=== PATIENT | female | born 1955 | race Caucasian/White ===

== ENCOUNTER 2020-04-04 13:52 | Outpatient (CLI) | payer BC, SELFPAY ==
--- NOTE | 2020-04-04 14:01 | USCV_ITS ---
Gregoria Barth Age: 64 Gender: F : 1955 Exam Date: 04/04/2020 14:23 Ordering Phys: Alfredo Dow MD Technologist: Carolina Arellano [place]am [place] [facility] [place]: murmur BP: / HR: 106 Rhythm: Sinus Technical Quality: Adequate MEASUREMENTS (Male / Female) Normal Values 2D ECHO LVOT Diameter 2.0 cm LV Ejection Fraction MOD 2C 70.6 % LV Ejection Fraction 2C AL 69.1 % LA Diameter 3.2 cm LA Width 4.2 cm LA Height 6.1 cm RA Width 2.9 cm RA Height 5.2 cm M-MODE LV Diastolic Diameter MM 5.9 cm 4.2 - 5.9 / 3.9 - 5.3 cm LV Systolic Diameter MM 4.2 cm LV Ejection Fraction MM Teich 55.4 % IVS Diastolic Thickness MM 0.9 cm 0.6 - 1.0 / 0.6 - 0.9 cm IVS Systolic Thickness MM 1.0 cm LVPW Diastolic Thickness MM 0.6 cm 0.6 - 1.0 / 0.6 - 0.9 cm LVPW Systolic Thickness MM 0.9 cm Aortic Annulus Diameter 2.9 cm LA Ao Ratio MM 1.1 MV E Point Septal Separation 0.7 cm DOPPLER AV Peak Velocity 167.0 cm/s LVOT Peak Velocity 143.0 cm/s AV Area Cont Eq vti 3.4 cm squared AV Area Cont Eq pk 2.8 cm squared MV Peak Velocity 169.0 cm/s MV Area PHT 3.2 cm squared Mitral E to A Ratio 1.0 MV E' Velocity 70.5 cm/s Mitral E to MV E' Ratio 17.4 Mitral E to LV E' Lateral Ratio 18.9 Mitral E to LV E' Septal Ratio 16.2 TR Peak Velocity 192.7 cm/s TR Peak Gradient 14.8 mmHg Right Atrial Pressure 3.0 mmHg Pulmonary Artery Systolic Pressu 17.8 mmHg PV Peak Velocity 150.3 cm/s RV Acceleration Time 0.1 s FINDINGS Left Ventricle Normal left ventricular size and systolic function, EF 65 %. No regional wall motion abnormalities. Right Ventricle The right ventricle is normal in size and function. Right Atrium The right atrium is normal in size. Left Atrium Mildly increased left atrial size. Mitral Valve Thickened mitral valve. Mild mitral annular calcification. Moderately severe eccentric mitral regurgitation. Aortic Valve Thickened aortic valve. Tricuspid Valve Trace tricuspid valve regurgitation. Pulmonic Valve Structurally normal pulmonic valve without significant stenosis. There is no pulmonic regurgitation. Pericardium Normal pericardium without effusion. Aorta Normal ascending aorta dimension. CONCLUSIONS Normal left ventricular size and systolic function, EF 65 %. No regional wall motion abnormalities. Thickened mitral valve. Mild mitral annular calcification. Moderately severe eccentric mitral regurgitation. Trace tricuspid valve regurgitation. Thickened aortic valve. There is no pericardial effusion. There are no intracardiac masses. Comparison with the previous study from 09/12/2015 is difficult because of the difference in the technical quality. Consider YOJANA, to better evaluate the mitral valve and the mitral regurgitation Dr Terra Carpio MD FAC (Electronically Signed) Final Date: 04 April 2020 19:22 S
== END 2020-04-04 13:53 | disposition home or self-care (01) ==
LOC: US 13:58
PROVIDERS: PCP Family Medicine; Visit Provider Family Medicine
DX: R01.1 Cardiac murmur, unspecified (principal); I08.0 Rheumatic disorders of both mitral and aortic valves
CPT/HCPCS: 93306

== ENCOUNTER 2020-04-06 16:33 | Inpatient (IN) | payer BC, SELFPAY ==
[2020-04-06] VITALS (8 sets, daily range): BP systolic 131–180; BP diastolic 76–116; PULSE 84–122; RESP 16–22; TEMP 36.7–37.2; O2SAT 94–100; BMI 42.3
[2020-04-06 18:37] LABS: Basophils % 0.4 %; Eosinophils # 0.2 10^3/uL (0.0-0.8); Eosinophils % 2.3 %; Hematocrit 21.7 % (37.0-47.0); Lymphocytes # 2.1 10^3/uL (0.8-4.8); Lymphocytes % 21.7 %; Mean Corpuscular HGB Conc 23.5 g/dL (30.0-36.0); Mean Corpuscular Hemoglobin 14.3 pg (28.0-34.0); Monocytes # 0.8 10^3/uL (0.2-0.9); Monocytes % 8.3 %; Neutrophils # 6.47 10^3/uL (1.8-7.7); Neutrophils % 66.9 %; Nucleated Red Blood Cells % 0.3 %; Platelet Count 489 10^3/cmm (130-400); Red Blood Count 3.56 10^6/uL (4.1-5.3); Red Cell Distribution Width 19.7 % (12.1-15.1); White Blood Count 9.7 10^3/uL (4.0-10.0)
[2020-04-06 18:41] LABS: Hemoglobin 5.1 g/dL (11.5-15.3)
--- NOTE | 2020-04-06 18:54 | ECG_ITS ---
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 Measurements Intervals [place] Rate: 109 P: 56 IN: 191 QRS: -17 QRSD: 92 T: 71 QT: 338 QTc: 457 Interpretive Statements SINUS TACHYCARDIA WITH OCCASIONAL SUPRAVENTRICULAR PREMATURE COMPLEXES VOLTAGE CRITERIA FOR LVH [MEETS CRITERIA IN ONE OF: R(aVL), S(V1), R(V5), R(V5/V6)+S(V1)] NONSPECIFIC ST & T-WAVE ABNORMALITY Compared to ECG 09/13/2015 05:32:05 Left ventricular hypertrophy now present T-wave abnormality now present Sinus rhythm no longer present First degree AV block no longer present Myocardial infarct finding no longer present Electronically Signed On 04-07-2020 18:00:58 CDT by Audrey Phillips M.D. [id number]
[2020-04-06 19:00] LABS: Alanine Aminotransferase 6 U/L (0-33); Albumin Level 4.2 g/dL (3.5-5.2); Alkaline Phosphatase 143 IU/L (35-105); Anion Gap 15.5 (5-19); Aspartate Amino Transferase 13 U/L (0-32); Blood Urea Nitrogen 11 mg/dL (8-23); Calcium 9.5 mg/dL (8.5-10.5); Carbon Dioxide 24 mmol/L (22-29); Chloride 101 mmol/L (98-107); Globulin 2.7 g/dL (1.3-4.6); Glomerular Filtration Rate 84.5 mL/min (90-130); Glucose 136 mg/dL (65-115); Osmolality Calculated 285 mOsm/kg (285-295); Potassium 3.5 mmol/L (3.5-5.1); Sodium 137 mmol/L (136-145); Total Bilirubin 0.3 mg/dL (0.15-1.2); Total Protein 6.9 g/dL (6.6-8.7)
--- NOTE | 2020-04-06 19:17 | ED_ITS ---
HPI - Recheck/Abnormal Lab/Rx General: Chief Complaint: Recheck/Abnormal Lab/Rx Stated Complaint: needs blood Time Seen by Provider: 04/06/20 19:09 Source: patient Mode of arrival: ambulatory Limitations: no limitations History of Present Illness: HPI narrative: Gregoria is a very nice 64-year-old female who comes in complaining of weakness, fatigue and generalized malaise. She states the symptoms have been going on for over a month. She went and saw her primary physician who sindy outpatient labs and revealed a hemoglobin of 5.2. Patient states she has had some small amounts of bright red blood in her stool but she thought this was from hemorrhoids. She does get lightheaded and presyncopal at times. She has rapid palpitations when she exerts herself. She denies any real chest pain. She denies any other complaints. Patient does have A. fib but denies being on anticoagulation other than aspirin. Review of Systems Const: Reports: fatigue and malaise; Denies: fever(s), chills, body aches or diaphoresis Eyes: Denies: change in vision, blurry vision, photophobia, eye discomfort, eye discharge, eye redness or yellow eyes ENMT: Denies: throat pain, odynophagia, hoarseness, swelling of lips/tongue, ear or mastoid pain, ear discharge, change in hearing or nasal discharge Card: Reports: palpitations, lightheadedness and pre-syncope; Denies: chest pain, irregular heart rhythm, edema, syncope or orthopnea Resp: Denies: productive cough, non-productive cough, wheezing, hemoptysis or chest congestion GI: Denies: abdominal pain, nausea, vomiting, hematemesis, coffee ground emesis, heartburn, diarrhea, constipation, GI cramping, hematochezia or melena : Denies: flank pain, dysuria, urinary frequency, urinary urgency or hematuria Musc: Denies: neck pain, back pain, extremity pain, extremity swelling, joint pain, joint swelling, joint redness, joint warmth or joint stiffness Skin/Breast: Denies: rash, pruritus, erythema, skin pain or skin tenderness Neuro: Denies: headache(s), numbness in extremities, weakness in extremities, sensory changes, lack of coordination, difficulty walking, dizziness, vertigo, confusion, Slurred speech present or seizure-like activity Berny/Lymph: Denies: easy bruising, easy bleeding, petechiae, purpura or enlarged lymph nodes All/Imm: Denies: urticaria, throat swelling, tongue swelling, facial swelling or acute wheezing PFSH ED PFSH: Medical History Atrial fibrillation GERD (gastroesophageal reflux disease) Heart murmur Surgical History H/O: hysterectomy History of esophagogastroduodenoscopy (EGD) Hx of colonoscopy S/P cholecystectomy Family History (Updated 04/06/20 @ 20:15 by Jamaal Wilson MD) Mother Breast cancer Father Lung cancer Social History Smoking and tobacco status: never smoked Alcohol intake: never Substance/Drug Use: never Physical Exam Const: COMMON NORMALS: no acute distress, patient oriented x3, no limitations and alert GENERAL APPEARANCE: cooperative HENMT: COMMON NORMALS: normocephalic, atraumatic, external ears normal, EAC's normal and Normal external nose present HEAD & SCALP: normal to inspection, normocephalic and atraumatic FACE & SINUS: normal facial exam and face symmetric NOSE: Normal external nose present and Normal nares present EXTERNAL EAR: Yes external ears normal EXTERNAL AUDITORY CANAL: EAC's normal MOUTH: Normal oral and palatal mucosa present, lip normal and tongue normal Eye: COMMON NORMALS: Equal, round and reactive pupils present and conjunctivae normal GENERAL EYE: appearance normal, both eyes and all related structures ALIGNMENT: Yes alignment normal PERIORBITAL: periorbital findings normal EYELID: eyelids normal CONJUNCTIVA: Yes conjunctivae normal SCLERA: sclerae normal PUPIL: Yes Equal, round and reactive pupils present Neck/C-Spine: COMMON NORMALS: full ROM, no lymphadenopathy, supple, no meningeal signs and no JVD GENERAL: Yes normal visual inspection and Yes trachea midline Chest: COMMONS NORMALS: normal inspection of the chest and normal palpation of entire chest wall Resp: COMMON NORMALS: normal respiratory effort, No retractions, No use of accessory muscles and clear to auscultation bilaterally EFFORT & INSPECTION: Yes able to speak in complete sentences and Yes symmetric chest movement AUSCULTATION: clear to auscultation bilaterally, no crackles, no rales, no rhonchi and no wheezes Cardio: COMMON NORMALS: no JVD, regular rate, regular rhythm, S1 normal heart sound present and S2 normal heart sound present RATE: regular rate RHYTHM: regular rhythm HEART SOUNDS: S1 normal heart sound present, S2 normal heart sound present, no click, no gallops, no murmurs and no rubs GI: COMMON NORMALS: Soft to palpation and No hepatosplenomegaly present PALPATION: Yes Soft to palpation, No Tenderness to palpation present (GI), No Guarding due to palpation present (GI), No Rigid due to palpation, Yes No hepatosplenomegaly present, No Hernia present, No Palpable mass present and No Pulsatile mass present RECTAL EXAM: visual inspection normal, normal sphincter tone, heme positive stool 2+ and External hemorrhoid(s) present OTHER: Light brown stool : COMMON NORMALS: Yes no CVA tenderness BLADDER/KIDNEY EXAM: Yes no CVA tenderness EXTERNAL FEMALE EXAM: No Hernia present Back/Pelvis: COMMON NORMALS: no CVA tenderness, thoracic and lumbar spine normal to inspection, no thoracic nor lumbar tenderness and thoraco-lumbar ROM normal Extremity: COMMON NORMALS: normal to inspection, full ROM, capillary refill normal, no joint enlargement, no clubbing, cyanosis or edema and no calf tenderness Neuro: COMMON NORMALS: patient oriented x3, CN's II-XII intact bilaterally, moves all extremities, no focal motor deficits and no sensory deficits noted SENSORIUM/ORIENTATION: Yes alert MENINGEAL SIGNS: Yes no meningeal signs SPEECH: speech normal Psych: COMMON NORMALS: mental status grossly normal, Normal thought process present, cooperative, normal affect, speech normal and activity/motor behavior normal SPEECH: Yes normal speech THOUGHT PROCESS: Normal thought process present Skin: COMMON NORMALS: no rashes or lesions noted, turgor normal, no jaundice, no petechiae and no mottling GENERAL SKIN EXAM: no rashes or lesions noted and turgor normal Course Vital Signs: Vital signs: Vital Signs Temperature 98.7 F 04/07/20 01:42 Pulse Rate 103 H 04/07/20 01:42 Respiratory Rate 20 H 04/07/20 01:42 Blood Pressure 148/84 04/07/20 01:42 Pulse Oximetry 98 04/07/20 00:00 MDM - Recheck/Abnormal Lab/Rx MDM Narrative: Medical decision making narrative: 1948 - Patient is Hemoccult positive light brown stool I suspect a upper GI bleed but definitive cause for anemia still to be determined. I have endorsed the case to Dr. Wilson and Dr. Engel and they agreed to admit and consult respectively. Patient is currently hemodynamically stable and has blood ready to transfuse. Lab Data: Attestation: I reviewed the patient's lab results. Labs: Lab Results 04/06/20 04/06/20 04/06/20 Range/Units 18:16 18:16 18:16 WBC 9.7 (4.0-10.0) 10^3/ uL RBC 3.56 L (4.1-5.3) 10^6/u L Hgb 5.1 L* (11.5-15.3) g/dL Hct 21.7 L (37.0-47.0) % MCV 61.0 L (81-99) fL MCH 14.3 L (28.0-34.0) pg MCHC 23.5 L (30.0-36.0) g/dL RDW 19.7 H (12.1-15.1) % Plt Count 489 H (130-400) 10^3/c mm MPV 9.0 (7.4-10.4) fL Neut % (Auto) 66.9 % Lymph % (Auto) 21.7 % [place] % (Auto) 8.3 % Eos % (Auto) 2.3 % Baso % (Auto) 0.4 % Reticulocyte % (Au to) % Neut # (Auto) 6.47 (1.8-7.7) 10^3/u L Lymph # (Auto) 2.1 (0.8-4.8) 10^3/u L [place] # (Auto) 0.8 (0.2-0.9) 10^3/u L Eos # (Auto) 0.2 (0.0-0.8) 10^3/u L Baso # (Auto) 0.0 (0.0-0.1) 10^3/u L Nucleated RBC % (a uto) 0.3 % Nucleated RBCs # 0.0 /100WBC PT 13.90 (12.1-14.9) SECO NDS INR 1.04 (0.8-1.2) APTT 30.7 (23.9-36.7) SECO NDS Sodium 137 (136-145) mmol/L Potassium 3.5 (3.5-5.1) mmol/L Chloride 101 (98-107) mmol/L Carbon Dioxide 24 (22-29) mmol/L Anion Gap 15.5 (5-19) BUN 11 (8-23) mg/dL Creatinine 0.7 (0.5-0.9) mg/dL GFR Calculation 84.5 L (90-130) mL/min Glucose 136 H (65-115) mg/dL Calculated Osmolal ity 285 (285-295) mOsm/k g Calcium 9.5 (8.5-10.5) mg/dL Iron (37-145) ug/dL TIBC mcg/dl % Saturation (20-50) % Unsat Iron Binding (112-347) ug/dL Ferritin (15-150) ng/mL Total Bilirubin 0.3 (0.15-1.2) mg/dL AST 13 (0-32) U/L ALT 6 (0-33) U/L Alkaline Phosphata se 143 H (35-105) IU/L Troponin T Baselin e (0-10) ng/L Total Protein 6.9 (6.6-8.7) g/dL Albumin 4.2 (3.5-5.2) g/dL Globulin 2.7 (1.3-4.6) g/dL Vitamin B12 (232-1245) pg/mL Folate (4.8-37.3) ng/mL TSH (0.27-4.20) uIU/ mL Blood Type Rho(D) Type Antibody Screen Crossmatch 04/06/20 04/06/20 04/06/20 Range/Units 18:16 18:16 18:16 WBC (4.0-10.0) 10^3/ uL RBC (4.1-5.3) 10^6/u L Hgb (11.5-15.3) g/dL Hct (37.0-47.0) % MCV (81-99) fL MCH (28.0-34.0) pg MCHC (30.0-36.0) g/dL RDW (12.1-15.1) % Plt Count (130-400) 10^3/c mm MPV (7.4-10.4) fL Neut % (Auto) % Lymph % (Auto) % [place] % (Auto) % Eos % (Auto) % Baso % (Auto) % Reticulocyte % (Au to) 2.0500 % Neut # (Auto) (1.8-7.7) 10^3/u L Lymph # (Auto) (0.8-4.8) 10^3/u L [place] # (Auto) (0.2-0.9) 10^3/u L Eos # (Auto) (0.0-0.8) 10^3/u L Baso # (Auto) (0.0-0.1) 10^3/u L Nucleated RBC % (a uto) % Nucleated RBCs # /100WBC PT (12.1-14.9) SECO NDS INR (0.8-1.2) APTT (23.9-36.7) SECO NDS Sodium (136-145) mmol/L Potassium (3.5-5.1) mmol/L Chloride (98-107) mmol/L Carbon Dioxide (22-29) mmol/L Anion Gap (5-19) BUN (8-23) mg/dL Creatinine (0.5-0.9) mg/dL GFR Calculation (90-130) mL/min Glucose (65-115) mg/dL Calculated Osmolal ity (285-295) mOsm/k g Calcium (8.5-10.5) mg/dL Iron (37-145) ug/dL TIBC mcg/dl % Saturation (20-50) % Unsat Iron Binding (112-347) ug/dL Ferritin (15-150) ng/mL Total Bilirubin (0.15-1.2) mg/dL AST (0-32) U/L ALT (0-33) U/L Alkaline Phosphata se (35-105) IU/L Troponin T Baselin e 11 H (0-10) ng/L Total Protein (6.6-8.7) g/dL Albumin (3.5-5.2) g/dL Globulin (1.3-4.6) g/dL Vitamin B12 (232-1245) pg/mL Folate (4.8-37.3) ng/mL TSH (0.27-4.20) uIU/ mL Blood Type O Positive Rho(D) Type Positive Antibody Screen Negative Crossmatch See Detail 04/06/20 04/06/20 Range/Units 18:16 18:16 WBC (4.0-10.0) 10^3/ uL RBC (4.1-5.3) 10^6/u L Hgb (11.5-15.3) g/dL Hct (37.0-47.0) % MCV (81-99) fL MCH (28.0-34.0) pg MCHC (30.0-36.0) g/dL RDW (12.1-15.1) % Plt Count (130-400) 10^3/c mm MPV (7.4-10.4) fL Neut % (Auto) % Lymph % (Auto) % [place] % (Auto) % Eos % (Auto) % Baso % (Auto) % Reticulocyte % (Au to) % Neut # (Auto) (1.8-7.7) 10^3/u L Lymph # (Auto) (0.8-4.8) 10^3/u L [place] # (Auto) (0.2-0.9) 10^3/u L Eos # (Auto) (0.0-0.8) 10^3/u L Baso # (Auto) (0.0-0.1) 10^3/u L Nucleated RBC % (a uto) % Nucleated RBCs # /100WBC PT (12.1-14.9) SECO NDS INR (0.8-1.2) APTT (23.9-36.7) SECO NDS Sodium (136-145) mmol/L Potassium (3.5-5.1) mmol/L Chloride (98-107) mmol/L Carbon Dioxide (22-29) mmol/L Anion Gap (5-19) BUN (8-23) mg/dL Creatinine (0.5-0.9) mg/dL GFR Calculation (90-130) mL/min Glucose (65-115) mg/dL Calculated Osmolal ity (285-295) mOsm/k g Calcium (8.5-10.5) mg/dL Iron 11 L (37-145) ug/dL TIBC 450 mcg/dl % Saturation 2.4 L (20-50) % Unsat Iron Binding 439 H (112-347) ug/dL Ferritin 5 L (15-150) ng/mL Total Bilirubin (0.15-1.2) mg/dL AST (0-32) U/L ALT (0-33) U/L Alkaline Phosphata se (35-105) IU/L Troponin T Baselin e (0-10) ng/L Total Protein (6.6-8.7) g/dL Albumin (3.5-5.2) g/dL Globulin (1.3-4.6) g/dL Vitamin B12 359 (232-1245) pg/mL Folate 15.4 (4.8-37.3) ng/mL TSH 1.42 (0.27-4.20) uIU/ mL Blood Type Rho(D) Type Antibody Screen Crossmatch EKG Data^: EKG 1: Attestation: I personally reviewed and interpreted this EKG as follows: EKG interpretation date: 04/06/20 EKG interpretation time: 19:28 Interpretation: Normal sinus rhythm at 109 beats a minute, left axis deviation, LVH, no blocks, normal intervals, nonspecific ST and T wave changes. Discharge Plan Discharge Patient Disposition: Admitted As Inpatient Admit Provider: Jamaal Wilson Clinical Impression: GI bleed Qualifiers: GI bleed type/associated pathology: unspecified gastrointestinal hemorrhage type Qualified Code(s): K92.2 - Gastrointestinal hemorrhage, unspecified Anemia Qualifiers: Anemia type: unspecified type Qualified Code(s): D64.9 - Anemia, unspecified Condition: Stable Referrals: Alfredo Dow MD [Primary Care Provider] - Discharge Date/Time: 04/06/20 20:38 Coding Level of Care Code ED Commercial Pest Control Representative for Chg Fwd Exam Comprehensive
[2020-04-06 19:24] LABS: INR 1.04 (0.8-1.2)
[2020-04-06 19:25] LABS: Partial Thromboplastin Time 30.7 SECONDS (23.9-36.7)
[2020-04-06 19:26] LABS: Troponin(5th) Baseline 11 ng/L (0-10)
--- NOTE | 2020-04-06 20:10 | PM.HP ---
Providers/Chief Complaint Primary Care Provider: Alfredo Diaz MD Chief Complaint: LOW BLOOD COUNT/SENT BY DR DIAZ History of Present Illness Gregoria Barth is a 64 year old female with a past medical history of atrial fibrillation on Cardizem and aspirin, osteoarthritis, GERD who presents to [facility] due to complaints of fatigue, malaise, shortness of breath, lightheadedness, dizziness, and a hemoglobin of 5.1 to her primary care physician's office. Patient tells me for the last month she is felt fatigue, malaise, shortness of breath with exertion, lightheadedness, dizziness. Her symptoms progressively worsened for the last month, no falls, no injuries, no chest pain, no palpitations, no fevers, no chills. She does state that she is noticed blood when wiping, blood on her stools, blood in the toilet bowl. No known history of diverticulosis. She tells me that she did have a colonoscopy 4 years ago, a precancerous polyp was removed, and she is due for colonoscopy. She did have an EGD many years ago for GERD, which found gastritis. She does use Celebrex for osteoarthritis. No other NSAID use. No personal family history of colon cancer, ulcerative colitis or Crohn's disease. No personal family history of leukemia, lymphoma. Work-up in the emergency room showed a hemoglobin of 5.1, MCV of 61, platelet count 489, INR 1.04, BUN 11, Hemoccult positive. Blood pressure 148/79, pulse 84, normal sinus rhythm, respiratory rate 18, temp 99, O2 sat 90% on room air. Review of Systems Const: Reports: fatigue and malaise; Denies: fever(s) or chills Eyes: Denies: change in vision or blurry vision ENMT: Denies: nasal congestion Resp: Reports: dyspnea; Denies: productive cough, non-productive cough or wheezing GI: Reports: hematochezia; Denies: abdominal pain, nausea, vomiting, hematemesis, diarrhea, constipation or melena : Denies: flank pain, dysuria or urinary frequency Musc: Denies: neck pain or back pain Skin/Breast: Denies: rash Neuro: Reports: dizziness; Denies: headache(s) or vertigo Psych: Denies: anxiety or depression Endo: Denies: polyuria or polydipsia Medications/Allergies Allergies Allergy/AdvReac Type Severity Reaction Status Date / Time nitrofurantoin Allergy Unconscious Verified 04/06/20 18:10 [From Macrobid] Additional Medication Information Cardizem er 180 mg daily Aspirin 81 mg daily Celebrex Pantoprazole PFSH Acute PFSH: Medical History Atrial fibrillation GERD (gastroesophageal reflux disease) Heart murmur Surgical History H/O: hysterectomy History of esophagogastroduodenoscopy (EGD) Hx of colonoscopy S/P cholecystectomy Family History (Updated 04/06/20 @ 20:15 by Jamaal Wilson MD) Mother Breast cancer Father Lung cancer Social History Smoking and tobacco status: never smoked Alcohol intake: never Substance/Drug Use: never Vitals/I&O/Wt Last Vital Signs Temp 99.0 F 04/06/20 18:04 Pulse 84 04/06/20 19:54 Resp 18 04/06/20 19:54 BP 148/79 04/06/20 19:54 Pulse Ox 98 04/06/20 19:54 Weight last 48 hrs Weight 122.47 kg Physical Exam Const: COMMON NORMALS: no acute distress and patient oriented x3 GENERAL APPEARANCE: cooperative and comfortable HENMT: COMMON NORMALS: normocephalic HEAD & SCALP: normocephalic Eye: COMMON NORMALS: Equal, round and reactive pupils present and EOMs intact bilaterally GENERAL EYE: appearance normal, both eyes and all related structures PUPIL: Yes Equal, round and reactive pupils present DIRECT OPHTHALMOSCOPY: Yes no papilledema OTHER: Conjunctival pallor Neck/C-Spine: COMMON NORMALS: full ROM, no lymphadenopathy, no JVD and Thyroid normal THYROID: Thyroid normal Lymph: LYMPHATIC: no lymphadenopathy noted Resp: COMMON NORMALS: normal respiratory effort, No retractions, No use of accessory muscles and clear to auscultation bilaterally AUSCULTATION: clear to auscultation bilaterally Cardio: COMMON NORMALS: no JVD, regular rate, regular rhythm, S1 normal heart sound present, S2 normal heart sound present, No gallops present (Cardio), No clicks present (Cardio) and No murmurs present (Cardio) RATE: regular rate RHYTHM: regular rhythm HEART SOUNDS: S1 normal heart sound present and S2 normal heart sound present GI: COMMON NORMALS: Normal to inspection, nondistended, normoactive bowel sounds present, Soft to palpation, non-tender and No hepatosplenomegaly present PALPATION: Yes Soft to palpation and Yes No hepatosplenomegaly present Extremity: COMMON NORMALS: normal to inspection, full ROM and no pedal edema Neuro: COMMON NORMALS: patient oriented x3, CN's II-XII intact bilaterally, moves all extremities and no focal motor deficits Psych: COMMON NORMALS: mental status grossly normal, Normal thought process present and cooperative THOUGHT PROCESS: Normal thought process present Data : 04/06/20 18:16 04/06/20 18:16 A&P Assessment and plan (1) GI bleed: -Hemoglobin 5.1, MCV 61 -Colonoscopy 4 years ago showed precancerous polyp, which was removed, is due for colonoscopy -EGD many years ago did show gastritis -Hemoccult positive, has complaints of bloody stools -Current hemodynamics blood pressure 148/79, pulse 84, saturation 8% on room air, temp 99, stable Plan: -Admit to general medical floors -Telemetry monitoring -We will receive 4 units of PRBC -Protonix 40 IV twice daily -We will check iron studies, transfuse iron as needed -Dr. Engel has been consulted, plans on EGD and colonoscopy possibly on Thursday -Continue clear liquid diet, monitor for bloody black stools, monitor hemodynamics Status: Acute Qualifiers: GI bleed type/associated pathology: unspecified gastrointestinal hemorrhage type Qualified Code(s): K92.2 - Gastrointestinal hemorrhage, unspecified (2) Atrial fibrillation: -On Cardizem -Is on aspirin, not sure why she is not on a blood thinner, she denies a history of bloody stools or GI bleed on a blood thinner -We will have to reassess based on work-up of GI bleeding, and on discharge Status: Acute (3) GERD (gastroesophageal reflux disease): Status: Acute Attestations Medical Necessity Statement*: Patient requires hospitalization, inpatient, greater than 2 midnights, for GI bleed Coding Level of Care Code Acute Event Planning Manager for [facility] Diagnoses GI bleed K92.2 GI bleed type/associated pathology: unspecified gastrointestinal hemorrhage type Atrial fibrillation I48.91 GERD (gastroesophageal reflux disease) K21.9
[2020-04-06] MEDS: pantoprazole 40 mg SDV 80 MG IVP (20:37)
[2020-04-06] MEDS: sodium chloride 0.9% 1,000 ML 100 ML IV ×3 (20:37→22:14)
--- NOTE | 2020-04-06 20:44 | CTR_ITS ---
PROCEDURE INFORMATION: Exam: CT Abdomen And Pelvis Without Contrast Exam date and time: 04/06/2020 8:57 PM Age: 64 years old Clinical indication: Abdominal pain; Generalized; Prior surgery; Surgery type: Cholecystectomy, hysterectomy; Additional info: Gi bleed TECHNIQUE: Imaging protocol: Computed tomography of the abdomen and pelvis without contrast. Radiation optimization: All CT scans at this facility use at least one of these dose optimization techniques: automated exposure control; mA and/or kV adjustment per patient size (includes targeted exams where dose is matched to clinical indication); or iterative reconstruction. COMPARISON: No relevant prior studies available. RADIATION DOSE METRICS: Total DLP (mGy-cm): 1798.67 FINDINGS: Liver: Normal. No mass. Gallbladder and bile ducts: Cholecystectomy. Pancreas: Normal. No ductal dilation. Spleen: Normal. No splenomegaly. Adrenals: Normal. No mass. Kidneys and ureters: Normal. No hydronephrosis. Stomach and bowel: Constipation. Appendix: No evidence of appendicitis. Intraperitoneal space: Unremarkable. No free air. No significant fluid collection. Vasculature: Unremarkable. No abdominal aortic aneurysm. Lymph nodes: Unremarkable. No enlarged lymph nodes. Urinary bladder: Unremarkable as visualized. Reproductive: Unremarkable as visualized. Bones/joints: Unremarkable. No acute fracture. Soft tissues: Unremarkable. CT/CT abdomen pelvis wo con [id number] IMPRESSION: 1. Negative for acute inflammatory process in the abdomen or pelvis 2. Cholecystectomy. 3. Constipation. Radiation Dose CTDIVOL = (mGy): DLP = 1798.67 (mGy-cm)
--- NOTE | 2020-04-06 20:54 | ECG_ITS ---
[facility] Test Date: 2020-04-06 Pat Name: Gregoria Barth Department: Room: 254 Gender: Female On Site Property Manager: : [id number] Requested By: Luz Maria Wong Order Number: [id number] Bonny MD: Audrey Phillips M.D. Measurements Intervals [place]ascade Rate: 109 P: HI: -1 QRS: -18 QRSD: 87 T: 68 QT: 334 QTc: 452 Interpretive Statements SINUA TACHYCARDIA MODERATE VOLTAGE CRITERIA FOR LVH, CONSIDER NORMAL VARIANT [MEETS CRITERIA IN ONE OF: R(aVL), S(V1), R(V5), R(V5/V6)+S(V1)] POSSIBLE ANTERIOR MYOCARDIAL INFARCTION [30 ms Q WAVE IN V3/V4, OR R < 0.2 mV IN V4], PROBABLY OLD Compared to ECG 04/06/2020 19:28:25 Myocardial infarct finding now present Sinus tachycardia no longer present T-wave abnormality no longer present Electronically Signed On 04-09-2020 20:54:55 CDT by Audrey Phillips M.D. [id number]
[2020-04-06 21:09] LABS: Troponin 5 2HR 9.56 ng/L (0-10)
[2020-04-06 21:10] LABS: Troponin 5 2HR Delta -1.44 ABS# (0-10)
[2020-04-06 21:45] LABS: Ferritin 5 ng/mL (15-150); Iron 11 ug/dL (37-145); Percent Saturation 2.4 % (20-50); Thyroid Stimulating Hormone 1.42 uIU/mL (0.27-4.20); Total Iron Binding Capacity 450 mcg/dl; Unsaturated Iron Binding 439 ug/dL (112-347); Vitamin B12 359 pg/mL (232-1245)
[2020-04-06 21:47] LABS: Folate Level 15.4 ng/mL (4.8-37.3)
[2020-04-06] MEDS: pantoprazole 40 mg SDV IVP (22:11)
[2020-04-06] MEDS: sodium chloride 0.9% (100 ml) 100 ML (22:12)
[2020-04-07] VITALS (14 sets, daily range): BP systolic 126–149; BP diastolic 69–86; PULSE 67–127; RESP 18–21; TEMP 36.9–37.2; O2SAT 94–98
[2020-04-07 01:55] LABS: Troponin 5 6HR 10.19 ng/L (0-10)
[2020-04-07 02:10] LABS: Troponin 5 6HR Delta -0.81 ng/L (0-12)
[2020-04-07] MEDS: ondansetron 4 MG Tablet PO ×2 (04:40→14:36)
[2020-04-07 06:22] LABS: Basophils # 0.1 10^3/uL (0.0-0.1); Basophils % 0.7 %; Eosinophils # 0.3 10^3/uL (0.0-0.8); Eosinophils % 3.5 %; Hematocrit 26.4 % (37.0-47.0); Hemoglobin 6.9 g/dL (11.5-15.3); Lymphocytes # 1.9 10^3/uL (0.8-4.8); Lymphocytes % 26.5 %; Mean Corpuscular HGB Conc 26.1 g/dL (30.0-36.0); Mean Corpuscular Hemoglobin 17.6 pg (28.0-34.0); Mean Corpuscular Volume 67.3 fL (81-99); Mean Platelet Volume 9.6 fL (7.4-10.4); Monocytes # 0.8 10^3/uL (0.2-0.9); Monocytes % 10.8 %; Neutrophils # 4.17 10^3/uL (1.8-7.7); Neutrophils % 58.2 %; Nucleated Red Blood Cells % 0.3 %; Platelet Count 431 10^3/cmm (130-400); Red Blood Count 3.92 10^6/uL (4.1-5.3); Red Cell Distribution Width 28.1 % (12.1-15.1); White Blood Count 7.2 10^3/uL (4.0-10.0)
[2020-04-07 06:47] LABS: INR 1.07 (0.8-1.2)
[2020-04-07 06:53] LABS: Alanine Aminotransferase 8 U/L (0-33); Albumin Level 3.8 g/dL (3.5-5.2); Alkaline Phosphatase 125 IU/L (35-105); Anion Gap 14.4 (5-19); Aspartate Amino Transferase 10 U/L (0-32); Blood Urea Nitrogen 7 mg/dL (8-23); Calcium 9.2 mg/dL (8.5-10.5); Carbon Dioxide 25 mmol/L (22-29); Chloride 105 mmol/L (98-107); Globulin 2.4 g/dL (1.3-4.6); Glucose 106 mg/dL (65-115); Magnesium 2.1 mg/dL (1.7-2.3); Osmolality Calculated 290 mOsm/kg (285-295); Phosphorus 3.6 mg/dL (2.5-4.5); Potassium 3.4 mmol/L (3.5-5.1); Sodium 141 mmol/L (136-145); Total Bilirubin 0.5 mg/dL (0.15-1.2); Total Protein 6.2 g/dL (6.6-8.7)
[2020-04-07 09:26] LABS: Hematocrit 27.9 % (37.0-47.0); Hemoglobin 7.2 g/dL (11.5-15.3)
[2020-04-07] MEDS: dilTIAZem ER (24HR) 180 mg Capsule PO (10:01)
[2020-04-07] MEDS: bisacodyl 5 mg Tablet 40 MG PO (10:01)
[2020-04-07] MEDS: iron sucrose 200 MG in sodium chloride 0.9% (100 ml) 100 ML 220 MG IV (11:32)
--- NOTE | 2020-04-07 12:16 | PM.CONSULT ---
Providers/Reason For Consult Consulting Physican/Specialty*: Dao Aleman Reason for Consult*: Anemia Attending Physician: Dao Aleman Primary Care Provider: Alfredo Dow MD History of Present Illness History of Present Illness Gregoria Barth is a 64 year old female who has been complaining of shortness of breath, lightheadedness and dizziness for the last few days and a lab draw at her PCPs office showed a hemoglobin of 5.1. Patient has noticed blood in his stools for the last couple of months which she has attributed to her hemorrhoids. The blood is usually fresh, she had a colonoscopy [address] Monsivais where a polyp was removed. She denies any abdominal pain, nausea, vomiting, no history of peptic ulcer disease in the past. No prior EGD. No family history of colon cancer. She had a CT abdomen pelvis in the ER which was negative for any acute pathology. She has received 2 units of blood and her hemoglobin is up to 6.9 this morning. Review of Systems General: Reports: 10 or more systems reviewed and unremarkable except in HPI and below Meds/Allergies Home Medications and Allergies Home Medications Medication Instructions Recorded Confirmed Last Taken Type aspirin 325 mg PO DAILY 04/06/20 04/06/20 04/06/20 07:00 History celecoxib [Celebrex] 50 mg PO DAILY 04/06/20 04/06/20 04/06/20 07:00 History diltiazem HCl [Cardizem LA] 180 mg PO BEDTIME 04/06/20 04/06/20 04/05/20 17:00 History duloxetine 30 mg PO BEDTIME 04/06/20 04/06/20 04/05/20 17:00 History montelukast 10 mg PO QPM 04/06/20 04/06/20 04/06/20 17:00 History pantoprazole [Protonix] 20 mg PO DAILY 04/06/20 04/06/20 04/06/20 07:00 History Allergies Allergy/AdvReac Type Severity Reaction Status Date / Time nitrofurantoin Allergy Unconscious Verified 04/06/20 18:10 [From Macrobid] Current Medications Current Medications Generic Name Dose Route Start Last Admin Trade Name Freq PRN Reason Stop Dose Admin Diltiazem HCl 180 mg 04/07/20 09:00 04/07/20 10:01 Cardizem Cd (24hr) PO 180 mg DAILY EMILY Administration Sodium Chloride 1,000 mls @ 100 mls/hr 04/06/20 20:44 04/07/20 05:34 Sodium Chloride 0.9% IV 100 mls/hr .Q10H EMILY Infusion Iron Sucrose 200 mg/ Sodium 110 mls @ 220 mls/hr 04/07/20 08:00 04/07/20 11:32 Chloride IV 04/11/20 08:29 220 mls/hr Q24H EMILY Administration Ondansetron HCl 4 mg 04/06/20 20:44 04/07/20 04:40 Zofran PO 4 mg Q8H PRN Administration NAUSEA AND VOMITING Pantoprazole Sodium 40 mg 04/06/20 21:30 04/06/20 22:11 Protonix IVP 40 mg Q12H EMILY Administration PFSH Acute PFSH: Medical History Atrial fibrillation GERD (gastroesophageal reflux disease) Heart murmur Surgical History H/O: hysterectomy History of esophagogastroduodenoscopy (EGD) Hx of colonoscopy S/P cholecystectomy Family History Mother Breast cancer Father Lung cancer Social History Smoking and tobacco status: never smoked Alcohol intake: never Substance/Drug Use: never Vitals/I&O/Wt Last Vital Signs Temp 99.0 F 04/07/20 11:19 Pulse 104 H 04/07/20 11:19 Resp 18 04/07/20 11:19 BP 135/73 04/07/20 11:19 Pulse Ox 98 04/07/20 11:19 04/06/20 04/07/20 04/07/20 22:59 06:59 14:59 Intake Total 646.667 / 1346.667 700 / 1346.667 240 / 240 Output Total 252 / 252 Balance 646.667 / 1094.667 448 / 1094.667 240 / 240 Weight last 48 hrs Weight 270 lb Physical Exam Narrative: EXAM NARRATIVE: HEENT: Normocephalic Eye: Sclera /conjunctiva normal Abdomen: Soft to palpation Neurological: Oriented to place person and time Skin: Intact, no lesions appreciated on gross exam A&P Assessment and plan (1) Anemia: 64-year-old female with 2-month history of fresh blood per rectum with a hemoglobin of 5 yesterday. Patient is currently hemodynamically stable with no evidence of active bleeding. Plan for EGD/colonoscopy under MAC Continue Protonix Transfuse 1 more unit of PRBC N.p.o. after midnight Bowel prep today Status: Acute Qualifiers: Anemia type: unspecified type Qualified Code(s): D64.9 - Anemia, unspecified Coding Level of Care Code Acute Seam Sewer for [facility] Fwd Diagnoses Anemia D64.9 Anemia type: unspecified type
[2020-04-07] MEDS: magnesium citrate Btl 296 mL PO ×2 (12:24→19:05)
[2020-04-07 12:42] LABS: Hematocrit 28.8 % (37.0-47.0); Hemoglobin 7.5 g/dL (11.5-15.3)
[2020-04-07] MEDS: pantoprazole 40 mg SDV IVP ×2 (13:01→20:50)
--- NOTE | 2020-04-07 13:25 | PC.CHAP ---
Pastoral Care Encounter/Spiritual Assessment Type of Contact [] Declined second hand paper machine visit [] Patient/Family/Request visit [] Outpatient visit [] Follow-up visit [] Physician referral [] Code/Alert [X] Routine visit [] Staff referral [] Actively dying [] Patient sleeping [] Family support [] [] Out of room [] Palliative care [] [] Receiving care in room [] Pre-surgical visit [] Trauma [] Long length of stay [] ICU visit [] Other: Relational/Emotional Strength [] Patient feels connected with others/family/visitors/staff [] Distress [] Loneliness/isolation [] Abandonment Spirituality of Patient [] Person of [place] [] Attends Faith of their [place] [] Believes in Prayer [] Reads Bible or Holiness materials [] There are Spiritual issues to be addressed Building Consultant Interventions [] Prayer [] Active listening [] Non-anxious presence [] Spiritual/emotional support [] Crisis/trauma care [] Spiritual counseling [] Bereavement support [] Provided bereavement packet [] Provided Bible/devotional materials [] Provided toy/stuffed animal, coloring book to patient or family member [] Provided Communion [] Anointing/[place] [] Salvation [] Completed spiritual assessment [] Other: Impact on Illness or Injury [] Angry [] Fearful [] Anxious [] Often cries [] Exhaustion [] Unable to work [] Unable to attend yarsanism [] Unable to walk/stand [] Unable to read [] Unable to drive [] Unable to eat/drink [] Unable to sleep [] Unable to be with family [] Patient intubated [] Other: Summary Time spent with patient
--- NOTE | 2020-04-07 16:36 | PC.PT ---
PT intervention at evaluation on hold awaiting hemoglobin increase, patient still to receive transfusion.
[2020-04-07 16:50] LABS: Hematocrit 27.7 % (37.0-47.0); Hemoglobin 7.3 g/dL (11.5-15.3)
[2020-04-07] MEDS: pneumococcal (23 valent) SDV 0.5 mL IM (17:39)
[2020-04-07] MEDS: sodium chloride 0.9% 1,000 ML 100 ML IV ×2 (17:41→17:47)
--- NOTE | 2020-04-07 19:40 | PM.PN ---
Subjective Subjective: Interval history: She is doing better. Denies any chest pain or pressure, shortness of breath, presyncope. Reports she has had some loose stools due to beginning prep for endoscopy, with a little bit of red blood in the stool. Has no abdominal pain. Vitals/I&O/Wt Last Vital Signs Temp 98.8 F 04/07/20 19:20 Pulse 102 H 04/07/20 19:20 Resp 19 H 04/07/20 19:20 BP 133/69 04/07/20 19: Pulse Ox 95 04/07/20 19:20 04/07/20 04/07/20 04/07/20 06:59 14:59 22:59 Intake Total 700 / 1346.667 358 / 358 1111.667 / 1469.667 Output Total 252 / 252 Balance 448 / 1094.667 358 / 358 1111.667 / 1469.667 Weight last 48 hrs Weight 122.47 kg Physical Exam Const: COMMON NORMALS: no acute distress, patient oriented x3 and alert NUTRITIONAL APPEARANCE: obese ORIENTATION/CONSCIOUSNESS: Yes awake OTHER: Pleasant, conversant. HENMT: COMMON NORMALS: oropharynx normal Neck/C-Spine: COMMON NORMALS: no JVD Resp: COMMON NORMALS: normal respiratory effort and clear to auscultation bilaterally AUSCULTATION: clear to auscultation bilaterally Cardio: COMMON NORMALS: no JVD, regular rhythm, S1 normal heart sound present, S2 normal heart sound present and No murmurs present (Cardio) RHYTHM: regular rhythm HEART SOUNDS: S1 normal heart sound present and S2 normal heart sound present GI: COMMON NORMALS: Normal to inspection, nondistended, normoactive bowel sounds present, Soft to palpation and non-tender PALPATION: Yes Soft to palpation Extremity: COMMON NORMALS: no joint enlargement and no pedal edema Neuro: COMMON NORMALS: patient oriented x3 and moves all extremities SENSORIUM/ORIENTATION: Yes alert Skin: COMMON NORMALS: no rashes or lesions noted GENERAL SKIN EXAM: no rashes or lesions noted Data : 04/07/20 16:11 04/07/20 05:43 A&P Assessment and plan (1) GI bleed: Responded well to PRBC transfusion. Initial hemoglobin 6.9 we are planning to transfuse 1 more unit, but on recheck appears to be increasing, stable on 3 tests, currently 7.3. Hold off additional transfusion for now unless again begins to decline. Discussed with surgery-plan for endoscopic evaluation tomorrow. She has begun prep. Iron deficiency anemia: IV iron was ordered, but she did not tolerated, with flushing, malaise, infusion had to be interrupted and discontinued. -Colonoscopy 4 years ago showed precancerous polyp, which was removed, is due for colonoscopy -EGD many years ago did show gastritis Aspirin on hold. Discussed with her to discontinue Celebrex on discharge. -Protonix 40 IV twice daily -We will check iron studies, transfuse iron as needed -Continue clear liquid diet, monitor for bloody black stools, monitor hemodynamics Status: Acute Qualifiers: GI bleed type/associated pathology: unspecified gastrointestinal hemorrhage type Qualified Code(s): K92.2 - Gastrointestinal hemorrhage, unspecified (2) Atrial fibrillation: Continue Cardizem. Replace hypokalemia. Discussed risks of stroke with atrial fibrillation. She has been on aspirin. She would like to discuss again with with primary care provider in office after she recovers from the acute illness with regards to stroke mitigation strategies with resumption of aspirin once safe versus anticoagulation. Status: Acute (3) GERD (gastroesophageal reflux disease): Continue PPI. Status: Acute Attestations Medical Necessity Statement*: Continue admission for assessment and management of GI bleeding, acute blood loss anemia. Coding Level of Care Code Acute Field Hand for [facility] Diagnoses GI bleed K92.2 GI bleed type/associated pathology: unspecified gastrointestinal hemorrhage type Atrial fibrillation I48.91 GERD (gastroesophageal reflux disease) K21.9
[2020-04-07 19:56] LABS: Hematocrit 28.8 % (37.0-47.0); Hemoglobin 7.5 g/dL (11.5-15.3)
[2020-04-07] MEDS: potassium chloride oral liq 20 mEq/15 mL UDC 40 MEQ PO (20:49)
[2020-04-08] VITALS (14 sets, daily range): BP systolic 121–163; BP diastolic 66–93; PULSE 88–112; RESP 14–18; TEMP 36.4–37.2; O2SAT 92–98
[2020-04-08] MEDS: sodium chloride 0.9% 1,000 ML 100 ML IV (02:11)
[2020-04-08 03:05] LABS: Hematocrit 26.5 % (37.0-47.0); Hemoglobin 6.8 g/dL (11.5-15.3)
[2020-04-08 05:16] LABS: Hematocrit 26.4 % (37.0-47.0); Hemoglobin 6.8 g/dL (11.5-15.3)
[2020-04-08 05:46] LABS: Alanine Aminotransferase 8 U/L (0-33); Albumin Level 3.6 g/dL (3.5-5.2); Alkaline Phosphatase 127 IU/L (35-105); Anion Gap 11.3 (5-19); Aspartate Amino Transferase 13 U/L (0-32); Blood Urea Nitrogen 6 mg/dL (8-23); Calcium 9.1 mg/dL (8.5-10.5); Carbon Dioxide 26 mmol/L (22-29); Chloride 105 mmol/L (98-107); Globulin 2.5 g/dL (1.3-4.6); Glucose 96 mg/dL (65-115); Magnesium 2.3 mg/dL (1.7-2.3); Osmolality Calculated 285 mOsm/kg (285-295); Phosphorus 4.1 mg/dL (2.5-4.5); Potassium 3.3 mmol/L (3.5-5.1); Sodium 139 mmol/L (136-145); Total Bilirubin 0.5 mg/dL (0.15-1.2); Total Protein 6.1 g/dL (6.6-8.7)
--- NOTE | 2020-04-08 07:48 | P.ANESASSM_ITS ---
Pre-Anesthetic Assessment Pre-Anesthetic Assessment: Height/Weight: Height 1.7 m Weight 122.47 kg Temp Pulse Resp BP Pulse Ox 98.4 F 109 H 18 136/84 94 04/08/20 07:42 04/08/20 07:42 04/08/20 07:42 04/08/20 07:42 04/08/20 07:42 Preop Diagnosis: anemia Proposed Procedure: Operation Date: 04/08/20 08:00 Proposed Procedures p EGD(Not Applicable) - Octavio Engel MD s Colonoscopy(Not Applicable) - Octavio Engel MD Familial anesthetic complications: none Was Beta Ellie taken within 24 hours: N/A Last intake: NPO > 8 hrs Social: Social History: No alcohol and No tobacco Exam: Pre-Anes Outpt Exam: alert, oriented x 3, clear to auscultation bilaterally and regular rate & rhythm Airway: Cervical ROM: WNL MP: 3 Dentition: Full Pulmonary: Pulmonary: Asthma (Remote asthma) CV/HEM: CV/HEM: Afib, Anemia and Murmur Comments: severe MR on echo GI: GI: GERD Metabolic: Metabolic: Morbid obesity Anesthetic Plan: ASA status: 3 Anesthesia: MAC Risk of > 500 ml blood loss (7ml/kg in children): No Meds/Allergies Current Medications: Current Medications Generic Name Dose Route Start Last Admin Trade Name Freq PRN Reason Stop Dose Admin Diltiazem HCl 180 mg 04/07/20 09:00 04/07/20 10:01 Cardizem Cd (24h r) PO 180 mg DAILY EMILY Administration Sodium Chloride 1,000 mls @ 100 m ls/hr 04/06/20 20:44 04/08/20 02:11 Sodium Chloride 0.9% IV 100 mls/hr .Q10H EMILY Administration Ondansetron HCl 4 mg 04/06/20 20:44 04/07/20 14:36 Zofran PO 4 mg Q8H PRN Administration NAUSEA AND VOMITI NG Pantoprazole Sodiu m 40 mg 04/06/20 21:30 04/07/20 20:50 Protonix IVP 40 mg Q12H EMILY Administration Additional Medication Information: Cardizem er 180 mg daily Aspirin 81 mg daily Celebrex Pantoprazole PFSH Anesthesia PFSH: Medical History Atrial fibrillation GERD (gastroesophageal reflux disease) Heart murmur Surgical History H/O: hysterectomy History of esophagogastroduodenoscopy (EGD) Hx of colonoscopy S/P cholecystectomy Family History Mother Breast cancer Father Lung cancer Social History Smoking and tobacco status: never smoked Alcohol intake: never Substance/Drug Use: never Data Anesthesia CBC & Chem 7: 04/08/20 04:29 04/08/20 04:29 Other Labs: Laboratory Results - last 48 hr 04/06/20 04/06/20 04/06/20 18:16 18:16 18:16 WBC 9.7 RBC 3.56 L Hgb 5.1 L* Hct 21.7 L MCV 61.0 L MCH 14.3 L MCHC 23.5 L RDW 19.7 H Plt Count 489 H MPV 9.0 Neut % (Auto) 66.9 Lymph % (Auto) 21.7 [place] % (Auto) 8.3 Eos % (Auto) 2.3 Baso % (Auto) 0.4 Reticulocyte % (Auto) Neut # (Auto) 6.47 Lymph # (Auto) 2.1 [place] # (Auto) 0.8 Eos # (Auto) 0.2 Baso # (Auto) 0.0 Nucleated RBC % (auto) 0.3 Nucleated RBCs # 0.0 PT 13.90 INR 1.04 APTT 30.7 Sodium 137 Potassium 3.5 Chloride 101 Carbon Dioxide 24 Anion Gap 15.5 BUN 11 Creatinine 0.7 GFR Calculation 84.5 L Glucose 136 H Calculated Osmolality 285 Calcium 9.5 Phosphorus Magnesium Iron TIBC % Saturation Unsat Iron Binding Ferritin Total Bilirubin 0.3 AST 13 ALT 6 Alkaline Phosphatase 143 H Troponin T Baseline Troponin T 120 Minute Delta Troponin T Troponin T Hi Sens 6Hr Troponin T Hi Sens 6Hr Delta Total Protein 6.9 Albumin 4.2 Globulin 2.7 Vitamin B12 Folate TSH Blood Type Rho(D) Type Antibody Screen Crossmatch 04/06/20 04/06/20 04/06/20 18:16 18:16 18:16 WBC RBC Hgb Hct MCV MCH MCHC RDW Plt Count MPV Neut % (Auto) Lymph % (Auto) [place] % (Auto) Eos % (Auto) Baso % (Auto) Reticulocyte % (Auto) 2.0500 Neut # (Auto) Lymph # (Auto) [place] # (Auto) Eos # (Auto) Baso # (Auto) Nucleated RBC % (auto) Nucleated RBCs # PT INR APTT Sodium Potassium Chloride Carbon Dioxide Anion Gap BUN Creatinine GFR Calculation Glucose Calculated Osmolality Calcium Phosphorus Magnesium Iron TIBC % Saturation Unsat Iron Binding Ferritin Total Bilirubin AST ALT Alkaline Phosphatase Troponin T Baseline 11 H Troponin T 120 Minute Delta Troponin T Troponin T Hi Sens 6Hr Troponin T Hi Sens 6Hr Delta Total Protein Albumin Globulin Vitamin B12 Folate TSH Blood Type O Positive Rho(D) Type Positive Antibody Screen Negative Crossmatch See Detail 04/06/20 04/06/20 04/06/20 18:16 18:16 20:36 WBC RBC Hgb Hct MCV MCH MCHC RDW Plt Count MPV Neut % (Auto) Lymph % (Auto) [place] % (Auto) Eos % (Auto) Baso % (Auto) Reticulocyte % (Auto) Neut # (Auto) Lymph # (Auto) [place] # (Auto) Eos # (Auto) Baso # (Auto) Nucleated RBC % (auto) Nucleated RBCs # PT INR APTT Sodium Potassium Chloride Carbon Dioxide Anion Gap BUN Creatinine GFR Calculation Glucose Calculated Osmolality Calcium Phosphorus Magnesium Iron 11 L TIBC 450 % Saturation 2.4 L Unsat Iron Binding 439 H Ferritin 5 L Total Bilirubin AST ALT Alkaline Phosphatase Troponin T Baseline Troponin T 120 Minute 9.56 Delta Troponin T -1.44 L Troponin T Hi Sens 6Hr Troponin T Hi Sens 6Hr Delta Total Protein Albumin Globulin Vitamin B12 359 Folate 15.4 TSH 1.42 Blood Type Rho(D) Type Antibody Screen Crossmatch 04/07/20 04/07/20 04/07/20 00:50 05:43 05:43 WBC 7.2 RBC 3.92 L Hgb 6.9 L D Hct 26.4 L MCV 67.3 L D MCH 17.6 L D MCHC 26.1 L D RDW 28.1 H Plt Count 431 H MPV 9.6 Neut % (Auto) 58.2 Lymph % (Auto) 26.5 [place] % (Auto) 10.8 Eos % (Auto) 3.5 Baso % (Auto) 0.7 Reticulocyte % (Auto) Neut # (Auto) 4.17 Lymph # (Auto) 1.9 [place] # (Auto) 0.8 Eos # (Auto) 0.3 Baso # (Auto) 0.1 Nucleated RBC % (auto) 0.3 Nucleated RBCs # 0.0 PT 14.20 INR 1.07 APTT Sodium Potassium Chloride Carbon Dioxide Anion Gap BUN Creatinine GFR Calculation Glucose Calculated Osmolality Calcium Phosphorus Magnesium Iron TIBC % Saturation Unsat Iron Binding Ferritin Total Bilirubin AST ALT Alkaline Phosphatase Troponin T Baseline Troponin T 120 Minute Delta Troponin T Troponin T Hi Sens 6Hr 10.19 H Troponin T Hi Sens 6Hr Delta -0.81 L Total Protein Albumin Globulin Vitamin B12 Folate TSH Blood Type Rho(D) Type Antibody Screen Crossmatch 04/07/20 04/07/20 04/07/20 05:43 08:38 12:13 WBC RBC Hgb 7.2 L 7.5 L Hct 27.9 L 28.8 L MCV MCH MCHC RDW Plt Count MPV Neut % (Auto) Lymph % (Auto) [place] % (Auto) Eos % (Auto) Baso % (Auto) Reticulocyte % (Auto) Neut # (Auto) Lymph # (Auto) [place] # (Auto) Eos # (Auto) Baso # (Auto) Nucleated RBC % (auto) Nucleated RBCs # PT INR APTT Sodium 141 Potassium 3.4 L Chloride 105 Carbon Dioxide 25 Anion Gap 14.4 BUN 7 L Creatinine 0.6 GFR Calculation 101.0 Glucose 106 Calculated Osmolality 290 Calcium 9.2 Phosphorus 3.6 Magnesium 2.1 Iron TIBC % Saturation Unsat Iron Binding Ferritin Total Bilirubin 0.5 AST 10 ALT 8 Alkaline Phosphatase 125 H Troponin T Baseline Troponin T 120 Minute Delta Troponin T Troponin T Hi Sens 6Hr Troponin T Hi Sens 6Hr Delta Total Protein 6.2 L Albumin 3.8 Globulin 2.4 Vitamin B12 Folate TSH Blood Type Rho(D) Type Antibody Screen Crossmatch 04/07/20 04/07/20 04/08/20 16:11 19:46 02:09 WBC RBC Hgb 7.3 L 7.5 L 6.8 L Hct 27.7 L 28.8 L 26.5 L MCV MCH MCHC RDW Plt Count MPV Neut % (Auto) Lymph % (Auto) [place] % (Auto) Eos % (Auto) Baso % (Auto) Reticulocyte % (Auto) Neut # (Auto) Lymph # (Auto) [place] # (Auto) Eos # (Auto) Baso # (Auto) Nucleated RBC % (auto) Nucleated RBCs # PT INR APTT Sodium Potassium Chloride Carbon Dioxide Anion Gap BUN Creatinine GFR Calculation Glucose Calculated Osmolality Calcium Phosphorus Magnesium Iron TIBC % Saturation Unsat Iron Binding Ferritin Total Bilirubin AST ALT Alkaline Phosphatase Troponin T Baseline Troponin T 120 Minute Delta Troponin T Troponin T Hi Sens 6Hr Troponin T Hi Sens 6Hr Delta Total Protein Albumin Globulin Vitamin B12 Folate TSH Blood Type Rho(D) Type Antibody Screen Crossmatch 04/08/20 04/08/20 04:29 04:29 WBC RBC Hgb 6.8 L Hct 26.4 L MCV MCH MCHC RDW Plt Count MPV Neut % (Auto) Lymph % (Auto) [place] % (Auto) Eos % (Auto) Baso % (Auto) Reticulocyte % (Auto) Neut # (Auto) Lymph # (Auto) [place] # (Auto) Eos # (Auto) Baso # (Auto) Nucleated RBC % (auto) Nucleated RBCs # PT INR APTT Sodium 139 Potassium 3.3 L Chloride 105 Carbon Dioxide 26 Anion Gap 11.3 BUN 6 L Creatinine 0.6 GFR Calculation 101.0 Glucose 96 Calculated Osmolality 285 Calcium 9.1 Phosphorus 4.1 Magnesium 2.3 Iron TIBC % Saturation Unsat Iron Binding Ferritin Total Bilirubin 0.5 AST 13 ALT 8 Alkaline Phosphatase 127 H Troponin T Baseline Troponin T 120 Minute Delta Troponin T Troponin T Hi Sens 6Hr Troponin T Hi Sens 6Hr Delta Total Protein 6.1 L Albumin 3.6 Globulin 2.5 Vitamin B12 Folate TSH Blood Type Rho(D) Type Antibody Screen Crossmatch Cardiac Studies: No Data to Display
--- NOTE | 2020-04-08 07:56 | PC.OT ---
OT NOTE: OT EVALUATION HELD DUE TO HGB AT 6.8 AND ENDOSCOPY SCHEDULED FOR THIS A.M.
[2020-04-08] MEDS: sodium chloride 0.9% 1,000 ML 30 ML IV (08:10)
--- NOTE | 2020-04-08 08:58 | PM.PN ---
Subjective Subjective: Interval history: No issues overnight, no significant bleeding per rectum Vitals/I&O/Wt Last Vital Signs Temp 98.4 F 04/08/20 07:50 Pulse 109 H 04/08/20 07:50 Resp 18 04/08/20 07:42 BP 136/84 04/08/20 07:50 Pulse Ox 94 04/08/20 07:50 04/07/20 04/08/20 04/08/20 22:59 06:59 14:59 Intake Total 1591.667 / 2789.667 840 / 2789.667 0 / 0 Output Total 1180 / 1580 400 / 1580 Balance 411.667 / 1209.667 440 / 1209.667 0 / 0 Weight last 48 hrs Weight 270 lb Physical Exam Narrative: EXAM NARRATIVE: Abdomen: Soft Data : 04/08/20 04:29 04/08/20 04:29 A&P Assessment and plan (1) Anemia: Plan for EGD/colonoscopy under MAC today Status: Acute Qualifiers: Anemia type: unspecified type Qualified Code(s): D64.9 - Anemia, unspecified Attestations Medical Necessity Statement*: GI bleed Coding Level of Care Code Acute Health Social Work Professor for g F[facility] Diagnoses Anemia D64.9 Anemia type: unspecified type
--- NOTE | 2020-04-08 09:25 | PM.PACU ---
PACU note Post-Anesthesia Exam: awake and vital signs stable Disposition: back to floor
[2020-04-08 10:10] LABS: Carcinoembryonic Antigen 6.1 ng/mL (0.0-4.7)
[2020-04-08 12:27] LABS: Hematocrit 30.4 % (37.0-47.0); Hemoglobin 8.1 g/dL (11.5-15.3)
--- NOTE | 2020-04-08 13:50 | PM.DCS ---
Discharge Providers Date of Admission: 04/06/20 19:46 Date of Discharge: April 08, 2020 Attending Provider at Admission: Jamaal Wilson MD Attending Provider at Discharge: Dao Aleman Primary Care Provider: Alfredo Dow MD Diagnoses at Discharge Discharge Diagnosis (1) Anemia: Status: Acute Problem details: Acute blood loss anemia. Hematochezia. Noted mass in the rectum on colonoscopy. Gastritis on EGD. Qualifiers: Anemia type: unspecified type Qualified Code(s): D64.9 - Anemia, unspecified (2) GI bleed: Status: Acute Problem details: Discontinue NSAIDs. Aspirin for atrial fibrillation on hold. Follow-up with surgery regarding rectal mass. Qualifiers: GI bleed type/associated pathology: unspecified gastrointestinal hemorrhage type Qualified Code(s): K92.2 - Gastrointestinal hemorrhage, unspecified (3) Rectal mass: Status: Acute Problem details: Follow-up with Dr. Engel in office for additional arrangements for treatment. (4) Iron adverse reaction: Status: Acute Problem details: Malaise, flushing during IV infusion of iron sucrose. Resolved with discontinuation. Reason for Visit Reason for Visit: LOW BLOOD COUNT/SENT BY DR DOW Hospital Course Discharge Summary: Very pleasant 64-year-old lady with history of atrial fibrillation, on Cardizem and aspirin, osteoarthritis, GERD was admitted and assessed due to acute anemia, with noted hematochezia, her aspirin was held, NSAID discontinued, PPI was given 40 mg twice a day. She underwent assessment by upper and lower endoscopy. Lower endoscopy revealed a mass in rectum suspicious for rectal cancer. Upper endoscopy revealed gastritis. Surgery request follow-up in office for additional assessment and plans for treatment. NSAID is discontinued. PPI continue twice a day at this time due to gastritis per discussion with surgery. Acute anemia responded to transfusion with increase in hemoglobin up to 8. Please follow-up hemoglobin level in office. With noted iron deficiency anemia. With infusion of iron sucrose had an adverse reaction with malaise, flushing which resolved with discontinuation of infusion. Changed to oral iron replacement on discharge. Please reassess when it may be safe to resume aspirin for atrial fibrillation, consideration of anticoagulation, although after bleeding is no longer an issue. Physical Exam Const: COMMON NORMALS: no acute distress, patient oriented x3 and alert NUTRITIONAL APPEARANCE: obese ORIENTATION/CONSCIOUSNESS: Yes awake OTHER: Denies any pain or discomfort. Feels strong enough to return home. HENMT: COMMON NORMALS: oropharynx normal Neck/C-Spine: COMMON NORMALS: no JVD Resp: COMMON NORMALS: normal respiratory effort and clear to auscultation bilaterally AUSCULTATION: clear to auscultation bilaterally Cardio: COMMON NORMALS: no JVD, regular rhythm, S1 normal heart sound present, S2 normal heart sound present and No murmurs present (Cardio) RHYTHM: regular rhythm HEART SOUNDS: S1 normal heart sound present and S2 normal heart sound present GI: COMMON NORMALS: Normal to inspection, nondistended, normoactive bowel sounds present, Soft to palpation and non-tender PALPATION: Yes Soft to palpation Extremity: COMMON NORMALS: no joint enlargement and no pedal edema Neuro: COMMON NORMALS: patient oriented x3 and moves all extremities SENSORIUM/ORIENTATION: Yes alert Skin: COMMON NORMALS: no rashes or lesions noted GENERAL SKIN EXAM: no rashes or lesions noted Discharge Data Data Completed and Pending: Completed Studies During Hospitalization Category Date Time Status CT abdomen pelvis wo con [id number] Urge nt Cat Scan 04/06/20 20:44 Completed Pending at discharge Category Date Time Status Comprehensive Met abolic Panel AM LA BS Lab 04/09/20 04:00 Ordered Hemoglobin and He matocrit Q4H Lab 04/08/20 16:00 Ordered Leukocyte Reduced RBC Stat Lab 04/06/20 18:16 Results Magnesium AM LABS Lab 04/09/20 04:00 Ordered Phosphorus AM LAB S Lab 04/09/20 04:00 Ordered Type and Screen S tat Lab 04/06/20 18:16 Results Pathology: Surgic al [PTH] Routine Pth 04/08/20 08:57 Ordered Labs from last 24 hours 04/08/20 04/08/20 04/08/20 12:00 04:29 04:29 Hgb 8.1 L 6.8 L Hct 30.4 L 26.4 L Sodium Potassium Chloride Carbon Dioxide Anion Gap BUN Creatinine GFR Calculation Glucose Calculated Osmolal ity Calcium Phosphorus Magnesium Total Bilirubin AST ALT Alkaline Phosphata se Total Protein Albumin Globulin Carcinoembryonic A g 6.1 H Blood Type Rho(D) Type Antibody Screen Crossmatch 04/08/20 04/08/20 04/07/20 04:29 02:09 19:46 Hgb 6.8 L 7.5 L Hct 26.5 L 28.8 L Sodium 139 Potassium 3.3 L Chloride 105 Carbon Dioxide 26 Anion Gap 11.3 BUN 6 L Creatinine 0.6 GFR Calculation 101.0 Glucose 96 Calculated Osmolal ity 285 Calcium 9.1 Phosphorus 4.1 Magnesium 2.3 Total Bilirubin 0.5 AST 13 ALT 8 Alkaline Phosphata se 127 H Total Protein 6.1 L Albumin 3.6 Globulin 2.5 Carcinoembryonic A g Blood Type Rho(D) Type Antibody Screen Crossmatch 04/07/20 04/06/20 16:11 18:16 Hgb 7.3 L Hct 27.7 L Sodium Potassium Chloride Carbon Dioxide Anion Gap BUN Creatinine GFR Calculation Glucose Calculated Osmolal ity Calcium Phosphorus Magnesium Total Bilirubin AST ALT Alkaline Phosphata se Total Protein Albumin Globulin Carcinoembryonic A g Blood Type O Positive Rho(D) Type Positive Antibody Screen Negative Crossmatch See Detail Vitals: Last Vital Signs Temp 97.9 F 04/08/20 11:31 Pulse 102 H 04/08/20 11:31 Resp 18 04/08/20 11:31 BP 149/86 04/08/20 11:31 Pulse Ox 98 04/08/20 11:31 Discharge Plan Discharge Patient Disposition: Home Condition: Stable Prescriptions: New pantoprazole 40 mg tablet,delayed release (DR/EC) 40 mg PO BID 42 Days Qty: 84 RF: 0 ferrous sulfate 325 mg (65 mg iron) tablet 325 mg PO EVERY OTHER DAY Qty: 15 RF: 0 Continued Cardizem LA 180 mg Tablet Extended Release 24 Hr 180 mg PO BEDTIME RF: 0 montelukast 10 mg Tablet 10 mg PO QPM RF: 0 duloxetine 30 mg Capsule, Delayed Rel Sprinkle 30 mg PO BEDTIME RF: 0 Held aspirin 325 mg Tablet 325 mg PO DAILY RF: 0 Hold Instructions: Resume on 04/29/20. Discontinued pantoprazole [Protonix] 20 mg Tablet,Delayed Release (Dr/Ec) 20 mg PO DAILY RF: 0 celecoxib [Celebrex] 50 mg Capsule 50 mg PO DAILY RF: 0 Discharge Orders: Discharge Order (Routine); Ordered 04/08/20 Ordered By: Dao Aleman Referrals: Octavio Engel MD [Physician] - 1 week Alfredo Dow MD [Primary Care Provider] - 4-7 days (Rectal mass) Discharge Diet: Advance as tolerated Discharge Activity: Resume usual activity Patient Instructions: Iron Supplements (By mouth), Pantoprazole (By mouth) Activity Restrictions/Additional Instructions: Please note aspirin is held during this time. Please discuss with your primary care doctor when it may be safe to resume to reduce risk of stroke due to atrial fibrillation. Once blood and medication is safe to resume, discuss also the risk versus benefit of aspirin versus a blood thinner medication. Please avoid taking any Celebrex, or other NSAIDs due to inflammation found in your stomach. Continue taking pantoprazole twice daily until changed or discontinued by surgery or your primary care doctor. Please have primary care doctor follow-up hemoglobin during next visit. Follow-up with Dr. Engel in office after 1 week for further assessment and treatment of mass found in your rectum suspected of cancer. If you develop bleeding, any severe abdominal pain, any dizziness, fainting, or any concerning abnormal symptoms, go to ER. Discharge Attestations Time Spent in Discharge Care*: greater than 30 min Quality Metrics Clinical Quality Measures During this hospital stay, did patient experience: None Coding Level of Care Code Acute Rn Ambulatory for Sarah Fwd Diagnoses Anemia D64.9 Anemia type: unspecified type GI bleed K92.2 GI bleed type/associated pathology: unspecified gastrointestinal hemorrhage type Rectal mass K62.89 Iron adverse reaction T45.4X5A
--- NOTE | 2020-04-08 15:50 | PC.NURSE ---
IV dc'd , cath intact bleeding controlled with 2x2's,DC instructions given, voiced full understanding. to main entrance via wheelchair to personal vehicle with zero difficulties
[2020-05-02 11:29] LABS: Miscellaneous Test See Scanned Lab Rpt
== END 2020-04-08 15:50 | disposition home or self-care (01) | DRG 378 ==
LOC: ER 20:17 → MEDSURG 20:19
PROVIDERS: Emergency Medicine; Family Medicine; Surgery; Admitting Provider Family Medicine; PCP Family Medicine; Visit Provider Internal Medicine
PROC: 0DJ08ZZ Inspection of Upper Intestinal Tract, Via Natural or Artificial Opening Endoscopic (ICD-10-PCS; CPT 43235; principal; 2020-04-08 08:00)
PROC: 0DJD8ZZ Inspection of Lower Intestinal Tract, Via Natural or Artificial Opening Endoscopic (ICD-10-PCS; CPT 45378; 2020-04-08 08:00)
DX: K92.2 Gastrointestinal hemorrhage, unspecified (principal); D62 Acute posthemorrhagic anemia; K62.9 Disease of anus and rectum, unspecified; I48.91 Unspecified atrial fibrillation; Z79.82 Long term (current) use of aspirin; M19.90 Unspecified osteoarthritis, unspecified site; K21.9 Gastro-esophageal reflux disease without esophagitis; K64.9 Unspecified hemorrhoids; Z86.010 Personal history of colon polyps; D50.9 Iron deficiency anemia, unspecified; K44.9 Diaphragmatic hernia without obstruction or gangrene; K29.70 Gastritis, unspecified, without bleeding
CPT/HCPCS: 12345; 36415; 36430; 43235; 45380; 74176; 80053; 82272; 82378; 82607; 82728; 82746; 83540; 83550; 83735; 84100; 84443; 84484; 85014; 85018; 85025; 85045; 85610; 85730; 86850; 86900; 86920; 88305; 88341; 88342; 90471; 90732; 93005; 96375; 99282; C9113; J1756; J2704; J7030; P9016; Q0162

== ENCOUNTER 2020-04-23 10:50 | Outpatient (CLI) | payer BC, SELFPAY ==
--- NOTE | 2020-04-23 11:08 | CT_ITS ---
WS: [id number] CT ABDOMEN PELVIS TECHNIQUE: Contrast-enhanced CT of the abdomen and pelvis with coronal and sagittal reformatted image s. CLINICAL INFORMATION: RECTAL MASS COMPARISON: CT April 06, 2020 DLP: 1163.[address] scans at [facility] use at least one of these dose optimization techniques: automat ed exposure control; mA and/or kV adjustment per patient size (includes targeted exams where dose is matched to clinical indication); or iterative reconstruction. FINDINGS:Left eccentric rectal mass measuring 2.8 x 2.3 CM. Multiple enlarged presacral and perirecta l lymph nodes the largest in the lower midline pelvis measuring 2.1 cm most consistent with metastati c disease. Enlarged left distal iliac chain and pelvic lymph nodes. Notable lymph nodes measuring 1.8 and 1.5 cm in the midline pelvis. Diffuse fatty infiltration of the liver. Cholecystectomy. Normal spleen. Normal pancreas. Adrenal gla nds are normal. No hydronephrosis in either kidney. Normal renal parenchymal enhancement. Normal ady yessy abdominal aorta. Lung bases are well aerated. Normal GE junction. No periaortic lymphadenopathy. Retroaortic left donald l vein. No inguinal lymphadenopathy. Fat-containing umbilical hernia. CT/CT abdomen pelvis w con* [id number] IMPRESSION: 1. Left eccentric rectal mass measuring 2.8 x 2.3 cm consistent with known kyaw plasm. 2. Multiple enlarged perirectal, presacral and distal left iliac chain enlarge d lymph nodes measuring up to 2.1 cm compatible with metastatic disease. 3. No periaortic lymphadenopathy. 4. Mild diffuse fatty infiltration of the liver. Cholecystectomy clips. 5. Incidental fat-containing umbilical hernia.
--- NOTE | 2020-04-23 11:08 | XR_ITS ---
WS: [id number] PROCEDURE: XR chest 2V* [id number] CLINICAL INFORMATION: RECTAL MASS COMPARISON: FINDINGS: Heart: Cardiomegaly Lungs: Lungs are clear. No consolidation or pleural fluid. Moderate chronic emphysematous changes. Bones: Normal visualized bony structures. Cholecystectomy clips. XR/XR chest 2V* [id number] IMPRESSION: No acute chest findings.
[2020-04-23] MEDS: iohexol 300 mg/mL 50 mL Btl PO (11:31)
[2020-04-23] MEDS: iohexol 300 mg/mL 100 mL Btl IV (13:11)
== END 2020-04-23 10:51 | disposition home or self-care (01) ==
LOC: RADWPI 10:53
PROVIDERS: Family Provider Family Medicine; PCP Family Medicine; Visit Provider Family Medicine
DX: K62.89 Other specified diseases of anus and rectum (principal); R59.0 Localized enlarged lymph nodes; K76.0 Fatty (change of) liver, not elsewhere classified; K42.9 Umbilical hernia without obstruction or gangrene
CPT/HCPCS: 71046; 74177; Q9967

== ENCOUNTER 2020-04-27 08:08 | Outpatient (CLI) | payer BC, SELFPAY ==
[2020-04-27 09:53] LABS: Basophils # 0.1 10^3/uL (0.0-0.1); Basophils % 0.6 %; Eosinophils # 0.5 10^3/uL (0.0-0.8); Eosinophils % 5.7 %; Hemoglobin 8.3 g/dL (11.5-15.3); Lymphocytes % 24.2 %; Mean Corpuscular HGB Conc 26.8 g/dL (30.0-36.0); Mean Corpuscular Hemoglobin 19.3 pg (28.0-34.0); Mean Corpuscular Volume 71.9 fL (81-99); Mean Platelet Volume 8.5 fL (7.4-10.4); Monocytes # 0.7 10^3/uL (0.2-0.9); Monocytes % 8.2 %; Neutrophils # 4.99 10^3/uL (1.8-7.7); Neutrophils % 60.9 %; Nucleated Red Blood Cells % 0 %; Platelet Count 831 10^3/cmm (130-400); Red Blood Count 4.31 10^6/uL (4.1-5.3); Red Cell Distribution Width 29.3 % (12.1-15.1); White Blood Count 8.2 10^3/uL (4.0-10.0)
[2020-04-27 10:09] LABS: Ferritin 5 ng/mL (15-150); Iron 27 ug/dL (37-145); Total Iron Binding Capacity 381 mcg/dl; Unsaturated Iron Binding 354 ug/dL (112-347)
--- NOTE | 2020-04-27 14:14 | ONC CON_ITS ---
Dr. Oreilly New Patient Note Patient: Gregoria Barth I Unit #: [id number]: 1955 Dicatated By: Khanh Oreilly M.D.Date of Visit: Apr 27, 2020 Onc MED New Patient/Consult Referring Physician: Dr. Alfredo Dow M.D. Chief Complaint: Rectal cancer. 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 She has been in good general health. On 04/06/2020 she was admitted to the hospital with complaints of severe weakness, shortness of breath, and lightheadedness. She was severely anemic with hemoglobin 5.2 g. She had been having some rectal bleeding since at least November. She had hypochromic/microcytic red cell indices and low transferrin saturation of 2.4%, consistent with iron deficiency. She was transfused a total of 3 units of PRBC. She also received some IV Venofer in the hospital, though she apparently had an adverse reaction to it. Her colonoscopy on 04/08/2020 showed a nonobstructing malignant appearing mass at the first rectal fold. It was palpable at 7 cm from the anal verge. Biopsy showed moderately differentiated invasive adenocarcinoma. Her initial CT abdomen/pelvis did not report any significant abnormalities. Her baseline CEA was elevated at 6.1 ng/mL. Her repeat CT abdomen/pelvis on 04/23/2020 showed a left eccentric rectal mass measuring 2.8 x 2.3 cm. There were multiple enlarged perirectal, presacral, and distal left iliac chain enlarged lymph nodes measuring up to 2.1 cm, compatible with metastatic disease. There was no periaortic lymphadenopathy. There was diffuse fatty infiltration of the liver, but there were no metastatic lesions noted. She had colorectal surgery consultation with Dr. Son Alamo on 04/24/2020. She was recommended to have neoadjuvant chemoradiation, and at that time she also was scheduled for additional staging with chest CT and MRI of the pelvis. She is seen now for further management. She has been feeling much better following the blood transfusions. She still has some fatigue, but she has normal activity. ECOG score is 0. Her appetite is good. Her weight has been stable. She has not had fever. She says she has always had hot flashes and sweating. She does not complain of shortness of breath, cough, or chest pain. She continues to have some rectal bleeding, but bowel movements are otherwise normal and she has no other GI or symptoms. She has some arthritis pain, mainly in the knees and back. She is not having headache or dizziness, and she has no focal neurologic symptoms. Past Medical History: Her medical history includes anxiety, atrial fibrillation, degenerative arthritis, depression, gastroesophageal reflux disease, mitral valve prolapse, and supraventricular tachycardia. Past Surgical History: Her surgical/procedural history consists of bladder repair, excision of skin cancer from nose, repair of left side of face, titanium plate left foot, cholecystectomy in 2003, and hysterectomy in 1995. Medications: Montelukast Sodium 1 Tablet (of 10 mg) Oral daily, Pantoprazole Sodium 1 (40 mg) Tablet, enteric coated Oral b.i.d. Allergies: Iron and Macrobid. Social History: Ms. Barth is . She is a non-smoker. She does not drink alcohol. Family History: Father of lung cancer at age 71. Mother has been treated for breast cancer and is still living at age 86. She had no siblings. Review Of Symptoms: Constitutional - She has normal activity without restrictions. Appetite is good and her weight is stable. No fevers. She has chronic hot flashes with sweating. ECOG score is 0, Eyes - No change in vision, ENMT - No hearing loss or tinnitus. She has sinus congestion/drainage. No mouth sores. No sore throat or difficulty swallowing, Hematologic/Lymphatic - She was bruising easily, but that has improved since she stopped taking aspirin and Celebrex, Respiratory - No shortness of breath. No cough. No pleuritic pain or hemoptysis, Cardiovascular - No angina pain. No palpitations, Gastrointestinal - No nausea or vomiting. Her heartburn is adequately controlled with pantoprazole. No diarrhea or constipation. She has been having rectal bleeding, Genitourinary (F) - No dysuria or hematuria. No urinary frequency. No urgency or incontinence, Musculoskeletal - She has arthritis pain in both knees, worse to her left knee and she has some back pain, Integumentary - No skin complications, Neurologic - No headache or dizziness. No numbness or tingling. No other focal neurologic symptoms, Psychiatric - No anxiety or depression. No insomnia. Vital Signs: Performed on Apr 27, 2020 09:13: 0, 41.29 (HIGH), 2.27 sq.m, 67.00 in, 98 %, 86 /min, 20 /min, 177/86 mm(hg) (HIGH), 99.0 F (HIGH), and 263.6 lbs (HIGH). Physical Examination: Constitutional - She appears to be in good general health, Eyes - Sclerae nonicteric. Conjunctivae clear, ENMT - No lesions noted in the oral cavity, Neck - No mass or thyromegaly, Hematologic/Lymphatic - No cervical, clavicular, or axillary adenopathy, Respiratory - Lungs are clear with good air movement bilaterally, Cardiovascular - Heart rhythm is regular. There is a II/ systolic murmur. There is no gallop or rub noted, Abdomen - Soft and non-tender. Liver and spleen are not enlarged. There is no abdominal mass or ascites noted and there is no inguinal adenopathy, Back/Spine - No spine or CVA tenderness noted, Extremities - Mild lower extremity edema. Dorsalis pedis pulses are palpable bilaterally, Integumentary - No rashes. No suspicious skin lesions noted, Neurologic - No focal neurologic deficits noted. Impression: 1. 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 Staging is incomplete, but there is suspected regional lymph node involvement by CT scan. 2. She has iron deficiency anemia, and she has had adverse reactions to both oral and parenteral iron. Her other medical illnesses include: 3. GERD. 4. Degenerative arthritis. 5. She has a history of atrial tacky arrhythmias, apparently in association with mitral valve prolapse. 6. Anxiety/depression. 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 She has not completed her staging, but her disease appears to be at least locally advanced, as there is CT evidence of regional lymph node involvement. She has associated iron deficiency anemia, management of which may be problematic, as she has had adverse reactions of both oral and parenteral iron products. She is advised now to proceed with neoadjuvant chemoradiation. I will plan to use capecitabine for the chemosensitization. We discussed the fact that she also will require postoperative adjuvant chemotherapy, most likely with oxaliplatin/capecitabine. I reviewed anticipated side effects with the chemoradiation which may include nausea, fatigue, mucositis, diarrhea, low blood counts, hand/foot syndrome, and local skin toxicity, among others. She will be scheduled for consultation with the radiation oncologist next week, and she has been scheduled to complete staging with chest CT and MRI of the pelvis in 1 week. I anticipate starting her treatment as soon as the radiation planning is completed. In the meantime, I will repeat her CBC and serum iron studies and I will consider further management of the iron deficiency anemia, as indicated. Signed By: Khanh Oreilly M.D. <<Signature on File>>
== END 2020-04-27 08:09 | disposition home or self-care (01) ==
LOC: ONCMED 08:13
PROVIDERS: PCP Family Medicine; Visit Provider Internal Medicine Medical Oncology
DX: C20 Malignant neoplasm of rectum (principal); R59.0 Localized enlarged lymph nodes; M19.90 Unspecified osteoarthritis, unspecified site; I49.8 Other specified cardiac arrhythmias; F41.8 Other specified anxiety disorders; D50.9 Iron deficiency anemia, unspecified; K21.9 Gastro-esophageal reflux disease without esophagitis
CPT/HCPCS: 36415; 82728; 83540; 83550; 85025; 99205

== ENCOUNTER 2020-04-30 13:59 | Outpatient (CLI) | payer BC, SELFPAY ==
--- NOTE | 2020-05-02 22:08 | N.ONRAD NP_ITS ---
Radiation Oncology New Patient Visit Patient: Gregoria Barth MR#: [id number] : 1955> Age: 64> Sex: Female> Dictated by: Dr. Logan Hogan Date of Service: 04/30/2020 Referring Physician(s) : Dr. Alfredo Dow Diagnosis: C20 - malignant neoplasm of rectum, Diagnosed 04/27/2020 (active) and D50.8 - other iron deficiency anemias, Diagnosed 04/27/2020 (active). Radiotherapy to date: Summary > No prior radiation therapy. Chief Complaint / History of Present Illness: The patient is a 64-year-old female who presented with malaise, shortness of breath, lightheadedness, and rectal bleeding noted since November 2019. On 04/06/2020 she was admitted to the hospital with iron deficiency anemia requiring transfusion of 3 units of packed red blood cells. On 04/08/2020 colonoscopy and biopsy revealed a palpable mass approximately 7 cm from the anal verge which was nonobstructing located at the first rectal fold. Pathology revealed moderately differentiated invasive adenocarcinoma in a background of acute proctitis. On 04/23/2020, a CT of the abdomen and pelvis revealed a 2.8 x 2.3 cm left eccentric rectal mass with multiple enlarged presacral, perirectal, left distal iliac, and mesorectal lymphadenopathy. There was no evidence of periaortic lymphadenopathy, or hepatic involvement. On 04/24/2020 Dr. Alamo, a colorectal surgeon, recommended neoadjuvant concurrent chemoradiation therapy followed by surgical resection. An MRI of the pelvis (rectal protocol) was ordered along with a CT of the chest. On consultation today, the patient reports occasional rectal bleeding, but no painful defecation. Digital rectal examination today by me revealed a ???nonpalpable??? rectal mass. Current Medications: Montelukast Sodium, pantoprazole Sodium. Allergies: Macrobid and Iron. Medical History: - Anxiety, - atrial fibrillation, - degenerative arthritis, - depression, - gastroesophageal reflux disease, - mitral valve prolapse, - supraventricular tachycardia. No history of collagen vascular disease. No previous radiation therapy. Surgical History: Bladder repair, cholecystectomy in 2003, colonoscopy on 04/08/2020, excision of skin cancer from nose, hysterectomy in 1995, repair of left side of face and titanium plate left foot. Family History: Father has experienced lung cancer. Mother has experienced Breast Cancer. Father of lung cancer at age 71. Mother has been treated for breast cancer and is still living at age 86. She had no siblings. Social History: Last screened on 04/27/2020 - Never smoked. Last screened on 04/27/2020 - Never drank. Current Complaints / Review of Systems: Constitutional - Complains of mild fatigue. Denies lack of appetite, fever, night sweats and change in weight. Eyes - Denies blurred vision and double vision. ENMT - Denies dysphagia, ear pain, mouth dryness, stomatitis and altered taste. Neck - Denies neck pain. Integumentary - Denies rash. Breasts - Denies pain. Cardiovascular - Complains of edema in both ankles. Complains of occasional palpatiations. Denies arrhythmias and chest pain. Respiratory - Denies cough, dyspnea and wheezing. Gastrointestinal - Complains of intermittent constipation. Complains of mild melena / GI bleeding that is characterized by bright blood. Denies abdominal pain, diarrhea, nausea, pain / cramping and vomiting. Genitourinary (F) - Complains of nocturia gets up about 1 time per night. Denies dysuria, frequency, hematuria, urgency, vaginal discharge / bleeding and vaginal spotting. Musculoskeletal - Complains of joint pain in both knees and ankles. Denies bone pain and muscle weakness. Neurologic - Denies dizziness, abnormal gait and headaches. Endocrine - Denies diabetes and thyroid disease. Hematologic/Lymphatic - Denies tender or enlarged lymph nodes.. Vital Signs: Physical Exam: GENERAL:??? The patient is alert, and in no acute distress. HEENT:??? Head is normocephalic. Face is symmetric. External ocular movements are intact. Sclera and conjunctivae are non erythematous. NECK:??? Trachea is displaced to the right. LYMPH NODES:???There is no cervical/supraclavicular/inguinal lymphadenopathy. LUNGS:??? Clear to auscultation bilaterally. Respiratory movement is unlabored. HEART:??? Regular rate and rhythm. EXTREMITIES:??? No deformities. NEUROLOGIC:??? Gait and station are normal.??? The patient is well coordinated and strength is equal bilaterally. BREAST BUFFER:??? Cranial nerves II-XII are intact and without focal deficits.??? Psych: Affect is normal. Skin: Cursory review of the skin reveals no obvious lesions concerning for malignancy. Digital rectal examination: The patient was placed in the lateral decubitus position and a digital rectal examination was performed. Anal sphincter tone was normal, and per my examination, there was no palpable rectal mass. Pathology: Primary, c20 - malignant neoplasm of rectum, Diagnosed 04/27/2020 (active) and Primary, d50.8 - other iron deficiency anemias, Diagnosed 04/27/2020 (active). Lab: Test performed on 04/27/2020 9:40 AM HGB - 8.3 g/dl (low), HCT - 31.0 % (low), MCV - 71.9 fl (low), MCH - 19.3 pg (low), MCHC - 26.8 g/dl (low), RDW - 29.3 % (high), Platelet Count - 831 10 3/cmm (high), Ferritin - 5 ng/ml (low), Iron - 27 mcg/dl (low), % Iron Saturation - 7.0 % (low) and UIBC - 354 mcg/dl (high). Imaging: See HPI Impression: The patient is a 64-year-old female who has been recently diagnosed with Tx N2b Mx adenocarcinoma of the proximal rectum. The tumor is reported to be a 2.8 cm nonobstructing, mass at the left first rectal fold with the inferior border being at least 7 cm from the anal verge. Further staging work-up inclusive of an MRI of the pelvis (rectal protocol) and CT of the chest is pending this week. We discussed treatment related logistics associated with 5-1/2 weeks of concurrent chemoradiotherapy, potential acute and late side effects in detail, and prognosis. Plan: Neoadjuvant concurrent chemoradiation therapy followed by surgical resection by Dr. Alamo. We will begin treatment planning on Thursday, and at that time, the planning CT will be fused with the MRI of the pelvis for treatment planning purposes. Signed by Logan Hogan MD: 05/02/2020 10:06:51 PM <<Signature on File>> CPT Code: CPT Code:
== END 2020-04-30 14:00 | disposition home or self-care (01) ==
LOC: ONCMED 14:03
PROVIDERS: PCP Family Medicine; Referring Provider Internal Medicine Medical Oncology; Visit Provider Radiology Radiation Oncology
DX: C20 Malignant neoplasm of rectum (principal); D50.8 Other iron deficiency anemias
CPT/HCPCS: 99205; 99215

== ENCOUNTER 2020-05-28 05:12 | Outpatient (RCR) | payer BC, SELFPAY ==
--- NOTE | 2020-05-09 | CT_ITS ---
Radiation Therapy Planning CT images; total exam DLP: 1959.10 mGy-cm MTDD
[2020-05-21 15:03] LABS: Basophils % 0.5 %; Eosinophils # 0.4 10^3/uL (0.0-0.8); Eosinophils % 4.6 %; Hematocrit 29.6 % (37.0-47.0); Lymphocytes # 1.7 10^3/uL (0.8-4.8); Lymphocytes % 20.9 %; Mean Corpuscular Hemoglobin 19.7 pg (28.0-34.0); Mean Corpuscular Volume 72.9 fL (81-99); Mean Platelet Volume 9.1 fL (7.4-10.4); Monocytes # 0.6 10^3/uL (0.2-0.9); Monocytes % 7.7 %; Neutrophils # 5.29 10^3/uL (1.8-7.7); Neutrophils % 66.1 %; Nucleated Red Blood Cells % 0 %; Platelet Count 489 10^3/cmm (130-400); Red Blood Count 4.06 10^6/uL (4.1-5.3); Red Cell Distribution Width 23.9 % (12.1-15.1)
[2020-05-21 15:30] LABS: Alanine Aminotransferase 11 U/L (0-33); Albumin Level 4.3 g/dL (3.5-5.2); Alkaline Phosphatase 124 IU/L (35-105); Anion Gap 13.2 (5-19); Aspartate Amino Transferase 12 U/L (0-32); Blood Urea Nitrogen 9 mg/dL (8-23); Calcium 9.1 mg/dL (8.5-10.5); Carbon Dioxide 29 mmol/L (22-29); Chloride 103 mmol/L (98-107); Globulin 2.6 g/dL (1.3-4.6); Glomerular Filtration Rate 100.6 mL/min (90-130); Glucose 119 mg/dL (65-115); Osmolality Calculated 294 mOsm/kg (285-295); Potassium 3.2 mmol/L (3.5-5.1); Sodium 142 mmol/L (136-145); Total Bilirubin 0.2 mg/dL (0.15-1.2); Total Protein 6.9 g/dL (6.6-8.7)
--- NOTE | 2020-05-22 12:08 | ONCRAD TMN_ITS ---
Radiation Oncology Weekly Treatment Management Patient: Tab Kinney MR#: [id number] : 1955 Attending Physician: Anders Solis M.D. Date of Service: 05/22/2020 Referring Physician: Dr. 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 The patient has received 4 Gy of a prescribed 50 Pritchett with intensity modulated radiotherapy plan utilizing a step and shoot treatment technique. She has been prescribed daily oral chemotherapy consisting of capecitabine (825 mg/m2). Upon review of systems, she denied any gastrointestinal complaints related to radiotherapy. On physical examination, the patient weighed 260 lbs. Her temperature was 98.2 ???F with a blood pressure of 125/84 mmHg. Her pulse was 67 bpm and her respiratory rate was 18. No erythema within the treatment myers. Continue pelvic radiotherapy as planned. Signed by: Dr. Anders Solis 05/22/2020 12:07:13 PM
--- NOTE | 2020-05-25 15:44 | ONC FU_ITS ---
[facility] Patient Note Patient: Gregoria Barth I Unit #: [id number]: 1955 Dictated By: Elicia HartmannDate of Visit: May 21, 2020 Onc MED Follow-Up/Prog Note Chief Complaint: Rectal cancer. History of Present Illness: Mrs. Vance is a 65-year-old woman with newly diagnosed moderately differentiated invasive adenocarcinoma of the rectum. She has been in good general health. On 04/06/2020 she was admitted to the hospital with complaints of severe weakness, shortness of breath, and lightheadedness. She was severely anemic with hemoglobin 5.2 g. She had been having some rectal bleeding since at least November. She had hypochromic/microcytic red cell indices and low transferrin saturation of 2.4%, consistent with iron deficiency. She was transfused a total of 3 units of PRBC. She also received some IV Venofer in the hospital, though she apparently had an adverse reaction to it. Her colonoscopy on 04/08/2020 showed a nonobstructing malignant appearing mass at the first rectal fold. It was palpable at 7 cm from the anal verge. Biopsy showed moderately differentiated invasive adenocarcinoma. Her initial CT abdomen/pelvis did not report any significant abnormalities. Her baseline CEA was elevated at 6.1 ng/mL. Her repeat CT abdomen/pelvis on 04/23/2020 showed a left eccentric rectal mass measuring 2.8 x 2.3 cm. There were multiple enlarged perirectal, presacral, and distal left iliac chain enlarged lymph nodes measuring up to 2.1 cm, compatible with metastatic disease. There was no periaortic lymphadenopathy. There was diffuse fatty infiltration of the liver, but there were no metastatic lesions noted. She had colorectal surgery consultation with Dr. Son Alamo on 04/24/2020. She was recommended to have neoadjuvant chemoradiation, and at that time she also was scheduled for additional staging with chest CT and MRI of the pelvis. Mrs Barth did have follow-up with Dr. Oreilly. He recommended neoadjuvant chemoradiation. She is here today begin her first cycle. She has no new concerns. She states she has been doing well. she is eating well. She has no new concerns today. Her ECOG is 1. Past Medical History: Anxiety Atrial fibrillation Degenerative arthritis Depression Gastroesophageal reflux disease Mitral valve prolapse Supraventricular tachycardia Past Surgical History: Bladder repair Excision of skin cancer from nose Repair of left side of face Titanium plate left foot Colonoscopy in 2019 Cholecystectomy in 2003 Hysterectomy in 1995 Allergies: Iron infusion and Macrobid. Medications: Cardizem LA 1 Tablet (of 180 mg) Tablet SR 24 HR Oral daily Montelukast Sodium 1 Tablet (of 10 mg) Oral daily Pantoprazole Sodium 1 (40 mg) Tablet, enteric coated Oral b.i.d. Family History: Father of lung cancer at age 71. Mother has been treated for breast cancer and is still living at age 86. She had no siblings. Social History: Ms. Barth is . Ms. Barth has never smoked. She has no history of drinking. She is a non-smoker. She does not drink alcohol. Review Of Symptoms: Constitutional Denies fevers, chills, night sweats, excessive fatigue or weight loss. Allergic/Immunologic No reactions. Eyes Denies significant visual changes. No diplopia. No amaurosis. ENMT Denies changes in hearing, sore throat, mouth sores, difficulty or changes in swallowing ability, and/or sinus drainage. Hematologic/Lymphatic Denies easy bruising or bleeding. The patient denies any tender or palpable lymph nodes. Respiratory Denies dyspnea on exertion, chest pain, cough or hemoptysis. Denies orthopnea. Cardiovascular Denies anginal chest pain, palpitations or orthopnea. Gastrointestinal Denies nausea, vomiting, diarrhea, GI bleeding, or constipation. Denies change in bowel habits and/or stool color, no heartburn or early satiety. Genitourinary (F) No hematuria, hesitancy, incontinence, vaginal bleeding, discharge or other problems with urination. Musculoskeletal Denies joint pain, swelling or redness. No decreased range of motion. Integumentary Denies chronic rashes, inflammation, ulcerations or skin changes. Neurologic Denies headache, blurred vision, and no areas of focal weakness or numbness. Normal gait. No sensory problems. Psychiatric Denies insomnia, depression, benjamin or mood swings. Vital Signs: Performed on May 21, 2020 13:41 Height - 67.00 in Weight - 259.8 lbs (LOW) BSA - 2.26 sq.m BMI - 40.69 (HIGH) Temperature - 99.4 F (HIGH) Pulse - 100 /min Respiration - 18 /min BP - 157/87 mm(hg) (HIGH) O2 Sat - 99 % Pain - 0,0 - Fully active, able to carry on all predisease activities without restrictions. (ECOG) Physical Examination: Constitutional Alert, oriented, no acute distress. Skin pink, warm and dry. Head Normocephalic; atraumatic. Eyes Conjunctivae and sclerae are clear and without icterus. Pupils are reactive and equal. Neck Supple without masses or thyromegaly. No jugular venous distension. Hematologic/Lymphatic No petechiae or purpura. No tender or palpable lymph nodes in the cervical or supraclavicular areas. Respiratory Lungs are clear to auscultation without rhonchi or wheezing. Cardiovascular Regular rate and rhythm of heart without murmurs,clicks, gallops or rubs. Chest Chest is symmetric without chest wall deformities. Breasts Abdomen Non-tender, non-distended, no masses or ascites. Good bowel sounds noted in all quads. No guarding or rebound tenderness. No pulsatile masses. Back/Spine Non-tender to palpation. Extremities No visible deformities, no cyanosis, clubbing or edema. Musculoskeletal No tenderness or swelling, normal range of motion without obvious weakness. Integumentary No rashes or lesions. Neurologic No sensory or motor deficits, normal cerebellar function, normal gait. Psychiatric Alert and oriented times three. Coherent speech. Verbalizes understanding of our discussions today. Laboratory:Test performed on May 21, 2020 16:38 ABO & Rh Type # 2 Test Not Performed NO SPECIMEN ST Test performed on May 21, 2020 14:42 Sodium 142 mmol/L Potassium 3.2 mmol/L Chloride 103 mmol/L CO2 29 mmol/L Anion Gap 13.2 BUN 9 mg/dL Creatinine 0.6 mg/dL Cr Clearance (Est) 176.2200 mL/min eGFR 100.6 mL/min Glucose 119 mg/dL Osmolality - Calculated 294 mOsm/kg Calcium 9.1 mg/dL Protein, Total 6.9 g/dL Albumin 4.3 g/dL Globulin 2.6 g/dL Bilirubin, Total 0.2 mg/dL ALT (SGPT) 11 U/L AST (SGOT) 12 U/L Alkaline Phosphatase 124 IU/L WBC 8.0 10 3/uL RBC 4.06 10 6/uL HGB 8.0 g/dL HCT 29.6 % MCV 72.9 fL MCH 19.7 pg MCHC 27.0 g/dL RDW 23.9 % Platelet Count 489 10 3/cmm MPV 9.1 fL Neutrophils 5.29 10 3/uL Lymphocytes 1.7 10 3/uL Monocytes 0.6 10 3/uL Eosinophils 0.4 10 3/uL Basophils 0.0 10 3/uL Neutrophil % 66.1 % Lymphocyte % 20.9 % Monocyte % 7.7 % Eosinophil % 4.6 % Basophils % 0.5 % NRBC % 0 % Anti-D Positive Blood Type OP Antibody Screen (Gel) NEGATIVE Test performed on Apr 27, 2020 09:40 Ferritin 5 ng/mL Iron 27 mcg/dL Iron Binding Capacity (TIBC) 381 mcg/dl % Iron Saturation 7.0 % UIBC 354 mcg/dL Impression: 1. 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 Staging is incomplete, but there is suspected regional lymph node involvement by CT scan. 2. She has iron deficiency anemia, and she has had adverse reactions to both oral and parenteral iron. Her other medical illnesses include: 3. GERD. 4. Degenerative arthritis. 5. She has a history of atrial tacky arrhythmias, apparently in association with mitral valve prolapse. 6. Anxiety/depression. 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 She has not completed her staging, but her disease appears to be at least locally advanced, as there is CT evidence of regional lymph node involvement. She has associated iron deficiency anemia, management of which may be problematic, as she has had adverse reactions of both oral and parenteral iron products. She was advised now to proceed with neoadjuvant chemoradiation. Dr Oreilly recommended to use capecitabine for the chemosensitization. We discussed the fact that she also will require postoperative adjuvant chemotherapy, most likely with oxaliplatin/capecitabine. Mrs Barth is here today to start her first cycle of Xeloda and her first radiation therapy treatment. Plan: 1. Proceed with capecitabne 1800 mg orally twice daily on the days of radiation therapy only. 2. Compazine. Zofran or lorazepam as needed for nausea. 3. She will need baseline CBC CMP today. Her last hemoglobin on April 27 was 8.3. She is asymptomatic and states she feels good. 4. We will plan to see her back weekly while she was on the Xeloda. She will also need weekly labs. We will consider having her draw weekly labs for monitoring of her blood counts. 5. Avoid grapefruit products with the Xeloda. 6. Mrs. Barth was encouraged to contact us in interim should questions or problems arise. 7. The patient and family were informed of chemotherapy plan and specific drugs were discussed. We also discussed how chemotherapy works and identified common side effects including alopecia; myelosuppression-including neutropenia, anemia, thrombocytopenia; peripheral neuropathy; fatigue; nausea; diarrhea; constipation; bleeding or bruising; skin changes-rash/dryness; mouth sores; drug hypersensitivity/allergic reactions or anaphylaxis and increased risk of blood clots. They have also been informed how to contact the clinic with side effects or symptoms, including but not limited to fever greater than 100.4???, chills, sore throat, bleeding or bruising that is not explained or mouth sores, cough, nasal discharge, diarrhea, constipation, nausea and/or vomiting not relieved with medications on hand at home, as well as any other concern or question they may have. Our hours are 8:00 a.m. to 4:30 p.m. on Thursday through and 8-12:00 on Thursday. However, someone is [employer] 24 hours per day and they have been advised to contact the [facility] at if it is after hours. We have also discussed potential long-term side effects of chemotherapy including secondary cancers, infertility, pulmonary complications, cardiac complications, and again peripheral neuropathy. We have discussed that they certainly need to let us know before taking any antioxidants or herbal or further dietary supplements, as we are unsure of how these agents react with chemotherapy and we request that they avoid these products for now. They were informed that it is okay to take multivitamins at normal doses. They verbally state that they understand to take all medications as directed by their healthcare provider unless otherwise indicated. Instructions for oral care with baking soda and salt water rinses as well as a guide for use of [id number] medication were provided with the treatment plan. They have been given a written patient treatment plan, of which a copy is in the chart, as well as specific drug information. They have no questions and verbalized understanding and are willing to proceed with chemotherapy at this time. The majority of this visit was spent in face to face communication with this patient and/or his/her family in regards to plan of care, side effect identification and management. Signed By: Elicia Hartmann MD <<Signature on File>>
[2020-05-28 12:29] LABS: Basophils % 0.9 %; Eosinophils # 0.3 10^3/uL (0.0-0.8); Eosinophils % 6.5 %; Hematocrit 28.4 % (37.0-47.0); Hemoglobin 7.7 g/dL (11.5-15.3); Lymphocytes # 1.5 10^3/uL (0.8-4.8); Lymphocytes % 32.8 %; Mean Corpuscular HGB Conc 27.1 g/dL (30.0-36.0); Mean Corpuscular Hemoglobin 20.1 pg (28.0-34.0); Mean Platelet Volume 9.3 fL (7.4-10.4); Monocytes # 0.4 10^3/uL (0.2-0.9); Monocytes % 9.2 %; Neutrophils # 2.22 10^3/uL (1.8-7.7); Neutrophils % 49.9 %; Nucleated Red Blood Cells % 0 %; Platelet Count 514 10^3/cmm (130-400); Red Blood Count 3.84 10^6/uL (4.1-5.3); Red Cell Distribution Width 23.1 % (12.1-15.1); White Blood Count 4.5 10^3/uL (4.0-10.0)
[2020-05-28 12:49] LABS: Alanine Aminotransferase 8 U/L (0-33); Alkaline Phosphatase 119 IU/L (35-105); Anion Gap 15.4 (5-19); Aspartate Amino Transferase 9 U/L (0-32); Blood Urea Nitrogen 13 mg/dL (8-23); Carbon Dioxide 26 mmol/L (22-29); Chloride 101 mmol/L (98-107); Globulin 2.5 g/dL (1.3-4.6); Glomerular Filtration Rate 124.2 mL/min (90-130); Glucose 108 mg/dL (65-115); Osmolality Calculated 289 mOsm/kg (285-295); Potassium 3.4 mmol/L (3.5-5.1); Sodium 139 mmol/L (136-145); Total Bilirubin 0.2 mg/dL (0.15-1.2); Total Protein 6.5 g/dL (6.6-8.7)
--- NOTE | 2020-05-29 13:20 | ONC FU_ITS ---
[facility] Patient Note Patient: Gregoria Barth I Unit #: [id number]: 1955 Dictated By: Elicia HartmannDate of Visit: May 28, 2020 Onc MED Follow-Up/Prog Note Chief Complaint: Rectal cancer. History of Present Illness: Mrs. 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 She has been in good general health. On 04/06/2020 she was admitted to the hospital with complaints of severe weakness, shortness of breath, and lightheadedness. She was severely anemic with hemoglobin 5.2 g. She had been having some rectal bleeding since at least November. She had hypochromic/microcytic red cell indices and low transferrin saturation of 2.4%, consistent with iron deficiency. She was transfused a total of 3 units of PRBC. She also received some IV Venofer in the hospital, though she apparently had an adverse reaction to it. Her colonoscopy on 04/08/2020 showed a nonobstructing malignant appearing mass at the first rectal fold. It was palpable at 7 cm from the anal verge. Biopsy showed moderately differentiated invasive adenocarcinoma. Her initial CT abdomen/pelvis did not report any significant abnormalities. Her baseline CEA was elevated at 6.1 ng/mL. Her repeat CT abdomen/pelvis on 04/23/2020 showed a left eccentric rectal mass measuring 2.8 x 2.3 cm. There were multiple enlarged perirectal, presacral, and distal left iliac chain enlarged lymph nodes measuring up to 2.1 cm, compatible with metastatic disease. There was no periaortic lymphadenopathy. There was diffuse fatty infiltration of the liver, but there were no metastatic lesions noted. She had colorectal surgery consultation with Dr. Son Alamo on 04/24/2020. She was recommended to have neoadjuvant chemoradiation, and at that time she also was scheduled for additional staging with chest CT and MRI of the pelvis. Mrs Barth did have follow-up with Dr. Oreilly. He recommended neoadjuvant chemoradiation. She began her first cycle/week of Xeloda on 05/21/2020. She continues to have anemia and she has been offered iron replacement with Ferahem but it is possible she could have intolerance to it as she has had reactions to Venofer in the past. She is here today for followup and review of her labs. She states she feels good overall and does not feel that she needs a transfusion at this point. She was a little tired last week but states she feels much better after having the 4 day weekend due to hol. She denies any nausea or vomiting. She has had no skin changes or mouth sores. She denies any diarrhea or constipation at this time. She states she has not had any fever or chills. She is had no Covid symptoms or known exposure. She states she feels pretty good at this point. She did take her Xeloda this morning anticipation of being treated today. Her ECOG is 0. Past Medical History: Anxiety Atrial fibrillation Degenerative arthritis Depression Gastroesophageal reflux disease Mitral valve prolapse Supraventricular tachycardia Past Surgical History: Bladder repair Excision of skin cancer from nose Repair of left side of face Titanium plate left foot Colonoscopy in 2019 Cholecystectomy in 2003 Hysterectomy in 1995 Allergies: Iron infusion and Macrobid. Medications: Cardizem LA 1 Tablet (of 180 mg) Tablet SR 24 HR Oral daily Montelukast Sodium 1 Tablet (of 10 mg) Oral daily Pantoprazole Sodium 1 (40 mg) Tablet, enteric coated Oral b.i.d. Family History: Father of lung cancer at age 71. Mother has been treated for breast cancer and is still living at age 86. She had no siblings. Social History: Ms. Barth is . Ms. Barth has never smoked. She has no history of drinking. She is a non-smoker. She does not drink alcohol. Review Of Symptoms: Constitutional Denies fevers, chills, night sweats, excessive fatigue or weight loss. [place] washed out and a little yuck last week but improved over the 4 day holiday. Allergic/Immunologic No reactions. Eyes Denies significant visual changes. No diplopia. No amaurosis. ENMT Denies changes in hearing, sore throat, mouth sores, difficulty or changes in swallowing ability, and/or sinus drainage. Hematologic/Lymphatic Denies easy bruising or bleeding. The patient denies any tender or palpable lymph nodes. Respiratory Denies dyspnea on exertion, chest pain, cough or hemoptysis. Denies orthopnea. Cardiovascular Denies anginal chest pain, palpitations or orthopnea. Gastrointestinal Denies nausea, vomiting, diarrhea, GI bleeding, or constipation. Denies change in bowel habits and/or stool color, no heartburn or early satiety. Genitourinary (F) No hematuria, hesitancy, incontinence, vaginal bleeding, discharge or other problems with urination. Musculoskeletal Denies joint pain, swelling or redness. No decreased range of motion. Integumentary Denies chronic rashes, inflammation, ulcerations or skin changes. Neurologic Denies headache, blurred vision, and no areas of focal weakness or numbness. Normal gait. No sensory problems. Psychiatric Denies insomnia, depression, benjamin or mood swings. Vital Signs: Performed on May 28, 2020 13:35 Height - 67.00 in Weight - 263.0 lbs (HIGH) BSA - 2.27 sq.m BMI - 41.19 (HIGH) Temperature - 98.6 F Pulse - 99 /min Respiration - 16 /min BP - 174/81 mm(hg) (HIGH) O2 Sat - 96 % Pain - 2,0 - Fully active, able to carry on all predisease activities without restrictions. (ECOG) Physical Examination: Constitutional Alert, oriented, no acute distress. Skin pink, warm and dry. Head Normocephalic; atraumatic. Eyes Conjunctivae and sclerae are clear and without icterus. Pupils are reactive and equal. Neck Supple without masses or thyromegaly. No jugular venous distension. Hematologic/Lymphatic No petechiae or purpura. Respiratory Lungs are clear to auscultation without rhonchi or wheezing. Cardiovascular Regular rate and rhythm of heart without murmurs,clicks, gallops or rubs. Abdomen Non-tender, non-distended, no masses or ascites. Good bowel sounds noted in all quads. No guarding or rebound tenderness. No pulsatile masses. Back/Spine Non-tender to palpation. Extremities No visible deformities, no cyanosis, clubbing or edema. Musculoskeletal No tenderness or swelling, normal range of motion without obvious weakness. Integumentary No rashes or lesions. Neurologic No sensory or motor deficits, normal cerebellar function, normal gait. Psychiatric Alert and oriented times three. Coherent speech. Verbalizes understanding of our discussions today. Laboratory:Test performed on May 28, 2020 11:30 Sodium 139 mmol/L Potassium 3.4 mmol/L Chloride 101 mmol/L CO2 26 mmol/L Anion Gap 15.4 BUN 13 mg/dL Creatinine 0.5 mg/dL Cr Clearance (Est) 214.07 mL/min eGFR 124.2 mL/min Glucose 108 mg/dL Osmolality - Calculated 289 mOsm/kg Calcium 9.0 mg/dL Protein, Total 6.5 g/dL Albumin 4.0 g/dL Globulin 2.5 g/dL Bilirubin, Total 0.2 mg/dL ALT (SGPT) 8 U/L AST (SGOT) 9 U/L Alkaline Phosphatase 119 IU/L WBC 4.5 10 3/uL RBC 3.84 10 6/uL HGB 7.7 g/dL HCT 28.4 % MCV 74.0 fL MCH 20.1 pg MCHC 27.1 g/dL RDW 23.1 % Platelet Count 514 10 3/cmm MPV 9.3 fL Neutrophils 2.22 10 3/uL Lymphocytes 1.5 10 3/uL Monocytes 0.4 10 3/uL Eosinophils 0.3 10 3/uL Basophils 0.0 10 3/uL Neutrophil % 49.9 % Lymphocyte % 32.8 % Monocyte % 9.2 % Eosinophil % 6.5 % Basophils % 0.9 % NRBC % 0 % Test performed on May 21, 2020 16:38 ABO & Rh Type # 2 Test Not Performed NO SPECIMEN ST Test performed on May 21, 2020 14:42 Anti-D Positive Blood Type OP Antibody Screen (Gel) NEGATIVE Test performed on Apr 27, 2020 09:40 Ferritin 5 ng/mL Iron 27 mcg/dL Iron Binding Capacity (TIBC) 381 mcg/dl % Iron Saturation 7.0 % UIBC 354 mcg/dL Impression: 1. 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 Staging is incomplete, but there is suspected regional lymph node involvement by CT scan. 2. She has iron deficiency anemia, and she has had adverse reactions to both oral and parenteral iron. Her other medical illnesses include: 3. GERD. 4. Degenerative arthritis. 5. She has a history of atrial tacky arrhythmias, apparently in association with mitral valve prolapse. 6. Anxiety/depression. 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 She has not completed her staging, but her disease appears to be at least locally advanced, as there is CT evidence of regional lymph node involvement. She has associated iron deficiency anemia, management of which may be problematic, as she has had adverse reactions of both oral and parenteral iron products. She was advised now to proceed with neoadjuvant chemoradiation. Dr Oreilly recommended to use capecitabine for the chemosensitization. We discussed the fact that she also will require postoperative adjuvant chemotherapy, most likely with oxaliplatin/capecitabine. Mrs Barth began her first cycle of Xeloda and her first radiation therapy treatment on 05/21/2020. She is somewhat complicated as she has iron deficiency anemia and has been extremely intolerate to oral and IV iron replacement to date. Her HGB is slowing dropping again-she is at 7.7 today but states she feels ok and did not want to pursue transufusion services. Plan: 1. Proceed with capecitabne 1800 mg orally twice daily on the days of radiation therapy only. If she does not receive radiation today, she will skip tonights dose, but she had already taken her am dose. 2. Compazine. Zofran or lorazepam as needed for nausea. 3. Today's labs reviewed in detail discussed with Cheyanne Murray and a copy was given to her. WBC 4.5, hemoglobin 7.7 (it was 8.0 last week) platelets 514,000 ANC is 2220. Potassium 3.4 creatinine 0.5 LFTs are normal. 4. We discussed at length the options of attempting iron replacement as her hemoglobin continues to drop. Thus far she is asymptomatic. However she will does need transfusion services if we are unable to find iron that she can take. She is unable to tolerate oral iron and has not been able to tolerate Injectafer. We did discuss attempting Feraheme when doing split dosing as well as heavily antiemetics prior to administration. She is agreeable to do this. We will seek prior authorization from her insurance and proceed once we have the approval. 4. We will plan to see her back weekly while she was on the Xeloda. She will also need weekly labs. We will consider having her draw weekly labs for monitoring of her blood counts. 5. Avoid grapefruit products with the Xeloda. 6. Mrs. Barth was encouraged to contact us in interim should questions or problems arise. Signed By: Elicia Hartmann-, [facility] Khanh Oreilly MD <<Signature on File>>
== END 2020-05-28 23:59 | disposition home or self-care (01) ==
LOC: ONCMED 05:12
PROVIDERS: Absent Provider Radiology Radiation Oncology; PCP Family Medicine; Visit Provider Nurse Practitioner
DX: Z51.0 Encounter for antineoplastic radiation therapy (principal); C20 Malignant neoplasm of rectum; D50.9 Iron deficiency anemia, unspecified; K21.9 Gastro-esophageal reflux disease without esophagitis; M19.90 Unspecified osteoarthritis, unspecified site; I34.1 Nonrheumatic mitral (valve) prolapse; F41.9 Anxiety disorder, unspecified; F32.9 Major depressive disorder, single episode, unspecified; Z79.899 Other long term (current) drug therapy
CPT/HCPCS: 36415; 77300; 77301; 77334; 77338; 77386; 77470; 80053; 85025; 86850; 86900; 99214; Q9967

== ENCOUNTER 2020-06-28 05:44 | Outpatient (RCR) | payer BC, SELFPAY ==
--- NOTE | 2020-05-29 12:16 | ONCRAD TMN_ITS ---
Radiation Oncology Weekly Treatment Management Patient: Gregoria Barth MR#: [id number] : 1955 Attending Physician: Anders Solis M.D. Date of Service: 05/29/2020 Referring Physician(s): Dr. 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 The patient has received 8 Gy of a prescribed 50 Pritchett with intensity modulated radiotherapy plan utilizing a step and shoot treatment technique. She has been prescribed daily oral chemotherapy consisting of capecitabine (825 mg/m2). Upon review of systems, she described nausea post-treatment. On physical examination, the patient weighed 263 lbs. Her temperature was 96.3 ???F with a blood pressure of 138/76 mmHg. Her pulse was 88 bpm and her respiratory rate was 18. No erythema within the treatment myers. Continue pelvic radiotherapy as planned. I would recommend an anti-emetic prior to treatment. Signed by: Dr. Anders Solis 05/29/2020 12:14:42 PM
--- NOTE | 2020-06-04 12:12 | ONCRAD TMN_ITS ---
Radiation Oncology Weekly Treatment Management Patient: Gregoria Barth MR#: [id number] : 1955 Attending Physician: Anders Solis M.D. Date of Service: 06/04/2020 Referring Physician(s): Dr. 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 The patient has received 16 Gy of a prescribed 50 Pritchett with intensity modulated radiotherapy plan utilizing a step and shoot treatment technique. She has been prescribed daily oral chemotherapy consisting of capecitabine (825 mg/m2). Upon review of systems, she reported increased urinary frequency with mild dysuria. She denied gastrointestinal symptoms such as diarrhea. On physical examination, the patient weighed 263 lbs. Her temperature was 96.3 ???F with a blood pressure of 138/76 mmHg. Her pulse was 88 bpm and her respiratory rate was 18. No erythema within the treatment myers. Non-inflamed external hemorrhoids were present. Continue pelvic radiotherapy as planned. I will order an urinalysis because of her lower urinary tract symptoms. urinary tract symptoms. Signed by: Dr. Anders Solis 06/04/2020 12:10:31 PM
[2020-06-04 13:20] LABS: Bilirubin Urine Neg (Negative); Blood Urine Neg (Negative); Glucose Urine UA Norm (Normal); Ketones Urine Negative (Negative); Leukocyte Esterase Urine Negative (Negative); Nitrate Urine Negative (Negative); Protein Urine Neg (Negative); Urine Appearance Clear (CLEAR); Urine Color Yellow (Yellow); Urobilinogen Urine Norm (Negative); pH Urine 7 (5-7)
[2020-06-04 13:21] LABS: Add Urine Culture? No; Bacteria Urine TRACE /hpf; Squamous Epithelial Cell Urine 0-4 /hpf (0-5); WBC Urine RARE /hpf (0-5)
[2020-06-07 09:56] LABS: Basophils % 0.7 %; Eosinophils # 0.1 10^3/uL (0.0-0.8); Eosinophils % 4.6 %; Hematocrit 28.5 % (37.0-47.0); Hemoglobin 7.9 g/dL (11.5-15.3); Lymphocytes # 0.6 10^3/uL (0.8-4.8); Lymphocytes % 18.5 %; Mean Corpuscular HGB Conc 27.7 g/dL (30.0-36.0); Mean Corpuscular Hemoglobin 20.8 pg (28.0-34.0); Mean Platelet Volume 9.6 fL (7.4-10.4); Monocytes # 0.4 10^3/uL (0.2-0.9); Monocytes % 11.6 %; Neutrophils # 1.95 10^3/uL (1.8-7.7); Neutrophils % 64.3 %; Nucleated Red Blood Cells % 0 %; Platelet Count 320 10^3/cmm (130-400); Red Cell Distribution Width 22.6 % (12.1-15.1)
[2020-06-07 10:12] LABS: Alanine Aminotransferase 8 U/L (0-33); Albumin Level 3.7 g/dL (3.5-5.2); Alkaline Phosphatase 103 IU/L (35-105); Aspartate Amino Transferase 14 U/L (0-32); Blood Urea Nitrogen 10 mg/dL (8-23); Calcium 8.5 mg/dL (8.5-10.5); Carbon Dioxide 26 mmol/L (22-29); Chloride 103 mmol/L (98-107); Globulin 2.5 g/dL (1.3-4.6); Glomerular Filtration Rate 124.2 mL/min (90-130); Glucose 89 mg/dL (65-115); Osmolality Calculated 287 mOsm/kg (285-295); Sodium 139 mmol/L (136-145); Total Bilirubin 0.3 mg/dL (0.15-1.2); Total Protein 6.2 g/dL (6.6-8.7)
[2020-06-07 10:14] LABS: Anion Gap 13.4 (5-19); Potassium 3.4 mmol/L (3.5-5.1)
[2020-06-08] MEDS: sodium chloride 0.9% 250 ML 75 ML IV (09:30)
[2020-06-08] MEDS: acetaminophen 325 mg Tablet 650 MG PO (09:30)
[2020-06-08] MEDS: ondansetron 2 mg/ML SDV 2 mL 8 MG IV (09:30)
[2020-06-08] MEDS: diphenhydrAMINE 25 mg Capsule PO (09:30)
[2020-06-08] MEDS: ferumoxytol (NON-ESRD) 510 MG in sodium chloride 0.9% (100 ml) 100 ML 351 MG IV (10:04)
--- NOTE | 2020-06-10 22:19 | ONC FU_ITS ---
[facility] Patient Note Patient: Gregoria Barth I Unit #: [id number]: 1955 Dictated By: Elicia HartmannDate of Visit: Jun 07, 2020 Onc MED Follow-Up/Prog Note Chief Complaint: Rectal cancer. Iron deficiency anemia History of Present Illness: Mrs. 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 She has been in good general health. On 04/06/2020 she was admitted to the hospital with complaints of severe weakness, shortness of breath, and lightheadedness. She was severely anemic with hemoglobin 5.2 g. She had been having some rectal bleeding since at least November. She had hypochromic/microcytic red cell indices and low transferrin saturation of 2.4%, consistent with iron deficiency. She was transfused a total of 3 units of PRBC. She also received some IV Venofer in the hospital, though she apparently had an adverse reaction to it. Her colonoscopy on 04/08/2020 showed a nonobstructing malignant appearing mass at the first rectal fold. It was palpable at 7 cm from the anal verge. Biopsy showed moderately differentiated invasive adenocarcinoma. Her initial CT abdomen/pelvis did not report any significant abnormalities. Her baseline CEA was elevated at 6.1 ng/mL. Her repeat CT abdomen/pelvis on 04/23/2020 showed a left eccentric rectal mass measuring 2.8 x 2.3 cm. There were multiple enlarged perirectal, presacral, and distal left iliac chain enlarged lymph nodes measuring up to 2.1 cm, compatible with metastatic disease. There was no periaortic lymphadenopathy. There was diffuse fatty infiltration of the liver, but there were no metastatic lesions noted. She had colorectal surgery consultation with Dr. Son Alamo on 04/24/2020. She was recommended to have neoadjuvant chemoradiation, and at that time she also was scheduled for additional staging with chest CT and MRI of the pelvis. Mrs Barth did have follow-up with Dr. Oreilly. He recommended neoadjuvant chemoradiation. She began her first cycle/week of Xeloda on 05/21/2020. She continues to have anemia and she has been offered iron replacement with Ferahem but it is possible she could have intolerance to it as she has had reactions to Venofer in the past. She is here today for followup and review of her labs. Mrs Barth is here today for followup of her Xeloda and to start her first dose of Feraheme. Mrs. Barth is tolerating the Xeloda well. She denies any mouth sores, sore throat or difficulty swallowing. She has had no fever or chills. She denies any diarrhea or constipation. She denies any nausea. She has had no skin changes. She denies any concerns today. She denies pain. She states overall she feels that she is doing well. She was informed when she arrived for radiation today that she is scheduled for the Feraheme. She will need premeds that she is reacted with severe nausea in the past. She had anticipated being called and set up the appointment so that her could come. Therefore we will delay her Feraheme till tomorrow so he can be available to drive her home. She is very sensitive to Benadryl and Benadryl is on the premed plan to avoid reaction. Her ECOG is 0. Past Medical History: Anxiety Atrial fibrillation Degenerative arthritis Depression Gastroesophageal reflux disease Mitral valve prolapse Supraventricular tachycardia Past Surgical History: Bladder repair Excision of skin cancer from nose Repair of left side of face Titanium plate left foot Colonoscopy in 2019 Cholecystectomy in 2003 Hysterectomy in 1995 Allergies: Iron infusion and Macrobid. Medications: Cardizem LA 1 Tablet (of 180 mg) Tablet SR 24 HR Oral daily Montelukast Sodium 1 Tablet (of 10 mg) Oral daily Pantoprazole Sodium 1 (40 mg) Tablet, enteric coated Oral b.i.d. Family History: Father of lung cancer at age 71. Mother has been treated for breast cancer and is still living at age 86. She had no siblings. Social History: Ms. Barth is . Ms. Barth has never smoked. She has no history of drinking. She is a non-smoker. She does not drink alcohol. Review Of Symptoms: Constitutional Denies fevers, chills, night sweats, excessive fatigue or weight loss. Feels a little tired but still doing ADLs without assistance. Allergic/Immunologic No reactions. Eyes Denies significant visual changes. No diplopia. No amaurosis. ENMT Denies changes in hearing, sore throat, mouth sores, difficulty or changes in swallowing ability, and/or sinus drainage. Hematologic/Lymphatic Denies easy bruising or bleeding. The patient denies any tender or palpable lymph nodes. Respiratory Denies dyspnea on exertion, chest pain, cough or hemoptysis. Denies orthopnea. Cardiovascular Denies anginal chest pain, palpitations or orthopnea. Gastrointestinal Denies nausea, vomiting, diarrhea, GI bleeding, or constipation. Denies change in bowel habits and/or stool color, no heartburn or early satiety. Genitourinary (F) No hematuria, hesitancy, incontinence, vaginal bleeding, discharge or other problems with urination. Musculoskeletal Denies joint pain, swelling or redness. No decreased range of motion. Integumentary Denies chronic rashes, inflammation, ulcerations or skin changes. Neurologic Denies headache, blurred vision, and no areas of focal weakness or numbness. Normal gait. No sensory problems. Psychiatric Denies insomnia, depression, benjamin or mood swings. Vital Signs: Performed on Jun 07, 2020 10:44 Height - 67.00 in Weight - 258.0 lbs (LOW) BSA - 2.25 sq.m BMI - 40.41 (HIGH) Temperature - 98.9 F (HIGH) Pulse - 101 /min (HIGH) Respiration - 24 /min BP - 136/90 mm(hg) O2 Sat - 96 % Pain - 0,0 - Fully active, able to carry on all predisease activities without restrictions. (ECOG) Physical Examination: Constitutional Alert, oriented, no acute distress. Skin pink, warm and dry. Head Normocephalic; atraumatic. Eyes Conjunctivae and sclerae are clear and without icterus. Pupils are reactive and equal. ENMT No oral exudates, ulcers, masses, thrush or mucositis. Oropharynx clear. Tongue normal. Neck Supple without masses or thyromegaly. No jugular venous distension. Hematologic/Lymphatic No petechiae or purpura. Respiratory Lungs are clear to auscultation without rhonchi or wheezing. Cardiovascular Regular rate and rhythm of heart without murmurs,clicks, gallops or rubs. Abdomen Non-tender, non-distended, no masses or ascites. Good bowel sounds noted in all quads. No guarding or rebound tenderness. No pulsatile masses. Back/Spine Non-tender to palpation. Extremities No visible deformities, no cyanosis, clubbing or edema. Musculoskeletal No tenderness or swelling, normal range of motion without obvious weakness. Integumentary No rashes or lesions. Neurologic No sensory or motor deficits, normal cerebellar function, normal gait. Psychiatric Alert and oriented times three. Coherent speech. Verbalizes understanding of our discussions today. Laboratory:Test performed on Jun 07, 2020 09:25 Sodium 139 mmol/L Potassium 3.4 mmol/L Chloride 103 mmol/L CO2 26 mmol/L Anion Gap 13.4 BUN 10 mg/dL Creatinine 0.5 mg/dL Cr Clearance (Est) 210.0000 mL/min eGFR 124.2 mL/min Glucose 89 mg/dL Osmolality - Calculated 287 mOsm/kg Calcium 8.5 mg/dL Protein, Total 6.2 g/dL Albumin 3.7 g/dL Globulin 2.5 g/dL Bilirubin, Total 0.3 mg/dL ALT (SGPT) 8 U/L AST (SGOT) 14 U/L Alkaline Phosphatase 103 IU/L WBC 3.0 10 3/uL RBC 3.80 10 6/uL HGB 7.9 g/dL HCT 28.5 % MCV 75.0 fL MCH 20.8 pg MCHC 27.7 g/dL RDW 22.6 % Platelet Count 320 10 3/cmm MPV 9.6 fL Neutrophils 1.95 10 3/uL Lymphocytes 0.6 10 3/uL Monocytes 0.4 10 3/uL Eosinophils 0.1 10 3/uL Basophils 0.0 10 3/uL Neutrophil % 64.3 % Lymphocyte % 18.5 % Monocyte % 11.6 % Eosinophil % 4.6 % Basophils % 0.7 % NRBC % 0 % Test performed on May 21, 2020 16:38 ABO & Rh Type # 2 Test Not Performed NO SPECIMEN ST Test performed on May 21, 2020 14:42 Anti-D Positive Blood Type OP Antibody Screen (Gel) NEGATIVE Test performed on Apr 27, 2020 09:40 Ferritin 5 ng/mL Iron 27 mcg/dL Iron Binding Capacity (TIBC) 381 mcg/dl % Iron Saturation 7.0 % UIBC 354 mcg/dL Impression: 1. 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 Staging is incomplete, but there is suspected regional lymph node involvement by CT scan. 2. She has iron deficiency anemia, and she has had adverse reactions to both oral and parenteral iron. Her other medical illnesses include: 3. GERD. 4. Degenerative arthritis. 5. She has a history of atrial tacky arrhythmias, apparently in association with mitral valve prolapse. 6. Anxiety/depression. 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 She has not completed her staging, but her disease appears to be at least locally advanced, as there is CT evidence of regional lymph node involvement. She has associated iron deficiency anemia, management of which may be problematic, as she has had adverse reactions of both oral and parenteral iron products. She was advised now to proceed with neoadjuvant chemoradiation. Dr Oreilly recommended to use capecitabine for the chemosensitization. We discussed the fact that she also will require postoperative adjuvant chemotherapy, most likely with oxaliplatin/capecitabine. Mrs Barth began her first cycle of Xeloda and her first radiation therapy treatment on 05/21/2020. She is somewhat complicated as she has iron deficiency anemia and has been extremely intolerate to oral and IV iron replacement to date. Her HGB is slowing dropping again-she is at 7.9 today but states she feels ok and did not want to pursue transfusion services. She has elected to attempt Feraheme. We will premedicate her with steroids, Tylenol, Benadryl and antiemetics prior to her dose. We will also do split dosing and attempt to give her 2 treatments. Plan: 1. RECTAL CANCER: A. Proceed with capecitabine 1800 mg orally twice daily on the days of radiation therapy only. B. Compazine. Zofran or lorazepam as needed for nausea. C. Today's labs reviewed in detail discussed with Mrs. Barth and a copy was given to her. WBC 3.0, hemoglobin 7.9, platelets 2 in 20,000 ANC is 1950. Potassium 3.4 creatinine 0.5 LFTs are normal. D. Avoid grapefruit products with the Xeloda. 2. IRON DEFICIENCY ANEMIA: Return in am for 1 of 2 doses of Feraheme. We plan to premedicate her with steroids, Tylenol, Benadryl and antiemetic. She will only receive 1/2 of the normal dosing and if tolerated, return within 3-8 days for her second dose. We have discussed potential side effects including anaphylaxis, rash, shortness of breath, nausea vomiting, and diarrhea, constipation amongst others. 3. Followup Plan: We will plan to see her back weekly while she was on the Xeloda. She will also need weekly labs. She will need followup for iron deficiency anemia 4 weeks's after her second dose with CBC, CMP, iron studies and typenex. 4. Mrs. Barth was encouraged to contact us in interim should questions or problems arise. Signed By: Elicia Hartmann-, AOCNP Khanh Oreilly MD <<Signature on File>>
--- NOTE | 2020-06-11 11:56 | ONCRAD TMN_ITS ---
Radiation Oncology Weekly Treatment Management Patient: Gregoria Barth MR#: [id number] : 1955 Attending Physician: Anders Solis M.D. Date of Service: 06/11/2020 Referring Physician: Dr. 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 The patient has received 26 Gy of a prescribed 50 Pritchett with intensity modulated radiotherapy plan utilizing a step and shoot treatment technique. She has been prescribed daily oral chemotherapy consisting of capecitabine (825 mg/m2). Upon review of systems, she reported increased urinary frequency with mild dysuria. She denied gastrointestinal symptoms such as diarrhea. On physical examination, the patient weighed 258 lbs. Her temperature was 98.2 ???F with a blood pressure of 126/72 mmHg. Her pulse was 78 bpm and her respiratory rate was 20. There was no erythema within the treatment myers. Continue pelvic radiotherapy as planned. Signed by: Dr. Anders Solis 06/11/2020 11:54:24 AM
[2020-06-14] MEDS: diphenhydrAMINE 25 mg Capsule PO (12:08)
[2020-06-14] MEDS: acetaminophen 325 mg Tablet 650 MG PO (12:08)
[2020-06-14] MEDS: ondansetron 2 mg/ML SDV 2 mL 8 MG IV (12:32)
[2020-06-14] MEDS: sodium chloride 0.9% 250 ML 300 ML IV (12:33)
[2020-06-14] MEDS: ferumoxytol (NON-ESRD) 510 MG in sodium chloride 0.9% (100 ml) 100 ML 351 MG IV (12:42)
--- NOTE | 2020-06-18 14:47 | ONCRAD TMN_ITS ---
Radiation Oncology Weekly Treatment Management Patient: Gregoria Barth MR#: [id number] : 1955 Attending Physician: Anders Solis M.D. Date of Service: 06/18/2020 Referring Physician: Dr. 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 The patient has received 36 Gy of a prescribed 50 Pritchett with intensity modulated radiotherapy plan utilizing a step and shoot treatment technique. She has been prescribed daily oral chemotherapy consisting of capecitabine (825 mg/m2). Upon review of systems, she described an increase in her stool caliber. She denied gastrointestinal symptoms such as diarrhea. On physical examination, the patient weighed 257 lbs. Her temperature was 99.1 ???F with a blood pressure of 112/70 mmHg. Her pulse was 92 bpm and her respiratory rate was 20. There was no erythema within the treatment myers. Continue pelvic radiotherapy as prescribed. Signed by: Dr. Anders Solis 06/18/2020 2:46:14 PM
--- NOTE | 2020-06-25 12:26 | ONCRAD TMN_ITS ---
Radiation Oncology Weekly Treatment Management Patient: Gregoria Barth MR#: [id number] : 1955 Attending Physician: Anders Solis M.D. Date of Service: 06/25/2020 Referring Physician: Dr. 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 The patient has received 42 Gy of a prescribed 50 Pritchett with intensity modulated radiotherapy plan utilizing a step and shoot treatment technique. She has been prescribed daily oral chemotherapy consisting of capecitabine (825 mg/m2). Upon review of systems. She denied gastrointestinal symptoms such as diarrhea. On physical examination, the patient weighed 256 lbs. Her temperature was 97.9 ???F with a blood pressure of 137/65 mmHg. Her pulse was 79 bpm and her respiratory rate was 16. There was no erythema within the treatment myers. Non-inflamed external hemorrhoids were present. Continue pelvic radiotherapy as planned. Signed by: Dr. Anders Solis 06/25/2020 12:25:18 PM
[2020-06-25 12:49] LABS: Basophils % 0.4 %; Eosinophils # 0.1 10^3/uL (0.0-0.8); Eosinophils % 3.4 %; Hematocrit 31.9 % (37.0-47.0); Hemoglobin 9.4 g/dL (11.5-15.3); Lymphocytes # 0.4 10^3/uL (0.8-4.8); Lymphocytes % 15.3 %; Mean Corpuscular HGB Conc 29.5 g/dL (30.0-36.0); Mean Corpuscular Hemoglobin 24.7 pg (28.0-34.0); Mean Corpuscular Volume 83.9 fL (81-99); Mean Platelet Volume 8.7 fL (7.4-10.4); Monocytes # 0.5 10^3/uL (0.2-0.9); Monocytes % 21.6 %; Neutrophils # 1.39 10^3/uL (1.8-7.7); Neutrophils % 58.9 %; Nucleated Red Blood Cells % 0 %; Platelet Count 264 10^3/cmm (130-400); White Blood Count 2.4 10^3/uL (4.0-10.0)
[2020-06-25 13:14] LABS: Alanine Aminotransferase 17 U/L (0-33); Albumin Level 4.2 g/dL (3.5-5.2); Alkaline Phosphatase 121 IU/L (35-105); Anion Gap 13.6 (5-19); Aspartate Amino Transferase 18 U/L (0-32); Blood Urea Nitrogen 10 mg/dL (8-23); Calcium 9.1 mg/dL (8.5-10.5); Carbon Dioxide 29 mmol/L (22-29); Chloride 100 mmol/L (98-107); Globulin 2.3 g/dL (1.3-4.6); Glomerular Filtration Rate 100.6 mL/min (90-130); Glucose 96 mg/dL (65-115); Osmolality Calculated 287 mOsm/kg (285-295); Potassium 3.6 mmol/L (3.5-5.1); Sodium 139 mmol/L (136-145); Total Bilirubin 0.5 mg/dL (0.15-1.2); Total Protein 6.5 g/dL (6.6-8.7)
[2020-06-25 13:23] LABS: Add RBC Morph Yes; RBC Morph Comp No; Slide Review Slide Review Perform
[2020-06-25 13:24] LABS: Dimorphic RBC 2+; Polychromasia 1+
--- NOTE | 2020-06-26 14:16 | ONC FU_ITS ---
[facility] Patient Note Patient: Gregoria Barth I Unit #: [id number]: 1955 Dictated By: Elciia HartmannDate of Visit: Jun 25, 2020 Onc MED Follow-Up/Prog Note Chief Complaint: Rectal cancer. History of Present Illness: Mrs. 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 She has been in good general health. On 04/06/2020 she was admitted to the hospital with complaints of severe weakness, shortness of breath, and lightheadedness. She was severely anemic with hemoglobin 5.2 g. She had been having some rectal bleeding since at least November. She had hypochromic/microcytic red cell indices and low transferrin saturation of 2.4%, consistent with iron deficiency. She was transfused a total of 3 units of PRBC. She also received some IV Venofer in the hospital, though she apparently had an adverse reaction to it. Her colonoscopy on 04/08/2020 showed a nonobstructing malignant appearing mass at the first rectal fold. It was palpable at 7 cm from the anal verge. Biopsy showed moderately differentiated invasive adenocarcinoma. Her initial CT abdomen/pelvis did not report any significant abnormalities. Her baseline CEA was elevated at 6.1 ng/mL. Her repeat CT abdomen/pelvis on 04/23/2020 showed a left eccentric rectal mass measuring 2.8 x 2.3 cm. There were multiple enlarged perirectal, presacral, and distal left iliac chain enlarged lymph nodes measuring up to 2.1 cm, compatible with metastatic disease. There was no periaortic lymphadenopathy. There was diffuse fatty infiltration of the liver, but there were no metastatic lesions noted. She had colorectal surgery consultation with Dr. Son Alamo on 04/24/2020. She was recommended to have neoadjuvant chemoradiation, and at that time she also was scheduled for additional staging with chest CT and MRI of the pelvis. Mrs Barth did have follow-up with Dr. Oreilly. He recommended neoadjuvant chemoradiation. She began her first cycle/week of Xeloda on 05/21/2020. She continues to have anemia and she has been offered iron replacement with Ferahem but it is possible she could have intolerance to it as she has had reactions to Venofer in the past. She is here today for followup and review of her labs. Mrs Barth is here today for followup of her Xeloda recent Ferahem administration. Her second dose was given on with premeds. She tolerated it well and her blood counts are already showing signs of improvement. She continues with daily radiation and plans to be complete on August 03, 2020. She has been taking the Xeloda on the days of treatment only. She denies any concerns. She denies any fever or chills. She is had no hand-foot changes or any mouth sores. She denies diarrhea or constipation. She states overall she feels really good. She is feeling better since the Feraheme and is noted that her hemoglobin has increased. Her ECOG is 0. Past Medical History: Anxiety Atrial fibrillation Degenerative arthritis Depression Gastroesophageal reflux disease Mitral valve prolapse Supraventricular tachycardia Past Surgical History: Bladder repair Excision of skin cancer from nose Repair of left side of face Titanium plate left foot Colonoscopy in 2019 Cholecystectomy in 2003 Hysterectomy in 1995 Allergies: Iron infusion and Macrobid. Medications: Cardizem LA 1 Tablet (of 180 mg) Tablet SR 24 HR Oral daily Montelukast Sodium 1 Tablet (of 10 mg) Oral daily Ondansetron HCl 1 Tablet (of 8 mg) Oral t.i.d. PRN Pantoprazole Sodium 1 (40 mg) Tablet, enteric coated Oral b.i.d. Family History: Father of lung cancer at age 71. Mother has been treated for breast cancer and is still living at age 86. She had no siblings. Social History: Ms. Barth is . Ms. Barth has never smoked. She has no history of drinking. She is a non-smoker. She does not drink alcohol. Review Of Symptoms: Constitutional Denies fevers, chills, night sweats, excessive fatigue or weight loss. Allergic/Immunologic No reactions. Eyes Denies significant visual changes. No diplopia. No amaurosis. ENMT Denies changes in hearing, sore throat, mouth sores, difficulty or changes in swallowing ability, and/or sinus drainage. Hematologic/Lymphatic Denies easy bruising or bleeding. The patient denies any tender or palpable lymph nodes. Respiratory Denies dyspnea on exertion, chest pain, cough or hemoptysis. Denies orthopnea. Cardiovascular Denies anginal chest pain, palpitations or orthopnea. Gastrointestinal Denies nausea, vomiting, diarrhea, GI bleeding, or constipation. Denies change in bowel habits and/or stool color, no heartburn or early satiety. Genitourinary (F) No hematuria, hesitancy, incontinence, vaginal bleeding, discharge or other problems with urination. Musculoskeletal Denies joint pain, swelling or redness. No decreased range of motion. Integumentary Denies chronic rashes, inflammation, ulcerations or skin changes. Neurologic Denies headache, blurred vision, and no areas of focal weakness or numbness. Normal gait. No sensory problems. Psychiatric Denies insomnia, depression, benjamin or mood swings. Constitutional Denies lack of appetite, fatigue, fever, lethargy, malaise, night sweats, rigors / chills and change in weight. Integumentary Denies alopecia, blistering, bruising, dry skin, facial burning, nail changes, photosensitivity, pruritus, rash and urticaria. Gastrointestinal Denies abdominal pain, change in bowel habits, constipation, diarrhea, heartburn / dyspepsia, hematemesis, hematochezia, hemorrhoids, melena / GI bleeding, nausea, pain / cramping, satiety and vomiting. Genitourinary (F) Denies dysuria, frequency, genital masses, hematuria, incontinence, nocturia, renal stone disease, problems with sexual function, urgency, urine color change, vaginal discharge / bleeding and vaginal spotting. Vital Signs: Performed on Jun 25, 2020 13:46 Height - 67.00 in Weight - 255.6 lbs (LOW) BSA - 2.24 sq.m BMI - 40.03 (HIGH) Temperature - 97.8 F (LOW) Pulse - 104 /min (HIGH) Respiration - 18 /min BP - 152/82 mm(hg) (HIGH) O2 Sat - 96 % Pain - 0 Performed on Jun 25, 2020 12:03 Weight - 256.4 lbs Temperature - 97.9 F Pulse - 79 Respiration - 16 BP - 137/65 mm(hg) O2 Sat - 97 % Pain - 0,0 - Fully active, able to carry on all predisease activities without restrictions. (ECOG) Physical Examination: Constitutional Alert, oriented, no acute distress. Skin pink, warm and dry. Head Normocephalic; atraumatic. Eyes Conjunctivae and sclerae are clear and without icterus. Pupils are reactive and equal. Neck Supple without masses or thyromegaly. No jugular venous distension. Hematologic/Lymphatic No petechiae or purpura. Respiratory Lungs are clear to auscultation without rhonchi or wheezing. Cardiovascular Regular rate and rhythm of heart without murmurs,clicks, gallops or rubs. Abdomen Non-tender, non-distended, no masses or ascites. Good bowel sounds noted in all quads. No guarding or rebound tenderness. No pulsatile masses. Back/Spine Non-tender to palpation. Extremities No visible deformities, no cyanosis, clubbing or edema. Musculoskeletal No tenderness or swelling, normal range of motion without obvious weakness. Integumentary No rashes or lesions. Neurologic No sensory or motor deficits, normal cerebellar function, normal gait. Psychiatric Alert and oriented times three. Coherent speech. Verbalizes understanding of our discussions today. Laboratory:Test performed on Jun 25, 2020 12:33 Sodium 139 mmol/L Potassium 3.6 mmol/L Chloride 100 mmol/L CO2 29 mmol/L Anion Gap 13.6 BUN 10 mg/dL Creatinine 0.6 mg/dL Cr Clearance (Est) 173.37 mL/min eGFR 100.6 mL/min Glucose 96 mg/dL Osmolality - Calculated 287 mOsm/kg Calcium 9.1 mg/dL Protein, Total 6.5 g/dL Albumin 4.2 g/dL Globulin 2.3 g/dL Bilirubin, Total 0.5 mg/dL ALT (SGPT) 17 U/L AST (SGOT) 18 U/L Alkaline Phosphatase 121 IU/L WBC 2.4 10 3/uL Polychromasia 1+ RBC 3.80 10 6/uL HGB 9.4 g/dL HCT 31.9 % MCV 83.9 fL MCH 24.7 pg MCHC 29.5 g/dL Platelet Count 264 10 3/cmm MPV 8.7 fL Neutrophils 1.39 10 3/uL Lymphocytes 0.4 10 3/uL Monocytes 0.5 10 3/uL Eosinophils 0.1 10 3/uL Basophils 0.0 10 3/uL Neutrophil % 58.9 % Lymphocyte % 15.3 % Monocyte % 21.6 % Eosinophil % 3.4 % Basophils % 0.4 % NRBC % 0 % CBC Slide Review Slide Review Perform Impression: 1. 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 Staging is incomplete, but there is suspected regional lymph node involvement by CT scan. 2. She has iron deficiency anemia, and she has had adverse reactions to both oral and parenteral iron. Her other medical illnesses include: 3. GERD. 4. Degenerative arthritis. 5. She has a history of atrial tacky arrhythmias, apparently in association with mitral valve prolapse. 6. Anxiety/depression. 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 She has not completed her staging, but her disease appears to be at least locally advanced, as there is CT evidence of regional lymph node involvement. She has associated iron deficiency anemia, management of which may be problematic, as she has had adverse reactions of both oral and parenteral iron products. She was advised now to proceed with neoadjuvant chemoradiation. Dr Oreilly recommended to use capecitabine for the chemosensitization. We discussed the fact that she also will require postoperative adjuvant chemotherapy, most likely with oxaliplatin/capecitabine. Mrs Barth began her first cycle of Xeloda and her first radiation therapy treatment on 05/21/2020. She is somewhat complicated as she has iron deficiency anemia and has been extremely intolerate to oral and IV iron replacement to date. Her HGB is slowing dropping again-she is at 7.9 today but states she feels ok and did not want to pursue transfusion services. She has elected to attempt Feraheme. She had Feraheme administered at half dosing on 06/08/2020 and again on 06/14/2020. We did premedicate her with steroids, Tylenol, Benadryl and antiemetics prior to her dose. We did do split dosing over 2 treatments and she tolerated this well. Plan: 1. RECTAL CANCER: A. Proceed with capecitabine 1800 mg orally twice daily on the days of radiation therapy only. She is completes radiation therapy next Thursday, July 03, 2020. B. Compazine. Zofran or lorazepam as needed for nausea. C. Today's labs reviewed in detail discussed with Mrs. Barth and a copy was given to her. WBC 2.4, hemoglobin 9.4, platelets 264,000 ANC is 1390. Potassium 3.6 glucose 96 creatinine 0.5 LFTs are normal alk phos is 121. D. Avoid grapefruit products with the Xeloda. 2. IRON DEFICIENCY ANEMIA: She received 2 doses of Feraheme- 1 week apart. She was premedicated with steroids, Tylenol, Benadryl and antiemetic. She tolerated it well and states she did not have any adverse reactions to her treatment. She states she is feeling better overall. Her hemoglobin on 06/07/2020 was 7.9 she received dose of Feraheme on 06/08/2020 and 06/14/2020 and her hemoglobin today is 9.4. 3. Followup Plan: We will plan to see her back as scheduled at the end of June for post iron replacement and followup post radiation. 4. Mrs. Barth was encouraged to contact us in interim should questions or problems arise. Signed By: Elicia Hartmann-, CNP Khanh Oreilly MD <<Signature on File>>
== END 2020-06-28 23:59 | disposition home or self-care (01) ==
LOC: ONCMED 05:44
PROVIDERS: Nurse Practitioner; Absent Provider Radiology Radiation Oncology; PCP Family Medicine; Visit Provider Radiology Radiation Oncology
DX: Z51.0 Encounter for antineoplastic radiation therapy (principal); C20 Malignant neoplasm of rectum; D50.8 Other iron deficiency anemias; K21.9 Gastro-esophageal reflux disease without esophagitis; Z51.81 Encounter for therapeutic drug level monitoring; Z79.899 Other long term (current) drug therapy; M19.90 Unspecified osteoarthritis, unspecified site; I49.8 Other specified cardiac arrhythmias; I34.1 Nonrheumatic mitral (valve) prolapse; F41.8 Other specified anxiety disorders
CPT/HCPCS: 36415; 77336; 77386; 80053; 81001; 85025; 96365; 96367; 96375; 99214; J1100; J2405; J7050; Q0138

== ENCOUNTER 2020-07-02 11:21 | Outpatient (RCR) | payer OTHER, SELFPAY | END 2020-07-29 23:59 | disposition home or self-care (01) | LOC: ONCMED 11:21 | PROVIDERS: Absent Provider Radiology Radiation Oncology; PCP Family Medicine; Visit Provider Radiology Radiation Oncology | DX: Z51.0 Encounter for antineoplastic radiation therapy (principal); C20 Malignant neoplasm of rectum; C77.8 Secondary and unspecified malignant neoplasm of lymph nodes of multiple regions | CPT/HCPCS: 77336; 77386 ==

== ENCOUNTER 2020-08-03 06:00 | Outpatient (RCR) | payer OTHER, SELFPAY ==
--- NOTE | 2020-08-03 10:06 | ONCRAD EPV_ITS ---
Radiation Oncology Follow-Up Note Patient Name: Gregoria Barth Date of : 1955 Date of Service: 08/03/2020 Attending Physician: Anders Solis M.D. Gregoria Barth returned to my office this morning for a routinely scheduled post radiotherapy follow-up appointment. She completed radiotherapy in June for the management of a clinical stage IIIC (T3N2b) moderately differentiated adenocarcinoma carcinoma of the rectum. Daily radiotherapy was administered between the dates of May 21, 2020 through July 02, 2020. A prescribed dose of 50 Gy was delivered in 25 fractions encompassing 43 elapsed days. On review of systems, the patient denied any gastrointestinal complaints. Her stool has a larger caliber. On physical examination, the patient weighed 260 pounds. The temperature is 98.7???F. Her blood pressure was 136/81 mmHg. The pulse was 68 bpm and her respiratory rate was 18 breaths per minute. Rectal exam was deferred. In summary, Ms. Barth returned for a routine post-radiotherapy follow-up. She has been scheduled for surgery next week. Signed by: Dr. Anders Solis 08/03/2020 10:05:41 AM
== END 2020-08-26 23:59 | disposition home or self-care (01) ==
LOC: ONCMED 06:00
PROVIDERS: Absent Provider Radiology Radiation Oncology; PCP Family Medicine; Visit Provider Radiology Radiation Oncology
DX: C20 Malignant neoplasm of rectum (principal); Z92.3 Personal history of irradiation

== ENCOUNTER 2020-09-11 15:41 | Inpatient (IN) | payer OTHER, SELFPAY ==
[2020-09-11] VITALS (9 sets, daily range): BP systolic 108–140; BP diastolic 75–106; PULSE 88–123; RESP 16–20; TEMP 36.4–36.7; O2SAT 91–99; BMI 36.0
--- NOTE | 2020-09-11 16:53 | CTR_ITS ---
PROCEDURE INFORMATION: Exam: CT Abdomen And Pelvis With Contrast Exam date and time: 09/11/2020 6:03 PM Age: 65 years old Clinical indication: Other: Loss of appetite; Prior surgery; Surgery type: Colostomy, gb, hyst; Additional info: Abd pain TECHNIQUE: Imaging protocol: Computed tomography of the abdomen and pelvis with contrast. Radiation optimization: All CT scans at this facility use at least one of these dose optimization techniques: automated exposure control; mA and/or kV adjustment per patient size (includes targeted exams where dose is matched to clinical indication); or iterative reconstruction. Contrast material: OMNI 300; Contrast volume: 95 ml; Contrast route: INTRAVENOUS (IV); COMPARISON: No relevant prior studies available. RADIATION DOSE METRICS: Total DLP (mGy-cm): 2016.78 FINDINGS: Liver: Hepatic steatosis. No liver mass. Gallbladder and bile ducts: Cholecystectomy. Nondilated biliary system. Pancreas: Normal. No ductal dilation. Spleen: Normal. No splenomegaly. Adrenal glands: Normal. No mass. Kidneys and ureters: Small mildly complex exophytic lower pole left renal lesion with small focus of calcium deposition of the posteroinferior wall, otherwise relatively simple in appearance. No hydronephrosis. No perinephric inflammation. No renal stones. Stomach and bowel: Stomach decompressed and unremarkable in appearance. There is gradual dilation of proximal through mid small bowel loops. A right lower quadrant diverting ileostomy is present. Large bowel is decompressed. There is a transition point of dilated small bowel to decompressed distal small bowel entering the right lower quadrant ostomy. No inflammatory bowel wall thickening identified. Negative for pneumatosis intestinalis. Appendix: No evidence of appendicitis. Intraperitoneal space: Negative for pneumoperitoneum. Vasculature: Mesenteric vasculature patent and unremarkable. Lymph nodes: Unremarkable. No enlarged lymph nodes. Urinary bladder: Unremarkable as visualized. Reproductive: Hysterectomy. Bones/joints: No aggressive bone lesions. Moderate diffuse spondyloarthropathy of lumbar spine. Pelvic ring intact. Hip joint alignments intact. Soft tissues: Unremarkable. Other findings: Nonspecific air and fluid collection with loculated appearance in the presacral space which spans 8.3 cm craniocaudad length by 7.6 cm transverse dimension by 2.4 cm greatest AP thickness. CT/CT abdomen pelvis w con* [id number] IMPRESSION: 1. Dilated small bowel is noted leading into the right lower quadrant ostomy with abrupt transition with decompressed distal small bowel loop within the ostomy itself. Small-bowel obstruction secondary to adhesion not excluded. No evidence of bowel perforation. 2. Nonspecific fluid and gas collection in the presacral space. Fistula to the anorectal junction region not excluded. 3. Hepatic steatosis. 4. Mildly complicated small left renal cyst. COMMENTS: Consistent with the [employer]'s Incidental Findings Committee white paper (J Am Ghulam Radiol 2018): Any incidental renal lesion less than 1 cm or classified as too small to characterize, or any incidental cystic renal lesion characterized as simple-appearing, is likely benign. No follow-up imaging is recommended for these lesions per consensus recommendations based on imaging criteria. Radiation Dose CTDIVOL = (mGy): DLP = 2016.78 (mGy-cm)
--- NOTE | 2020-09-11 17:08 | ED_ITS ---
Documented by User: Frankie Orellana DO 09/12/20 06:09 HPI - Nausea/Vomiting/Diarrhea General: Chief complaint: Nausea/Vomiting/Diarrhea Stated complaint: UNABLE TO EAT, NAUSEA-COLON SURGERY @ 5 WKS AGO Time Seen by Provider: 09/11/20 16:35 History of Present Illness: HPI Narrative: 65-year-old female presents to the emergency room with complaints of nausea decreased appetite for the last several weeks. She was diagnosed in March 2020 with a right colorectal CA. She underwent radiation and oral chemotherapy for period of time and then on 08/10/2020 approximately 3 weeks ago patient underwent patient underwent a resection with an ileostomy. Since that time she states she has been having extremely poor appetite has not been able to eat or drink well. She been very nauseated she is not been able to eat much at all other than some protein drinks. No fever. She said the ileostomy has had consistent output that has not changed. She has been somewhat bloated. She has not begun the next cycle of chemotherapy. MD elicited complaint: nausea, vomiting and diarrhea Pertinent past history: anorexia, abdominal surgery and other (DVTColorectal CA) Onset (ago): week(s) (3) Associated nausea: Yes Associated abdominal pain: Yes Location of pain: Diffuse Pain consistency: intermittent Severity: moderate Quality: cramping and aching Exacerbating factors: eating Relieving factors: other (Bowel rest) Associated symtoms: Reports bloating, fatigue, anorexia, malaise, nausea and weakness; Denies altered mental status, anxiety, change in vision, chest pain, cough, diaphoresis, decreased urine output, dizziness, dysuria, epistaxis, fecal incontinence, fevers/chills, headache(s), myalgias, numbness, palpitations, rash, short of breath, syncope, tenesmus or tinnitus Review of Systems Const: Reports: fatigue and malaise; Denies: diaphoresis Eyes: Denies: change in vision ENMT: Denies: epistaxis Card: Denies: chest pain, palpitations or syncope Resp: Denies: dyspnea, productive cough or non-productive cough GI: Reports: nausea and bloating; Denies: fecal incontinence : Denies: dysuria Skin/Breast: Denies: rash or pruritus Neuro: Denies: headache(s) or dizziness Psych: Denies: anxiety PFSH ED PFSH: Medical History (Updated 09/11/20 @ 22:55 by Bozena Castillo MD) Anemia Acute blood loss anemia at time of cancer diagnosis and iron deficiency. Arthritis Atrial fibrillation GERD (gastroesophageal reflux disease) GI bleed at time of rectal cancer diagnosis Heart murmur Iron adverse reaction Malaise, flushing during IV infusion of iron sucrose. Resolved with discontinuation. 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 Family History Mother Breast cancer Father Lung cancer Social History (Updated 09/11/20 @ 19:58 by Bozena Castillo MD) Smoking and tobacco status: never smoked Alcohol intake: never Substance/Drug Use: never Marital status: Physical Exam Const: COMMON NORMALS: no acute distress EXAM LIMITATIONS: no altered mental status GENERAL APPEARANCE: cooperative and comfortable ORIENTATION/CONSCIOUSNESS: Yes awake, Yes oriented to person, Yes oriented to place and Yes oriented to time HENMT: COMMON NORMALS: normocephalic, atraumatic and hearing grossly normal bilaterally HEAD & SCALP: normocephalic and atraumatic Neck/C-Spine: COMMON NORMALS: no JVD Resp: COMMON NORMALS: normal respiratory effort, No retractions, No use of accessory muscles and clear to auscultation bilaterally AUSCULTATION: clear to auscultation bilaterally Cardio: COMMON NORMALS: no JVD, regular rhythm and No murmurs present (Cardio) RATE: tachycardic RHYTHM: regular rhythm GI: INSPECTION: Yes incision (Healing) AUSCULTATION: Yes Hypoactive bowel sounds present OTHER: Ileostomy just to the left of the midline infraumbilical. Surrounding tissue appears normal. Abdomen bloated distended tympanic to percussion, significantly diminished bowel sounds Extremity: COMMON NORMALS: normal to inspection, capillary refill normal, no clubbing, cyanosis or edema, no calf tenderness and no pedal edema Neuro: SENSORIUM/ORIENTATION: Yes oriented to person, Yes oriented to place and Yes oriented to time Skin: COMMON NORMALS: no rashes or lesions noted GENERAL SKIN EXAM: no rashes or lesions noted Course Vital Signs: Vital signs: Vital Signs Temperature 97.7 F 09/12/20 03:59 Pulse Rate 97 09/12/20 03:59 Respiratory Rate 18 09/12/20 03:59 Blood Pressure 116/75 09/12/20 03:59 Pulse Oximetry 93 09/12/20 03:59 MDM - Nausea/Vomiting/Diarrhea MDM Narrative: Medical decision making narrative: CTs and labs are pending. Anticipate patient will likely require admission given findings on physical exam. Care turned over to Dr. Tinsley at change of shift see please see his notes for diagnosis and final disposition. Lab Data: Labs: Lab Results 09/11/20 09/11/20 09/11/20 Range/Units 17:15 17:15 17:15 WBC 14.3 H (4.0-10.0) 10^3/ uL RBC 4.33 (4.1-5.3) 10^6/u L Hgb 12.6 (11.5-15.3) g/dL Hct 39.2 (37.0-47.0) % MCV 90.5 (81-99) fL MCH 29.1 (28.0-34.0) pg MCHC 32.1 (30.0-36.0) g/dL RDW 15.8 H (12.1-15.1) % Plt Count 583 H (130-400) 10^3/c mm MPV 9.0 (7.4-10.4) fL Neut % (Auto) 91.5 % Lymph % (Auto) 3.4 % [place] % (Auto) 3.9 % Eos % (Auto) 0.0 % Baso % (Auto) 0.7 % Neut # (Auto) 13.06 H (1.8-7.7) 10^3/u L Lymph # (Auto) 0.5 L (0.8-4.8) 10^3/u L [place] # (Auto) 0.6 (0.2-0.9) 10^3/u L Eos # (Auto) 0.0 (0.0-0.8) 10^3/u L Baso # (Auto) 0.1 (0.0-0.1) 10^3/u L Nucleated RBC % (a uto) 0 % Nucleated RBCs # 0.0 /100WBC Sodium 123 L (136-145) mmol/L Potassium 5.5 H (3.5-5.1) mmol/L Chloride 85 L (98-107) mmol/L Carbon Dioxide 22 (22-29) mmol/L Anion Gap 21.5 H (5-19) BUN 36 H (8-23) mg/dL Creatinine 0.6 (0.5-0.9) mg/dL GFR Calculation 100.6 (90-130) mL/min Glucose 126 H (65-115) mg/dL Calculated Osmolal ity 266 L (285-295) mOsm/k g Lactic Acid 1.5 (0.5-2.2) mmol/L Calcium 8.5 (8.5-10.5) mg/dL Magnesium 1.9 (1.7-2.3) mg/dL Total Bilirubin 0.6 (0.15-1.2) mg/dL AST 23 (0-32) U/L ALT 26 (0-33) U/L Alkaline Phosphata se 148 H (35-105) IU/L Total Protein 6.5 L (6.6-8.7) g/dL Albumin 3.1 L (3.5-5.2) g/dL Globulin 3.4 (1.3-4.6) g/dL Lipase 10 L (13-60) U/L Urine Color (Yellow) Urine Appearance (CLEAR) Urine pH (5-7) Ur Specific Gravit y (1.005-1.030) Urine Protein (Negative) Urine Glucose (UA) (Normal) Urine Ketones (Negative) Urine Blood (Negative) Urine Nitrate (Negative) Urine Bilirubin (Negative) Urine Urobilinogen (Negative) mg/dL Ur Leukocyte Maryanne ase (Negative) Urine RBC (0-2) /hpf Urine WBC (0-5) /hpf Ur Squamous Epith Cells (0-5) /hpf Amorphous Sediment Urine Bacteria (NONE) /hpf 03/16/21 Range/Units 17:15 WBC (4.0-10.0) 10^3/ uL RBC (4.1-5.3) 10^6/u L Hgb (11.5-15.3) g/dL Hct (37.0-47.0) % MCV (81-99) fL MCH (28.0-34.0) pg MCHC (30.0-36.0) g/dL RDW (12.1-15.1) % Plt Count (130-400) 10^3/c mm MPV (7.4-10.4) fL Neut % (Auto) % Lymph % (Auto) % [place] % (Auto) % Eos % (Auto) % Baso % (Auto) % Neut # (Auto) (1.8-7.7) 10^3/u L Lymph # (Auto) (0.8-4.8) 10^3/u L [place] # (Auto) (0.2-0.9) 10^3/u L Eos # (Auto) (0.0-0.8) 10^3/u L Baso # (Auto) (0.0-0.1) 10^3/u L Nucleated RBC % (a uto) % Nucleated RBCs # /100WBC Sodium (136-145) mmol/L Potassium (3.5-5.1) mmol/L Chloride (98-107) mmol/L Carbon Dioxide (22-29) mmol/L Anion Gap (5-19) BUN (8-23) mg/dL Creatinine (0.5-0.9) mg/dL GFR Calculation (90-130) mL/min Glucose (65-115) mg/dL Calculated Osmolal ity (285-295) mOsm/k g Lactic Acid (0.5-2.2) mmol/L Calcium (8.5-10.5) mg/dL Magnesium (1.7-2.3) mg/dL Total Bilirubin (0.15-1.2) mg/dL AST (0-32) U/L ALT (0-33) U/L Alkaline Phosphata se (35-105) IU/L Total Protein (6.6-8.7) g/dL Albumin (3.5-5.2) g/dL Globulin (1.3-4.6) g/dL Lipase (13-60) U/L Urine Color Yellow (Yellow) Urine Appearance Cloudy (CLEAR) Urine pH 5 (5-7) Ur Specific Gravit y 1.015 (1.005-1.030) Urine Protein 1+ H (Negative) Urine Glucose (UA) Norm (Normal) Urine Ketones 1+ H (Negative) Urine Blood 3+ H (Negative) Urine Nitrate Negative (Negative) Urine Bilirubin 2+ H (Negative) Urine Urobilinogen 4 H (Negative) mg/dL Ur Leukocyte Maryanne ase 2+ H (Negative) Urine RBC 10-15 H (0-2) /hpf Urine WBC 25-40 H (0-5) /hpf Ur Squamous Epith Cells 0-4 H (0-5) /hpf Amorphous Sediment Not Reportable Urine Bacteria 4+ H (NONE) /hpf Discharge Plan Discharge Patient Disposition: Admitted As Inpatient Admit Provider: Bozena Castillo Clinical Impression: Acute dehydration, Acute hyponatremia, Acute hyperkalemia, Status post small bowel resection, H/O ileostomy Nausea & vomiting Qualifiers: Vomiting type: unspecified Vomiting Intractability: intractable Qualified Code(s): R11.2 - Nausea with vomiting, unspecified UTI (urinary tract infection) Qualifiers: Urinary tract infection type: acute cystitis Hematuria presence: without hematuria Qualified Code(s): N30.00 - Acute cystitis without hematuria Condition: Stable Coding Level of Care Code ED Blueprint Maker for Chg Fwd Exam Comprehensive Documented by User: Jann Tinsley MD 09/11/20 19:42 HPI - Nausea/Vomiting/Diarrhea General: Chief complaint: Nausea/Vomiting/Diarrhea Stated complaint: UNABLE TO EAT, NAUSEA-COLON SURGERY @ 5 WKS AGO Time Seen by Provider: 09/11/20 16:35 PFSH ED PFSH: Medical History (Updated 09/11/20 @ 22:55 by Bozena Castillo MD) Anemia Acute blood loss anemia at time of cancer diagnosis and iron deficiency. Arthritis Atrial fibrillation GERD (gastroesophageal reflux disease) GI bleed at time of rectal cancer diagnosis Heart murmur Iron adverse reaction Malaise, flushing during IV infusion of iron sucrose. Resolved with discontinuation. 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 Castillo. Dr. Castillo has evaluated the patient's chart and is accepted the patient for admission Time: 19:40 Vital Signs: Vital signs: Vital Signs Temperature 97.7 F 09/12/20 03:59 Pulse Rate 97 09/12/20 03:59 Respiratory Rate 18 09/12/20 03:59 Blood Pressure 116/75 09/12/20 03:59 Pulse Oximetry 93 09/12/20 03:59 MDM - Nausea/Vomiting/Diarrhea Lab Data: Attestation: I reviewed the patient's lab results. Labs: Lab Results 09/11/20 09/11/20 09/11/20 Range/Units 17:15 17:15 17:15 WBC 14.3 H (4.0-10.0) 10^3/ uL RBC 4.33 (4.1-5.3) 10^6/u L Hgb 12.6 (11.5-15.3) g/dL Hct 39.2 (37.0-47.0) % MCV 90.5 (81-99) fL MCH 29.1 (28.0-34.0) pg MCHC 32.1 (30.0-36.0) g/dL RDW 15.8 H (12.1-15.1) % Plt Count 583 H (130-400) 10^3/c mm MPV 9.0 (7.4-10.4) fL Neut % (Auto) 91.5 % Lymph % (Auto) 3.4 % [place] % (Auto) 3.9 % Eos % (Auto) 0.0 % Baso % (Auto) 0.7 % Neut # (Auto) 13.06 H (1.8-7.7) 10^3/u L Lymph # (Auto) 0.5 L (0.8-4.8) 10^3/u L [place] # (Auto) 0.6 (0.2-0.9) 10^3/u L Eos # (Auto) 0.0 (0.0-0.8) 10^3/u L Baso # (Auto) 0.1 (0.0-0.1) 10^3/u L Nucleated RBC % (a uto) 0 % Nucleated RBCs # 0.0 /100WBC Sodium 123 L (136-145) mmol/L Potassium 5.5 H (3.5-5.1) mmol/L Chloride 85 L (98-107) mmol/L Carbon Dioxide 22 (22-29) mmol/L Anion Gap 21.5 H (5-19) BUN 36 H (8-23) mg/dL Creatinine 0.6 (0.5-0.9) mg/dL GFR Calculation 100.6 (90-130) mL/min Glucose 126 H (65-115) mg/dL Calculated Osmolal ity 266 L (285-295) mOsm/k g Lactic Acid 1.5 (0.5-2.2) mmol/L Calcium 8.5 (8.5-10.5) mg/dL Magnesium 1.9 (1.7-2.3) mg/dL Total Bilirubin 0.6 (0.15-1.2) mg/dL AST 23 (0-32) U/L ALT 26 (0-33) U/L Alkaline Phosphata se 148 H (35-105) IU/L Total Protein 6.5 L (6.6-8.7) g/dL Albumin 3.1 L (3.5-5.2) g/dL Globulin 3.4 (1.3-4.6) g/dL Lipase 10 L (13-60) U/L Urine Color (Yellow) Urine Appearance (CLEAR) Urine pH (5-7) Ur Specific Gravit y (1.005-1.030) Urine Protein (Negative) Urine Glucose (UA) (Normal) Urine Ketones (Negative) Urine Blood (Negative) Urine Nitrate (Negative) Urine Bilirubin (Negative) Urine Urobilinogen (Negative) mg/dL Ur Leukocyte Maryanne ase (Negative) Urine RBC (0-2) /hpf Urine WBC (0-5) /hpf Ur Squamous Epith Cells (0-5) /hpf Amorphous Sediment Urine Bacteria (NONE) /hpf 09/11/20 Range/Units 17:15 WBC (4.0-10.0) 10^3/ uL RBC (4.1-5.3) 10^6/u L Hgb (11.5-15.3) g/dL Hct (37.0-47.0) % MCV (81-99) fL MCH (28.0-34.0) pg MCHC (30.0-36.0) g/dL RDW (12.1-15.1) % Plt Count (130-400) 10^3/c mm MPV (7.4-10.4) fL Neut % (Auto) % Lymph % (Auto) % [place] % (Auto) % Eos % (Auto) % Baso % (Auto) % Neut # (Auto) (1.8-7.7) 10^3/u L Lymph # (Auto) (0.8-4.8) 10^3/u L [place] # (Auto) (0.2-0.9) 10^3/u L Eos # (Auto) (0.0-0.8) 10^3/u L Baso # (Auto) (0.0-0.1) 10^3/u L Nucleated RBC % (a uto) % Nucleated RBCs # /100WBC Sodium (136-145) mmol/L Potassium (3.5-5.1) mmol/L Chloride (98-107) mmol/L Carbon Dioxide (22-29) mmol/L Anion Gap (5-19) BUN (8-23) mg/dL Creatinine (0.5-0.9) mg/dL GFR Calculation (90-130) mL/min Glucose (65-115) mg/dL Calculated Osmolal ity (285-295) mOsm/k g Lactic Acid (0.5-2.2) mmol/L Calcium (8.5-10.5) mg/dL Magnesium (1.7-2.3) mg/dL Total Bilirubin (0.15-1.2) mg/dL AST (0-32) U/L ALT (0-33) U/L Alkaline Phosphata se (35-105) IU/L Total Protein (6.6-8.7) g/dL Albumin (3.5-5.2) g/dL Globulin (1.3-4.6) g/dL Lipase (13-60) U/L Urine Color Yellow (Yellow) Urine Appearance Cloudy (CLEAR) Urine pH 5 (5-7) Ur Specific Gravit y 1.015 (1.005-1.030) Urine Protein 1+ H (Negative) Urine Glucose (UA) Norm (Normal) Urine Ketones 1+ H (Negative) Urine Blood 3+ H (Negative) Urine Nitrate Negative (Negative) Urine Bilirubin 2+ H (Negative) Urine Urobilinogen 4 H (Negative) mg/dL Ur Leukocyte Maryanne ase 2+ H (Negative) Urine RBC 10-15 H (0-2) /hpf Urine WBC 25-40 H (0-5) /hpf Ur Squamous Epith Cells 0-4 H (0-5) /hpf Amorphous Sediment Not Reportable Urine Bacteria 4+ H (NONE) /hpf Imaging Data^: CT Abd/Pel: Attestation: I personally reviewed and interpreted this imaging study as follows: Radiologist's impression: IMPRESSION: 1. Dilated small bowel is noted leading into the right lower quadrant ostomy with abrupt transition with decompressed distal small bowel loop within the ostomy itself. Small-bowel obstruction secondary to adhesion not excluded. No evidence of bowel perforation. 2. Nonspecific fluid and gas collection in the presacral space. Fistula to the anorectal junction region not excluded. 3. Hepatic steatosis. 4. Mildly complicated small left renal cyst. Discharge Plan Discharge Patient Disposition: Admitted As Inpatient Admit Provider: Bozena Castillo Clinical Impression: Acute dehydration, Acute hyponatremia, Acute hyperkalemia, Status post small bowel resection, H/O ileostomy Nausea & vomiting Qualifiers: Vomiting type: unspecified Vomiting Intractability: intractable Qualified Code(s): R11.2 - Nausea with vomiting, unspecified UTI (urinary tract infection) Qualifiers: Urinary tract infection type: acute cystitis Hematuria presence: without hematuria Qualified Code(s): N30.00 - Acute cystitis without hematuria Condition: Stable Coding Level of Care Code ED Blueprint Maker for Chg Fwd Exam Comprehensive
[2020-09-11] MEDS: ondansetron 2 mg/ML SDV 2 mL 4 MG IVP (17:16)
[2020-09-11] MEDS: sodium chloride 0.9% 1,000 ML 999 ML IV ×2 (17:16→18:47)
[2020-09-11 17:29] LABS: Basophils # 0.1 10^3/uL (0.0-0.1); Basophils % 0.7 %; Hematocrit 39.2 % (37.0-47.0); Hemoglobin 12.6 g/dL (11.5-15.3); Lymphocytes # 0.5 10^3/uL (0.8-4.8); Lymphocytes % 3.4 %; Mean Corpuscular HGB Conc 32.1 g/dL (30.0-36.0); Mean Corpuscular Hemoglobin 29.1 pg (28.0-34.0); Mean Corpuscular Volume 90.5 fL (81-99); Monocytes # 0.6 10^3/uL (0.2-0.9); Monocytes % 3.9 %; Neutrophils # 13.06 10^3/uL (1.8-7.7); Neutrophils % 91.5 %; Nucleated Red Blood Cells % 0 %; Platelet Count 583 10^3/cmm (130-400); Red Blood Count 4.33 10^6/uL (4.1-5.3); Red Cell Distribution Width 15.8 % (12.1-15.1); White Blood Count 14.3 10^3/uL (4.0-10.0)
[2020-09-11 17:32] LABS: Add Urine Microscopic? YES; Bilirubin Urine 2+ (Negative); Blood Urine 3+ (Negative); Glucose Urine UA Norm (Normal); Ketones Urine 1+ (Negative); Leukocyte Esterase Urine 2+ (Negative); Nitrate Urine Negative (Negative); Protein Urine 1+ (Negative); Specific Gravity, Urine 1.015 (1.005-1.030); Urine Appearance Cloudy (CLEAR); Urine Color Yellow (Yellow); Urobilinogen Urine 4 mg/dL (Negative); pH Urine 5 (5-7)
[2020-09-11 17:53] LABS: Add Urine Culture? Yes; Bacteria Urine 4+ /hpf; Squamous Epithelial Cell Urine 0-4 /hpf (0-5); WBC Urine 25-40 /hpf (0-5)
[2020-09-11 18:02] LABS: Lactic Sepsis W/Reflex 1.5 mmol/L (0.5-2.2)
[2020-09-11 18:03] LABS: Alanine Aminotransferase 26 U/L (0-33); Albumin Level 3.1 g/dL (3.5-5.2); Alkaline Phosphatase 148 IU/L (35-105); Blood Urea Nitrogen 36 mg/dL (8-23); Calcium 8.5 mg/dL (8.5-10.5); Carbon Dioxide 22 mmol/L (22-29); Chloride 85 mmol/L (98-107); Globulin 3.4 g/dL (1.3-4.6); Glomerular Filtration Rate 100.6 mL/min (90-130); Glucose 126 mg/dL (65-115); Lipase 10 U/L (13-60); Magnesium 1.9 mg/dL (1.7-2.3); Osmolality Calculated 266 mOsm/kg (285-295); Sodium 123 mmol/L (136-145); Total Bilirubin 0.6 mg/dL (0.15-1.2); Total Protein 6.5 g/dL (6.6-8.7)
[2020-09-11 18:08] LABS: Anion Gap 21.5 (5-19); Aspartate Amino Transferase 23 U/L (0-32); Potassium 5.5 mmol/L (3.5-5.1)
[2020-09-11] MEDS: iohexol 300 mg/mL 100 mL Btl IV (18:20)
[2020-09-11] MEDS: cefTRIAXone 1,000 MG in sodium chloride 0.9% (plus) 50 ML 100 MG IV (18:28)
--- NOTE | 2020-09-11 19:41 | P.HP_ITS ---
Providers/Chief Complaint Admitting Physician: Dr Castillo Primary Care Provider: Alfredo Dow MD Chief Complaint: UNABLE TO EAT, NAUSEA-COLON SURGERY @ 5 WKS AGO History of Present Illness Gregoria Barth is a 65 year old female who presented to the emergency room with chief complaint of not being able to eat anything. She has a history of moderately differentiated adenocarcinoma of the rectum. She completed presurgical radiation and chemotherapy and July and underwent resection of the rectal mass and ileostomy placement approximately 5 weeks ago. Prior to surgery her functional status was good. She was also able to eat solid foods. Since surgery she has had chronic problems with nausea. She has only been able to consume liquid and soft foods such as puddings. Anything more than that and she vomits. She chronically has a strong gag reflex. The persistent nausea has made this a bit more prominent. She has had similar output in her ileostomy of soft brownish stool since surgery with no recent change noted. No increased or decreased output. No blood noted in output. She had been vomiting with every oral intake of anything more than liquids until 2 days ago. The last 2 days she has had no vomiting but is maintained a degree of nausea. She followed up with Dr. Murphy at [facility]. He added scopolamine patch which has helped her nausea some. Prior to that she had been utilizing Zofran with limited results. No reports of any fever. She does describe incontinence of urine since she had surgery. No real dysuria. No chills. No physical difficulty swallowing beyond the occasional gag. She did not have the same degree of nausea with chemo and rad iation. She did not had any significant GI issues otherwise during that timeframe. Since diagnosis of her cancer back in March of last year she has lost at least 30 pounds. Unable to really quantify how much weight she might of lost since then. Her mouth has been extremely dry. Wounds to her stomach have been healing slowly. Work-up in the emergency room revealed an elevated white count in the ER now, evidence of dehydrati and decrease in albumin since, surgery. CT scan shows some dilated loops of small bowel with a loop in the ostomy noted. Additionally there was a small amount of air noted. I reviewed the case with on-call surgery, including description of the CT results. At this time given lack of acute abdominal pain and continued output from the ostomy they did not currently feel that patient would necessitate transfer for surgical evaluation. Review of Systems Const: Reports: change in appetite, change in weight, fatigue and malaise; Denies: fever(s) or chills Eyes: Denies: change in vision ENMT: Reports: dry mouth; Denies: throat pain, odynophagia or nasal congestion Card: Reports: edema; Denies: chest pain or palpitations Resp: Denies: dyspnea, productive cough or non-productive cough GI: Reports: abdominal pain, nausea, vomiting and other (No change in ostomy output); Denies: hematemesis, constipation, hematochezia or melena : Reports: dribbling and urinary incontinence; Denies: difficulty voiding or dysuria Musc: Reports: muscle weakness Skin/Breast: Reports: other (Surgical wounds healing but slowly); Denies: rash or pruritus Neuro: Reports: weakness in extremities; Denies: headache(s), numbness in extremities or dizziness Berny/Lymph: Denies: easy bruising or easy bleeding Medications/Allergies Home Medications Medication Instructions Recorded Confirmed Last Taken Type duloxetine 30 mg PO DAILY@04/06/20 09/11/20 09/11/20 History acetaminophen [Tylenol Extra 1,000 mg PO PRN 09/11/20 09/11/20 Unknown History Strength] diltiazem HCl 180 mg PO DAILY@09 09/11/20 09/11/20 09/11/20 History ondansetron 4 mg PO TID PRN 09/11/20 09/11/20 Unknown History pantoprazole [Protonix] 40 mg PO BID@,09/11/20 09/11/20 09/11/20 09:00 H istory scopolamine base 1 mg TRANSDERMAL Q72H 09/11/20 09/11/20 09/10/20 History Allergies Allergy/AdvReac Type Severity Reaction Status Date / Time nitrofurantoin Allergy Unconscious Verified 09/11/20 17:15 [From Macrobid] Iron sucrose AdvReac Intermediate Flushing, Uncoded 09/11/20 16:23 malaise PFSH Acute PFSH: Medical History (Updated 09/11/20 @ 22:55 by Bozena Castillo MD) Anemia Acute blood loss anemia at time of cancer diagnosis and iron deficiency. Arthritis Atrial fibrillation GERD (gastroesophageal reflux disease) GI bleed at time of rectal cancer diagnosis Heart murmur Iron adverse reaction Malaise, flushing during IV infusion of iron sucrose. Resolved with discontinuation. 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 Family History Mother Breast cancer Father Lung cancer Social History (Updated 09/11/20 @ 19:58 by Bozena Castillo MD) Smoking and tobacco status: never smoked Alcohol intake: never Substance/Drug Use: never Marital status: Vitals/I&O/Wt Last Vital Signs Temp 98.1 F 09/11/20 16:23 Pulse 97 09/11/20 19:18 Resp 16 09/11/20 19:18 BP 116/75 09/11/20 19:18 Pulse Ox 98 09/11/20 19:18 09/11/20 09/11/20 09/11/20 06:59 14:59 22:59 Intake Total 1050 / 1050 Balance 1050 / 1050 Weight last 48 hrs Weight 104.326 kg Physical Exam Const: OTHER: Alert, oriented x3, cooperative, looks like she does not feel well HENMT: OTHER: Normocephalic atraumatic, very dry mucous membranes Eye: OTHER: Pupils equally round and reactive to light Neck/C-Spine: OTHER: Supple Resp: OTHER: Clear to auscultation bilaterally, no rales, rhonchi or wheezes noted Cardio: OTHER: Regular rate and rhythm, faint murmur noted. 2+ radial pulses, 1+ dorsalis pedis pulses. GI: OTHER: Abdomen soft, nontender, rounded but not distended, positive bowel sounds. Surgical scars are generally healing. Those above the like us are scabbed over, no surrounding erythema. Lateral to the umbilicus there is approximately 1-1/2 to 2 cm diameter area with loss of top layer of skin but again no surrounding erythema extending beyond this. Covered with a dressing. Ostomy noted, stump pink, currently with drainage from ostomy bag brownish- yellow loose stool. Extremity: NARRATIVE EXTREMITY EXAM: Swollen ankles and large calves but no calf tenderness or palpable cords Neuro: OTHER: Face symmetric, speech clear, moves all extremities, though generally weak Psych: OTHER: Normal affect Skin: OTHER: Skin is quite dry throughout, abdominal findings as noted above, no other wounds noted. Data : 09/11/20 17:15 09/11/20 17:15 A&P Assessment and plan (1) UTI (urinary tract infection): Status: Acute Qualifiers: Urinary tract infection type: acute cystitis Hematuria presence: without hematuria Qualified Code(s): N30.00 - Acute cystitis without hematuria (2) Acute dehydration: Status: Acute (3) Nausea & vomiting: Status: Acute Qualifiers: Vomiting type: unspecified Vomiting Intractability: intractable Qualified Code(s): R11.2 - Nausea with vomiting, unspecified (4) Weakness: Status: Acute (5) H/O ileostomy: Status: Acute (6) Rectal adenocarcinoma: Status: Chronic (7) Atrial fibrillation: Status: Chronic Qualifiers: Atrial fibrillation type: unspecified chronic Qualified Code(s): I48.20 - Chronic atrial fibrillation, unspecified Additional A&P Information Patient admission IV fluids Continue Rocephin started in the emergency room Follow-up pending cultures Send stool studies in particular for C. difficile Monitor abdominal exam for acute changes We will request records from Dr. Murphy; consider discussion with him tomorrow We will leave current scopolamine patch on but I have not ordered continued scopolamine until we get a better idea of what is going on acutely, if symptoms worsen will remove scopolamine patch. It was placed on 09/10/20. PT evaluation Continue home diltiazem Continue home duloxetine Continue home PPI Will try DVT prophylaxis with subcu Lovenox, monitoring for any evidence of bleeding SCDs Supportive care otherwise Anticipate discharge home with close outpatient follow-up, possibly some outpatient physical therapy versus home health physical therapy Plans were discussed with patient as well as her . Both were given an o pportunity to ask questions Full code Attestations Medical Necessity Statement*: Anticipated stay greater than 2 midnights in this patient who has had progressive decline since surgery approximately 5 weeks ago. Currently looks to have urinary tract infection and is clinically significantly dehydrated. She will be receiving IV fluids, IV antibiotics, a few other studies and close follow-up of cultures along with PT evaluation. Will monitor for changes suggestive of need for surgical evaluation. Has not had improvement despite attempts at outpatient measures to manage her symptoms. Coding Level of Care Code Acute Bowling Alley Operator for g Fwd Diagnoses UTI (urinary tract infection) N30.00 Urinary tract infection type: acute cystitis Hematuria presence: without hematuria Acute dehydration E86.0 Nausea & vomiting R11.2 Vomiting type: unspecified Vomiting Intractability: intractable Weakness R53.1 H/O ileostomy Z98.890 Rectal adenocarcinoma C20 Atrial fibrillation I48.20 Atrial fibrillation type: unspecified chronic
[2020-09-11] MEDS: duloxetine 30 mg Capsule PO (23:12)
[2020-09-11] MEDS: enoxaparin 40 mg/0.4 mL Syringe SUBCUT (23:12)
[2020-09-12] MEDS: sodium chloride 0.9% 1,000 ML 125 ML IV ×3 (00:19→17:21)
--- NOTE | 2020-09-12 02:12 | PC.NURSE ---
LAB IN ROOM.
[2020-09-12 03:59] VITALS: BP 116/75; PULSE 97; RESP 18; TEMP 36.5; O2SAT 93
[2020-09-12 04:17] LABS: Blood Urea Nitrogen 30 mg/dL (8-23); Calcium 8.1 mg/dL (8.5-10.5); Carbon Dioxide 19 mmol/L (22-29); Chloride 93 mmol/L (98-107); Glomerular Filtration Rate 160.7 mL/min (90-130); Glucose 81 mg/dL (65-115); Osmolality Calculated 271 mOsm/kg (285-295); Phosphorus 3.5 mg/dL (2.5-4.5); Sodium 128 mmol/L (136-145)
[2020-09-12 04:21] LABS: Anion Gap 20.7 (5-19); Potassium 4.7 mmol/L (3.5-5.1)
--- NOTE | 2020-09-12 04:32 | PC.NURSE ---
Resident was stuck multiple times in attempt to get blood for ordered labs.
[2020-09-12 05:20] LABS: Basophils # 0.1 10^3/uL (0.0-0.1); Basophils % 0.6 %; Eosinophils % 0.2 %; Hematocrit 35.2 % (37.0-47.0); Hemoglobin 10.9 g/dL (11.5-15.3); Lymphocytes # 0.5 10^3/uL (0.8-4.8); Lymphocytes % 4.3 %; Mean Corpuscular Hemoglobin 29.3 pg (28.0-34.0); Mean Corpuscular Volume 94.6 fL (81-99); Mean Platelet Volume 8.9 fL (7.4-10.4); Monocytes # 0.5 10^3/uL (0.2-0.9); Monocytes % 4.9 %; Neutrophils # 9.48 10^3/uL (1.8-7.7); Neutrophils % 89.3 %; Nucleated Red Blood Cells % 0 %; Platelet Count 444 10^3/cmm (130-400); Red Blood Count 3.72 10^6/uL (4.1-5.3); Red Cell Distribution Width 16.1 % (12.1-15.1); White Blood Count 10.6 10^3/uL (4.0-10.0)
[2020-09-12 07:38] VITALS: BP 117/77; PULSE 94; RESP 18; TEMP 37.1; O2SAT 97
[2020-09-12] MEDS: pantoprazole DR 40 mg Tablet PO ×2 (08:51→17:20)
[2020-09-12] MEDS: dilTIAZem ER (24HR) 180 mg Capsule PO (08:51)
--- NOTE | 2020-09-12 11:34 | P.PN_ITS ---
Subjective Subjective: Interval history: Patient was seen and examined this morning she was complaining of generalized weakness. She has remained afebrile,her other vitals and labs have been reviewed. Vitals/I&O/Wt Last Vital Signs Temp 98.7 F 09/12/20 07:38 Pulse 94 09/12/20 07:38 Resp 18 09/12/20 07:38 BP 117/77 09/12/20 07:38 Pulse Ox 97 09/12/20 07:38 09/11/20 09/12/20 09/12/20 22:59 06:59 14:59 Intake Total 2049 1000 / 1000 Balance 2049 1000 / 1000 Weight last 48 hrs Weight 104.326 kg Physical Exam Const: COMMON NORMALS: patient oriented x3 HENMT: COMMON NORMALS: normocephalic, atraumatic, hearing grossly normal bilaterally and external ears normal HEAD & SCALP: normocephalic and atraumatic EXTERNAL EAR: Yes external ears normal Eye: COMMON NORMALS: no scleral icterus GENERAL EYE: appearance normal, both eyes and all related structures Chest: COMMONS NORMALS: normal inspection of the chest and normal palpation of entire chest wall CHEST: Yes Symmetrical chest wall rise Resp: COMMON NORMALS: normal respiratory effort, No retractions, No use of accessory muscles and clear to auscultation bilaterally EFFORT & INSPECTION: Yes symmetric chest movement AUSCULTATION: clear to auscultation bilaterally Cardio: COMMON NORMALS: regular rate, regular rhythm, S1 normal heart sound present, S2 normal heart sound present, No gallops present (Cardio), No murmurs present (Cardio), No rub (Cardio) and Peripheral pulses 2+ throughout RATE: regular rate RHYTHM: regular rhythm HEART SOUNDS: S1 normal heart sound present and S2 normal heart sound present PERIPHERAL PULSES: Peripheral pulses 2+ throughout GI: COMMON NORMALS: Normal to inspection, nondistended, normoactive bowel sounds present, Soft to palpation, non-tender, No hepatosplenomegaly present and no masses AUSCULTATION: Yes normoactive bowel sounds PALPATION: Yes Soft to palpation and Yes No hepatosplenomegaly present RECTAL EXAM: deferred OTHER: Surgical scars are generally healing well. Ostomy noted, stump pink, cu rrently with drainage from ostomy bag brownish-yellow loose stool. : OTHER: Purulent foul-smelling drainage, from the vaginal area, indwelling Davis no sediment, or purulent drainage in the Davis. Extremity: COMMON NORMALS: no clubbing, cyanosis or edema and no pedal edema Neuro: COMMON NORMALS: patient oriented x3 Data : 09/12/20 04:45 09/12/20 03:41 Micro: Microbiology 09/11/20 21:10 Stool Lactoferrin - Final Stool C.difficile Toxin B Gene (PCR) - Final Occult Blood (FIT) - Final 09/11/20 03:31 Blood Culture - Preliminary Blood SPECIMEN COLLECTED 09/11/20 02:47 Blood Culture - Preliminary Blood SPECIMEN COLLECTED A&P Assessment and plan (1) UTI (urinary tract infection): IV fluids Continue Rocephin started in the emergency room Follow-up pending cultures Status: Acute Qualifiers: Hematuria presence: without hematuria Urinary tract infection type: acute cystitis Qualified Code(s): N30.00 - Acute cystitis without hematuria (2) 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 We will consult surgery as well if SPORTS COORDINATOR in a.m. Status: Acute (3) Acute dehydration: Status: Acute (4) Nausea & vomiting: Status: Acute Qualifiers: Vomiting Intractability: intractable Vomiting type: unspecified Qualified Code(s): R11.2 - Nausea with vomiting, unspecified (5) Weakness: Status: Acute (6) H/O ileostomy: Status: Acute (7) Rectal adenocarcinoma: Status: Chronic (8) Atrial fibrillation: Continue home diltiazem Status: Chronic Qualifiers: Atrial fibrillation type: unspecified chronic Qualified Code(s): I48.20 - Chronic atrial fibrillation, unspecified Additional A&P Information Follow stool C. difficile We will request records from Dr. Murphy; We will leave current scopolamine patch on but I have not ordered continued scopolamine until we get a better idea of what is going on acutely, if symptoms worsen will remove scopolamine patch. It was placed on 09/10/20. PT evaluation Continue home duloxetine Continue home PPI Will try DVT prophylaxis with subcu Lovenox, monitoring for any evidence of bleeding SCDs Supportive care otherwise Anticipate discharge home with close outpatient follow-up, possibly some ou tpatient physical therapy versus home health physical therapy Plans were discussed with patient as well as her . Both were given an opportunity to ask questions Full code Attestations Medical Necessity Statement*: Patient needs to be in hospital for management of UTI, rectovaginal fistula, generalized weakness. Coding Level of Care Code Acute Manager Ambulatory for Chg Fwd Diagnoses UTI (urinary tract infection) N30.00 Hematuria presence: without hematuria Urinary tract infection type: acute cystitis Recto-vaginal fistula N82.3 Acute dehydration E86.0 Nausea & vomiting R11.2 Vomiting Intractability: intractable Vomiting type: unspecified Weakness R53.1 H/O ileostomy Z98.890 Rectal adenocarcinoma C20 Atrial fibrillation I48.20 Atrial fibrillation type: unspecified chronic
[2020-09-12 11:58] VITALS: BP 127/85; PULSE 105; RESP 18; TEMP 37; O2SAT 97
[2020-09-12 15:47] VITALS: BP 119/84; PULSE 107; RESP 18; TEMP 36.7; O2SAT 97
[2020-09-12] MEDS: cefTRIAXone 1,000 MG in sodium chloride 0.9% (plus) 50 ML 100 MG IV (17:20)
[2020-09-12] MEDS: acetaminophen 325 mg Tablet 650 MG PO (17:20)
--- NOTE | 2020-09-12 18:16 | PC.NURSE ---
notified Dr Solis of patients low urine output instructions to bladder scan reported 550 in bladder instructions to place thomson catheter after Thomson cath placement patient began having moderate amount of purulent drainage from above the Thomson catheter notified Dr Solis he will come to bedside
[2020-09-12 19:37] VITALS: BP 110/77; PULSE 102; RESP 18; TEMP 36.4; O2SAT 96
[2020-09-12] MEDS: enoxaparin 40 mg/0.4 mL Syringe SUBCUT (23:34)
[2020-09-13] VITALS (7 sets, daily range): BP systolic 104–122; BP diastolic 69–80; PULSE 90–103; RESP 12–18; TEMP 36–36.9; O2SAT 96–97
[2020-09-13] MEDS: sodium chloride 0.9% 1,000 ML 125 ML IV ×3 (02:45→21:24)
[2020-09-13] MEDS: pantoprazole DR 40 mg Tablet PO ×2 (09:10→16:46)
[2020-09-13] MEDS: dilTIAZem ER (24HR) 180 mg Capsule PO (09:10)
--- NOTE | 2020-09-13 12:08 | P.PN_ITS ---
Subjective Subjective: Interval history: Patient was seen and examined this morning, continues to complain of poor oral intake. Remained afebrile, other vitals and labs reviewed, urology and gynecology consultation Done. Medications: Reviewed: Yes Vitals/I&O/Wt Last Vital Signs Temp 96.8 F L 09/13/20 11:03 Pulse 95 09/13/20 11:03 Resp 16 09/13/20 11:03 BP 116/79 09/13/20 11:03 Pulse Ox 96 09/13/20 11:03 09/12/20 09/13/20 09/13/20 22:59 06:59 14:59 Intake Total 1066.667 / 2306.667 983.333 / 3290.000 Output Total 650 / 650 800 / 1450 Balance 416.667 / 1656.667 183.333 / 1840.000 Weight last 48 hrs Weight 104.326 kg Physical Exam Const: COMMON NORMALS: patient oriented x3 HENMT: COMMON NORMALS: normocephalic, atraumatic, hearing grossly normal bilat erally and external ears normal HEAD & SCALP: normocephalic and atraumatic EXTERNAL EAR: Yes external ears normal Eye: COMMON NORMALS: no scleral icterus GENERAL EYE: appearance normal, both eyes and all related structures Chest: COMMONS NORMALS: normal inspection of the chest and normal palpation of entire chest wall CHEST: Yes Symmetrical chest wall rise Resp: COMMON NORMALS: normal respiratory effort, No retractions, No use of accessory muscles and clear to auscultation bilaterally EFFORT & INSPECTION: Yes symmetric chest movement AUSCULTATION: clear to auscultation bilaterally Cardio: COMMON NORMALS: regular rate, regular rhythm, S1 normal heart sound present, S2 normal heart sound present, No gallops present (Cardio), No murmurs present (Cardio), No rub (Cardio) and Peripheral pulses 2+ throughout RATE: regular rate RHYTHM: regular rhythm HEART SOUNDS: S1 normal heart sound present and S2 normal heart sound present PERIPHERAL PULSES: Peripheral pulses 2+ throughout GI: COMMON NORMALS: Normal to inspection, nondistended, normoactive bowel sounds present, Soft to palpation, non-tender, No hepatosplenomegaly present and no masses AUSCULTATION: Yes normoactive bowel sounds PALPATION: Yes Soft to palpation and Yes No hepatosplenomegaly present RECTAL EXAM: deferred OTHER: Surgical scars are generally healing well. Ostomy noted, stump pink, currently with drainage from ostomy bag brownish-yellow loose stool. : OTHER: Purulent foul-smelling drainage, from the vaginal area, indwelling Davis no sediment, or purulent drainage in the Davis. Extremity: COMMON NORMALS: no clubbing, cyanosis or edema and no pedal edema Neuro: COMMON NORMALS: patient oriented x3 Urinary Catheter Management^: Davis: Cath Placed During This Visit: yes Reason for Continuing Indwelling Catheter: Acute Urinary Retention or Obstruction Urinary Catheter Date of Insertion: 09/12/20 Urinary Catheter Time of Insertion: 17:30 Data : 09/12/20 04:45 09/12/20 03:41 Micro: Microbiology 09/11/20 17:15 Urine Culture - Preliminary Urine,Clean Catch Gram Negative Rods 09/11/20 03:31 Blood Culture - Preliminary Blood NEGATIVE TO DATE 09/11/20 02:47 Blood Culture - Preliminary Blood NEGATIVE TO DATE 09/11/20 21:10 Stool Lactoferrin - Final Stool C.difficile Toxin B Gene (PCR) - Final Occult Blood (FIT) - Final A&P Assessment and plan (1) UTI (urinary tract infection): IV fluids Continue Rocephin started in the emergency room cultures: GNR Status: Acute Qualifiers: Hematuria presence: without hematuria Urinary tract infection type: acute cystitis Qualified Code(s): N30.00 - Acute cystitis without hematuria (2) 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 Appreciate INSURANCE FOLLOW UP SPECIALIST consult. Appreciate urology consult: Status: Acute (3) Acute dehydration: Status: Acute (4) Nausea & vomiting: Status: Acute Qualifiers: Vomiting Intractability: intractable Vomiting type: unspecified Qualified Code(s): R11.2 - Nausea with vomiting, unspecified (5) Weakness: Status: Acute (6) H/O ileostomy: Status: Acute (7) Rectal adenocarcinoma: Status: Chronic (8) Atrial fibrillation: Continue home diltiazem Status: Chronic Qualifiers: Atrial fibrillation type: unspecified chronic Qualified Code(s): I48.20 - Chronic atrial fibrillation, unspecified Additional A&P Information stool C. difficile: Negative, FOBT: Positive , elevated fecal lactoferrin. We will request records from Dr. Murphy; We will leave current scopolamine patch on but I have not ordered continued scopolamine until we get a better idea of what is going on acutely, if symptoms worsen will remove scopolamine patch. It was placed on 09/10/20. PT evaluation Continue home duloxetine Continue home PPI Will try DVT prophylaxis with subcu Lovenox, monitoring for any evidence of bleeding SCDs Supportive care otherwise Anticipate discharge home with close outpatient follow-up, possibly some outpatient physical therapy versus home health physical therapy Plans were discussed with patient as well as her . Both were given an opportunity to ask questions Full code Attestations Medical Necessity Statement*: She needs to be in hospital for management of poor oral intake, possible UTI, rectovaginal fistula. Coding Level of Care Code Acute Superintendent Laundry for g Fwd Diagnoses UTI (urinary tract infection) N30.00 Hematuria presence: without hematuria Urinary tract infection type: acute cystitis Recto-vaginal fistula N82.3 Acute dehydration E86.0 Nausea & vomiting R11.2 Vomiting Intractability: intractable Vomiting type: unspecified Weakness R53.1 H/O ileostomy Z98.890 Rectal adenocarcinoma C20 Atrial fibrillation I48.20 Atrial fibrillation type: unspecified chronic
[2020-09-13] MEDS: ondansetron 2 mg/ML SDV 2 mL 4 MG IVP (12:14)
--- NOTE | 2020-09-13 15:12 | PM.MISC ---
Miscellaneous Note Purpose of Documentation: Follow-up on conversation with the hospitalist. Note: Was called by Dr. Solis last night regarding Gregoria. He reviewed her prior history of ileostomy and partial colon resection. She was admitted for increasing fatigue, nausea, inability to eat. There is some concern about infection initially. CT scan showed dilated small bowel loops and air in the vaginal area that appeared to be potentially a rectovaginal fistula. The bladder was distended. No air was in the bladder. No obvious vesicoenteric fistula. Physical exam revealed a lot of purulence coming from the vagina. Report was that the urinalysis or least the gross examination of the urine that came from the catheter when it was placed was clear. She denies any pneumaturia or fecal urea. No overt symptoms of cystitis. She has had since her surgery recently increasing hesitancy, small voids, and at times feeling of incomplete emptying. Catheter placement yielded a large volume of urine consistent with what was seen on the CT scan. Has had significant relief with the catheter in place. There is a consultation request for gynecology in the orders. Based on the appearance of the CT findings being more entero-vaginal I will hold off on any further urologic work-up at this point. If there is an examination under anesthesia with gynecology I will be available for urologic inspection possible cystoscopy. I reviewed all the above with Gregoria. Encouraged her to call me if there is changes associated with urinary tract. I would leave the catheter in for now given the findings above. It is likely that she will have difficulty voiding given those findings and self clean intermittent catheterization is not a very good option at this point based on the above findings but may be a reasonable option after clarification of source of the vaginal discharge etc.
[2020-09-13] MEDS: scopolamine 1.5 Patch 1 PATCH TRANSDERMA (15:26)
[2020-09-13] MEDS: cefTRIAXone 1,000 MG in sodium chloride 0.9% (plus) 50 ML 100 MG IV (17:41)
[2020-09-13] MEDS: oxyCODONE-APAP 5-325 mg Tablet 1 TAB PO (21:24)
[2020-09-13] MEDS: enoxaparin 40 mg/0.4 mL Syringe SUBCUT (21:25)
[2020-09-13] MEDS: mirtazapine 15 mg Tablet 7.5 MG PO (21:25)
[2020-09-14] VITALS (9 sets, daily range): BP systolic 112–128; BP diastolic 76–83; PULSE 85–112; RESP 14–18; TEMP 36.2–36.9; O2SAT 95–97
--- NOTE | 2020-09-14 04:19 | P.MISC_ITS ---
Miscellaneous Note Note: Received a phone call from patient's primary care provider Dr. Dow. Family is concerned about Mrs. Jade's overall nutritional status. I had ordered a clear liquid diet at the time of admission with a nutritional supplement but it appears that the nutritional supplement has not been delive red. Spoke with nursing
--- NOTE | 2020-09-14 04:34 | PM.EVENT ---
Event Note Event Note: Received a phone call from patient's primary care provider Dr. Dow this evening. Family is concerned about Mrs. Jade's overall nutritional status which I understand. I had ordered a clear liquid diet at the time of admission with a nutritional supplement tid but it appears that the nutritional supplement has not been delivered. Spoke with nursing who has discussed with dietary. Event report will be filed. Also ordered dietary consultation. Am labs ordered to ensure adequate electrolyte replacement and hydration. Anticipate need to adjust IVFs pending results. Consideration can be given to advance of diet depending on plans from surgical standpoint. Will continue to monitor nutritional status while addressing other issues.
[2020-09-14 07:04] LABS: Basophils % 0.5 %; Eosinophils % 0.3 %; Hematocrit 36.4 % (37.0-47.0); Hemoglobin 10.7 g/dL (11.5-15.3); Lymphocytes # 0.4 10^3/uL (0.8-4.8); Lymphocytes % 6.5 %; Mean Corpuscular HGB Conc 29.4 g/dL (30.0-36.0); Mean Corpuscular Hemoglobin 29.8 pg (28.0-34.0); Mean Corpuscular Volume 101.4 fL (81-99); Mean Platelet Volume 8.7 fL (7.4-10.4); Monocytes # 0.5 10^3/uL (0.2-0.9); Monocytes % 7.4 %; Neutrophils # 5.63 10^3/uL (1.8-7.7); Neutrophils % 84.7 %; Nucleated Red Blood Cells % 0 %; Platelet Count 385 10^3/cmm (130-400); Red Blood Count 3.59 10^6/uL (4.1-5.3); Red Cell Distribution Width 15.8 % (12.1-15.1); White Blood Count 6.6 10^3/uL (4.0-10.0)
[2020-09-14 07:14] LABS: Chol HDL Ratio 6.44 mg/dL (0.0-4.40); Cholesterol 58 mg/dL (0-200); HDL Cholesterol 9 mg/dL (60-100); LDL Cholesterol Calculated 30 mg/dL (50-129); LDL HDL Ratio 3.33 RATIO (0.00-3.22); Magnesium 1.6 mg/dL (1.7-2.3); Phosphorus 2.7 mg/dL (2.5-4.5); Triglycerides 93 mg/dL (0-150)
[2020-09-14] MEDS: lactobacillus 1 Tablet 1 TAB PO ×2 (09:36→18:21)
[2020-09-14] MEDS: dilTIAZem ER (24HR) 180 mg Capsule PO (09:36)
[2020-09-14] MEDS: oxyCODONE-APAP 5-325 mg Tablet 1 TAB PO ×2 (09:36→15:41)
[2020-09-14] MEDS: pantoprazole DR 40 mg Tablet PO ×2 (09:36→18:21)
--- NOTE | 2020-09-14 11:44 | P.CONIM_ITS ---
Providers/Reason For Consult Consulting Physican/Specialty*: PAPER WOOD CUTTER Reason for Consult*: Purulent vaginal discharge Attending Physician: Ap Solis MD Primary Care Provider: Alfredo Dow MD History of Present Illness History of Present Illness Gregoria Barth is a 65 year old female admitted tthrough the ER with chief complaint of not being able to eat anything. She has a history of moderately differentiated adenocarcinoma of the rectum. She completed presurgical radiatio n and chemotherapy and July and underwent resection of the rectal mass and ileostomy placement approximately 5 weeks ago. She was noted to have the purulent vaginal discharge. Review of Systems Const: Reports: change in appetite, change in weight, fatigue and malaise; Denies: fever(s) or chills Eyes: Denies: change in vision ENMT: Reports: dry mouth; Denies: throat pain, odynophagia or nasal congestion Card: Reports: edema; Denies: chest pain or palpitations Resp: Denies: dyspnea, productive cough or non-productive cough GI: Reports: abdominal pain, nausea, vomiting and other (No change in ostomy output); Denies: hematemesis, constipation, hematochezia or melena : Reports: dribbling and urinary incontinence; Denies: difficulty voiding or dysuria Musc: Reports: muscle weakness Skin/Breast: Reports: other (Surgical wounds healing but slowly); Denies: rash or pruritus Neuro: Reports: weakness in extremities; Denies: headache(s), numbness in extremities or dizziness Berny/Lymph: Denies: easy bruising or easy bleeding Meds/Allergies Home Medications and Allergies Home Medications Medication Instructions Recorded Confirmed Last Taken Type duloxetine 30 mg PO DAILY@04/06/20 09/11/20 09/11/20 History acetaminophen [Tylenol Extra 1,000 mg PO PRN 09/11/20 09/11/20 Unknown History Strength] diltiazem HCl 180 mg PO DAILY@09/11/20 09/11/20 09/11/20 History ondansetron 4 mg PO TID PRN 09/11/20 09/11/20 Unknown History pantoprazole [Protonix] 40 mg PO BID@,09/11/20 09/11/20 09/11/20 09:00 History scopolamine base 1 mg TRANSDERMAL Q72H 09/11/20 09/11/20 09/10/20 History Allergies Allergy/AdvReac Type Severity Reaction Status Date / Time nitrofurantoin Allergy Unconscious Verified 09/11/20 17:15 [From Macrobid] Iron sucrose AdvReac Intermediate Flushing, Uncoded 09/11/20 16:23 malaise Current Medications Current Medications Generic Name Dose Route Start Last Admin Trade Name Freq PRN Reason Stop Dose Admin Acetaminophen 650 mg 09/11/20 22:15 09/12/20 17:20 Acetaminophen 325 Mg Tablet PO 650 mg Q6H PRN Administration Mild/Mod Pain Or Temp >/= 101 Diltiazem HCl 180 mg 09/12/20 09:00 09/14/20 09:36 Diltiazem Er (24hr) 180 Mg Capsule PO 180 mg DAILY EMILY Administration Enoxaparin Sodium 40 mg 09/11/20 22:15 09/13/20 21:25 Enoxaparin 40 Mg/0.4 Ml Syringe SUBCUT 40 mg Q24H EMILY Administration Sodium Chloride 1,000 mls @ 125 mls/hr 09/11/20 22:15 09/13/20 21:24 Sodium Chloride 0.9% IV 125 mls/hr .Q8H EMILY Administration Ceftriaxone Sodium 1,000 mg/ 50 mls @ 100 mls/hr 09/12/20 18:00 09/13/20 18:21 Sodium Chloride IV Infused Q24H EMILY Infusion Protocol Lactobacillus Acidophilus 1 tab 09/14/20 09:00 09/14/20 09:36 Lactobacillus 1 Tablet PO 1 tab BID EMILY Administration Mirtazapine 7.5 mg 09/13/20 21:00 09/13/20 21:25 Mirtazapine 15 Mg Tablet PO 7.5 mg BEDTIME EMILY Administration Ondansetron HCl 4 mg 09/11/20 22:15 09/13/20 12:14 Ondansetron 2 Mg/Ml Sdv 2 Ml IVP 4 mg Q6H PRN Administration vomiting, or N/V if npo Oxycodone/Acetaminophen 1 tab 09/13/20 16:43 09/14/20 09:36 Oxycodone-Apap 5-325 Mg Tablet PO 1 tab Q4H PRN Administration MODERATE PAIN Pantoprazole Sodium 40 mg 09/12/20 09:00 09/14/20 09:[address] 40 Mg Tablet PO 40 mg BID@ EMILY Administration PFSH Acute PFSH: Medical History (Updated 09/12/20 @ 21:28 by Ap Solis MD) Anemia Acute blood loss anemia at time of cancer diagnosis and iron deficiency. Arthritis Atrial fibrillation GERD (gastroesophageal reflux disease) GI bleed at time of rectal cancer diagnosis Heart murmur Iron adverse reaction Malaise, flushing during IV infusion of iron sucrose. Resolved with discontinuation. 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 Family History Mother Breast cancer Father Lung cancer Social History (Updated 09/11/20 @ 19:58 by Bozena Castillo MD) Smoking and tobacco status: never smoked Alcohol intake: never Substance/Drug Use: never Marital status: Vitals/I&O/Wt Last Vital Signs Temp 98.3 F 09/14/20 06:55 Pulse 99 09/14/20 06:55 Resp 14 09/14/20 09:36 BP 128/83 09/14/20 06:55 Pulse Ox 96 09/14/20 09:36 09/13/20 09/14/20 09/14/20 22:59 06:59 14:59 Intake Total 1050 / 2170 Output Total 400 / 400 300 / 700 Balance 650 / 1770 -300 / 1470 Physical Exam 2 Const: COMMON NORMALS: patient oriented x3 GENERAL APPEARANCE: cooperative and comfortable NUTRITIONAL APPEARANCE: obese morbidly obese : COMMON NORMALS: Yes no CVA tenderness BLADDER/KIDNEY EXAM: Yes no CVA tenderness EXTERNAL FEMALE EXAM: Yes externally tender and Yes other (indweling catheter, red urine in thomson) SPECULUM EXAM - VAGINA: Yes vagina atrophic, Yes lesion (high fistula with profuse purulent discharge), No vaginal bleeding and Yes Vaginal discharge present Vaginal discharge present: malodorous and other (purulent) SPECULUM EXAM - CERVIX: Yes Cervix absent BIMANUAL EXAM - VAGINA & UTERUS: Yes uterus absent BIMANUAL EXAM - ADNEXA, OTHER: Yes Other (dificult to assess due to body habitus) OB/EXTERNAL & SPECULUM: No vaginal bleeding Back/Pelvis: COMMON NORMALS: no CVA tenderness Neuro: COMMON NORMALS: patient oriented x3 Urinary Catheter Management^: Thomson: Cath Placed During This Visit: yes Reason for Continuing Indwelling Catheter: Acute Urinary Retention or Obstruction Urinary Catheter Date of Insertion: 09/12/20 Urinary Catheter Time of Insertion: 17:30 Data Micro: Micro: Microbiology 09/11/20 17:15 Urine Culture - Fi nal Urine,Clean Catch Escherichia col i A&P Assessment and plan (1) Recto-vaginal fistula: Follow-up on conversation with the hospitalist. Was consulted by Dr. Solis. He reviewed her prior history of ileostomy and partial colon resection. She was admitted for increasing fatigue, nausea, inability to eat. There is some concern about infection initially. Urology has been consulted. The patient was taken to the ER for evaluation since the floor do not have a room with a bed with stirrups to properly perform an exam. Catheter in place, thomson bag show red urine. After placing the patient in lithotomy position a pelvic speculum exam was performed, showing profuse purulent discharge making difficult to assess the lesion. After multiple CORPORATE REPRESENTATIVE swaps to clear the discharge a high near the vaginal cuff fistula was noted with profusing purulent discharge when pressure applied with CORPORATE REPRESENTATIVE swaps. Most like a colon abscess with fistula drainage into the vagina. Recommend she be transfer to her colon-rectal surgeon that had treated her. I reviewed all the above with Mrs Barth and the recommendation of transfer to [place] to colon-rectal surgeon to resolve the high vaginal/colon fistula. Status: Acute Coding Level of Care Code Acute Swatch Cutter for [facility] Fwd Diagnoses Recto-vaginal fistula N82.3
[2020-09-14] MEDS: sodium chloride 0.9% 1,000 ML 125 ML IV (13:05)
--- NOTE | 2020-09-14 14:45 | PM.PN ---
Subjective Subjective: Interval history: Patient was seen and examined this morning, continues to complain of poor oral intake. Remained afebrile, other vitals and labs reviewed, urology and gynecology consultation Done. Medications: Reviewed: Yes Vitals/I&O/Wt Last Vital Signs Temp 97.1 F L 09/14/20 12:00 Pulse 85 09/14/20 12:00 Resp 16 09/14/20 12:00 BP 114/78 09/14/20 12:00 Pulse Ox 97 09/14/20 12:00 09/13/20 09/14/20 09/14/20 22:59 06:59 14:59 Intake Total 1050 / 2170 1000 / 3170 480 / 480 Output Total 400 / 400 300 / 700 Balance 650 / 1770 700 / 2470 480 / 480 Physical Exam Const: COMMON NORMALS: patient oriented x3 HENMT: COMMON NORMALS: normocephalic, atraumatic, hearing grossly normal bilaterally and external ears normal HEAD & SCALP: normocephalic and atraumatic EXTERNAL EAR: Yes external ears normal Eye: COMMON NORMALS: no scleral icterus GENERAL EYE: appearance normal, both eyes and all related structures Chest: COMMONS NORMALS: normal inspection of the chest and normal palpation of entire chest wall CHEST: Yes Symmetrical chest wall rise Resp: COMMON NORMALS: normal respiratory effort, No retractions, No use of accessory muscles and clear to auscultation bilaterally EFFORT & INSPECTION: Yes symmetric chest movement AUSCULTATION: clear to auscultation bilaterally Cardio: COMMON NORMALS: regular rate, regular rhythm, S1 normal heart sound present, S2 normal heart sound present, No gallops present (Cardio), No murmurs present (Cardio), No rub (Cardio) and Peripheral pulses 2+ throughout RATE: regular rate RHYTHM: regular rhythm HEART SOUNDS: S1 normal heart sound present and S2 normal heart sound present PERIPHERAL PULSES: Peripheral pulses 2+ throughout GI: COMMON NORMALS: Normal to inspection, nondistended, normoactive bowel sounds present, Soft to palpation, non-tender, No hepatosplenomegaly present and no masses AUSCULTATION: Yes normoactive bowel sounds PALPATION: Yes Soft to palpation and Yes No hepatosplenomegaly present RECTAL EXAM: deferred OTHER: Surgical scars are generally healing well. Ostomy noted, stump pink, currently with drainage from ostomy bag brownish-yellow loose stool. : OTHER: Purulent foul-smelling drainage, from the vaginal area, indwelling Davis no sediment, or purulent drainage in the Davis. Extremity: COMMON NORMALS: no clubbing, cyanosis or edema and no pedal edema Neuro: COMMON NORMALS: patient oriented x3 Urinary Catheter Management^: Davis: Cath Placed During This Visit: yes Reason for Continuing Indwelling Catheter: Acute Urinary Retention or Obstruction Urinary Catheter Date of Insertion: 09/12/20 Urinary Catheter Time of Insertion: 17:30 Data : 09/14/20 06:34 09/12/20 03:41 Micro: Microbiology 09/11/20 17:15 Urine Culture - Final Urine,Clean Catch Escherichia coli A&P Assessment and plan (1) UTI (urinary tract infection): IV fluids Continue Rocephin started in the emergency room cultures: GNR Status: Acute Qualifiers: Hematuria presence: without hematuria Urinary tract infection type: acute cystitis Qualified Code(s): N30.00 - Acute cystitis without hematuria (2) 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 Appreciate JOINTER MACHINE OPERATOR consult. Appreciate urology consult: Patient colorectal surgeon was reached out today for possible transfer he is of the opinion that,currently there is no need for any acute intervention, she should be medically managed as she is hemodynamically stable. Continue to tailor the antibiotics.She can continue to follow with him in 1 month period,on her scheduled visit. Status: Acute (3) Acute dehydration: Status: Acute (4) Nausea & vomiting: Status: Acute Qualifiers: Vomiting Intractability: intractable Vomiting type: unspecified Qualified Code(s): R11.2 - Nausea with vomiting, unspecified (5) Weakness: Status: Acute (6) H/O ileostomy: Status: Acute (7) Rectal adenocarcinoma: Status: Chronic (8) Atrial fibrillation: Continue home diltiazem Status: Chronic Qualifiers: Atrial fibrillation type: unspecified chronic Qualified Code(s): I48.20 - Chronic atrial fibrillation, unspecified Additional A&P Information stool C. difficile: Negative, FOBT: Positive , elevated fecal lactoferrin. We will request records from Dr. Murphy; We will leave current scopolamine patch on but I have not ordered continued scopolamine until we get a better idea of what is going on acutely, if symptoms worsen will remove scopolamine patch. It was placed on 09/10/20. PT evaluation Continue home duloxetine Continue home PPI Will try DVT prophylaxis with subcu Lovenox, monitoring for any evidence of bleeding SCDs Supportive care otherwise Anticipate discharge home with close outpatient follow-up, possibly some outpatient physical therapy versus home health physical therapy Plans were discussed with patient as well as her . Both were given an opportunity to ask questions Full code Coding Level of Care Code Acute Airfield Operations Specialist for Chg Fwd Diagnoses UTI (urinary tract infection) N30.00 Hematuria presence: without hematuria Urinary tract infection type: acute cystitis Recto-vaginal fistula N82.3 Acute dehydration E86.0 Nausea & vomiting R11.2 Vomiting Intractability: intractable Vomiting type: unspecified Weakness R53.1 H/O ileostomy Z98.890 Rectal adenocarcinoma C20 Atrial fibrillation I48.20 Atrial fibrillation type: unspecified chronic
--- NOTE | 2020-09-14 16:37 | PM.TDS ---
Transfer Summary Providers Date of Admission: 09/11/20 19:49 Date of Discharge: 09/14/20 Attending Provider at Admission: Bozena Castillo MD Attending Provider at Transfer: Ap Solis MD Primary Care Provider: Alfredo Dow MD Anticipated Date of Transfer: Anticipated date of transfer: 09/14/20 Receiving Facility & Provider: Receiving Provider: [] Receiving facility: [] Diagnoses at Discharge Discharge Diagnosis (1) Recto-vaginal fistula: Status: Acute (2) UTI (urinary tract infection): Status: Acute Qualifiers: Hematuria presence: without hematuria Urinary tract infection type: acute cystitis Qualified Code(s): N30.00 - Acute cystitis without hematuria (3) Weakness: Status: Chronic (4) H/O ileostomy: Status: Acute Permanent problem details: Dr Jeffrey mccray [facility] (5) Rectal adenocarcinoma: Status: Chronic Reason for Visit Reason for Visit: UNABLE TO EAT, NAUSEA-COLON SURGERY @ 5 WKS AGO Hospital Course Hospital Course 65 year old female with pmh of moderately differentiated adenocarcinoma of the rectum s/p presurgical radiation and chemotherapy and July and underwent resection of the rectal mass and ileostomy placement approximately 5 weeks ago, Mary GUY , Presented to the emergency room with chief complaint of not being able to eat anything.Prior to surgery her functional status was good. She was also able to eat solid foods. Since surgery she has had chronic problems with nausea. She has only been able to consume liquid and soft foods such as puddings. Anything more than that and she vomits.She was initially admitted for the management Acute UTI as well as acute dehydration.During the hospital stay at the time of thomson placement , thomson was being placed as she was not having adequate urine output.it was observed that she was having profuse pus discharge from the vaginal area.Given her h/o radiation, and ileostomy, rectovaginal fistula was suspected. Gynecology evaluated the patient and she was found to be having profuse purulent discharge making difficult to assess the lesion. After multiple VICE PRESIDENT GLOBAL ADVERTISING SALES swaps to clear the discharge a high near the vaginal cuff fistula was noted with profusing purulent discharge, most like a colon abscess with fistula drainage into the vagina was suspected . VICE PRESIDENT GLOBAL ADVERTISING SALES Recommended she be transfered to her colon-rectal surgeon for the further management. Urine culture currently have grown E.Coli sensitive to ceftriaxone.During the hospital stay she has been on ceftriaxione.Patient has remained afebrile and hemodynamically stable and her oral intake is improving. CT abdomen pelvis w con done during the hospital stay:showed Dilated small bowel is noted leading into the right lower quadrant ostomy with abrupt transition with decompressed distal small bowel loop within the ostomy itself. Small-bowel obstruction secondary to adhesion not excluded. No evidence of bowel perforation. Nonspecific fluid and gas collection in the presacral space. Fistula to the anorectal junction region not excluded. Patient has been accepted by Dr. Son Murphy (Her Primary Colorectal surgeon ) at [facility] for further management. Patient is being transferred for further management.She is stable for transfer. Family has been updated. Physical Exam Const: COMMON NORMALS: patient oriented x3 HENMT: COMMON NORMALS: normocephalic, atraumatic, hearing grossly normal bilaterally and external ears normal HEAD & SCALP: normocephalic and atraumatic EXTERNAL EAR: Yes external ears normal Eye: COMMON NORMALS: no scleral icterus GENERAL EYE: appearance normal, both eyes and all related structures Chest: COMMONS NORMALS: normal inspection of the chest and normal palpation of entire chest wall CHEST: Yes Symmetrical chest wall rise Resp: COMMON NORMALS: normal respiratory effort, No retractions, No use of accessory muscles and clear to auscultation bilaterally EFFORT & INSPECTION: Yes symmetric chest movement AUSCULTATION: clear to auscultation bilaterally Cardio: COMMON NORMALS: regular rate, regular rhythm, S1 normal heart sound present, S2 normal heart sound present, No gallops present (Cardio), No murmurs present (Cardio), No rub (Cardio) and Peripheral pulses 2+ throughout RATE: regular rate RHYTHM: regular rhythm HEART SOUNDS: S1 normal heart sound present and S2 normal heart sound present PERIPHERAL PULSES: Peripheral pulses 2+ throughout GI: COMMON NORMALS: Normal to inspection, nondistended, normoactive bowel sounds present, Soft to palpation, non-tender, No hepatosplenomegaly present and no masses AUSCULTATION: Yes normoactive bowel sounds PALPATION: Yes Soft to palpation and Yes No hepatosplenomegaly present RECTAL EXAM: deferred OTHER: Surgical scars are generally healing well. Ostomy noted, stump pink, currently with drainage from ostomy bag brownish-yellow loose stool. : OTHER: Purulent foul-smelling drainage, from the vaginal area, indwelling Thomson no sediment, or purulent drainage in the Thomson. Extremity: COMMON NORMALS: no clubbing, cyanosis or edema and no pedal edema Neuro: COMMON NORMALS: patient oriented x3 Urinary Catheter Management^: Thomson: Cath Placed During This Visit: yes Reason for Continuing Indwelling Catheter: Acute Urinary Retention or Obstruction Urinary Catheter Date of Insertion: 09/12/20 Urinary Catheter Time of Insertion: 17:30 TS Data Data Completed and Pending: Completed Studies During Hospitalization Category Date Time Status CT abdomen pelvis w con* [id number] Stat Cat Scan 09/11/20 16:53 Completed Pending at discharge Category Date Time Status Abscess Culture R outine Lab 09/14/20 14:46 Uncollected Blood Culture Sta t Lab 09/11/20 03:31 Results Complete Blood Co unt w/Auto AM LABS Lab 09/15/20 04:00 Ordered Complete Blood Co unt w/Auto AM LABS Lab 09/16/20 04:00 Ordered Complete Blood Co unt w/Auto AM LABS Lab 09/17/20 04:00 Ordered Comprehensive Met abolic Panel Routi ne Lab 09/15/20 04:00 Ordered Labs from last 24 hours 09/14/20 09/14/20 06:34 06:34 WBC 6.6 RBC 3.59 L Hgb 10.7 L Hct 36.4 L MCV 101.4 H MCH 29.8 MCHC 29.4 L RDW 15.8 H Plt Count 385 MPV 8.7 Neut % (Auto) 84.7 Lymph % (Auto) 6.5 Crook % (Auto) 7.4 Eos % (Auto) 0.3 Baso % (Auto) 0.5 Neut # (Auto) 5.63 Lymph # (Auto) 0.4 L Crook # (Auto) 0.5 Eos # (Auto) 0.0 Baso # (Auto) 0.0 Nucleated RBC % (a uto) 0 Nucleated RBCs # 0.0 Phosphorus 2.7 Magnesium 1.6 L Triglycerides 93 Cholesterol 58 LDL Cholesterol, C alc 30 L HDL Cholesterol 9 L LDL/HDL Ratio 3.33 H Cholesterol/HDL Ra milan 6.44 H Vitals: Last Vital Signs Temp 97.8 F 09/14/20 15:31 Pulse 92 09/14/20 15:31 Resp 14 09/14/20 15:41 BP 121/76 09/14/20 15:31 Pulse Ox 97 09/14/20 15:41 TS Medications Medications Home Medications duloxetine 30 mg PO DAILY@04/06/20 [History Confirmed 09/11/20] acetaminophen [Tylenol Extra Strength] 1,000 mg PO PRN 09/11/20 [History Confirmed 09/11/20] diltiazem HCl 180 mg PO DAILY@09/11/20 [History Confirmed 09/11/20] ondansetron 4 mg PO TID PRN 09/11/20 [History Confirmed 09/11/20] pantoprazole [Protonix] 40 mg PO BID@,09/11/20 [History Confirmed 09/11/20] scopolamine base 1 mg TRANSDERMAL Q72H 09/11/20 [History Confirmed 09/11/20] Active Medications Acetaminophen (Acetaminophen 325 Mg Tablet) 650 mg PO Q6H PRN PRN Reason: Mild/Mod Pain Or Temp >/= 101 Last Admin: 09/12/20 17:20 Dose: 650 mg Documented by: Diltiazem HCl (Diltiazem Er (24hr) 180 Mg Capsule) 180 mg PO DAILY [facility] Last Admin: 09/14/20 09:36 Dose: 180 mg Documented by: Enoxaparin Sodium (Enoxaparin 40 Mg/0.4 Ml Syringe) 40 mg SUBCUT Q24H [facility] Last Admin: 09/13/20 21:25 Dose: 40 mg Documented by: Sodium Chloride (Sodium Chloride 0.9%) 1,000 mls @ 125 mls/hr IV .Q8H [facility] Last Admin: 09/14/20 13:05 Dose: 125 mls/hr Documented by: Ceftriaxone Sodium 1,000 mg/ (Sodium Chloride) 50 mls @ 100 mls/hr IV Q24H [facility]; Protocol Last Infusion: 09/13/20 18:21 Dose: Infused Documented by: Lactobacillus Acidophilus (Lactobacillus 1 Tablet) 1 tab PO BID [facility] Last Admin: 09/14/20 09:36 Dose: 1 tab Documented by: Mirtazapine (Mirtazapine 15 Mg Tablet) 7.5 mg PO BEDTIME [facility] Last Admin: 09/13/20 21:25 Dose: 7.5 mg Documented by: Ondansetron HCl (Ondansetron 2 Mg/Ml Sdv 2 Ml) 4 mg IVP Q6H PRN PRN Reason: vomiting, or N/V if npo Last Admin: 09/13/20 12:14 Dose: 4 mg Documented by: Oxycodone/Acetaminophen (Oxycodone-Apap 5-325 Mg Tablet) 1 tab PO Q4H PRN PRN Reason: MODERATE PAIN Last Admin: 09/14/20 15:41 Dose: 1 tab Documented by: Pantoprazole Sodium (Pantoprazole Dr 40 Mg Tablet) 40 mg PO BID@ EMILY Last Admin: 09/14/20 09:36 Dose: 40 mg Documented by: Discharge Plan Discharge Patient Disposition: Home Condition: Stable Prescriptions: Continued duloxetine 30 mg Capsule, Delayed Rel Sprinkle 30 mg PO DAILY@ RF: 0 diltiazem HCl 180 mg capsule,extended release 24hr 180 mg PO DAILY@ RF: 0 Tylenol Extra Strength 500 mg Tablet 1,000 mg PO PRN RF: 0 Protonix 40 mg Tablet,Delayed Release (Dr/Ec) 40 mg PO BID@ RF: 0 scopolamine base 1 mg over 3 days patch 3 day 1 mg transdermal Q72H RF: 0 ondansetron 4 mg tablet,disintegrating 4 mg PO TID PRN (Reason: Nausea And Vomiting) RF: 0 Discharge Orders: Discharge Order (Routine); Ordered 09/14/20 Ordered By: Ap Solis Referrals: Alfredo Dow MD [Primary Care Provider] - Discharge Diet: Soft Mechanical Discharge Activity: Increase activity as tolerated Transfer Attestations Time Spent in Transfer Care*: greater than 30 min Specific Discharge Activities: Specific discharge activities: educating patient, educating and/or supporting family/caregiver, discussing with pcp/other providers, discussing with case advocate/social workers/dc planners, documenting/other paperwork and evaluating patient/reviewing data Status at Transfer: Cognitive status at transfer: cognitively intact, Behavioral status at transfer: cooperative, Functional status at transfer: independent ambulation Overall status at transfer: patient is back to baseline Quality Metrics Clinical Quality Measures: During this hospital stay, did patient experience: None Coding Level of Care Code Acute Boilermaking Supervisor for Chg Fwd Diagnoses Recto-vaginal fistula N82.3 UTI (urinary tract infection) N30.00 Hematuria presence: without hematuria Urinary tract infection type: acute cystitis Weakness R53.1 H/O ileostomy Z98.890 Rectal adenocarcinoma C20
[2020-09-14] MEDS: cefTRIAXone 1,000 MG in sodium chloride 0.9% (plus) 50 ML 100 MG IV (19:35)
[2020-09-14] MEDS: enoxaparin 40 mg/0.4 mL Syringe SUBCUT (21:30)
[2020-09-14] MEDS: mirtazapine 15 mg Tablet 7.5 MG PO (21:30)
--- NOTE | 2020-09-14 23:08 | PC.NURSE ---
Patient left facility with [facility]. All patients belonging were transported with her. Patient left floor at 2305.
== END 2020-09-14 23:05 | disposition home or self-care (01) | DRG 394 ==
LOC: ER 19:41 → MEDSURG 20:31
PROVIDERS: Family Medicine; Admitting Provider Hospitalist; Emergency Provider Emergency Medicine; PCP Family Medicine; Visit Provider Internal Medicine
DX: N82.3 Fistula of vagina to large intestine (principal); C20 Malignant neoplasm of rectum; N30.00 Acute cystitis without hematuria; Z92.3 Personal history of irradiation; Z92.21 Personal history of antineoplastic chemotherapy; Z90.49 Acquired absence of other specified parts of digestive tract; Z93.2 Ileostomy status; E86.0 Dehydration; D50.9 Iron deficiency anemia, unspecified; M19.90 Unspecified osteoarthritis, unspecified site; I48.91 Unspecified atrial fibrillation; K21.9 Gastro-esophageal reflux disease without esophagitis; I34.1 Nonrheumatic mitral (valve) prolapse; Z85.828 Personal history of other malignant neoplasm of skin
CPT/HCPCS: 36415; 51702; 74177; 80048; 80053; 80061; 81001; 82274; 83605; 83630; 83690; 83735; 84100; 85025; 87040; 87077; 87086; 87186; 87205; 87493; 96361; 96365; 96372; 96376; 97116; 97161; 99285; J0696; J1650; J2405; J7030; Q9967

== ENCOUNTER 2020-09-28 10:35 | Outpatient (CLI) | payer OTHER, SELFPAY ==
[2020-09-28 11:36] LABS: Basophils % 0.5 %; Eosinophils # 0.1 10^3/uL (0.0-0.8); Eosinophils % 1.6 %; Hematocrit 33.6 % (37.0-47.0); Hemoglobin 10.2 g/dL (11.5-15.3); Lymphocytes # 0.6 10^3/uL (0.8-4.8); Mean Corpuscular HGB Conc 30.4 g/dL (30.0-36.0); Mean Corpuscular Hemoglobin 29.4 pg (28.0-34.0); Mean Corpuscular Volume 96.8 fL (81-99); Mean Platelet Volume 9.7 fL (7.4-10.4); Monocytes # 0.3 10^3/uL (0.2-0.9); Monocytes % 6.8 %; Neutrophils # 3.23 10^3/uL (1.8-7.7); Neutrophils % 75.6 %; Nucleated Red Blood Cells % 0 %; Platelet Count 517 10^3/cmm (130-400); Red Blood Count 3.47 10^6/uL (4.1-5.3); Red Cell Distribution Width 15.9 % (12.1-15.1); White Blood Count 4.3 10^3/uL (4.0-10.0)
[2020-09-28 12:02] LABS: Alanine Aminotransferase 27 U/L (0-33); Albumin Level 2.6 g/dL (3.5-5.2); Alkaline Phosphatase 200 IU/L (35-105); Anion Gap 15.5 (5-19); Aspartate Amino Transferase 33 U/L (0-32); Blood Urea Nitrogen 7 mg/dL (8-23); Calcium 8.1 mg/dL (8.5-10.5); Carbon Dioxide 27 mmol/L (22-29); Chloride 97 mmol/L (98-107); Globulin 3.3 g/dL (1.3-4.6); Glucose 115 mg/dL (65-115); Osmolality Calculated 281 mOsm/kg (285-295); Potassium 3.5 mmol/L (3.5-5.1); Sodium 136 mmol/L (136-145); Total Bilirubin 0.2 mg/dL (0.15-1.2); Total Protein 5.9 g/dL (6.6-8.7)
[2020-09-28 12:44] LABS: Ferritin 379 ng/mL (15-150); Iron 33 ug/dL (37-145); Percent Saturation 20.4 % (20-50); Total Iron Binding Capacity 161 mcg/dl; Unsaturated Iron Binding 128 ug/dL (112-347)
== END 2020-09-28 10:36 | disposition home or self-care (01) ==
PROVIDERS: PCP Family Medicine; Visit Provider Internal Medicine Medical Oncology
DX: C20 Malignant neoplasm of rectum (principal); D50.9 Iron deficiency anemia, unspecified
CPT/HCPCS: 36415; 80053; 82728; 83540; 83550; 85025

== ENCOUNTER 2020-10-01 05:58 | Outpatient (CLI) | payer OTHER, SELFPAY ==
--- NOTE | 2020-10-05 14:19 | ONC FU_ITS ---
Dr. Oreilly Patient Follow-Up Note Patient: Gregoria Barth I Unit #: [id number]: 1955 Dicatated By: Khanh rOeilly M.D.Date of Visit:Oct 01, 2020 Onc Med Follow-up/Prog Note Chief Complaint: Rectal cancer. 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 On 04/06/2020 she was admitted to the hospital with complaints of severe weakness, shortness of breath, and lightheadedness. She was severely anemic with hemoglobin 5.2 g. She had been having some rectal bleeding since at least November. She had hypochromic/microcytic red cell indices and low transferrin saturation of 2.4%, consistent with iron deficiency. She was transfused a total of 3 units of PRBC. She also received some IV Venofer in the hospital, though she apparently had an adverse reaction to it. Her colonoscopy on 04/08/2020 showed a nonobstructing malignant appearing mass at the first rectal fold. It was palpable at 7 cm from the anal verge. Biopsy showed moderately differentiated invasive adenocarcinoma. Her initial CT abdomen/pelvis did not report any significant abnormalities. Her baseline CEA was elevated at 6.1 ng/mL. Her repeat CT abdomen/pelvis on 04/23/2020 showed a left eccentric rectal mass measuring 2.8 x 2.3 cm. There were multiple enlarged perirectal, presacral, and distal left iliac chain enlarged lymph nodes measuring up to 2.1 cm, compatible with metastatic disease. There was no periaortic lymphadenopathy. There was diffuse fatty infiltration of the liver, but there were no metastatic lesions noted. She had colorectal surgery consultation with Dr. Son Alamo on 04/24/2020. She was recommended to have neoadjuvant chemoradiation. I had seen her initially on 04/27/2020 and at that time she also had radiation oncology consultation with Dr. Logan Hogan. By clinical evaluation, her disease was stage at least IIIB but more likely IIIC (Tx, N2b). Her medical history is otherwise significant for history of cardiac arrhythmias, including supraventricular tachycardia and atrial fibrillation. She has mitral valve prolapse. Her other medical illnesses have been limited to GERD, degenerative arthritis, and depression. She is a non-smoker. INTERIM HISTORY: On 05/21/2020 she began radiation concurrently with Xeloda for chemosensitization. She completed radiation on 07/02/2020 to a total dose of 5000 cGy administered in 25 fractions. On 08/10/2020 she underwent surgical resection with ileostomy. I assume this was an AP resection, though I have not yet received the op note or path report. She has had a very difficult postoperative course. She complains of having constant nausea, to the point that she could not eat. On 09/11/2020 she was admitted to the hospital with nausea/vomiting and acute dehydration in association with suspected urinary tract infection. Her CT abdomen/pelvis showed dilated small bowel leading into the right lower quadrant ostomy with abrupt transition and with decompressed distal small bowel loop within the ostomy itself. There is nonspecific fluid and gas collection in the presacral space with fistula to the anorectal junction not excluded. On 09/14/2020 she was transferred to [facility] for further management due to the suspected fistula. Those records are again not available, but she was found to have abscess in the pelvis, though apparently not any definite evidence of fistula. She underwent placement of a percutaneous drainage catheter,. She was discharged home on antibiotic coverage with ciprofloxacin and with the drainage catheter in place. She also indicates that during the hospitalization she was tested and found to be positive for COVID-19 virus infection. Since she has been home from the hospital she has still been very weak generally, the point that she is unable to ambulate. At this point she can stand up for short periods. Her ECOG score is 3. Her appetite is getting better, though she still has early satiety. She does not have fever or night sweats. She has not had sore mouth or throat. She does not complain of shortness of breath, cough, or chest pain. She does complain that her ankles are swollen. Her nausea is being managed with scopolamine. Bowel function is adequate through the ostomy. She has indwelling Davis catheter. She is having significant discomfort from the drainage catheter, which exits through her buttock area. She does not complain of headache or dizziness, and she has no focal neurologic symptoms. She does complain, though, that her skin is generally sensitive. Medications: Cardizem LA 1 Tablet (of 180 mg) Tablet SR 24 HR Oral daily, Cipro Tablet Oral, DULoxetine HCl Capsule Delayed Release Particles Oral, Montelukast Sodium 1 Tablet (of 10 mg) Oral daily, Pantoprazole Sodium 1 (40 mg) Tablet, enteric coated Oral b.i.d., Tamsulosin HCl 1 (0.4 mg) Capsule Oral daily Allergies: Iron infusion and Macrobid. Vital Signs: Performed on Oct 01, 2020 14:57 Height - 67.00 in Temperature - 98.1 F (LOW) Pulse - 129 /min (HIGH) Respiration - 18 /min BP - 108/75 mm(hg) O2 Sat - 98 % Pain - 3 Fatigue - 3 Physical Examination: Constitutional - She appears generally weak, Eyes - Sclerae nonicteric. Conjunctivae clear, ENMT - No lesions noted in the oral cavity, Hematologic/Lymphatic - No cervical, clavicular, or axillary adenopathy, Respiratory - Lungs are clear with good air movement bilaterally, Cardiovascular - Heart rhythm is irregular with a tachydardia. There is a II/ systolic murmur. There is no gallop or rub noted, Abdomen - Soft. Liver and spleen are not enlarged. There is no abdominal mass or ascites noted and there is no inguinal adenopathy, Extremities - There is 2 to 3+ lower extremity edema, Neurologic - She is very weak, particularly in the lower extremities. She does not appear to have a focal neurologic deficit. Lab/Imaging: Test performed on Sep 28, 2020 10:55 Ferritin 379 ng/mL Iron 33 mcg/dL Sodium 136 mmol/L Iron Binding Capacity (TIBC) 161 mcg/dl Potassium 3.5 mmol/L % Iron Saturation 20.4 % Chloride 97 mmol/L CO2 27 mmol/L UIBC 128 mcg/dL Anion Gap 15.5 BUN 7 mg/dL Creatinine 0.3 mg/dL Cr Clearance (Est) 346.7500 mL/min eGFR 224.0 mL/min Glucose 115 mg/dL Osmolality - Calculated 281 mOsm/kg Calcium 8.1 mg/dL Protein, Total 5.9 g/dL Albumin 2.6 g/dL Globulin 3.3 g/dL Bilirubin, Total 0.2 mg/dL ALT (SGPT) 27 U/L AST (SGOT) 33 U/L Alkaline Phosphatase 200 IU/L WBC 4.3 10 3/uL RBC 3.47 10 6/uL HGB 10.2 g/dL HCT 33.6 % MCV 96.8 fL MCH 29.4 pg MCHC 30.4 g/dL RDW 15.9 % Platelet Count 517 10 3/cmm MPV 9.7 fL Neutrophils 3.23 10 3/uL Lymphocytes 0.6 10 3/uL Monocytes 0.3 10 3/uL Eosinophils 0.1 10 3/uL Basophils 0.0 10 3/uL Neutrophil % 75.6 % Lymphocyte % 15.0 % Monocyte % 6.8 % Eosinophil % 1.6 % Basophils % 0.5 % NRBC % 0 % Problem List: 1. Moderately differentiated invasive adenocarcinoma of the rectum. 2. She had associated iron deficiency anemia. She reported having had adverse reactions to both oral and parenteral iron. 3. GERD. 4. Degenerative arthritis. 5. History of atrial tachy-arrhythmias, apparently in association with mitral valve prolapse. 6. Anxiety/depression. 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 By clinical evaluation her disease was stage at least IIIB and more likely IIIC (Tx, N2b, M0). On 05/21/2020 she began radiation concurrently with Xeloda for chemosensitization. She completed radiation on 07/02/2020 to a total dose of 5000 cGy administered in 25 fractions. On 08/10/2020 she underwent surgical resection with ileostomy. Her postoperative course was complicated by development of pelvic abscess, requiring placement of percutaneous drainage catheter. She has had very significant decline in performance status. At this point she is beginning to show some recovery, though she continues to have extremely limited activity. She also reports poor appetite and early satiety. At least for now she will be continuing observation/symptomatic management. I will have her start Marinol 5 mg twice daily for appetite stimulation. I will see her again in 2 weeks. In the meantime, as she is having very significant discomfort with her pelvic drainage catheter, I will arranged for her to be seen by Dr. Engel at wound care. Signed By: Khanh Oreilly M.D. <<Signature on File>>
== END 2020-10-01 05:59 | disposition home or self-care (01) ==
LOC: ONCMED 06:00
PROVIDERS: PCP Family Medicine; Visit Provider Internal Medicine Medical Oncology
DX: C20 Malignant neoplasm of rectum (principal); D50.9 Iron deficiency anemia, unspecified; K21.9 Gastro-esophageal reflux disease without esophagitis; T85.848A Pain due to other internal prosthetic devices, implants and grafts, initial encounter; Z92.3 Personal history of irradiation
CPT/HCPCS: 99214

== ENCOUNTER 2020-10-15 06:14 | Outpatient (CLI) | payer OTHER, SELFPAY ==
[2020-10-15 12:35] LABS: Basophils % 0.6 %; Eosinophils # 0.1 10^3/uL (0.0-0.8); Eosinophils % 2.2 %; Hemoglobin 10.1 g/dL (11.5-15.3); Lymphocytes # 0.9 10^3/uL (0.8-4.8); Lymphocytes % 18.8 %; Mean Corpuscular HGB Conc 30.6 g/dL (30.0-36.0); Mean Corpuscular Hemoglobin 29.4 pg (28.0-34.0); Mean Corpuscular Volume 95.9 fL (81-99); Mean Platelet Volume 8.7 fL (7.4-10.4); Monocytes # 0.5 10^3/uL (0.2-0.9); Monocytes % 10.2 %; Neutrophils # 3.15 10^3/uL (1.8-7.7); Nucleated Red Blood Cells % 0 %; Platelet Count 439 10^3/cmm (130-400); Red Blood Count 3.44 10^6/uL (4.1-5.3); White Blood Count 4.6 10^3/uL (4.0-10.0)
[2020-10-15 13:02] LABS: Alanine Aminotransferase 25 U/L (0-33); Albumin Level 2.8 g/dL (3.5-5.2); Alkaline Phosphatase 167 IU/L (35-105); Aspartate Amino Transferase 38 U/L (0-32); Blood Urea Nitrogen 7 mg/dL (8-23); Calcium 8.1 mg/dL (8.5-10.5); Carbon Dioxide 27 mmol/L (22-29); Chloride 101 mmol/L (98-107); Glomerular Filtration Rate 160.7 mL/min (90-130); Glucose 132 mg/dL (65-115); Iron 34 ug/dL (37-145); Magnesium 1.1 mg/dL (1.7-2.3); Osmolality Calculated 286 mOsm/kg (285-295); Percent Saturation 18.8 % (20-50); Sodium 138 mmol/L (136-145); Total Bilirubin 0.3 mg/dL (0.15-1.2); Total Iron Binding Capacity 180 mcg/dl; Total Protein 5.8 g/dL (6.6-8.7); Unsaturated Iron Binding 146 ug/dL (112-347)
[2020-10-15 13:18] LABS: Vitamin B12 435 pg/mL (232-1245)
--- NOTE | 2020-10-28 16:07 | ONC FU_ITS ---
[facility] Patient Note Patient: Gregoria Barth I Unit #: [id number]: 1955 Dictated By: Elicia HartmannDate of Visit: Oct 15, 2020 Onc MED Follow-Up/Prog Note Chief Complaint: Rectal cancer. 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 On 04/06/2020 she was admitted to the hospital with complaints of severe weakness, shortness of breath, and lightheadedness. She was severely anemic with hemoglobin 5.2 g. She had been having some rectal bleeding since at least November. She had hypochromic/microcytic red cell indices and low transferrin saturation of 2.4%, consistent with iron deficiency. She was transfused a total of 3 units of PRBC. She also received some IV Venofer in the hospital, though she apparently had an adverse reaction to it. Her colonoscopy on 04/08/2020 showed a nonobstructing malignant appearing mass at the first rectal fold. It was palpable at 7 cm from the anal verge. Biopsy showed moderately differentiated invasive adenocarcinoma. Her initial CT abdomen/pelvis did not report any significant abnormalities. Her baseline CEA was elevated at 6.1 ng/mL. Her repeat CT abdomen/pelvis on 04/23/2020 showed a left eccentric rectal mass measuring 2.8 x 2.3 cm. There were multiple enlarged perirectal, presacral, and distal left iliac chain enlarged lymph nodes measuring up to 2.1 cm, compatible with metastatic disease. There was no periaortic lymphadenopathy. There was diffuse fatty infiltration of the liver, but there were no metastatic lesions noted. She had colorectal surgery consultation with Dr. Son Alamo on 04/24/2020. She was recommended to have neoadjuvant chemoradiation. Dr Oreilly had seen her initially on 04/27/2020 and at that time she also had radiation oncology consultation with Dr. Logan Hogan. By clinical evaluation, her disease was stage at least IIIB but more likely IIIC (Tx, N2b). Her medical history is otherwise significant for history of cardiac arrhythmias, including supraventricular tachycardia and atrial fibrillation. She has mitral valve prolapse. Her other medical illnesses have been limited to GERD, degenerative arthritis, and depression. She is a non-smoker. INTERIM HISTORY: On 05/21/2020 she began radiation concurrently with Xeloda for chemosensitization. She completed radiation on 07/02/2020 to a total dose of 5000 cGy administered in 25 fractions. On 08/10/2020 she underwent robotic assisted low anterior resection with diverting loop ileostomy per Dr. Alamo. She has had a very difficult postoperative course. She complained of having constant nausea, to the point that she could not eat. On 09/11/2020 she was admitted to the hospital with nausea/vomiting and acute dehydration in association with suspected urinary tract infection. Her [facility] records indicate that she was also having vaginal drainage. Her CT abdomen/pelvis showed dilated small bowel leading into the right lower quadrant ostomy with abrupt transition and with decompressed distal small bowel loop within the ostomy itself. There was nonspecific fluid and gas collection in the presacral space with fistula to the anorectal junction not excluded. On 09/14/2020 she was transferred to [facility] for further management due to the suspected fistula. Those records are again not available, but she was found to have abscess in the pelvis, though apparently not any definite evidence of fistula. She underwent placement of a percutaneous drainage catheter,. She was discharged home on antibiotic coverage with ciprofloxacin and with the drainage catheter in place. She also indicates that during the hospitalization she was tested and found to be positive for COVID-19 virus infection. Since she has been home from the hospital she has had generalized weakness but is slowly recovering. Mrs. Barth is here today for follow-up. She states she is gradually getting stronger. She states she is having physical therapy every other day and this is helping her recovery time. She is walking some with a walker but still utilizes a wheelchair for distances. She denies any pain. She denies any fever or chills. She states she did get her drain out last at [facility] walk-in. She states that has relatively been uneventful. She did have slight drainage after its removal but that has resolved. She states she has noted some great vaginal discharge that was like what was in the drain tube but that has been minimal. She states there has been no odor or itching. She denies any other concerns. She said no diarrhea or constipation. She denies nausea or vomiting. 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 Her ECOG is 3. Past Medical History: Anxiety Atrial fibrillation Degenerative arthritis Depression Gastroesophageal reflux disease Mitral valve prolapse Supraventricular tachycardia Past Surgical History: Bladder repair Excision of skin cancer from nose Repair of left side of face Titanium plate left foot Colonoscopy in 2019 Cholecystectomy in 2003 Hysterectomy in 1995 Allergies: Iron infusion and Macrobid. Medications: Cardizem LA 1 Tablet (of 180 mg) Tablet SR 24 HR Oral daily DULoxetine HCl Capsule Delayed Release Particles Oral Montelukast Sodium 1 Tablet (of 10 mg) Oral daily Pantoprazole Sodium 1 (40 mg) Tablet, enteric coated Oral b.i.d. Tamsulosin HCl 1 (0.4 mg) Capsule Oral daily Family History: Father of lung cancer at age 71. Mother has been treated for breast cancer and is still living at age 86. She had no siblings. Social History: Ms. Barth is . Ms. Barth has never smoked. She has no history of drinking. She is a non-smoker. She does not drink alcohol. Review Of Symptoms: Vital Signs: Performed on Oct 15, 2020 13:52 Height - 67.00 in Weight - 221 lbs (LOW) BSA - 2.11 sq.m BMI - 34.61 (HIGH) Temperature - 99.0 F (HIGH) Pulse - 123 /min (HIGH) Respiration - 18 /min BP - 114/82 mm(hg) O2 Sat - 96 % Pain - 0,2 - Ambulatory/capable of all self-care, unable to perform any work activities. Up and about more than 50% of waking hours. (ECOG) Physical Examination: Constitutional Alert, oriented, no acute distress. Skin pink, warm and dry. Head Normocephalic; atraumatic. Eyes Conjunctivae and sclerae are clear and without icterus. Pupils are reactive and equal. Neck Supple without masses or thyromegaly. No jugular venous distension. Hematologic/Lymphatic No petechiae or purpura. Respiratory Lungs are clear to auscultation without rhonchi or wheezing. Cardiovascular Regular rate and rhythm of heart without murmurs,clicks, gallops or rubs. Abdomen Non-tender, non-distended, no masses or ascites. Good bowel sounds noted in all quads. No guarding or rebound tenderness. No pulsatile masses. Back/Spine Non-tender to palpation. Extremities No visible deformities, no cyanosis, clubbing or edema. Musculoskeletal No tenderness or swelling, normal range of motion without obvious weakness. Integumentary No rashes or lesions. Psychiatric Alert and oriented times three. Coherent speech. Verbalizes understanding of our discussions today. Laboratory:Test performed on Oct 15, 2020 12:16 Iron 34 mcg/dL Magnesium 1.1 mg/dL Sodium 138 mmol/L Vitamin B12 435 pg/mL Iron Binding Capacity (TIBC) 180 mcg/dl Potassium 4.0 mmol/L % Iron Saturation 18.8 % Chloride 101 mmol/L CO2 27 mmol/L UIBC 146 mcg/dL Anion Gap 14.0 BUN 7 mg/dL Creatinine 0.4 mg/dL Cr Clearance (Est) 224.8600 mL/min eGFR 160.7 mL/min Glucose 132 mg/dL Osmolality - Calculated 286 mOsm/kg Calcium 8.1 mg/dL Protein, Total 5.8 g/dL Albumin 2.8 g/dL Globulin 3.0 g/dL Bilirubin, Total 0.3 mg/dL ALT (SGPT) 25 U/L AST (SGOT) 38 U/L Alkaline Phosphatase 167 IU/L WBC 4.6 10 3/uL RBC 3.44 10 6/uL HGB 10.1 g/dL HCT 33.0 % MCV 95.9 fL MCH 29.4 pg MCHC 30.6 g/dL RDW 16.0 % Platelet Count 439 10 3/cmm MPV 8.7 fL Neutrophils 3.15 10 3/uL Lymphocytes 0.9 10 3/uL Monocytes 0.5 10 3/uL Eosinophils 0.1 10 3/uL Basophils 0.0 10 3/uL Neutrophil % 68.0 % Lymphocyte % 18.8 % Monocyte % 10.2 % Eosinophil % 2.2 % Basophils % 0.6 % NRBC % 0 % Test performed on Sep 28, 2020 10:55 Ferritin 379 ng/mL Test performed on Sep 28, 2020 00:00 Anti-D Test Not Performed NO SPECIMEN REC'D BY LAB/[facility] Blood Type Test Not Performed NO SPECIMEN REC'D BY LAB/[facility] Antibody Screen (Gel) Test Not Performed NO SPECIMEN REC'D BY LAB/[facility] Test performed on Jun 25, 2020 12:33 Polychromasia 1+ CBC Slide Review Slide Review Perform Test performed on May 21, 2020 16:38 ABO & Rh Type # 2 Test Not Performed NO SPECIMEN ST Impression: 1. Moderately differentiated invasive adenocarcinoma of the rectum. 2. She had associated iron deficiency anemia. She reported having had adverse reactions to both oral and parenteral iron. 3. GERD. 4. Degenerative arthritis. 5. History of atrial tachy-arrhythmias, apparently in association with mitral valve prolapse. 6. Anxiety/depression. Plan: PROBLEMS ADDRESSED TODAY 1. Moderately differentiated invasive adenocarcinoma of the rectum. By clinical evaluation her disease was stage at least IIIB and more likely IIIC (Tx, N2b, M0). On 05/21/2020 she began radiation concurrently with Xeloda for chemosensitization. She completed radiation on 07/02/2020 to a total dose of 5000 cGy administered in 25 fractions. On 08/10/2020 she underwent surgical resection with ileostomy. Her postoperative course was complicated by development of pelvic abscess, requiring placement of percutaneous drainage catheter. She has had very significant decline in performance status. At this point she is beginning to show some recovery, though she continues to have extremely limited activity. She also reports poor appetite and early satiety. At least for now she will be continuing observation/symptomatic management. A. Today's labs reviewed in detail discussed with Mrs. Murray and a copy was given to her. WBC 4.6, hemoglobin 10.1, platelets 4 and 39,000 ANC is 3150. Potassium 4.0. Random glucose 132, creatinine 0.4 calcium 8.1 LFTs are normal. Iron is 34 magnesium is 1.1 her iron saturation is 18.8%. B. Continue Marinol as needed for appetite stimulation. Her appetite is improving. C. Refill Cipro 500 mg twice daily to [facility] for persistent abnormal vaginal discharge. D. Fluconazole 100 mg daily for 7 days for abnormal vaginal discharge also sent to [facility]. E. Magnesium twice daily for hypomagnesemia with a magnesium level today 1.1. F. She may also has scopolamine patch as needed every 72 hours for persistent and intermittent nausea. Her nausea is better now but it tends to come and go. G. We will plan to see her back in the next 2 to 3 weeks with CBC CMP iron studies and repeat magnesium. H. Mrs. Murray was encouraged to let us know in the interim should questions or problems arise. Total time spent in this patient's care today including review of records prior to her visit, [id number] encounter during the visit as well as discussion of the plan of care and potential medication side effects identification and management as well as post visit documentation was 50 minutes. Signed By: Elicia Hartmann-, AOCNP Khanh Oreilly MD <<Signature on File>>
== END 2020-10-15 06:15 | disposition home or self-care (01) ==
PROVIDERS: PCP Family Medicine; Visit Provider Nurse Practitioner
DX: Z08 Encounter for follow-up examination after completed treatment for malignant neoplasm (principal); Z85.048 Personal history of other malignant neoplasm of rectum, rectosigmoid junction, and anus; D50.9 Iron deficiency anemia, unspecified; K21.9 Gastro-esophageal reflux disease without esophagitis; M19.90 Unspecified osteoarthritis, unspecified site; R00.0 Tachycardia, unspecified; I34.1 Nonrheumatic mitral (valve) prolapse; F41.9 Anxiety disorder, unspecified; F32.9 Major depressive disorder, single episode, unspecified; Z79.899 Other long term (current) drug therapy
CPT/HCPCS: 36415; 80053; 82607; 83540; 83550; 83735; 85025; 99215

== ENCOUNTER 2020-11-06 08:01 | Outpatient (CLI) | payer OTHER, SELFPAY ==
[2020-11-06 09:07] LABS: Basophils % 0.9 %; Eosinophils # 0.2 10^3/uL (0.0-0.8); Eosinophils % 4.3 %; Hematocrit 33.7 % (37.0-47.0); Hemoglobin 10.4 g/dL (11.5-15.3); Lymphocytes # 1.3 10^3/uL (0.8-4.8); Mean Corpuscular HGB Conc 30.9 g/dL (30.0-36.0); Mean Corpuscular Hemoglobin 29.5 pg (28.0-34.0); Mean Corpuscular Volume 95.5 fL (81-99); Mean Platelet Volume 9.1 fL (7.4-10.4); Monocytes # 0.5 10^3/uL (0.2-0.9); Monocytes % 10.7 %; Neutrophils # 2.57 10^3/uL (1.8-7.7); Neutrophils % 55.9 %; Nucleated Red Blood Cells % 0 %; Platelet Count 401 10^3/cmm (130-400); Red Blood Count 3.53 10^6/uL (4.1-5.3); Red Cell Distribution Width 16.3 % (12.1-15.1); White Blood Count 4.6 10^3/uL (4.0-10.0)
[2020-11-06 09:26] LABS: Add Urine Culture? Yes; Add Urine Microscopic? YES; Bacteria Urine TRACE /hpf; Bilirubin Urine Neg (Negative); Blood Urine 2+ (Negative); Glucose Urine UA Norm (Normal); Ketones Urine Negative (Negative); Leukocyte Esterase Urine 2+ (Negative); Nitrate Urine Negative (Negative); Protein Urine Trace (Negative); Urine Appearance SL Hazy (CLEAR); Urine Color Yellow (Yellow); Urobilinogen Urine Norm (Negative); WBC Urine >100 /hpf (0-5); pH Urine 5 (5-7)
[2020-11-06 09:28] LABS: Alanine Aminotransferase 30 U/L (0-33); Albumin Level 3.4 g/dL (3.5-5.2); Alkaline Phosphatase 121 IU/L (35-105); Anion Gap 13.7 (5-19); Aspartate Amino Transferase 42 U/L (0-32); Blood Urea Nitrogen 8 mg/dL (8-23); Calcium 8.7 mg/dL (8.5-10.5); Carbon Dioxide 24 mmol/L (22-29); Chloride 103 mmol/L (98-107); Ferritin 124 ng/mL (15-150); Globulin 2.7 g/dL (1.3-4.6); Glomerular Filtration Rate 124.2 mL/min (90-130); Glucose 101 mg/dL (65-115); Iron 63 ug/dL (37-145); Magnesium 1.3 mg/dL (1.7-2.3); Osmolality Calculated 282 mOsm/kg (285-295); Potassium 3.7 mmol/L (3.5-5.1); Sodium 137 mmol/L (136-145); Total Bilirubin 0.4 mg/dL (0.15-1.2); Total Iron Binding Capacity 210 mcg/dl; Total Protein 6.1 g/dL (6.6-8.7); Unsaturated Iron Binding 147 ug/dL (112-347)
[2020-11-06 10:24] LABS: Carcinoembryonic Antigen 2.6 ng/mL (0.0-4.7)
--- NOTE | 2020-11-06 18:10 | ONC FU_ITS ---
Dr. Oreilly Patient Follow-Up Note Patient: Gregoria Barth I Unit #: [id number]: 1955 Dicatated By: Khanh Oreilly M.D.Date of Visit:November 06, 2020 Onc Med Follow-up/Prog Note Chief Complaint: Rectal cancer. 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 On 04/06/2020 she was admitted to the hospital with complaints of severe weakness, shortness of breath, and lightheadedness. She was severely anemic with hemoglobin 5.2 g. She had been having some rectal bleeding since at least November. She had hypochromic/microcytic red cell indices and low transferrin saturation of 2.4%, consistent with iron deficiency. She was transfused a total of 3 units of PRBC. She also received some IV Venofer in the hospital, though she apparently had an adverse reaction to it. Her colonoscopy on 04/08/2020 showed a nonobstructing malignant appearing mass at the first rectal fold. It was palpable at 7 cm from the anal verge. Biopsy showed moderately differentiated invasive adenocarcinoma. Her initial CT abdomen/pelvis did not report any significant abnormalities. Her baseline CEA was elevated at 6.1 ng/mL. Her repeat CT abdomen/pelvis on 04/23/2020 showed a left eccentric rectal mass measuring 2.8 x 2.3 cm. There were multiple enlarged perirectal, presacral, and distal left iliac chain enlarged lymph nodes measuring up to 2.1 cm, compatible with metastatic disease. There was no periaortic lymphadenopathy. There was diffuse fatty infiltration of the liver, but there were no metastatic lesions noted. She had colorectal surgery consultation with Dr. Son Alamo on 04/24/2020. She was recommended to have neoadjuvant chemoradiation. I had seen her initially on 04/27/2020 and at that time she also had radiation oncology consultation with Dr. Logan Hogan. By clinical evaluation, her disease was stage at least IIIB (Tx, N2a). On 05/21/2020 she began radiation concurrently with Xeloda for chemosensitization. She completed radiation on 07/02/2020 to a total dose of 5000 cGy administered in 25 fractions. On 08/10/2020 she underwent robotic assisted low anterior resection with total mesorectal excision and placement of diverting loop ileostomy. Pathology showed residual invasive moderately differentiated adenocarcinoma involving the rectum. The tumor measured 4 x 1.2 x 0.7 cm. Tumor was noted to invade the muscularis propria. The margins were uninvolved. The treatment effect was partial response, score 2. There was involvement in 6 of 25 lymph nodes. Pathologic staging was ypT2, pyN2a. The tumor showed intact expression of mismatch repair proteins. She unfortunately had a very difficult postoperative course. On 09/11/2020 she was admitted to the hospital with nausea/vomiting and acute dehydration in association with suspected urinary tract infection. Her CT abdomen/pelvis showed dilated small bowel leading into the right lower quadrant ostomy with abrupt transition and with decompressed distal small bowel loop within the ostomy itself. There was nonspecific fluid and gas collection in the presacral space with fistula to the anorectal junction not excluded. On 09/14/2020 she was transferred to [facility] management due to the suspected fistula. She was found to have abscess in the pelvis, though apparently not any definite evidence of fistula. She underwent placement of a percutaneous drainage catheter,. She was discharged home on antibiotic coverage with ciprofloxacin and with the drainage catheter in place. During the hospitalization she was found to be positive for COVID-19 virus infection. Her medical history is otherwise significant for history of cardiac arrhythmias, including supraventricular tachycardia and atrial fibrillation. She has mitral valve prolapse. Her other medical illnesses have been limited to GERD, degenerative arthritis, and depression. She is a non-smoker. INTERIM HISTORY: I had seen her for a follow-up visit on 10/01/2020. At that point she still had very poor performance status and she had not recovered sufficiently to consider postoperative adjuvant chemotherapy. She continued on symptomatic/supportive treatment measures. She is seen now for a follow-up visit. She is feeling much better generally. She still has limited activity, but she is ambulatory and she has started doing some light work. ECOG score is 2. She has good appetite and she has gained weight. She does not have fever or night sweats. She has no shortness of breath, cough, or chest pain. She now has just very occasional nausea. Her acid reflux is adequately managed with medication. Her ostomy is functioning adequately. She does complain of urinary frequency and some slight dysuria. She also has been having some low back pain. She has no other joint or bone pain. She does not complain of headache or dizziness and she has no focal neurologic symptoms. Medications: Cardizem LA 1 Tablet (of 180 mg) Tablet SR 24 HR Oral daily, DULoxetine HCl Capsule Delayed Release Particles Oral, Montelukast Sodium 1 Tablet (of 10 mg) Oral daily, Pantoprazole Sodium 1 (40 mg) Tablet, enteric coated Oral b.i.d., Tamsulosin HCl 1 (0.4 mg) Capsule Oral daily Allergies: Iron infusion and Macrobid. Vital Signs: Performed on November 06, 2020 10:46 Height - 67.00 in Weight - 229.2 lbs (HIGH) BSA - 2.14 sq.m BMI - 35.90 (HIGH) Temperature - 98.5 F Pulse - 102 /min (HIGH) Respiration - 18 /min BP - 141/91 mm(hg) (HIGH) O2 Sat - 98 % Pain - 0 Fatigue - 2 Physical Examination: Constitutional - She looks much better generally, Eyes - Sclerae nonicteric. Conjunctivae clear, ENMT - No lesions noted in the oral cavity, Hematologic/Lymphatic - No cervical, clavicular, or axillary adenopathy, Respiratory - Lungs are clear with good air movement bilaterally, Cardiovascular - Heart rhythm appears regular. There is a II/ systolic murmur. There is no gallop or rub noted, Abdomen - Soft. The ostomy site appears unremarkable. Liver and spleen are not enlarged. There is no abdominal mass or ascites noted and there is no inguinal adenopathy, Extremities - There is mild lower extremity edema, Neurologic - No focal neurologic deficits noted. Lab/Imaging: CBC shows hemoglobin 10.4 g, white blood cell count 4600, and platelet count 401,000. Comprehensive metabolic profile shows normal renal function with BUN 8 and creatinine 0.5 mg/dL. Bilirubin is normal. Liver enzymes are slightly elevated with SGOT 42/32 U/L and alkaline phosphatase 121/105 IU/L. Albumin is just slightly low at 3.4 g/dL. Magnesium is slightly low at 1.3 mg/dL. CEA is normal at 2.6 ng/mL. Problem List: 1. Moderately differentiated invasive adenocarcinoma of the rectum. By clinical evaluation her disease was stage at least IIIB (Tx, N2a, M0) at initial diagnosis in March 2020. 2. She had associated iron deficiency anemia. She reported having had adverse reactions to both oral and parenteral iron. 3. GERD. 4. Degenerative arthritis. 5. History of atrial tachy-arrhythmias, apparently in association with mitral valve prolapse. 6. Anxiety/depression. 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 By clinical evaluation her disease was stage at least IIIB (Tx, N2a, M0) at initial diagnosis in March 2020. On 05/21/2020 she began radiation concurrently with Xeloda for chemosensitization. She completed radiation on 07/02/2020 to a total dose of 5000 cGy administered in 25 fractions. On 08/10/2020 she underwent robotic assisted low anterior resection with placement of diverting loop ileostomy. Her post treatment staging was IIIB (ypT2, ypN2a, M0). Her postoperative course was complicated by development of pelvic abscess, requiring placement of percutaneous drainage catheter. She had very significant decline in performance status necessitating a delay in her postoperative adjuvant chemotherapy. She has now shown significant recovery following treatment for the pelvic abscess. Due to the extent of lymph node involvement, she is at increased risk for recurrence of the rectal cancer, and she is recommended to undergo postoperative adjuvant chemotherapy with 8 cycles of modified FOLFOX. I reviewed anticipated side effects with the chemotherapy which may include nausea/vomiting, alopecia, fatigue, mucositis, diarrhea, low blood counts, and neuropathy, among others. She is agreeable to proceeding with treatment as recommended. She will need to undergo placement of Port-A-Cath venous access device for the chemotherapy, and this is being arranged with Dr. Engel. I anticipate starting her first cycle of chemotherapy next week. In the meantime, she will be given empiric antibiotic therapy with Bactrim pending outcome of urine culture. Signed By: Khanh Oreilly M.D. <<Signature on File>>
== END 2020-11-06 08:02 | disposition home or self-care (01) ==
LOC: ONCMED 08:04
PROVIDERS: PCP Family Medicine; Visit Provider Internal Medicine Medical Oncology
DX: C20 Malignant neoplasm of rectum (principal); D50.9 Iron deficiency anemia, unspecified; K21.9 Gastro-esophageal reflux disease without esophagitis; M19.90 Unspecified osteoarthritis, unspecified site; I49.9 Cardiac arrhythmia, unspecified; I34.1 Nonrheumatic mitral (valve) prolapse; F41.9 Anxiety disorder, unspecified; F32.9 Major depressive disorder, single episode, unspecified; Z79.899 Other long term (current) drug therapy; Z92.3 Personal history of irradiation; Z92.21 Personal history of antineoplastic chemotherapy
CPT/HCPCS: 36415; 80053; 81001; 82378; 82728; 83540; 83550; 83735; 85025; 87086; 87635; 99215

== ENCOUNTER 2020-11-08 10:15 | Day surgery (SDC) | payer OTHER, SELFPAY ==
[2020-11-07 15:33] VITALS: BMI 35.9
[2020-11-08] VITALS (9 sets, daily range): BP systolic 126–151; BP diastolic 76–96; PULSE 95–106; RESP 16–18; TEMP 36.4–37.1; O2SAT 96–99
--- NOTE | 2020-11-08 | SCC_ITS ---
Procedure Done: Placement of PowerPort in the left subclavian vein Fluoroscopic guidance and interpretation for placement of catheter 26.4 seconds of fluoroscopic guidance, for a cumulative dose of .85 mGy, was provided to Dr. Engel by the radiology department. C-arm images of the chest were saved for the patient's permanent record. [facility], [place]
--- NOTE | 2020-11-08 11:05 | ANES.PREANE2 ---
Pre-Anesthetic Assessment Pre-Anesthetic Assessment: Height/Weight: Height 1.7 m Weight 103.873 kg Temp Pulse Resp BP Pulse Ox 98.7 F 106 H 18 148/96 98 11/08/20 10:34 11/08/20 10:34 11/08/20 10:34 11/08/20 10:34 11/08/20 10:34 Preop Diagnosis: Rectal cancer Proposed Procedure: Operation Date: 11/08/20 12:00 Proposed Procedures p Portacath Placement 21124 C20(Not Applicable) - Octavio Engel MD Familial anesthetic complications: none Was Beta Ellie taken within 24 hours: N/A Was Clonidine taken within 24 hours: N/A Last intake: Intake Last Liquid Date 11/07/20 Last Liquid Time 21:30 Last Solid Date 11/07/20 Last Solid Time 18:30 Social: Social History: No alcohol and No tobacco Exam: Pre-Anes Outpt Exam: alert, oriented x 3, clear to auscultation bilaterally and regular rate & rhythm Airway: Cervical ROM: WNL MP: 3 Dentition: Full CV/HEM: CV/HEM: Afib and Anemia Comments: mitral valve prolapse Was able to walk a couple flights of stairs (> 4 mets), before her hopsitalization. Now deconditioned, but worknig with physical therapy No syncopal episodes GI: GI: GERD Anesthetic Plan: ASA status: 3 Anesthesia: MAC Risk of > 500 ml blood loss (7ml/kg in children): No PFSH Anesthesia PFSH: Medical History Acute dehydration Anemia Acute blood loss anemia at time of cancer diagnosis and iron deficiency. Arthritis Atrial fibrillation GERD (gastroesophageal reflux disease) Heart murmur Iron adverse reaction Malaise, flushing during IV infusion of iron sucrose. Resolved with discontinuation. 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
[2020-11-08] MEDS: sodium chloride 0.9% 1,000 ML 30 ML IV (11:15)
--- NOTE | 2020-11-08 11:28 | W.PM.OPSUD ---
Surgery/Procedure H&P Update DATE OF PROCEDURE: November 08, 2020 DATE H&P PERFORMED: 11/06/20 H&P UPDATE INFORMATION: I have reviewed H&P completed within last 30 days, I have examined patient prior to procedure and No changes to prior documentation PREOP DIAGNOSIS: Rectal cancer PLANNED PROCEDURE: Operation Date: 11/08/20 12:00 Proposed Procedures p Portacath Placement 49458 C20(Not Applicable) - Octavio Engel MD
--- NOTE | 2020-11-08 11:46 | SC_ITS ---
WS: [id number] C-arm fluoroscopy for port placement, 11/08/2020 Clinical Data: surgery Comparison: PA and lateral chest, 04/23/2020. Findings: The left port has been inserted into the left subclavian vein and ends in the superior vena cava. SC/C-arm FL for CVA [id number] Impression: Satisfactory insertion of left Port-A-Cath.
--- NOTE | 2020-11-08 13:25 | PM.OP ---
Operative Report Date of procedure: November 08, 2020 Pre-op Diagnosis: Rectal cancer Post-op diagnosis: same Procedure Done: Placement of PowerPort in the left subclavian vein Fluoroscopic guidance and interpretation for placement of catheter Surgeon: Octavio Engel Anesthesia: MAC Condition: stable Disposition: PACU Procedure: The patient was taken to the Operating Room and the chest and neck bilaterally were prepped and draped in a sterile manner after the antibiotic had been administered and shoulder rolls had been placed. A total of 10 mL of 1% lidocaine with 0.5% Marcaine was infiltrated under the clavicle on the left side at the site of the planned entry into the subclavian vein. An introducer needle was then used to access the subclavian vein under the clavicle and after withdrawing blood syringe was removed and a guidewire passed under fluoroscopy into the superior vena cava. The site of the planned port was then marked on the chest and a 15 blade was used to make a 3 cm skin incision this was extended into the subcutaneous tissue using electrocautery and a subcutaneous pocket over the pectoralis fascia was created 2-0 Vicryl suture was used to suture the port to the pectoral fascia in the pocket on 3 sides. The catheter, after having been flushed with hep saline, was attached to the tunneler and a tunnel created between the port site and the subclavian vein entry site. Under fluoroscopy the dilator sheath was passed over the guidewire into the proximal superior vena cava. The inner dilator was removed and the sheath left behind and~ the catheter was introduced through the peel-away sheath with the tip in the superior vena cava. The peel-away sheath was removed. The proximal end of the catheter was cut to the right size and was attached to the port. Using a Dickerson needle the port was accessed, it withdrew blood easily and flushed easily. A final 5cc of heparin was used to flush the PowerPort. The subcutaneous tissue was approximated using interrupted 3-0 Vicryl sutures and the skin at the introducer site and the port site was closed using subcuticular running 4-0 Monocryl sutures. Surgical glue was applied and the patient was stable throughout the procedure. Fluoroscopic guidance and interpretation was performed for introduction of the guidewire in the left subclavian vein, passage of dilator and placement of catheter tip in the distal superior vena cava.
[2020-11-08] MEDS: heparin, porcine 1,000 unit/mL INJ 10 mL 10000 UNIT IRRIGATION (13:34)
[2020-11-08] MEDS: lidocaine 1% INJ 20 mL INJECTION (13:35)
[2020-11-08] MEDS: fentaNYL 50 mcg/mL INJ 2mL IVP ×2 (13:36→13:48)
--- NOTE | 2020-11-08 14:33 | SUR.PHASEI ---
[id number] PT AWAKE ALERT TALKATIVE, PT STATES HER LT SHOULDER PAIN IS BETTER, PT REQUESTS SOMETHING TO DRINK, VSS SEE EARLIER MEDS GIVEN LT CHEST PORT SITE D/I
[2020-11-08] MEDS: HYDROcodone-acetaminophen 5-325 mg Tablet 1 TAB PO (14:52)
--- NOTE | 2020-11-08 18:03 | ANE.PACU2 ---
Inpatient post-anesthesia follow up: Airway intact: Yes Vital signs: Temperature 97.6 F Pulse Rate 97 Respiratory Rate 17 Blood Pressure 126/88 Pulse Oximetry 97 Oxygen Delivery Me thod Room Air Oxygen Flow Rate Fraction of Inspir ed Oxygen Hydration adequate: Yes Nausea and vomiting: No Pain level: 3 Mental status: Baseline
== END 2020-11-08 15:00 | disposition home or self-care (01) ==
PROVIDERS: PCP Family Medicine; Visit Provider Surgery
PROC: (CPT 36561; principal; 2020-11-08 12:00)
DX: C20 Malignant neoplasm of rectum (principal); I48.91 Unspecified atrial fibrillation; K21.9 Gastro-esophageal reflux disease without esophagitis; M19.90 Unspecified osteoarthritis, unspecified site
CPT/HCPCS: 36561; 76000; 77001; C1788; J0690; J1644; J2250; J2405; J2704; J3010; J3490; J7030

== ENCOUNTER 2020-11-21 05:41 | Outpatient (RCR) | payer OTHER, SELFPAY ==
[2020-11-14] MEDS: palonosetron 0.25 mg/5 mL SDV IVP (08:45)
[2020-11-14] MEDS: dextrose 5% 250 ML 75 ML IV (08:45)
[2020-11-14] MEDS: fosaprepitant 150 MG in sodium chloride 0.9% 150 ML 300 MG IV (09:20)
[2020-11-21 08:46] LABS: Basophils % 0.5 %; Eosinophils # 0.3 10^3/uL (0.0-0.8); Hemoglobin 10.4 g/dL (11.5-15.3); Lymphocytes # 1.2 10^3/uL (0.8-4.8); Mean Corpuscular HGB Conc 30.6 g/dL (30.0-36.0); Mean Corpuscular Hemoglobin 29.3 pg (28.0-34.0); Mean Corpuscular Volume 95.8 fL (81-99); Mean Platelet Volume 9.1 fL (7.4-10.4); Monocytes # 0.3 10^3/uL (0.2-0.9); Monocytes % 7.6 %; Neutrophils # 1.82 10^3/uL (1.8-7.7); Neutrophils % 49.6 %; Nucleated Red Blood Cells % 0 %; Platelet Count 329 10^3/cmm (130-400); Red Blood Count 3.55 10^6/uL (4.1-5.3); Red Cell Distribution Width 14.4 % (12.1-15.1); White Blood Count 3.7 10^3/uL (4.0-10.0)
[2020-11-21 08:59] LABS: Alanine Aminotransferase 56 U/L (0-33); Albumin Level 3.8 g/dL (3.5-5.2); Alkaline Phosphatase 109 IU/L (35-105); Anion Gap 12.6 (5-19); Aspartate Amino Transferase 64 U/L (0-32); Blood Urea Nitrogen 9 mg/dL (8-23); Calcium 8.5 mg/dL (8.5-10.5); Carbon Dioxide 25 mmol/L (22-29); Chloride 104 mmol/L (98-107); Globulin 2.9 g/dL (1.3-4.6); Glomerular Filtration Rate 160.7 mL/min (90-130); Glucose 156 mg/dL (65-115); Osmolality Calculated 288 mOsm/kg (285-295); Potassium 3.6 mmol/L (3.5-5.1); Sodium 138 mmol/L (136-145); Total Bilirubin 0.3 mg/dL (0.15-1.2); Total Protein 6.7 g/dL (6.6-8.7)
== END 2020-11-26 23:59 | disposition home or self-care (01) ==
LOC: ONCMED 05:41
PROVIDERS: PCP Family Medicine; Visit Provider Internal Medicine Hematology & Oncology
DX: Z51.11 Encounter for antineoplastic chemotherapy (principal); C20 Malignant neoplasm of rectum; D50.9 Iron deficiency anemia, unspecified; Z79.899 Other long term (current) drug therapy
CPT/HCPCS: 36591; 80053; 85025; 96367; 96368; 96375; 96411; 96413; 96415; 96416; 96523; J0640; J1100; J1453; J2469; J9190; J9263

== ENCOUNTER 2020-12-21 05:48 | Outpatient (RCR) | payer OTHER, SELFPAY ==
[2020-11-28 11:32] LABS: Basophils % 0.6 %; Eosinophils # 0.1 10^3/uL (0.0-0.8); Eosinophils % 3.5 %; Hematocrit 34.9 % (37.0-47.0); Hemoglobin 10.8 g/dL (11.5-15.3); Lymphocytes % 31.1 %; Mean Corpuscular HGB Conc 30.9 g/dL (30.0-36.0); Mean Corpuscular Hemoglobin 29.9 pg (28.0-34.0); Mean Corpuscular Volume 96.7 fL (81-99); Mean Platelet Volume 9.3 fL (7.4-10.4); Monocytes # 0.4 10^3/uL (0.2-0.9); Monocytes % 13.5 %; Neutrophils # 1.63 10^3/uL (1.8-7.7); Neutrophils % 51.3 %; Nucleated Red Blood Cells % 0 %; Platelet Count 288 10^3/cmm (130-400); Red Blood Count 3.61 10^6/uL (4.1-5.3); White Blood Count 3.2 10^3/uL (4.0-10.0)
[2020-11-28 11:59] LABS: Alanine Aminotransferase 26 U/L (0-33); Albumin Level 3.7 g/dL (3.5-5.2); Alkaline Phosphatase 123 IU/L (35-105); Anion Gap 13.3 (5-19); Aspartate Amino Transferase 31 U/L (0-32); Blood Urea Nitrogen 7 mg/dL (8-23); Calcium 8.8 mg/dL (8.5-10.5); Carbon Dioxide 26 mmol/L (22-29); Chloride 103 mmol/L (98-107); Globulin 2.6 g/dL (1.3-4.6); Glomerular Filtration Rate 160.7 mL/min (90-130); Glucose 99 mg/dL (65-115); Osmolality Calculated 286 mOsm/kg (285-295); Potassium 3.3 mmol/L (3.5-5.1); Sodium 139 mmol/L (136-145); Total Bilirubin 0.4 mg/dL (0.15-1.2); Total Protein 6.3 g/dL (6.6-8.7)
[2020-11-28] MEDS: palonosetron 0.25 mg/5 mL SDV IV (12:40)
[2020-11-28] MEDS: dextrose 5% 250 ML 75 ML IV (12:40)
[2020-11-28] MEDS: fosaprepitant 150 MG in sodium chloride 0.9% 150 ML 300 MG IV (13:05)
--- NOTE | 2020-11-30 08:04 | ONC FU_ITS ---
Dr. Oreilly Patient Follow-Up Note Patient: Gregoria Barth I Unit #: [id number]: 1955 Dicatated By: Khanh Oreilly M.D.Date of Visit:Nov 28, 2020 Onc Med Follow-up/Prog Note Chief Complaint: Rectal cancer. 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 On 04/06/2020 she was admitted to the hospital with complaints of severe weakness, shortness of breath, and lightheadedness. She was severely anemic with hemoglobin 5.2 g. She had been having some rectal bleeding since at least November. She had hypochromic/microcytic red cell indices and low transferrin saturation of 2.4%, consistent with iron deficiency. She was transfused a total of 3 units of PRBC. She also received some IV Venofer in the hospital, though she apparently had an adverse reaction to it. Her colonoscopy on 04/08/2020 showed a nonobstructing malignant appearing mass at the first rectal fold. It was palpable at 7 cm from the anal verge. Biopsy showed moderately differentiated invasive adenocarcinoma. Her initial CT abdomen/pelvis did not report any significant abnormalities. Her baseline CEA was elevated at 6.1 ng/mL. Her repeat CT abdomen/pelvis on 04/23/2020 showed a left eccentric rectal mass measuring 2.8 x 2.3 cm. There were multiple enlarged perirectal, presacral, and distal left iliac chain enlarged lymph nodes measuring up to 2.1 cm, compatible with metastatic disease. There was no periaortic lymphadenopathy. There was diffuse fatty infiltration of the liver, but there were no metastatic lesions noted. She had colorectal surgery consultation with Dr. Son Alamo on 04/24/2020. She was recommended to have neoadjuvant chemoradiation. I had seen her initially on 04/27/2020 and at that time she also had radiation oncology consultation with Dr. Logan Hogan. By clinical evaluation, her disease was stage at least IIIB (Tx, N2a). On 05/21/2020 she began radiation concurrently with Xeloda for chemosensitization. She completed radiation on 07/02/2020 to a total dose of 5000 cGy administered in 25 fractions. On 08/10/2020 she underwent robotic assisted low anterior resection with total mesorectal excision and placement of diverting loop ileostomy. Pathology showed residual invasive moderately differentiated adenocarcinoma involving the rectum. The tumor measured 4 x 1.2 x 0.7 cm. Tumor was noted to invade the muscularis propria. The margins were uninvolved. The treatment effect was partial response, score 2. There was involvement in 6 of 25 lymph nodes. Pathologic staging was ypT2, pyN2a. The tumor showed intact expression of mismatch repair proteins. She unfortunately had a very difficult postoperative course. On 09/11/2020 she was admitted to the hospital with nausea/vomiting and acute dehydration in association with suspected urinary tract infection. Her CT abdomen/pelvis showed dilated small bowel leading into the right lower quadrant ostomy with abrupt transition and with decompressed distal small bowel loop within the ostomy itself. There was nonspecific fluid and gas collection in the presacral space with fistula to the anorectal junction not excluded. On 09/14/2020 she was transferred to [facility] for further management due to the suspected fistula. She was found to have abscess in the pelvis, though apparently not any definite evidence of fistula. She underwent placement of a percutaneous drainage catheter,. She was discharged home on antibiotic coverage with ciprofloxacin and with the drainage catheter in place. During the hospitalization she was found to be positive for COVID-19 virus infection. Her medical history is otherwise significant for history of cardiac arrhythmias, including supraventricular tachycardia and atrial fibrillation. She has mitral valve prolapse. Her other medical illnesses have been limited to GERD, degenerative arthritis, and depression. She is a non-smoker. INTERIM HISTORY: I had seen her for a follow-up visit on 10/01/2020. At that point she still had very poor performance status and she had not recovered sufficiently to consider postoperative adjuvant chemotherapy. She continued on symptomatic/supportive treatment measures. As of her follow-up visit on 11/06/2020 she appeared to have recovered sufficiently to tolerate adjuvant chemotherapy. She then began cycle 1 of modified FOLFOX on 11/14/2020. She is seen for a follow-up visit. She is still feeling good generally. She was a little tired for a few days after her treatment. Her energy is otherwise been okay. She is doing light housework. ECOG score is 1. She has good appetite. She has no fever or night sweats. She has had no mouth sores. She has no shortness of breath, cough, or chest pain. She has no GI complaints other than occasional pain in the lower abdominal area. She has had no nausea and she has had no diarrhea. Bladder function has been okay. She still has a little bit of vaginal drainage. She has some joint pain, mainly in her knees. She does not complain of headache or dizziness. She has had no numbness/paresthesia or other neuropathy symptoms. Medications: Cardizem LA 1 Tablet (of 180 mg) Tablet SR 24 HR Oral daily, DULoxetine HCl Capsule Delayed Release Particles Oral, Montelukast Sodium 1 Tablet (of 10 mg) Oral daily, Pantoprazole Sodium 1 (40 mg) Tablet, enteric coated Oral b.i.d., Tamsulosin HCl 1 (0.4 mg) Capsule Oral daily Allergies: Iron infusion and Macrobid. Vital Signs: Performed on Nov 28, 2020 11:44 Height - 67.00 in Weight - 229.6 lbs (LOW) BSA - 2.14 sq.m BMI - 35.96 (HIGH) Temperature - 98.6 F Pulse - 114 /min (HIGH) Respiration - 18 /min BP - 151/95 mm(hg) (HIGH) O2 Sat - 97 % Pain - 3 Fatigue - 0 Physical Examination: Constitutional - She looks pretty good generally, Eyes - Sclerae nonicteric. Conjunctivae clear, ENMT - No lesions noted in the oral cavity, Hematologic/Lymphatic - No cervical, clavicular, or axillary adenopathy, Respiratory - Lungs are clear with good air movement bilaterally, Cardiovascular - Heart rhythm is irregular. There is a II/ systolic murmur. There is no gallop or rub noted, Abdomen - Soft. The ostomy site appears unremarkable. Liver and spleen are not enlarged. There is no abdominal mass or ascites noted and there is no inguinal adenopathy, Extremities - There is currently no edema, Neurologic - No focal neurologic deficits noted. Lab/Imaging: Test performed on Nov 28, 2020 11:09 Sodium 139 mmol/L Potassium 3.3 mmol/L Chloride 103 mmol/L CO2 26 mmol/L Anion Gap 13.3 BUN 7 mg/dL Creatinine 0.4 mg/dL Cr Clearance (Est) 233.2000 mL/min eGFR 160.7 mL/min Glucose 99 mg/dL Osmolality - Calculated 286 mOsm/kg Calcium 8.8 mg/dL Protein, Total 6.3 g/dL Albumin 3.7 g/dL Globulin 2.6 g/dL Bilirubin, Total 0.4 mg/dL ALT (SGPT) 26 U/L AST (SGOT) 31 U/L Alkaline Phosphatase 123 IU/L WBC 3.2 10 3/uL RBC 3.61 10 6/uL HGB 10.8 g/dL HCT 34.9 % MCV 96.7 fL MCH 29.9 pg MCHC 30.9 g/dL RDW 14.0 % Platelet Count 288 10 3/cmm MPV 9.3 fL Neutrophils 1.63 10 3/uL Lymphocytes 1.0 10 3/uL Monocytes 0.4 10 3/uL Eosinophils 0.1 10 3/uL Basophils 0.0 10 3/uL Neutrophil % 51.3 % Lymphocyte % 31.1 % Monocyte % 13.5 % Eosinophil % 3.5 % Basophils % 0.6 % NRBC % 0 % EKG shows sinus tachycardia with frequent supraventricular premature complexes. There is possible old septal myocardial infarction. Problem List: 1. Moderately differentiated invasive adenocarcinoma of the rectum. By clinical evaluation her disease was stage at least IIIB (Tx, N2a, M0) at initial diagnosis in March 2020. 2. She had associated iron deficiency anemia. She reported having had adverse reactions to both oral and parenteral iron. 3. GERD. 4. Degenerative arthritis. 5. History of atrial tachy-arrhythmias, apparently in association with mitral valve prolapse. 6. Anxiety/depression. Problems Addressed with this Encounter and Plan: 1. 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 By clinical evaluation her disease was stage at least IIIB (Tx, N2a, M0) at initial diagnosis in March 2020. On 05/21/2020 she began radiation concurrently with Xeloda for chemosensitization. She completed radiation on 07/02/2020 to a total dose of 5000 cGy administered in 25 fractions. On 08/10/2020 she underwent robotic assisted low anterior resection with placement of diverting loop ileostomy. Her post treatment staging was IIIB (ypT2, ypN2a, M0). Her postoperative course was complicated by development of pelvic abscess, requiring placement of percutaneous drainage catheter. She had very significant decline in performance status necessitating a delay in her postoperative adjuvant chemotherapy. As of her follow-up visit on 11/06/2020 her overall condition had improved significantly, and she was then able to proceed with her postoperative adjuvant chemotherapy. She began cycle 1 of modified FOLFOX on 11/14/2020. She had some mild fatigue for a few days following that treatment, but she really has had no other significant side effects. Her heart rhythm is irregular, but EKG confirms that she has sinus rhythm with frequent PVCs. She was mildly neutropenic, but overall she appears to be tolerating treatment well and she will continue now with cycle 2 of modified FOLFOX. The dosages remain the same. She returns in 2 weeks. 2. She has iron deficiency anemia. She has had poor tolerance for both oral and parenteral iron replacement. At this point it does appear to be showing gradual improvement without specific treatment. Signed By: Khanh Oreilly M.D. <<Signature on File>>
[2020-12-05 13:43] LABS: Basophils % 0.6 %; Eosinophils # 0.2 10^3/uL (0.0-0.8); Eosinophils % 4.5 %; Hematocrit 34.5 % (37.0-47.0); Hemoglobin 11.1 g/dL (11.5-15.3); Lymphocytes # 1.2 10^3/uL (0.8-4.8); Lymphocytes % 36.6 %; Mean Corpuscular HGB Conc 32.2 g/dL (30.0-36.0); Mean Corpuscular Hemoglobin 30.7 pg (28.0-34.0); Mean Corpuscular Volume 95.3 fL (81-99); Mean Platelet Volume 9.4 fL (7.4-10.4); Monocytes # 0.4 10^3/uL (0.2-0.9); Monocytes % 11.4 %; Neutrophils # 1.55 10^3/uL (1.8-7.7); Neutrophils % 46.6 %; Nucleated Red Blood Cells % 0 %; Platelet Count 248 10^3/cmm (130-400); Red Blood Count 3.62 10^6/uL (4.1-5.3); Red Cell Distribution Width 13.2 % (12.1-15.1); White Blood Count 3.3 10^3/uL (4.0-10.0)
[2020-12-05 13:54] LABS: Bilirubin Urine Neg (Negative); Blood Urine 2+ (Negative); Glucose Urine UA Norm (Normal); Ketones Urine Negative (Negative); Nitrate Urine Negative (Negative); Protein Urine Neg (Negative); Urine Appearance Hazy (CLEAR); Urine Color Yellow (Yellow); Urobilinogen Urine Norm (Negative); pH Urine 6 (5-7)
[2020-12-05 13:55] LABS: Add Urine Culture? Yes; Add Urine Microscopic? YES; Bacteria Urine TRACE /hpf; Leukocyte Esterase Urine 2+ (Negative); Squamous Epithelial Cell Urine 0-4 /hpf (0-5); WBC Urine 0-4 /hpf (0-5)
[2020-12-11 15:23] LABS: Basophils % 0.9 %; Eosinophils # 0.1 10^3/uL (0.0-0.8); Eosinophils % 5.2 %; Hematocrit 35.1 % (37.0-47.0); Lymphocytes % 42.9 %; Mean Corpuscular HGB Conc 31.3 g/dL (30.0-36.0); Mean Corpuscular Hemoglobin 29.8 pg (28.0-34.0); Mean Corpuscular Volume 95.1 fL (81-99); Mean Platelet Volume 10.2 fL (7.4-10.4); Monocytes # 0.6 10^3/uL (0.2-0.9); Monocytes % 24.7 %; Neutrophils % 23.7 %; Nucleated Red Blood Cells % 0 %; Platelet Count 182 10^3/cmm (130-400); Red Blood Count 3.69 10^6/uL (4.1-5.3); Red Cell Distribution Width 13.5 % (12.1-15.1); White Blood Count 2.3 10^3/uL (4.0-10.0)
[2020-12-11 16:10] LABS: Neutrophils # 0.55 10^3/uL (1.8-7.7)
[2020-12-11 16:51] LABS: Alanine Aminotransferase 29 U/L (0-33); Albumin Level 3.7 g/dL (3.5-5.2); Alkaline Phosphatase 163 IU/L (35-105); Anion Gap 18.7 (5-19); Aspartate Amino Transferase 38 U/L (0-32); Blood Urea Nitrogen 8 mg/dL (8-23); Calcium 8.6 mg/dL (8.5-10.5); Carbon Dioxide 24 mmol/L (22-29); Chloride 105 mmol/L (98-107); Globulin 2.6 g/dL (1.3-4.6); Glomerular Filtration Rate 160.7 mL/min (90-130); Glucose 109 mg/dL (65-115); Osmolality Calculated 297 mOsm/kg (285-295); Potassium 3.7 mmol/L (3.5-5.1); Sodium 144 mmol/L (136-145); Total Bilirubin 0.2 mg/dL (0.15-1.2); Total Protein 6.3 g/dL (6.6-8.7)
[2020-12-19 09:02] LABS: Basophils # 0.1 10^3/uL (0.0-0.1); Basophils % 1.7 %; Eosinophils # 0.2 10^3/uL (0.0-0.8); Eosinophils % 3.1 %; Hematocrit 36.7 % (37.0-47.0); Hemoglobin 11.4 g/dL (11.5-15.3); Lymphocytes # 1.4 10^3/uL (0.8-4.8); Lymphocytes % 28.9 %; Mean Corpuscular HGB Conc 31.1 g/dL (30.0-36.0); Mean Corpuscular Hemoglobin 29.7 pg (28.0-34.0); Mean Corpuscular Volume 95.6 fL (81-99); Monocytes # 0.7 10^3/uL (0.2-0.9); Monocytes % 15.1 %; Neutrophils # 2.13 10^3/uL (1.8-7.7); Neutrophils % 44.7 %; Nucleated Red Blood Cells % 0 %; Platelet Count 238 10^3/cmm (130-400); Red Blood Count 3.84 10^6/uL (4.1-5.3); Red Cell Distribution Width 13.9 % (12.1-15.1); White Blood Count 4.8 10^3/uL (4.0-10.0)
[2020-12-19 09:27] LABS: Slide Review Slide Review Perform
[2020-12-19 09:30] LABS: Alanine Aminotransferase 14 U/L (0-33); Albumin Level 3.7 g/dL (3.5-5.2); Alkaline Phosphatase 181 IU/L (35-105); Aspartate Amino Transferase 27 U/L (0-32); Blood Urea Nitrogen 7 mg/dL (8-23); Calcium 9.2 mg/dL (8.5-10.5); Carbon Dioxide 28 mmol/L (22-29); Chloride 101 mmol/L (98-107); Glomerular Filtration Rate 124.2 mL/min (90-130); Glucose 111 mg/dL (65-115); Osmolality Calculated 285 mOsm/kg (285-295); Sodium 138 mmol/L (136-145); Total Bilirubin 0.2 mg/dL (0.15-1.2); Total Protein 6.7 g/dL (6.6-8.7)
[2020-12-19] MEDS: dextrose 5% 250 ML 75 ML IV (10:28)
[2020-12-19] MEDS: palonosetron 0.25 mg/5 mL SDV IV (10:28)
--- NOTE | 2020-12-31 00:15 | ONC FU_ITS ---
[facility] Patient Note Patient: Gregoria Barth I Unit #: [id number]: 1955 Dictated By: Elicia HartmannDate of Visit: Dec 12, 2020 Onc MED Follow-Up/Prog Note Mrs. Barth did not have office visit today due to her neutropenia and she was rescheduled for 1 week. Her ANC on 12/11/2020 was 550. She will start Zarxio 480 mcg subcutaneous daily for 3 days. She was also started on Levaquin 500 mg daily prophylactically. She was given refill on her hydrocodone today as well. She may have bone pain with Zarxio. She has been informed of the Claritin regimen as well. She has been informed of neutropenic precautions instructed on when to call for further concerns. Mrs. Barth was encouraged to call us in interim should questions or problems arise. Signed By: Elicia Hartmann-BANDAR AOCNP <<Signature on File>>
== END 2020-12-26 23:59 | disposition home or self-care (01) ==
LOC: ONCMED 05:48
PROVIDERS: Internal Medicine Hematology & Oncology; PCP Family Medicine; Visit Provider Internal Medicine Medical Oncology
DX: Z51.11 Encounter for antineoplastic chemotherapy (principal); C20 Malignant neoplasm of rectum; C77.5 Secondary and unspecified malignant neoplasm of intrapelvic lymph nodes; Z45.2 Encounter for adjustment and management of vascular access device; D70.1 Agranulocytosis secondary to cancer chemotherapy; T45.1X5A Adverse effect of antineoplastic and immunosuppressive drugs, initial encounter; D50.9 Iron deficiency anemia, unspecified; R30.0 Dysuria; K76.0 Fatty (change of) liver, not elsewhere classified; Z92.3 Personal history of irradiation; Z90.49 Acquired absence of other specified parts of digestive tract; Z93.2 Ileostomy status; Z87.440 Personal history of urinary (tract) infections; Z86.16 Personal history of COVID-19; I47.1 Supraventricular tachycardia; I48.91 Unspecified atrial fibrillation; I34.1 Nonrheumatic mitral (valve) prolapse; K21.9 Gastro-esophageal reflux disease without esophagitis; M19.90 Unspecified osteoarthritis, unspecified site; F41.8 Other specified anxiety disorders
CPT/HCPCS: 36415; 36591; 80053; 81001; 85025; 87077; 87086; 87186; 96367; 96368; 96372; 96375; 96411; 96413; 96415; 96416; 96523; 99214; J0640; J1100; J1453; J2469; J2505; J9190; J9263; Q5101

== ENCOUNTER 2021-01-18 05:47 | Outpatient (RCR) | payer OTHER, SELFPAY ==
[2021-01-02 10:28] LABS: Basophils % 0.7 %; Eosinophils # 0.2 10^3/uL (0.0-0.8); Eosinophils % 2.7 %; Hematocrit 37.7 % (37.0-47.0); Hemoglobin 11.6 g/dL (11.5-15.3); Lymphocytes # 1.2 10^3/uL (0.8-4.8); Lymphocytes % 21.4 %; Mean Corpuscular HGB Conc 30.8 g/dL (30.0-36.0); Mean Corpuscular Hemoglobin 29.5 pg (28.0-34.0); Mean Corpuscular Volume 95.9 fL (81-99); Mean Platelet Volume 9.7 fL (7.4-10.4); Monocytes # 0.6 10^3/uL (0.2-0.9); Monocytes % 10.7 %; Neutrophils % 63.6 %; Nucleated Red Blood Cells % 0 %; Platelet Count 200 10^3/cmm (130-400); Red Blood Count 3.93 10^6/uL (4.1-5.3); Red Cell Distribution Width 14.2 % (12.1-15.1); White Blood Count 5.5 10^3/uL (4.0-10.0)
[2021-01-02 10:47] LABS: Alanine Aminotransferase 20 U/L (0-33); Albumin Level 3.7 g/dL (3.5-5.2); Alkaline Phosphatase 203 IU/L (35-105); Aspartate Amino Transferase 29 U/L (0-32); Blood Urea Nitrogen 10 mg/dL (8-23); Calcium 9.6 mg/dL (8.5-10.5); Carbon Dioxide 26 mmol/L (22-29); Chloride 103 mmol/L (98-107); Glomerular Filtration Rate 124.2 mL/min (90-130); Glucose 113 mg/dL (65-115); Osmolality Calculated 286 mOsm/kg (285-295); Sodium 138 mmol/L (136-145); Total Bilirubin 0.3 mg/dL (0.15-1.2); Total Protein 6.7 g/dL (6.6-8.7)
[2021-01-02] MEDS: palonosetron 0.25 mg/5 mL SDV IVP (12:15)
[2021-01-02] MEDS: dextrose 5% 250 ML 75 ML IV (12:15)
--- NOTE | 2021-01-02 20:09 | ONC FU_ITS ---
Dr. Oreilly Patient Follow-Up Note Patient: Gregoria Barth I Unit #: [id number]: 1955 Dicatated By: Khanh Oreilly M.D.Date of Visit:Jan 02, 2021 Onc Med Follow-up/Prog Note Chief Complaint: Rectal cancer. 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 On 04/06/2020 she was admitted to the hospital with complaints of severe weakness, shortness of breath, and lightheadedness. She was severely anemic with hemoglobin 5.2 g. She had been having some rectal bleeding since at least November. She had hypochromic/microcytic red cell indices and low transferrin saturation of 2.4%, consistent with iron deficiency. She was transfused a total of 3 units of PRBC. She also received some IV Venofer in the hospital, though she apparently had an adverse reaction to it. Her colonoscopy on 04/08/2020 showed a nonobstructing malignant appearing mass at the first rectal fold. It was palpable at 7 cm from the anal verge. Biopsy showed moderately differentiated invasive adenocarcinoma. Her initial CT abdomen/pelvis did not report any significant abnormalities. Her baseline CEA was elevated at 6.1 ng/mL. Her repeat CT abdomen/pelvis on 04/23/2020 showed a left eccentric rectal mass measuring 2.8 x 2.3 cm. There were multiple enlarged perirectal, presacral, and distal left iliac chain enlarged lymph nodes measuring up to 2.1 cm, compatible with metastatic disease. There was no periaortic lymphadenopathy. There was diffuse fatty infiltration of the liver, but there were no metastatic lesions noted. She had colorectal surgery consultation with Dr. Son Alamo on 04/24/2020. She was recommended to have neoadjuvant chemoradiation. I had seen her initially on 04/27/2020 and at that time she also had radiation oncology consultation with Dr. Logan Hogan. By clinical evaluation, her disease was stage at least IIIB (Tx, N2a). On 05/21/2020 she began radiation concurrently with Xeloda for chemosensitization. She completed radiation on 07/02/2020 to a total dose of 5000 cGy administered in 25 fractions. On 08/10/2020 she underwent robotic assisted low anterior resection with total mesorectal excision and placement of diverting loop ileostomy. Pathology showed residual invasive moderately differentiated adenocarcinoma involving the rectum. The tumor measured 4 x 1.2 x 0.7 cm. Tumor was noted to invade the muscularis propria. The margins were uninvolved. The treatment effect was partial response, score 2. There was involvement in 6 of 25 lymph nodes. Pathologic staging was ypT2, pyN2a. The tumor showed intact expression of mismatch repair proteins. She unfortunately had a very difficult postoperative course. On 09/11/2020 she was admitted to the hospital with nausea/vomiting and acute dehydration in association with suspected urinary tract infection. Her CT abdomen/pelvis showed dilated small bowel leading into the right lower quadrant ostomy with abrupt transition and with decompressed distal small bowel loop within the ostomy itself. There was nonspecific fluid and gas collection in the presacral space with fistula to the anorectal junction not excluded. On 09/14/2020 she was transferred to [facility] for further management due to the suspected fistula. She was found to have abscess in the pelvis, though apparently not any definite evidence of fistula. She underwent placement of a percutaneous drainage catheter,. She was discharged home on antibiotic coverage with ciprofloxacin and with the drainage catheter in place. During the hospitalization she was found to be positive for COVID-19 virus infection. Her medical history is otherwise significant for history of cardiac arrhythmias, including supraventricular tachycardia and atrial fibrillation. She has mitral valve prolapse. Her other medical illnesses have been limited to GERD, degenerative arthritis, and depression. She is a non-smoker. INTERIM HISTORY: I had seen her for a follow-up visit on 10/01/2020. At that point she still had very poor performance status and she had not recovered sufficiently to consider postoperative adjuvant chemotherapy. She continued on symptomatic/supportive treatment measures. As of her follow-up visit on 11/06/2020 she appeared to have recovered sufficiently to tolerate adjuvant chemotherapy. She then began cycle 1 of modified FOLFOX on 11/14/2020. At her follow-up visit on 11/28/2020 she had moderately severe neutropenia, ANC 1600. She otherwise tolerated the treatment well. She continued with her second cycle with addition of Neupogen prophylactically for 2 days. Her further treatment was delayed due to persistent neutropenia, requiring additional Neupogen. She was able to continue with cycle 3 on 12/19/2020. The dosages remain the same, but it was administered with Neulasta prophylactically. She is seen for a follow-up visit. She has been feeling pretty good generally. She did experience some nausea for a day or 2 after the Neulasta injection. She did not have any other significant side effects with it, though. Her energy has been pretty good. She is doing light housework. ECOG score is 1. She has good appetite. She has no fever or night sweats. She has had a little bit of sore throat, but no mouth sores. She has no shortness of breath, cough, or chest pain. She has no other GI or complaints. She has some back pain, which is chronic. She does not complain of headache or dizziness. She is having some neuropathy, but not too bad. Medications: Cardizem LA 1 Tablet (of 180 mg) Tablet SR 24 HR Oral daily, DULoxetine HCl Capsule Delayed Release Particles Oral, Montelukast Sodium 1 Tablet (of 10 mg) Oral daily, Pantoprazole Sodium 1 (40 mg) Tablet, enteric coated Oral b.i.d., Tamsulosin HCl 1 (0.4 mg) Capsule Oral daily Allergies: Iron infusion and Macrobid. Vital Signs: Performed on Jan 02, 2021 11:31 Height - 67.00 in Weight - 231.2 lbs (HIGH) BSA - 2.15 sq.m BMI - 36.21 (HIGH) Temperature - 98.4 F Pulse - 92 /min Respiration - 18 /min BP - 152/83 mm(hg) (HIGH) O2 Sat - 97 % Pain - 6 Fatigue - 3 Physical Examination: Constitutional - She looks pretty good generally, Eyes - Sclerae nonicteric. Conjunctivae clear, ENMT - No lesions noted in the oral cavity, Hematologic/Lymphatic - No cervical, clavicular, or axillary adenopathy, Respiratory - Lungs are clear with good air movement bilaterally, Cardiovascular - Heart rhythm is irregular. There is a II/ systolic murmur. There is no gallop or rub noted, Abdomen - Soft. The ostomy site appears unremarkable. Liver and spleen are not enlarged. There is no abdominal mass or ascites noted and there is no inguinal adenopathy, Extremities - No edema, Neurologic - No focal neurologic deficits noted. Lab/Imaging: Test performed on Jan 02, 2021 10:10 Sodium 138 mmol/L Potassium 4.0 mmol/L Chloride 103 mmol/L CO2 26 mmol/L Anion Gap 13.0 BUN 10 mg/dL Creatinine 0.5 mg/dL Cr Clearance (Est) 186.5600 mL/min eGFR 124.2 mL/min Glucose 113 mg/dL Osmolality - Calculated 286 mOsm/kg Calcium 9.6 mg/dL Protein, Total 6.7 g/dL Albumin 3.7 g/dL Globulin 3.0 g/dL Bilirubin, Total 0.3 mg/dL ALT (SGPT) 20 U/L AST (SGOT) 29 U/L Alkaline Phosphatase 203 IU/L WBC 5.5 10 3/uL RBC 3.93 10 6/uL HGB 11.6 g/dL HCT 37.7 % MCV 95.9 fL MCH 29.5 pg MCHC 30.8 g/dL RDW 14.2 % Platelet Count 200 10 3/cmm MPV 9.7 fL Neutrophils 3.50 10 3/uL Lymphocytes 1.2 10 3/uL Monocytes 0.6 10 3/uL Eosinophils 0.2 10 3/uL Basophils 0.0 10 3/uL Neutrophil % 63.6 % Lymphocyte % 21.4 % Monocyte % 10.7 % Eosinophil % 2.7 % Basophils % 0.7 % NRBC % 0 % Problem List: 1. Moderately differentiated invasive adenocarcinoma of the rectum. By clinical evaluation her disease was stage at least IIIB (Tx, N2a, M0) at initial diagnosis in March 2020. 2. She had associated iron deficiency anemia. She reported having had adverse reactions to both oral and parenteral iron. 3. GERD. 4. Degenerative arthritis. 5. History of atrial tachy-arrhythmias, apparently in association with mitral valve prolapse. 6. Anxiety/depression. Problems Addressed with this Encounter and Plan: 1. 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 By clinical evaluation her disease was stage at least IIIB (Tx, N2a, M0) at initial diagnosis in March 2020. On 05/21/2020 she began radiation concurrently with Xeloda for chemosensitization. She completed radiation on 07/02/2020 to a total dose of 5000 cGy administered in 25 fractions. On 08/10/2020 she underwent robotic assisted low anterior resection with placement of diverting loop ileostomy. Her post treatment staging was IIIB (ypT2, ypN2a, M0). Her postoperative course was complicated by development of pelvic abscess, requiring placement of percutaneous drainage catheter. She had very significant decline in performance status necessitating a delay in her postoperative adjuvant chemotherapy. As of her follow-up visit on 11/06/2020 her overall condition had improved significantly, and she was then able to proceed with her postoperative adjuvant chemotherapy. She began cycle 1 of modified FOLFOX on 11/14/2020. She had some mild fatigue for a few days following that treatment and she also had moderately severe neutropenia. She was given Neupogen prophylactically with cycle 2. Her cycle 3 had to be delayed, and was administered with Neulasta prophylactically. Her blood counts now are adequate, and she is otherwise tolerating the treatment with acceptable toxicity. She will continue now with cycle 4 of modified FOLFOX. The dosages remain the same, but she will continue Neulasta prophylactically for the neutropenia. She returns in 2 weeks. 2. She has iron deficiency anemia. She has had poor tolerance for both oral and parenteral iron replacement. Her hemoglobin/hematocrit levels are now adequate and stable without specific treatment. Signed By: Khanh Oreilly M.D. <<Signature on File>>
[2021-01-16 10:56] LABS: Basophils % 0.8 %; Eosinophils # 0.1 10^3/uL (0.0-0.8); Eosinophils % 1.7 %; Hemoglobin 11.4 g/dL (11.5-15.3); Lymphocytes # 1.1 10^3/uL (0.8-4.8); Lymphocytes % 20.7 %; Mean Corpuscular HGB Conc 30.8 g/dL (30.0-36.0); Mean Corpuscular Hemoglobin 29.2 pg (28.0-34.0); Mean Corpuscular Volume 94.9 fL (81-99); Mean Platelet Volume 10.4 fL (7.4-10.4); Monocytes # 0.6 10^3/uL (0.2-0.9); Neutrophils # 3.32 10^3/uL (1.8-7.7); Neutrophils % 63.1 %; Nucleated Red Blood Cells % 0 %; Platelet Count 147 10^3/cmm (130-400); Red Cell Distribution Width 14.7 % (12.1-15.1); White Blood Count 5.3 10^3/uL (4.0-10.0)
[2021-01-16 11:28] LABS: Alanine Aminotransferase 24 U/L (0-33); Albumin Level 3.7 g/dL (3.5-5.2); Alkaline Phosphatase 206 IU/L (35-105); Anion Gap 15.6 (5-19); Aspartate Amino Transferase 37 U/L (0-32); Blood Urea Nitrogen 8 mg/dL (8-23); Calcium 8.9 mg/dL (8.5-10.5); Carbon Dioxide 25 mmol/L (22-29); Chloride 103 mmol/L (98-107); Globulin 2.9 g/dL (1.3-4.6); Glomerular Filtration Rate 124.2 mL/min (90-130); Glucose 109 mg/dL (65-115); Osmolality Calculated 289 mOsm/kg (285-295); Potassium 3.6 mmol/L (3.5-5.1); Sodium 140 mmol/L (136-145); Total Bilirubin 0.3 mg/dL (0.15-1.2); Total Protein 6.6 g/dL (6.6-8.7)
[2021-01-16] MEDS: palonosetron 0.25 mg/5 mL SDV IVP (13:00)
[2021-01-16] MEDS: dextrose 5% 250 ML 75 ML IV (13:51)
--- NOTE | 2021-01-20 14:46 | ONC FU_ITS ---
Dr. Oreilly Patient Follow-Up Note Patient: Gregoria Barth I Unit #: [id number]: 1955 Dicatated By: Khanh rOeilly M.D.Date of Visit:Jan 16, 2021 Onc Med Follow-up/Prog Note Chief Complaint: Rectal cancer. 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 On 04/06/2020 she was admitted to the hospital with complaints of severe weakness, shortness of breath, and lightheadedness. She was severely anemic with hemoglobin 5.2 g. She had been having some rectal bleeding since at least November. She had hypochromic/microcytic red cell indices and low transferrin saturation of 2.4%, consistent with iron deficiency. She was transfused a total of 3 units of PRBC. She also received some IV Venofer in the hospital, though she apparently had an adverse reaction to it. Her colonoscopy on 04/08/2020 showed a nonobstructing malignant appearing mass at the first rectal fold. It was palpable at 7 cm from the anal verge. Biopsy showed moderately differentiated invasive adenocarcinoma. Her initial CT abdomen/pelvis did not report any significant abnormalities. Her baseline CEA was elevated at 6.1 ng/mL. Her repeat CT abdomen/pelvis on 04/23/2020 showed a left eccentric rectal mass measuring 2.8 x 2.3 cm. There were multiple enlarged perirectal, presacral, and distal left iliac chain enlarged lymph nodes measuring up to 2.1 cm, compatible with metastatic disease. There was no periaortic lymphadenopathy. There was diffuse fatty infiltration of the liver, but there were no metastatic lesions noted. She had colorectal surgery consultation with Dr. Son Alamo on 04/24/2020. She was recommended to have neoadjuvant chemoradiation. I had seen her initially on 04/27/2020 and at that time she also had radiation oncology consultation with Dr. Logan Hogan. By clinical evaluation, her disease was stage at least IIIB (Tx, N2a). On 05/21/2020 she began radiation concurrently with Xeloda for chemosensitization. She completed radiation on 07/02/2020 to a total dose of 5000 cGy administered in 25 fractions. On 08/10/2020 she underwent robotic assisted low anterior resection with total mesorectal excision and placement of diverting loop ileostomy. Pathology showed residual invasive moderately differentiated adenocarcinoma involving the rectum. The tumor measured 4 x 1.2 x 0.7 cm. Tumor was noted to invade the muscularis propria. The margins were uninvolved. The treatment effect was partial response, score 2. There was involvement in 6 of 25 lymph nodes. Pathologic staging was ypT2, pyN2a. The tumor showed intact expression of mismatch repair proteins. She unfortunately had a very difficult postoperative course. On 09/11/2020 she was admitted to the hospital with nausea/vomiting and acute dehydration in association with suspected urinary tract infection. Her CT abdomen/pelvis showed dilated small bowel leading into the right lower quadrant ostomy with abrupt transition and with decompressed distal small bowel loop within the ostomy itself. There was nonspecific fluid and gas collection in the presacral space with fistula to the anorectal junction not excluded. On 09/14/2020 she was transferred to [facility] for further management due to the suspected fistula. She was found to have abscess in the pelvis, though apparently not any definite evidence of fistula. She underwent placement of a percutaneous drainage catheter,. She was discharged home on antibiotic coverage with ciprofloxacin and with the drainage catheter in place. During the hospitalization she was found to be positive for COVID-19 virus infection. Her medical history is otherwise significant for history of cardiac arrhythmias, including supraventricular tachycardia and atrial fibrillation. She has mitral valve prolapse. Her other medical illnesses have been limited to GERD, degenerative arthritis, and depression. She is a non-smoker. INTERIM HISTORY: I had seen her for a follow-up visit on 10/01/2020. At that point she still had very poor performance status and she had not recovered sufficiently to consider postoperative adjuvant chemotherapy. She continued on symptomatic/supportive treatment measures. As of her follow-up visit on 11/06/2020 she appeared to have recovered sufficiently to tolerate adjuvant chemotherapy. She then began cycle 1 of modified FOLFOX on 11/14/2020. At her follow-up visit on 11/28/2020 she had moderately severe neutropenia, ANC 1600. She otherwise tolerated the treatment well. She continued with her second cycle with addition of Neupogen prophylactically for 2 days. Her further treatment was delayed due to persistent neutropenia, requiring additional Neupogen. She was able to continue with cycle 3 on 12/19/2020 and with cycle 4 on 01/02/2021, both with Neulasta prophylactically. She is seen for a follow-up visit. She indicates that she felt pretty yucky for almost a week after her last treatment. She has been okay since then. Her energy is pretty good now. She is able to do light work. ECOG score is 1. She has good appetite. She has no fever or night sweats. She has had no mouth sores. She has had some slight swelling in her throat, but she says it goes away. She has no shortness of breath, cough, or chest pain. She has no GI or complaints. She has pain in her lower back rating down to her left knee. She does not complain of headache or dizziness. She has a little bit of numbness/tingling for a few days after treatment. She has since then had just mild cold sensitivity. Medications: Cardizem LA 1 Tablet (of 180 mg) Tablet SR 24 HR Oral daily, DULoxetine HCl Capsule Delayed Release Particles Oral, HYDROcodone-Acetaminophen (10-325 mg) Tablet Oral four times a day PRN, Montelukast Sodium 1 Tablet (of 10 mg) Oral daily, Pantoprazole Sodium 1 (40 mg) Tablet, enteric coated Oral b.i.d., Tamsulosin HCl 1 (0.4 mg) Capsule Oral daily Allergies: Iron infusion and Macrobid. Vital Signs: Performed on Jan 16, 2021 12:24 Height - 67.00 in Weight - 232.4 lbs (HIGH) BSA - 2.16 sq.m BMI - 36.40 (HIGH) Temperature - 97.3 F (LOW) Pulse - 94 /min Respiration - 18 /min BP - 159/86 mm(hg) (HIGH) O2 Sat - 98 % Pain - 4 Fatigue - 0 Physical Examination: Constitutional - She looks pretty good generally, Eyes - Sclerae nonicteric. Conjunctivae clear, ENMT - No lesions noted in the oral cavity, Hematologic/Lymphatic - No cervical, clavicular, or axillary adenopathy, Respiratory - Lungs are clear with good air movement bilaterally, Cardiovascular - Heart rhythm is irregular. There is a II/ systolic murmur. There is no gallop or rub noted, Abdomen - Soft. Liver and spleen are not enlarged. There is no abdominal mass or ascites noted and there is no inguinal adenopathy, Extremities - No edema, Neurologic - No focal neurologic deficits noted. Lab/Imaging: Test performed on Jan 16, 2021 10:30 Sodium 140 mmol/L Potassium 3.6 mmol/L Chloride 103 mmol/L CO2 25 mmol/L Anion Gap 15.6 BUN 8 mg/dL Creatinine 0.5 mg/dL Cr Clearance (Est) 186.5600 mL/min eGFR 124.2 mL/min Glucose 109 mg/dL Osmolality - Calculated 289 mOsm/kg Calcium 8.9 mg/dL Protein, Total 6.6 g/dL Albumin 3.7 g/dL Globulin 2.9 g/dL Bilirubin, Total 0.3 mg/dL ALT (SGPT) 24 U/L AST (SGOT) 37 U/L Alkaline Phosphatase 206 IU/L WBC 5.3 10 3/uL RBC 3.90 10 6/uL HGB 11.4 g/dL HCT 37.0 % MCV 94.9 fL MCH 29.2 pg MCHC 30.8 g/dL RDW 14.7 % Platelet Count 147 10 3/cmm MPV 10.4 fL Neutrophils 3.32 10 3/uL Lymphocytes 1.1 10 3/uL Monocytes 0.6 10 3/uL Eosinophils 0.1 10 3/uL Basophils 0.0 10 3/uL Neutrophil % 63.1 % Lymphocyte % 20.7 % Monocyte % 12.0 % Eosinophil % 1.7 % Basophils % 0.8 % NRBC % 0 % CEA 4.0 ng/mL Problem List: 1. Moderately differentiated invasive adenocarcinoma of the rectum. By clinical evaluation her disease was stage at least IIIB (Tx, N2a, M0) at initial diagnosis in March 2020. 2. She had associated iron deficiency anemia. She reported having had adverse reactions to both oral and parenteral iron. 3. GERD. 4. Degenerative arthritis. 5. History of atrial tachy-arrhythmias, apparently in association with mitral valve prolapse. 6. Anxiety/depression. Problems Addressed with this Encounter and Plan: 1. 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 By clinical evaluation her disease was stage at least IIIB (Tx, N2a, M0) at initial diagnosis in March 2020. On 05/21/2020 she began radiation concurrently with Xeloda for chemosensitization. She completed radiation on 07/02/2020 to a total dose of 5000 cGy administered in 25 fractions. On 08/10/2020 she underwent robotic assisted low anterior resection with placement of diverting loop ileostomy. Her post treatment staging was IIIB (ypT2, ypN2a, M0). Her postoperative course was complicated by development of pelvic abscess, requiring placement of percutaneous drainage catheter. She had very significant decline in performance status necessitating a delay in her postoperative adjuvant chemotherapy. As of her follow-up visit on 11/06/2020 her overall condition had improved significantly, and she was then able to proceed with her postoperative adjuvant chemotherapy. She began cycle 1 of modified FOLFOX on 11/14/2020. She had some mild fatigue for a few days following that treatment and she also had moderately severe neutropenia. She was given Neupogen prophylactically with cycle 2. Her cycles 3 and 4 were administered with Neulasta prophylactically. She continues to have some chemotherapy related fatigue. She has only mild neuropathy. Her blood counts have remained adequate with growth factor support. She will proceed now with cycle 5. However, due to the increase in her alkaline phosphatase, she will be scheduled now for CT abdomen/pelvis. She will have further evaluation as indicated. I will tentatively plan a follow-up visit in 2 weeks. 2. She has iron deficiency anemia. She has had poor tolerance for both oral and parenteral iron replacement. Her hemoglobin/hematocrit levels have been adequate and stable without specific treatment. Signed By: Khanh Oreilly M.D. <<Signature on File>>
== END 2021-01-26 23:59 | disposition home or self-care (01) ==
LOC: ONCMED 05:47
PROVIDERS: PCP Family Medicine; Visit Provider Internal Medicine Medical Oncology
DX: Z51.11 Encounter for antineoplastic chemotherapy (principal); C20 Malignant neoplasm of rectum; D50.9 Iron deficiency anemia, unspecified; K21.9 Gastro-esophageal reflux disease without esophagitis; M19.90 Unspecified osteoarthritis, unspecified site; I34.1 Nonrheumatic mitral (valve) prolapse; F41.9 Anxiety disorder, unspecified; F32.9 Major depressive disorder, single episode, unspecified; Z79.899 Other long term (current) drug therapy
CPT/HCPCS: 36415; 80053; 82378; 85025; 96367; 96368; 96372; 96375; 96411; 96413; 96415; 96416; 96523; 99214; J0640; J1100; J2469; J2505; J9190; J9263

== ENCOUNTER 2021-01-29 08:20 | Outpatient (CLI) | payer OTHER, SELFPAY ==
--- NOTE | 2021-01-29 08:33 | CT_ITS ---
WS: [id number] CT scan of the abdomen and pelvis with Oral and IV contrast. Additional two-dimensional coronal and s agittal reconstruction was performed. 01/29/2021 Clinical Data: RECTAL CANCER, ELEVATED LIVER ENZYMES Comparison: CT abdomen and pelvis, 09/11/2020. DLP: 849.[address] scans at [facility] use at least one of these dose optimization techniques: automat ed exposure control; mA and/or kV adjustment per patient size (includes targeted exams where dose is matched to clinical indication); or iterative reconstruction. Findings: The lower lungs show no nodules, masses or effusions. The liver, spleen, adrenal glands and pancreas are normal. No metastatic lesions are seen in the live r. There are clips in the gallbladder fossa from a cholecystectomy. The kidneys show equal bilateral contrast excretion with no masses, hydronephrosis or renal calculi. There is a 2 cm left renal cortical cyst unchanged. The abdominal aorta is normal in size with minimal calcification in the wall.. No appendicitis or diverticulitis is seen. Oral contrast is in the stomach and small bowel and there is no bowel dilatation. There is a right lower quadrant ileostomy unchanged. The colon remains in pos ition but is not dilated. No abscess, adenopathy, ascites, mass, obstruction or free air is seen. The previously noted fluid and gas collection in the presacral space is almost totally resolved. The res idual air may be in the colon. The bladder is unremarkable. No inguinal hernia is seen. The bones of the lower thorax, lumbar spine, pelvis, and hips show degenerative disc disease but no m etastatic lesions.. CT/CT abdomen pelvis w con* [id number] Impression: 1. Right lower quadrant ileostomy unchanged. 2. No evidence of any small bowel obstruction. 3. Fluid and gas collection in the presacral space has resolved.
[2021-01-29] MEDS: iohexol 300 mg/mL 50 mL Btl PO (09:39)
[2021-01-29] MEDS: iohexol 300 mg/mL 100 mL Btl IV (10:13)
== END 2021-01-29 08:21 | disposition home or self-care (01) ==
LOC: RADWPI 08:24
PROVIDERS: PCP Family Medicine; Visit Provider Internal Medicine Medical Oncology
DX: C20 Malignant neoplasm of rectum (principal); R94.5 Abnormal results of liver function studies
CPT/HCPCS: 74177; Q9967

== ENCOUNTER 2021-02-15 10:41 | Outpatient (RCR) | payer OTHER, SELFPAY ==
[2021-01-30 08:27] LABS: Basophils # 0.1 10^3/uL (0.0-0.1); Basophils % 1.4 %; Eosinophils # 0.1 10^3/uL (0.0-0.8); Hematocrit 36.8 % (37.0-47.0); Hemoglobin 11.4 g/dL (11.5-15.3); Lymphocytes % 22.9 %; Mean Corpuscular Volume 93.6 fL (81-99); Mean Platelet Volume 10.9 fL (7.4-10.4); Monocytes # 0.6 10^3/uL (0.2-0.9); Monocytes % 13.8 %; Neutrophils # 2.51 10^3/uL (1.8-7.7); Neutrophils % 57.5 %; Nucleated Red Blood Cells % 0 %; Platelet Count 122 10^3/cmm (130-400); Red Blood Count 3.93 10^6/uL (4.1-5.3); Red Cell Distribution Width 15.4 % (12.1-15.1); White Blood Count 4.4 10^3/uL (4.0-10.0)
[2021-01-30 08:55] LABS: Slide Review Slide Review Perform
[2021-01-30 09:04] LABS: Alanine Aminotransferase 17 U/L (0-33); Albumin Level 3.8 g/dL (3.5-5.2); Alkaline Phosphatase 202 IU/L (35-105); Anion Gap 14.9 (5-19); Aspartate Amino Transferase 35 U/L (0-32); Blood Urea Nitrogen 7 mg/dL (8-23); Calcium 9.2 mg/dL (8.5-10.5); Carbon Dioxide 26 mmol/L (22-29); Chloride 103 mmol/L (98-107); Globulin 2.8 g/dL (1.3-4.6); Glomerular Filtration Rate 160.7 mL/min (90-130); Glucose 102 mg/dL (65-115); Osmolality Calculated 288 mOsm/kg (285-295); Potassium 3.9 mmol/L (3.5-5.1); Sodium 140 mmol/L (136-145); Total Bilirubin 0.5 mg/dL (0.15-1.2); Total Protein 6.6 g/dL (6.6-8.7)
[2021-01-30] MEDS: palonosetron 0.25 mg/5 mL SDV IVP (09:48)
[2021-01-30] MEDS: dextrose 5% 250 ML 75 ML IV (09:48)
--- NOTE | 2021-01-30 17:36 | ONC FU_ITS ---
Dr. Oreilly Patient Follow-Up Note Patient: Gregoria Barth I Unit #: [id number]: 1955 Dicatated By: Khanh Oreilly M.D.Date of Visit:Jan 30, 2021 Onc Med Follow-up/Prog Note Chief Complaint: Rectal cancer. 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 On 04/06/2020 she was admitted to the hospital with complaints of severe weakness, shortness of breath, and lightheadedness. She was severely anemic with hemoglobin 5.2 g. She had been having some rectal bleeding since at least November. She had hypochromic/microcytic red cell indices and low transferrin saturation of 2.4%, consistent with iron deficiency. She was transfused a total of 3 units of PRBC. She also received some IV Venofer in the hospital, though she apparently had an adverse reaction to it. Her colonoscopy on 04/08/2020 showed a nonobstructing malignant appearing mass at the first rectal fold. It was palpable at 7 cm from the anal verge. Biopsy showed moderately differentiated invasive adenocarcinoma. Her initial CT abdomen/pelvis did not report any significant abnormalities. Her baseline CEA was elevated at 6.1 ng/mL. Her repeat CT abdomen/pelvis on 04/23/2020 showed a left eccentric rectal mass measuring 2.8 x 2.3 cm. There were multiple enlarged perirectal, presacral, and distal left iliac chain enlarged lymph nodes measuring up to 2.1 cm, compatible with metastatic disease. There was no periaortic lymphadenopathy. There was diffuse fatty infiltration of the liver, but there were no metastatic lesions noted. She had colorectal surgery consultation with Dr. Son Alamo on 04/24/2020. She was recommended to have neoadjuvant chemoradiation. I had seen her initially on 04/27/2020 and at that time she also had radiation oncology consultation with Dr. Logan Hogan. By clinical evaluation, her disease was stage at least IIIB (Tx, N2a). On 05/21/2020 she began radiation concurrently with Xeloda for chemosensitization. She completed radiation on 07/02/2020 to a total dose of 5000 cGy administered in 25 fractions. On 08/10/2020 she underwent robotic assisted low anterior resection with total mesorectal excision and placement of diverting loop ileostomy. Pathology showed residual invasive moderately differentiated adenocarcinoma involving the rectum. The tumor measured 4 x 1.2 x 0.7 cm. Tumor was noted to invade the muscularis propria. The margins were uninvolved. The treatment effect was partial response, score 2. There was involvement in 6 of 25 lymph nodes. Pathologic staging was ypT2, pyN2a. The tumor showed intact expression of mismatch repair proteins. She unfortunately had a very difficult postoperative course. On 09/11/2020 she was admitted to the hospital with nausea/vomiting and acute dehydration in association with suspected urinary tract infection. Her CT abdomen/pelvis showed dilated small bowel leading into the right lower quadrant ostomy with abrupt transition and with decompressed distal small bowel loop within the ostomy itself. There was nonspecific fluid and gas collection in the presacral space with fistula to the anorectal junction not excluded. On 09/14/2020 she was transferred to [facility] for further management due to the suspected fistula. She was found to have abscess in the pelvis, though apparently not any definite evidence of fistula. She underwent placement of a percutaneous drainage catheter,. She was discharged home on antibiotic coverage with ciprofloxacin and with the drainage catheter in place. During the hospitalization she was found to be positive for COVID-19 virus infection. Her medical history is otherwise significant for history of cardiac arrhythmias, including supraventricular tachycardia and atrial fibrillation. She has mitral valve prolapse. Her other medical illnesses have been limited to GERD, degenerative arthritis, and depression. She is a non-smoker. INTERIM HISTORY: I had seen her for a follow-up visit on 10/01/2020. At that point she still had very poor performance status and she had not recovered sufficiently to consider postoperative adjuvant chemotherapy. She continued on symptomatic/supportive treatment measures. As of her follow-up visit on 11/06/2020 she appeared to have recovered sufficiently to tolerate adjuvant chemotherapy. She then began cycle 1 of modified FOLFOX on 11/14/2020. At her follow-up visit on 11/28/2020 she had moderately severe neutropenia, ANC 1600. She otherwise tolerated the treatment well. She continued with her 2nd cycle with addition of Neupogen prophylactically for 2 days. Her further treatment was delayed due to persistent neutropenia, requiring additional Neupogen. She proceeded with cycle 3 on 12/19/2020 with addition of Neulasta prophylactically. She tolerated it well, and then she continued with cycle 4 on 01/02/2021 and with cycle 5 on 01/16/2021. With her cycle 5 treatment, her alkaline phosphatase was noted to be mildly elevated and her CEA level was borderline high. Restaging CT of the abdomen/pelvis, though, showed no evidence of recurrent or metastatic disease. There was interval resolution of the fluid and gas collection in the presacral space. She is seen for a follow-up visit. She has been feeling pretty good generally. She feels sick for a day or so beginning at about day 3 or 4 of her cycle. She attributes this to the Neulasta injection. She otherwise seems to be tolerating her treatment well. Her energy is pretty good. She is doing light work. ECOG score is 1. She has good appetite. She has no fever or night sweats. Her mouth has been a little tender, but she has not had mouth sores. She has no shortness of breath, cough, or chest pain. She otherwise is not having nausea. Bowel function remains adequate. She has just mild abdominal discomfort, adequately managed with her medication. She has no complaints. She has pain in her left knee, but no other joint or bone pain. She does not complain of headache or dizziness. She again had some cold sensitivity following the chemotherapy, but it has completely resolved. Medications: Cardizem LA 1 Tablet (of 180 mg) Tablet SR 24 HR Oral daily, DULoxetine HCl Capsule Delayed Release Particles Oral, HYDROcodone-Acetaminophen (10-325 mg) Tablet Oral four times a day PRN, Montelukast Sodium 1 Tablet (of 10 mg) Oral daily, Pantoprazole Sodium 1 (40 mg) Tablet, enteric coated Oral b.i.d., Tamsulosin HCl 1 (0.4 mg) Capsule Oral daily Allergies: Iron infusion and Macrobid. Vital Signs: Performed on Jan 30, 2021 09:42 Height - 67.00 in Weight - 233.4 lbs (HIGH) BSA - 2.16 sq.m BMI - 36.56 (HIGH) Temperature - 97.7 F (LOW) Pulse - 95 /min Respiration - 18 /min BP - 151/84 mm(hg) (HIGH) O2 Sat - 97 % Pain - 5 Fatigue - 0 Physical Examination: Constitutional - She looks pretty good generally, Eyes - Sclerae nonicteric. Conjunctivae clear, ENMT - No lesions noted in the oral cavity, Hematologic/Lymphatic - No cervical, clavicular, or axillary adenopathy, Respiratory - Lungs are clear with good air movement bilaterally, Cardiovascular - Heart rhythm is irregular. There is a II/ systolic murmur. There is no gallop or rub noted, Abdomen - Soft. Liver and spleen are not enlarged. There is no abdominal mass or ascites noted and there is no inguinal adenopathy, Extremities - No edema, Neurologic - No focal neurologic deficits noted. Lab/Imaging: Test performed on Jan 30, 2021 08:03 Sodium 140 mmol/L Potassium 3.9 mmol/L Chloride 103 mmol/L CO2 26 mmol/L Anion Gap 14.9 BUN 7 mg/dL Creatinine 0.4 mg/dL Cr Clearance (Est) 233.2000 mL/min eGFR 160.7 mL/min Glucose 102 mg/dL Osmolality - Calculated 288 mOsm/kg Calcium 9.2 mg/dL Protein, Total 6.6 g/dL Albumin 3.8 g/dL Globulin 2.8 g/dL Bilirubin, Total 0.5 mg/dL ALT (SGPT) 17 U/L AST (SGOT) 35 U/L Alkaline Phosphatase 202 IU/L WBC 4.4 10 3/uL RBC 3.93 10 6/uL HGB 11.4 g/dL HCT 36.8 % MCV 93.6 fL MCH 29.0 pg MCHC 31.0 g/dL RDW 15.4 % Platelet Count 122 10 3/cmm MPV 10.9 fL Neutrophils 2.51 10 3/uL Lymphocytes 1.0 10 3/uL Monocytes 0.6 10 3/uL Eosinophils 0.1 10 3/uL Basophils 0.1 10 3/uL Neutrophil % 57.5 % Lymphocyte % 22.9 % Monocyte % 13.8 % Eosinophil % 3.0 % Basophils % 1.4 % NRBC % 0 % CBC Slide Review Slide Review Perform SLIDE REVIEW AGREES WITH AUTOMATED RESULTS Problem List: 1. Moderately differentiated invasive adenocarcinoma of the rectum. By clinical evaluation her disease was stage at least IIIB (Tx, N2a, M0) at initial diagnosis in March 2020. 2. She had associated iron deficiency anemia. She reported having had adverse reactions to both oral and parenteral iron. 3. GERD. 4. Degenerative arthritis. 5. History of atrial tachy-arrhythmias, apparently in association with mitral valve prolapse. 6. Anxiety/depression. Problems Addressed with this Encounter and Plan: 1. 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 By clinical evaluation her disease was stage at least IIIB (Tx, N2a, M0) at initial diagnosis in March 2020. On 05/21/2020 she began radiation concurrently with Xeloda for chemosensitization. She completed radiation on 07/02/2020 to a total dose of 5000 cGy administered in 25 fractions. On 08/10/2020 she underwent robotic assisted low anterior resection with placement of diverting loop ileostomy. Her post treatment staging was IIIB (ypT2, ypN2a, M0). Her postoperative course was complicated by development of pelvic abscess, requiring placement of percutaneous drainage catheter. She had very significant decline in performance status necessitating a delay in her postoperative adjuvant chemotherapy. As of her follow-up visit on 11/06/2020 her overall condition had improved significantly, and she was then able to proceed with her postoperative adjuvant chemotherapy. She began cycle 1 of modified FOLFOX on 11/14/2020. She had some mild fatigue for a few days following that treatment and she also had moderately severe neutropenia. She was given Neupogen prophylactically with cycle 2. Her cycles 3, 4, and 5 were administered with Neulasta prophylactically. Overall, she has been tolerating her chemotherapy pretty well. She has nausea and fatigue for a day or 2, attributable mainly to the Neulasta injection. She has only mild neuropathy. Her neutrophil count remains adequate with the growth factor support. She has now become mildly thrombocytopenic. Her alkaline phosphatase has been mildly elevated, and that also appears to be treatment related. She will proceed now with cycle 6 of modified FOLFOX. The dosages will remain the same. As before, it will be administered with Neulasta prophylactically. She returns in 2 weeks. If there is further decline in her platelet count, she will be given a dose reduction with the last 2 cycles. 2. She has iron deficiency anemia. She has had poor tolerance for both oral and parenteral iron replacement. Her hemoglobin/hematocrit levels have been adequate and stable without specific treatment. Signed By: Khanh Oreilly M.D. <<Signature on File>>
[2021-02-12 15:02] LABS: Alanine Aminotransferase 15 U/L (0-33); Albumin Level 3.7 g/dL (3.5-5.2); Alkaline Phosphatase 207 IU/L (35-105); Anion Gap 13.9 (5-19); Aspartate Amino Transferase 29 U/L (0-32); Blood Urea Nitrogen 9 mg/dL (8-23); Carbon Dioxide 25 mmol/L (22-29); Chloride 103 mmol/L (98-107); Glomerular Filtration Rate 160.7 mL/min (90-130); Glucose 106 mg/dL (65-115); Osmolality Calculated 285 mOsm/kg (285-295); Potassium 3.9 mmol/L (3.5-5.1); Sodium 138 mmol/L (136-145); Total Bilirubin 0.5 mg/dL (0.15-1.2); Total Protein 6.7 g/dL (6.6-8.7)
[2021-02-12 16:27] LABS: Eosinophils # 0.1 10^3/uL (0.0-0.8); Eosinophils % 2.2 %; Hematocrit 34.9 % (37.0-47.0); Hemoglobin 10.5 g/dL (11.5-15.3); Lymphocytes # 0.8 10^3/uL (0.8-4.8); Lymphocytes % 20.7 %; Mean Corpuscular HGB Conc 30.1 g/dL (30.0-36.0); Mean Corpuscular Volume 96.4 fl (81-99); Mean Platelet Volume 11.2 fL (7.4-10.4); Monocytes # 0.7 10^3/uL (0.2-0.9); Monocytes % 16.2 %; Neutrophils # 2.35 10^3/uL (1.8-7.7); Neutrophils % 58.7 %; Nucleated Red Blood Cells % 0 %; Platelet Count 89 10^3/cmm (130-400); Red Blood Count 3.62 10^6/uL (4.1-5.3); Red Cell Distribution Width 16.7 % (12.1-15.1)
--- NOTE | 2021-02-13 09:26 | ONC FU_ITS ---
Dr. Oreilly Patient Follow-Up Note Patient: Gregoria Barth I Unit #: [id number]: 1955 Dicatated By: Khanh Oreilly M.D.Date of Visit:Feb 13, 2021 Onc Med Follow-up/Prog Note Chief Complaint: Rectal cancer. 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 On 04/06/2020 she was admitted to the hospital with complaints of severe weakness, shortness of breath, and lightheadedness. She was severely anemic with hemoglobin 5.2 g. She had been having some rectal bleeding since at least November. She had hypochromic/microcytic red cell indices and low transferrin saturation of 2.4%, consistent with iron deficiency. She was transfused a total of 3 units of PRBC. She also received some IV Venofer in the hospital, though she apparently had an adverse reaction to it. Her colonoscopy on 04/08/2020 showed a nonobstructing malignant appearing mass at the first rectal fold. It was palpable at 7 cm from the anal verge. Biopsy showed moderately differentiated invasive adenocarcinoma. Her initial CT abdomen/pelvis did not report any significant abnormalities. Her baseline CEA was elevated at 6.1 ng/mL. Her repeat CT abdomen/pelvis on 04/23/2020 showed a left eccentric rectal mass measuring 2.8 x 2.3 cm. There were multiple enlarged perirectal, presacral, and distal left iliac chain enlarged lymph nodes measuring up to 2.1 cm, compatible with metastatic disease. There was no periaortic lymphadenopathy. There was diffuse fatty infiltration of the liver, but there were no metastatic lesions noted. She had colorectal surgery consultation with Dr. Son Alamo on 04/24/2020. She was recommended to have neoadjuvant chemoradiation. I had seen her initially on 04/27/2020 and at that time she also had radiation oncology consultation with Dr. Logan Hogan. By clinical evaluation, her disease was stage at least IIIB (Tx, N2a). On 05/21/2020 she began radiation concurrently with Xeloda for chemosensitization. She completed radiation on 07/02/2020 to a total dose of 5000 cGy administered in 25 fractions. On 08/10/2020 she underwent robotic assisted low anterior resection with total mesorectal excision and placement of diverting loop ileostomy. Pathology showed residual invasive moderately differentiated adenocarcinoma involving the rectum. The tumor measured 4 x 1.2 x 0.7 cm. Tumor was noted to invade the muscularis propria. The margins were uninvolved. The treatment effect was partial response, score 2. There was involvement in 6 of 25 lymph nodes. Pathologic staging was ypT2, pyN2a. The tumor showed intact expression of mismatch repair proteins. She unfortunately had a very difficult postoperative course. On 09/11/2020 she was admitted to the hospital with nausea/vomiting and acute dehydration in association with suspected urinary tract infection. Her CT abdomen/pelvis showed dilated small bowel leading into the right lower quadrant ostomy with abrupt transition and with decompressed distal small bowel loop within the ostomy itself. There was nonspecific fluid and gas collection in the presacral space with fistula to the anorectal junction not excluded. On 09/14/2020 she was transferred to [facility] for further management due to the suspected fistula. She was found to have abscess in the pelvis, though apparently not any definite evidence of fistula. She underwent placement of a percutaneous drainage catheter,. She was discharged home on antibiotic coverage with ciprofloxacin and with the drainage catheter in place. During the hospitalization she was found to be positive for COVID-19 virus infection. Her medical history is otherwise significant for history of cardiac arrhythmias, including supraventricular tachycardia and atrial fibrillation. She has mitral valve prolapse. Her other medical illnesses have been limited to GERD, degenerative arthritis, and depression. She is a non-smoker. INTERIM HISTORY: I had seen her for a follow-up visit on 10/01/2020. At that point she still had very poor performance status and she had not recovered sufficiently to consider postoperative adjuvant chemotherapy. She continued on symptomatic/supportive treatment measures. As of her follow-up visit on 11/06/2020 she appeared to have recovered sufficiently to tolerate adjuvant chemotherapy. She then began cycle 1 of modified FOLFOX on 11/14/2020. At her follow-up visit on 11/28/2020 she had moderately severe neutropenia, ANC 1600. She otherwise tolerated the treatment well. She continued with her 2nd cycle with addition of Neupogen prophylactically for 2 days. Her further treatment was delayed due to persistent neutropenia, requiring additional Neupogen. She proceeded with cycle 3 on 12/19/2020 with addition of Neulasta prophylactically. She tolerated it well, and then she continued with cycle 4 on 01/02/2021 and with cycle 5 on 01/16/2021. With her cycle 5 treatment, her alkaline phosphatase was noted to be mildly elevated and her CEA level was borderline high. Restaging CT of the abdomen/pelvis, though, showed no evidence of recurrent or metastatic disease. There was interval resolution of the fluid and gas collection in the presacral space. With those findings, she continued with cycle 6 of modified FOLFOX on 01/30/2021. She is seen for a follow-up visit. She has been feeling good generally. Her energy is about the same. ECOG score is 1. She has good appetite. She has no fever or night sweats. Her mouth gets a little sore after her treatment. She has not had sore throat or cough. She does not complain of shortness of breath or chest pain. She has not been having any nausea. Bowel and bladder function have been okay. She has pain in her back and knees, which also has unchanged. She does not complain of headache or dizziness. She does have some cold sensitivity, but it goes away. Medications: Cardizem LA 1 Tablet (of 180 mg) Tablet SR 24 HR Oral daily, DULoxetine HCl Capsule Delayed Release Particles Oral, HYDROcodone-Acetaminophen (10-325 mg) Tablet Oral four times a day PRN, Montelukast Sodium 1 Tablet (of 10 mg) Oral daily, Pantoprazole Sodium 1 (40 mg) Tablet, enteric coated Oral b.i.d., Tamsulosin HCl 1 (0.4 mg) Capsule Oral daily Allergies: Iron infusion and Macrobid. Vital Signs: Blood pressure 168/81, pulse 103, respirations 18, temp 98.7 degrees, oxygen saturation 97%. Physical Examination: Constitutional - She looks good generally, Eyes - Sclerae nonicteric. Conjunctivae clear, ENMT - No lesions noted in the oral cavity, Hematologic/Lymphatic - No cervical, clavicular, or axillary adenopathy, Respiratory - Lungs are clear with good air movement bilaterally, Cardiovascular - Heart rhythm is irregular. There is a II/ systolic murmur. There is no gallop or rub noted, Abdomen - Soft. Liver and spleen are not enlarged. There is no abdominal mass or ascites noted and there is no inguinal adenopathy, Extremities - No edema, Neurologic - No focal neurologic deficits noted. Lab/Imaging: CBC shows hemoglobin 10.5 g, white blood cell count 4000, and platelet count 89,000. Comprehensive metabolic profile is unremarkable except for mildly elevated alkaline phosphatase at 207/105 IU/L. Problem List: 1. Moderately differentiated invasive adenocarcinoma of the rectum. By clinical evaluation her disease was stage at least IIIB (Tx, N2a, M0) at initial diagnosis in March 2020. 2. She had associated iron deficiency anemia. She reported having had adverse reactions to both oral and parenteral iron. 3. GERD. 4. Degenerative arthritis. 5. History of atrial tachy-arrhythmias, apparently in association with mitral valve prolapse. 6. Anxiety/depression. Problems Addressed with this Encounter and Plan: 1. 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 By clinical evaluation her disease was stage at least IIIB (Tx, N2a, M0) at initial diagnosis in March 2020. On 05/21/2020 she began radiation concurrently with Xeloda for chemosensitization. She completed radiation on 07/02/2020 to a total dose of 5000 cGy administered in 25 fractions. On 08/10/2020 she underwent robotic assisted low anterior resection with placement of diverting loop ileostomy. Her post treatment staging was IIIB (ypT2, ypN2a, M0). Her postoperative course was complicated by development of pelvic abscess, requiring placement of percutaneous drainage catheter. She had very significant decline in performance status necessitating a delay in her postoperative adjuvant chemotherapy. As of her follow-up visit on 11/06/2020 her overall condition had improved significantly, and she was then able to proceed with her postoperative adjuvant chemotherapy. She began cycle 1 of modified FOLFOX on 11/14/2020. She had some mild fatigue for a few days following that treatment and she also had moderately severe neutropenia. She was given Neupogen prophylactically with cycle 2. Her cycles 3-6 were administered with Neulasta prophylactically. Overall, she has been tolerating her chemotherapy pretty well. Side effects have been limited to mild nausea and fatigue. She has had just mild neuropathy. Her neutrophil count remains adequate with Neulasta. Her platelet count has become moderately decreased, but it remains adequate. She has elevated alkaline phosphatase, which appears to be treatment related. She will proceed now with her cycle 7 of modified FOLFOX. Dosages remain the same. She returns in 2 weeks for her 8th and final cycle of treatment. 2. She has iron deficiency anemia. She has had poor tolerance for both oral and parenteral iron replacement. Her hemoglobin/hematocrit levels have been adequate and stable without specific treatment. Signed By: Khanh Oreilly M.D. <<Signature on File>>
[2021-02-13] MEDS: palonosetron 0.25 mg/5 mL SDV IVP (09:52)
[2021-02-13] MEDS: dextrose 5% 250 ML 75 ML IV (09:56)
[2021-02-15] MEDS: pegfilgrastim-bmez 6 mg/0.6 mL SYR SUBCUT (11:05)
== END 2021-02-26 23:59 | disposition home or self-care (01) ==
LOC: ONCMED 10:41
PROVIDERS: PCP Family Medicine; Visit Provider Internal Medicine Medical Oncology
DX: Z51.12 Encounter for antineoplastic immunotherapy (principal); Z51.11 Encounter for antineoplastic chemotherapy; C20 Malignant neoplasm of rectum; D50.9 Iron deficiency anemia, unspecified; K21.9 Gastro-esophageal reflux disease without esophagitis; M19.90 Unspecified osteoarthritis, unspecified site; I47.1 Supraventricular tachycardia; I34.1 Nonrheumatic mitral (valve) prolapse; F41.9 Anxiety disorder, unspecified; F32.9 Major depressive disorder, single episode, unspecified; Z79.899 Other long term (current) drug therapy; Z92.21 Personal history of antineoplastic chemotherapy; Z92.3 Personal history of irradiation
CPT/HCPCS: 36591; 80053; 85025; 96367; 96368; 96372; 96375; 96411; 96413; 96415; 96416; 96523; 99214; J0640; J1100; J2469; J2505; J9190; J9263; Q5120

== ENCOUNTER 2021-03-01 05:43 | Outpatient (RCR) | payer OTHER, SELFPAY ==
[2021-02-27 08:48] LABS: Basophils % 0.5 %; Eosinophils # 0.1 10^3/uL (0.0-0.8); Eosinophils % 1.9 %; Hematocrit 33.2 % (37.0-47.0); Hemoglobin 10.1 g/dL (11.5-15.3); Lymphocytes % 26.2 %; Mean Corpuscular HGB Conc 30.4 g/dL (30.0-36.0); Mean Corpuscular Hemoglobin 29.4 pg (28.0-34.0); Mean Corpuscular Volume 96.8 fl (81-99); Mean Platelet Volume 9.9 fL (7.4-10.4); Monocytes # 0.5 10^3/uL (0.2-0.9); Monocytes % 14.5 %; Neutrophils # 1.99 10^3/uL (1.8-7.7); Neutrophils % 54.4 %; Nucleated Red Blood Cells % 0 %; Platelet Count 96 10^3/cmm (130-400); Red Blood Count 3.43 10^6/uL (4.1-5.3); Red Cell Distribution Width 17.4 % (12.1-15.1); White Blood Count 3.7 10^3/uL (4.0-10.0)
[2021-02-27 09:30] LABS: Alanine Aminotransferase 14 U/L (0-33); Albumin Level 3.5 g/dL (3.5-5.2); Alkaline Phosphatase 193 IU/L (35-105); Anion Gap 16.3 (5-19); Aspartate Amino Transferase 31 U/L (0-32); Blood Urea Nitrogen 5 mg/dL (8-23); Calcium 8.9 mg/dL (8.5-10.5); Carbon Dioxide 23 mmol/L (22-29); Chloride 104 mmol/L (98-107); Globulin 2.6 g/dL (1.3-4.6); Glomerular Filtration Rate 160.7 mL/min (90-130); Glucose 158 mg/dL (65-115); Osmolality Calculated 291 mOsm/kg (285-295); Potassium 3.3 mmol/L (3.5-5.1); Sodium 140 mmol/L (136-145); Total Bilirubin 0.5 mg/dL (0.15-1.2); Total Protein 6.1 g/dL (6.6-8.7)
[2021-02-27 09:33] LABS: Slide Review Slide Review Perform
[2021-02-27] MEDS: palonosetron 0.25 mg/5 mL SDV IVP (09:58)
[2021-02-27] MEDS: dextrose 5% 250 ML 75 ML IV (10:00)
--- NOTE | 2021-02-27 10:07 | ONC FU_ITS ---
Dr. Oreilly Patient Follow-Up Note Patient: Gregoria Barth I Unit #: [id number]: 1955 Dicatated By: Khanh Oreilly M.D.Date of Visit:Feb 27, 2021 Onc Med Follow-up/Prog Note Chief Complaint: Rectal cancer. 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 On 04/06/2020 she was admitted to the hospital with complaints of severe weakness, shortness of breath, and lightheadedness. She was severely anemic with hemoglobin 5.2 g. She had been having some rectal bleeding since at least November. She had hypochromic/microcytic red cell indices and low transferrin saturation of 2.4%, consistent with iron deficiency. She was transfused a total of 3 units of PRBC. She also received some IV Venofer in the hospital, though she apparently had an adverse reaction to it. Her colonoscopy on 04/08/2020 showed a nonobstructing malignant appearing mass at the first rectal fold. It was palpable at 7 cm from the anal verge. Biopsy showed moderately differentiated invasive adenocarcinoma. Her initial CT abdomen/pelvis did not report any significant abnormalities. Her baseline CEA was elevated at 6.1 ng/mL. Her repeat CT abdomen/pelvis on 04/23/2020 showed a left eccentric rectal mass measuring 2.8 x 2.3 cm. There were multiple enlarged perirectal, presacral, and distal left iliac chain enlarged lymph nodes measuring up to 2.1 cm, compatible with metastatic disease. There was no periaortic lymphadenopathy. There was diffuse fatty infiltration of the liver, but there were no metastatic lesions noted. She had colorectal surgery consultation with Dr. Son Alamo on 04/24/2020. She was recommended to have neoadjuvant chemoradiation. I had seen her initially on 04/27/2020 and at that time she also had radiation oncology consultation with Dr. Logan Hogan. By clinical evaluation, her disease was stage at least IIIB (Tx, N2a). On 05/21/2020 she began radiation concurrently with Xeloda for chemosensitization. She completed radiation on 07/02/2020 to a total dose of 5000 cGy administered in 25 fractions. On 08/10/2020 she underwent robotic assisted low anterior resection with total mesorectal excision and placement of diverting loop ileostomy. Pathology showed residual invasive moderately differentiated adenocarcinoma involving the rectum. The tumor measured 4 x 1.2 x 0.7 cm. Tumor was noted to invade the muscularis propria. The margins were uninvolved. The treatment effect was partial response, score 2. There was involvement in 6 of 25 lymph nodes. Pathologic staging was ypT2, pyN2a. The tumor showed intact expression of mismatch repair proteins. She unfortunately had a very difficult postoperative course. On 09/11/2020 she was admitted to the hospital with nausea/vomiting and acute dehydration in association with suspected urinary tract infection. Her CT abdomen/pelvis showed dilated small bowel leading into the right lower quadrant ostomy with abrupt transition and with decompressed distal small bowel loop within the ostomy itself. There was nonspecific fluid and gas collection in the presacral space with fistula to the anorectal junction not excluded. On 09/14/2020 she was transferred to [facility] for further management due to the suspected fistula. She was found to have abscess in the pelvis, though apparently not any definite evidence of fistula. She underwent placement of a percutaneous drainage catheter,. She was discharged home on antibiotic coverage with ciprofloxacin and with the drainage catheter in place. During the hospitalization she was found to be positive for COVID-19 virus infection. Her medical history is otherwise significant for history of cardiac arrhythmias, including supraventricular tachycardia and atrial fibrillation. She has mitral valve prolapse. Her other medical illnesses have been limited to GERD, degenerative arthritis, and depression. She is a non-smoker. INTERIM HISTORY: I had seen her for a follow-up visit on 10/01/2020. At that point she still had very poor performance status and she had not recovered sufficiently to consider postoperative adjuvant chemotherapy. She continued on symptomatic/supportive treatment measures. As of her follow-up visit on 11/06/2020 she appeared to have recovered sufficiently to tolerate adjuvant chemotherapy. She then began cycle 1 of modified FOLFOX on 11/14/2020. At her follow-up visit on 11/28/2020 she had moderately severe neutropenia, ANC 1600. She otherwise tolerated the treatment well. She continued with her 2nd cycle with addition of Neupogen prophylactically for 2 days. Her further treatment was delayed due to persistent neutropenia, requiring additional Neupogen. She proceeded with cycle 3 on 12/19/2020 with addition of Neulasta prophylactically. She tolerated it well, and then she continued with cycle 4 on 01/02/2021 and with cycle 5 on 01/16/2021. With her cycle 5 treatment, her alkaline phosphatase was noted to be mildly elevated and her CEA level was borderline high. Restaging CT of the abdomen/pelvis, though, showed no evidence of recurrent or metastatic disease. There was interval resolution of the fluid and gas collection in the presacral space. With those findings, she continued with cycle 6 of modified FOLFOX on 01/30/2021 and with cycle 7 on 02/13/2021. She is seen for a follow-up visit. She has been feeling good generally. She has good energy now, and her activity is pretty much back to normal. ECOG score is 0. She has good appetite. She has no fever or night sweats. She has had no mouth sores. She has no shortness of breath, cough, or chest pain. She has not been having any nausea. She has occasional heartburn, adequately managed with Tums. Bowel function has been good with the ostomy. She has no complaints. She has pain in her knees and she has some chronic back pain. She does not complain of headache or dizziness. 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 Medications: Cardizem LA 1 Tablet (of 180 mg) Tablet SR 24 HR Oral daily, DULoxetine HCl Capsule Delayed Release Particles Oral, HYDROcodone-Acetaminophen (10-325 mg) Tablet Oral four times a day PRN, Montelukast Sodium 1 Tablet (of 10 mg) Oral daily, Pantoprazole Sodium 1 (40 mg) Tablet, enteric coated Oral b.i.d., Tamsulosin HCl 1 (0.4 mg) Capsule Oral daily Allergies: Iron infusion and Macrobid. Vital Signs: Performed on Feb 27, 2021 09:12 Height - 67.00 in Weight - 233.6 lbs BSA - 2.16 sq.m BMI - 36.59 (HIGH) Temperature - 98.5 F Pulse - 90 /min Respiration - 18 /min BP - 149/79 mm(hg) (HIGH) O2 Sat - 98 % Pain - 4 Fatigue - 2 Physical Examination: Constitutional - She looks good generally, Eyes - Sclerae nonicteric. Conjunctivae clear, ENMT - No lesions noted in the oral cavity, Hematologic/Lymphatic - No cervical, clavicular, or axillary adenopathy, Respiratory - Lungs are clear with good air movement bilaterally, Cardiovascular - Heart rhythm is irregular. There is a II/ systolic murmur. There is no gallop or rub noted, Abdomen - Soft. Liver and spleen are not enlarged. There is no abdominal mass or ascites noted and there is no inguinal adenopathy, Extremities - Mild edema, Neurologic - No focal neurologic deficits noted. Lab/Imaging: Test performed on Feb 27, 2021 08:31 Sodium 140 mmol/L Potassium 3.3 mmol/L Chloride 104 mmol/L CO2 23 mmol/L Anion Gap 16.3 BUN 5 mg/dL Creatinine 0.4 mg/dL Cr Clearance (Est) 233.2000 mL/min eGFR 160.7 mL/min Glucose 158 mg/dL Osmolality - Calculated 291 mOsm/kg Calcium 8.9 mg/dL Protein, Total 6.1 g/dL Albumin 3.5 g/dL Globulin 2.6 g/dL Bilirubin, Total 0.5 mg/dL ALT (SGPT) 14 U/L AST (SGOT) 31 U/L Alkaline Phosphatase 193 IU/L WBC 3.7 10 3/uL RBC 3.43 10 6/uL HGB 10.1 g/dL HCT 33.2 % MCV 96.8 fl MCH 29.4 pg MCHC 30.4 g/dL RDW 17.4 % Platelet Count 96 10 3/cmm MPV 9.9 fL Neutrophils 1.99 10 3/uL Lymphocytes 1.0 10 3/uL Monocytes 0.5 10 3/uL Eosinophils 0.1 10 3/uL Basophils 0.0 10 3/uL Neutrophil % 54.4 % Lymphocyte % 26.2 % Monocyte % 14.5 % Eosinophil % 1.9 % Basophils % 0.5 % NRBC % 0 % CBC Slide Review Slide Review Perform SLIDE REVIEW AGREES WITH AUTOMATED RESULTS ST Problem List: 1. Moderately differentiated invasive adenocarcinoma of the rectum. By clinical evaluation her disease was stage at least IIIB (Tx, N2a, M0) at initial diagnosis in March 2020. 2. She had associated iron deficiency anemia. She reported having had adverse reactions to both oral and parenteral iron. 3. GERD. 4. Degenerative arthritis. 5. History of atrial tachy-arrhythmias, apparently in association with mitral valve prolapse. 6. Anxiety/depression. Problems Addressed with this Encounter and Plan: 1. 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 By clinical evaluation her disease was stage at least IIIB (Tx, N2a, M0) at initial diagnosis in March 2020. On 05/21/2020 she began radiation concurrently with Xeloda for chemosensitization. She completed radiation on 07/02/2020 to a total dose of 5000 cGy administered in 25 fractions. On 08/10/2020 she underwent robotic assisted low anterior resection with placement of diverting loop ileostomy. Her post treatment staging was IIIB (ypT2, ypN2a, M0). Her postoperative course was complicated by development of pelvic abscess, requiring placement of percutaneous drainage catheter. She had very significant decline in performance status necessitating a delay in her postoperative adjuvant chemotherapy. As of her follow-up visit on 11/06/2020 her overall condition had improved significantly, and she was then able to proceed with her postoperative adjuvant chemotherapy. She began cycle 1 of modified FOLFOX on 11/14/2020. She had some mild fatigue for a few days following that treatment and she also had moderately severe neutropenia. She was given Neupogen prophylactically with cycle 2. Her cycles 3-7 were administered with Neulasta prophylactically. Overall, she has been tolerating her chemotherapy pretty well. She has had just mild neuropathy. Her neutrophil count remains adequate with Neulasta. Her platelet count has become moderately decreased, but it also remains adequate. She has elevated alkaline phosphatase, which appears to be treatment related. She will proceed now with her 8th and final cycle of modified FOLFOX. Dosages remain the same. She returns in 1 month. 2. She has iron deficiency anemia. She has had poor tolerance for both oral and parenteral iron replacement. Her hemoglobin/hematocrit levels have been adequate and stable without specific treatment. Signed By: Khanh Oreilly M.D. <<Signature on File>>
== END 2021-03-28 23:59 | disposition home or self-care (01) ==
LOC: ONCMED 05:43
PROVIDERS: Internal Medicine Medical Oncology; PCP Family Medicine; Visit Provider Internal Medicine Hematology & Oncology
DX: Z51.11 Encounter for antineoplastic chemotherapy (principal); D50.9 Iron deficiency anemia, unspecified; K21.9 Gastro-esophageal reflux disease without esophagitis; M19.90 Unspecified osteoarthritis, unspecified site; I34.1 Nonrheumatic mitral (valve) prolapse; F41.9 Anxiety disorder, unspecified; F32.9 Major depressive disorder, single episode, unspecified; Z79.899 Other long term (current) drug therapy
CPT/HCPCS: 80053; 85025; 96367; 96368; 96375; 96411; 96413; 96415; 96416; 96523; 99215; J0640; J1100; J2469; J9190; J9263

== ENCOUNTER 2021-04-10 08:29 | Outpatient (CLI) | payer OTHER, SELFPAY ==
--- NOTE | 2021-04-10 08:34 | FL_ITS ---
WS: [id number] FL barium enema w air* [id number]. Examination was scheduled as a barium enema however after reviewing pat xin's previous CT scans and medical record a more limited examination was performed as follows. TECHNIQUE: Davis catheter was passed per rectum until resistance was encountered. The catheter was retracted a nd the small balloon inflated with 3 mL of air. With the patient in the left lateral decubitus positi on barium contrast was injected into the Davis catheter under fluoroscopic observation. Spot films and overhead images were then obtained. Small balloon was deflated and the Davis catheter removed. Additional overhead lateral view obtained after removal of the Davis catheter. REASON FOR EXAM: Z90.49 - Acquired absence of other specified parts of dig... FLUOROSCOPY TIME: 1.2 minutes FINDINGS: Contrast outlined several centimeters of neorectum and more proximal bowel. Fistulous communication t o the vagina was demonstrated. Small widemouth fistulous tract extending posteriorly from the neorectum line ending. This correlates to the small collection of oral contrast immediately anterior to the sacrococcygeal junction demonst rated on the previous CT scan of 01/29/2021. Image #[id number] of 97 on the axial series. An intramural tract and in the anterior neorectum is also demonstrated. FL/FL barium enema [id number] IMPRESSION: 3 fistulous tracts demonstrated as above.
== END 2021-04-10 08:30 | disposition home or self-care (01) ==
LOC: RAD 08:32
PROVIDERS: PCP Family Medicine; Visit Provider Surgery
DX: Z90.49 Acquired absence of other specified parts of digestive tract (principal)
CPT/HCPCS: 74270; 74280

== ENCOUNTER 2021-04-15 06:33 | Outpatient (RCR) | payer OTHER, SELFPAY ==
[2021-04-15 12:06] LABS: Basophils % 0.6 %; Eosinophils # 0.2 10^3/uL (0.0-0.8); Eosinophils % 5.6 %; Hemoglobin 10.4 g/dL (11.5-15.3); Lymphocytes # 0.9 10^3/uL (0.8-4.8); Lymphocytes % 27.4 %; Mean Corpuscular HGB Conc 30.6 g/dL (30.0-36.0); Mean Corpuscular Hemoglobin 28.7 pg (28.0-34.0); Mean Corpuscular Volume 93.7 fl (81-99); Mean Platelet Volume 10.4 fL (7.4-10.4); Monocytes # 0.3 10^3/uL (0.2-0.9); Monocytes % 10.6 %; Neutrophils # 1.78 10^3/uL (1.8-7.7); Neutrophils % 55.5 %; Nucleated Red Blood Cells % 0 %; Platelet Count 147 10^3/cmm (130-400); Red Blood Count 3.63 10^6/uL (4.1-5.3); White Blood Count 3.2 10^3/uL (4.0-10.0)
[2021-04-15 12:46] LABS: Carcinoembryonic Antigen 3.6 ng/mL (0.0-4.7)
[2021-04-15 12:57] LABS: Alanine Aminotransferase 12 U/L (0-33); Albumin Level 3.9 g/dL (3.5-5.2); Alkaline Phosphatase 143 IU/L (35-105); Aspartate Amino Transferase 26 U/L (0-32); Blood Urea Nitrogen 13 mg/dL (8-23); Calcium 9.3 mg/dL (8.5-10.5); Carbon Dioxide 23 mmol/L (22-29); Chloride 102 mmol/L (98-107); Globulin 3.5 g/dL (1.3-4.6); Glomerular Filtration Rate 124.2 mL/min (90-130); Glucose 104 mg/dL (65-115); Osmolality Calculated 284 mOsm/kg (285-295); Sodium 137 mmol/L (136-145); Total Bilirubin 0.5 mg/dL (0.15-1.2); Total Protein 7.4 g/dL (6.6-8.7)
--- NOTE | 2021-04-15 19:05 | ONC FU_ITS ---
Dr. Oreilly Patient Follow-Up Note Patient: Gregoria Barth I Unit #: [id number]: 1955 Dicatated By: Khanh Oreilly M.D.Date of Visit:Apr 15, 2021 Onc Med Follow-up/Prog Note Chief Complaint: Rectal cancer. 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 On 04/06/2020 she was admitted to the hospital with complaints of severe weakness, shortness of breath, and lightheadedness. She was severely anemic with hemoglobin 5.2 g. She had been having some rectal bleeding since at least November. She had hypochromic/microcytic red cell indices and low transferrin saturation of 2.4%, consistent with iron deficiency. She was transfused a total of 3 units of PRBC. She also received some IV Venofer in the hospital, though she apparently had an adverse reaction to it. Her colonoscopy on 04/08/2020 showed a nonobstructing malignant appearing mass at the first rectal fold. It was palpable at 7 cm from the anal verge. Biopsy showed moderately differentiated invasive adenocarcinoma. Her initial CT abdomen/pelvis did not report any significant abnormalities. Her baseline CEA was elevated at 6.1 ng/mL. Her repeat CT abdomen/pelvis on 04/23/2020 showed a left eccentric rectal mass measuring 2.8 x 2.3 cm. There were multiple enlarged perirectal, presacral, and distal left iliac chain enlarged lymph nodes measuring up to 2.1 cm, compatible with metastatic disease. There was no periaortic lymphadenopathy. There was diffuse fatty infiltration of the liver, but there were no metastatic lesions noted. She had colorectal surgery consultation with Dr. Son Alamo on 04/24/2020. She was recommended to have neoadjuvant chemoradiation. I had seen her initially on 04/27/2020 and at that time she also had radiation oncology consultation with Dr. Logan Hogan. By clinical evaluation, her disease was stage at least IIIB (Tx, N2a). On 05/21/2020 she began radiation concurrently with Xeloda for chemosensitization. She completed radiation on 07/02/2020 to a total dose of 5000 cGy administered in 25 fractions. On 08/10/2020 she underwent robotic assisted low anterior resection with total mesorectal excision and placement of diverting loop ileostomy. Pathology showed residual invasive moderately differentiated adenocarcinoma involving the rectum. The tumor measured 4 x 1.2 x 0.7 cm. Tumor was noted to invade the muscularis propria. The margins were uninvolved. The treatment effect was partial response, score 2. There was involvement in 6 of 25 lymph nodes. Pathologic staging was ypT2, pyN2a. The tumor showed intact expression of mismatch repair proteins. She unfortunately had a very difficult postoperative course. On 09/11/2020 she was admitted to the hospital with nausea/vomiting and acute dehydration in association with suspected urinary tract infection. Her CT abdomen/pelvis showed dilated small bowel leading into the right lower quadrant ostomy with abrupt transition and with decompressed distal small bowel loop within the ostomy itself. There was nonspecific fluid and gas collection in the presacral space with fistula to the anorectal junction not excluded. On 09/14/2020 she was transferred to [facility] for further management due to the suspected fistula. She was found to have abscess in the pelvis, though apparently not any definite evidence of fistula. She underwent placement of a percutaneous drainage catheter,. She was discharged home on antibiotic coverage with ciprofloxacin and with the drainage catheter in place. During the hospitalization she was found to be positive for COVID-19 virus infection. Her medical history is otherwise significant for history of cardiac arrhythmias, including supraventricular tachycardia and atrial fibrillation. She has mitral valve prolapse. Her other medical illnesses have been limited to GERD, degenerative arthritis, and depression. She is a non-smoker. INTERIM HISTORY: I had seen her for a follow-up visit on 10/01/2020. At that point she still had very poor performance status and she had not recovered sufficiently to consider postoperative adjuvant chemotherapy. She continued on symptomatic/supportive treatment measures. As of her follow-up visit on 11/06/2020 she appeared to have recovered sufficiently to tolerate adjuvant chemotherapy. She then completed 8 cycles of modified FOLFOX from 11/14/2020 through 02/27/2021. Her chemotherapy was complicated by neutropenia, but her blood counts remain adequate with growth factor support. With her cycle 5 treatment, her alkaline phosphatase had become mildly elevated and her CEA level was borderline high. Restaging CT of the abdomen/pelvis, though, showed no evidence of recurrent or metastatic disease. There was interval resolution of the fluid and gas collection in the presacral space. Overall, she tolerated the treatment well. She is seen for a follow-up visit. She has been feeling pretty good generally. She still has some fatigue, but her energy level continues to improve, and she has pretty much normal activity. ECOG score is 0. Her appetite is good. She has no fever or night sweats. She has had no mouth sores, but she does complain that her lips feel raw. She has no shortness of breath, cough, or chest pain. She still has nausea occasionally. Bowel function has been adequate with the ostomy. She has no complaints. She has joint pain, mainly in her hands and knees. She complains that her legs feel a little weak and she continues to have some neuropathy in her feet. Medications: Cardizem LA 1 Tablet (of 180 mg) Tablet SR 24 HR Oral daily, DULoxetine HCl Capsule Delayed Release Particles Oral, HYDROcodone-Acetaminophen (10-325 mg) Tablet Oral four times a day PRN, Montelukast Sodium 1 Tablet (of 10 mg) Oral daily, Pantoprazole Sodium 1 (40 mg) Tablet, enteric coated Oral b.i.d., Tamsulosin HCl 1 (0.4 mg) Capsule Oral daily Allergies: Iron infusion and Macrobid. Vital Signs: Performed on Apr 15, 2021 13:31 Height - 67.00 in Weight - 0117 lbs (LOW) BSA - 1.61 sq.m BMI - 18.32 Temperature - 97.2 F (LOW) Pulse - 84 /min Respiration - 18 /min BP - 139/81 mm(hg) O2 Sat - 96 % Pain - 3 Fatigue - 4 Physical Examination: Constitutional - She looks good generally, Eyes - Sclerae nonicteric. Conjunctivae clear, ENMT - No lesions noted in the oral cavity, Hematologic/Lymphatic - No cervical, clavicular, or axillary adenopathy, Respiratory - Lungs are clear with good air movement bilaterally, Cardiovascular - Heart rhythm is irregular. There is a II/ systolic murmur. There is no gallop or rub noted, Abdomen - Soft. Liver and spleen are not enlarged. There is no abdominal mass or ascites noted and there is no inguinal adenopathy, Extremities - No edema, Neurologic - No focal neurologic deficits noted. Lab/Imaging: Test performed on Apr 15, 2021 11:32 Sodium 137 mmol/L Potassium 4.0 mmol/L Chloride 102 mmol/L CO2 23 mmol/L Anion Gap 16.0 BUN 13 mg/dL Creatinine 0.5 mg/dL Cr Clearance (Est) 95.23 mL/min eGFR 124.2 mL/min Glucose 104 mg/dL Osmolality - Calculated 284 mOsm/kg Calcium 9.3 mg/dL Protein, Total 7.4 g/dL Albumin 3.9 g/dL Globulin 3.5 g/dL Bilirubin, Total 0.5 mg/dL ALT (SGPT) 12 U/L AST (SGOT) 26 U/L Alkaline Phosphatase 143 IU/L WBC 3.2 10 3/uL RBC 3.63 10 6/uL HGB 10.4 g/dL HCT 34.0 % MCV 93.7 fl MCH 28.7 pg MCHC 30.6 g/dL RDW 15.0 % Platelet Count 147 10 3/cmm MPV 10.4 fL Neutrophils 1.78 10 3/uL Lymphocytes 0.9 10 3/uL Monocytes 0.3 10 3/uL Eosinophils 0.2 10 3/uL Basophils 0.0 10 3/uL Neutrophil % 55.5 % Lymphocyte % 27.4 % Monocyte % 10.6 % Eosinophil % 5.6 % Basophils % 0.6 % NRBC % 0 % CEA 3.6 ng/mL Problem List: 1. Moderately differentiated invasive adenocarcinoma of the rectum. By clinical evaluation her disease was stage at least IIIB (Tx, N2a, M0) at initial diagnosis in March 2020. 2. She had associated iron deficiency anemia. She reported having had adverse reactions to both oral and parenteral iron. 3. GERD. 4. Degenerative arthritis. 5. History of atrial tachy-arrhythmias, apparently in association with mitral valve prolapse. 6. Anxiety/depression. Problems Addressed with this Encounter and Plan: 1. 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 By clinical evaluation her disease was stage at least IIIB (Tx, N2a, M0) at initial diagnosis in March 2020. On 05/21/2020 she began radiation concurrently with Xeloda for chemosensitization. She completed radiation on 07/02/2020 to a total dose of 5000 cGy administered in 25 fractions. On 08/10/2020 she underwent robotic assisted low anterior resection with placement of diverting loop ileostomy. Her post treatment staging was IIIB (ypT2, ypN2a, M0). Her postoperative course was complicated by development of pelvic abscess, requiring placement of percutaneous drainage catheter. She had very significant decline in performance status necessitating a delay in her postoperative adjuvant chemotherapy. As of her follow-up visit on 11/06/2020 her overall condition had improved significantly, and she was then able to proceed with her postoperative adjuvant chemotherapy. She then completed 8 cycles of modified FOLFOX from 11/14/2020 through 02/27/2021. She had some fatigue with the chemotherapy and she required growth factor support for neutropenia, but overall she tolerated it very well. With her 5th cycle, there was an increase in her alkaline phosphatase and her CEA level was noted to be borderline high, but there was no evidence of recurrent disease on her restaging CT abdomen/pelvis. As she has completed her adjuvant therapy, she will now be followed on expectant management. She will be undergoing additional GI evaluation by Dr. Engel with plans for eventual takedown of her ostomy by Dr. Alamo. I will tentatively plan a follow-up visit here in 3 months. In the meantime, she will be given a prescription for acyclovir for suspected oral herpes simplex. 2. She has iron deficiency anemia. She has had poor tolerance for both oral and parenteral iron replacement. Her hemoglobin/hematocrit levels have remained adequate and stable without specific treatment. Signed By: Khanh Oreilly M.D. <<Signature on File>>
== END 2021-04-28 23:59 | disposition home or self-care (01) ==
LOC: ONCMED 06:33
PROVIDERS: PCP Family Medicine; Visit Provider Internal Medicine Medical Oncology
DX: Z08 Encounter for follow-up examination after completed treatment for malignant neoplasm (principal); Z85.048 Personal history of other malignant neoplasm of rectum, rectosigmoid junction, and anus; D50.9 Iron deficiency anemia, unspecified; K21.9 Gastro-esophageal reflux disease without esophagitis; M19.90 Unspecified osteoarthritis, unspecified site; I49.9 Cardiac arrhythmia, unspecified; I34.1 Nonrheumatic mitral (valve) prolapse; F41.9 Anxiety disorder, unspecified; F32.9 Major depressive disorder, single episode, unspecified; Z79.899 Other long term (current) drug therapy; Z92.21 Personal history of antineoplastic chemotherapy; Z92.3 Personal history of irradiation
CPT/HCPCS: 36591; 80053; 82378; 85025; 99214; J2704

== ENCOUNTER → 2021-04-22 12:23 | Outpatient (BNVA) | payer OTHER, SELFPAY | PROVIDERS: PCP Family Medicine; Visit Provider Surgery | DX: Z20.822 Contact with and (suspected) exposure to COVID-19 (principal); C20 Malignant neoplasm of rectum | CPT/HCPCS: 87635 ==

== ENCOUNTER 2021-04-25 10:50 | Day surgery (SDC) | payer OTHER, SELFPAY ==
[2021-04-23 15:01] VITALS: BMI 35.5
--- NOTE | 2021-04-25 11:01 | W.PM.OPSFHP ---
Same Day Surgery H&P Indication for Procedure/HPI DATE OF PROCEDURE: April 25, 2021 CHIEF COMPLAINT/INDICATIONFOR SURGICAL PROCEDURE: rectal cancer PREOP DIAGNOSIS: screening colonoscopy PLANNED PROCEDRUE: Operation Date: 04/25/21 12:30 Proposed Procedures p Colonoscopy [id number] C20 L02.211(Not Applicable) - Octavio Engel MD Medications/Allergies* Home Medications Medication Instructions Recorded Confirmed Type diltiazem HCl 180 mg PO DAILY@0900 09/11/20 04/23/21 History pantoprazole [Protonix] 40 mg PO BID@09,17 09/11/20 04/23/21 History scopolamine base 1 mg TRANSDERMAL Q72H 09/11/20 04/23/21 History duloxetine 30 mg PO DAILY 04/23/21 04/23/21 History hydrocodone-acetaminophen 1 tab PO DIRECTED 04/23/21 04/23/21 History Allergies/Adverse Reactions Allergy/AdvReac Type Severity Reaction Status Date / Time nitrofurantoin Allergy Unconscious Verified 04/23/21 15:02 [From Macrobid] Iron sucrose AdvReac Intermediate Flushing, Uncoded 11/07/20 15:32 malaise Pertinent History/Comorbid Conditions* Medical History (Updated 11/06/20 @ 14:22 by Octavio Engel MD) Acute dehydration Anemia Acute blood loss anemia at time of cancer diagnosis and iron deficiency. Arthritis Atrial fibrillation GERD (gastroesophageal reflux disease) Heart murmur Iron adverse reaction Malaise, flushing during IV infusion of iron sucrose. Resolved with discontinuation. 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
--- NOTE | 2021-04-25 11:33 | ANES.PREANE2 ---
Pre-Anesthetic Assessment Pre-Anesthetic Assessment: Height/Weight: Height 1.7 m Weight 102.965 kg Preop Diagnosis: screening colonoscopy Proposed Procedure: Operation Date: 04/25/21 12:30 Proposed Procedures p Colonoscopy 82193 C20 L02.211(Not Applicable) - Octavio Engel MD Was Beta Ellie taken within 24 hours: N/A Was Clonidine taken within 24 hours: N/A Social: Social History: No tobacco Exam: Pre-Anes Outpt Exam: alert, oriented x 3, clear to auscultation bilaterally and regular rate & rhythm Airway: Submandibular: WNL Cervical ROM: WNL MP: 3 History/ROS: No significant complaints CV/HEM: CV/HEM: HTN GI: GI: GERD Comments: History colorectal CA Neuropsych: Neuropsych: Depression Anesthetic Plan: ASA status: 2 Anesthesia: Anesthesia Evaluation and MAC Risk of > 500 ml blood loss (7ml/kg in children): No PFSH Anesthesia PFSH: Medical History Acute dehydration Anemia Acute blood loss anemia at time of cancer diagnosis and iron deficiency. Arthritis Atrial fibrillation GERD (gastroesophageal reflux disease) Heart murmur Iron adverse reaction Malaise, flushing during IV infusion of iron sucrose. Resolved with discontinuation. 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
--- NOTE | 2021-04-25 11:41 | PC.NURSE ---
Prep was clear liguids only. Colostomy in place SHANTI with dark liquid stool. Dr Toro syed.
[2021-04-25] MEDS: sodium chloride 0.9% 1,000 ML 30 ML IV (11:53)
[2021-04-25 13:12] VITALS: BP 127/85; PULSE 72; RESP 18; TEMP 36.8; O2SAT 100
--- NOTE | 2021-04-25 14:03 | ANE.PACU2 ---
Inpatient post-anesthesia follow up: Airway intact: Yes Vital signs: Temperature 98.2 F Pulse Rate 72 Respiratory Rate 18 Blood Pressure 127/85 Pulse Oximetry 100 Oxygen Delivery Me thod Nasal Cannula Oxygen Flow Rate 2 Fraction of Inspir ed Oxygen Hydration adequate: Yes Nausea and vomiting: No Pain level: 1 Mental status: Baseline
== END 2021-04-25 13:55 | disposition home or self-care (01) ==
PROVIDERS: PCP Family Medicine; Visit Provider Surgery
PROC: 0DJD8ZZ Inspection of Lower Intestinal Tract, Via Natural or Artificial Opening Endoscopic (ICD-10-PCS; CPT 45378; principal; 2021-04-25 12:30)
DX: Z08 Encounter for follow-up examination after completed treatment for malignant neoplasm (principal); Z85.038 Personal history of other malignant neoplasm of large intestine; Z90.49 Acquired absence of other specified parts of digestive tract; Z98.0 Intestinal bypass and anastomosis status; I48.91 Unspecified atrial fibrillation; K21.9 Gastro-esophageal reflux disease without esophagitis; M19.90 Unspecified osteoarthritis, unspecified site; Z79.891 Long term (current) use of opiate analgesic
CPT/HCPCS: 45378; 96360; 96361; J7030

== ENCOUNTER 2021-05-16 06:47 | Outpatient (RCR) | payer MEDICARE, SELFPAY | END 2021-05-28 23:59 | disposition home or self-care (01) | LOC: ONCMED 06:47 | PROVIDERS: PCP Family Medicine; Visit Provider Internal Medicine Medical Oncology | DX: Z45.2 Encounter for adjustment and management of vascular access device (principal) | CPT/HCPCS: 96523 ==

== ENCOUNTER 2021-06-14 06:43 | Outpatient (RCR) | payer MEDICARE, SELFPAY | END 2021-06-28 23:59 | disposition home or self-care (01) | LOC: ONCMED 06:43 | PROVIDERS: PCP Family Medicine; Visit Provider Internal Medicine Medical Oncology | DX: Z45.2 Encounter for adjustment and management of vascular access device (principal) | CPT/HCPCS: 96523 ==

== ENCOUNTER 2021-07-22 06:32 | Outpatient (RCR) | payer MEDICARE, SELFPAY ==
[2021-07-19 10:53] LABS: Basophils % 0.6 %; Eosinophils # 0.1 10^3/uL (0.0-0.8); Eosinophils % 3.2 %; Hematocrit 34.1 % (37.0-47.0); Hemoglobin 10.7 g/dL (11.5-15.3); Lymphocytes % 29.5 %; Mean Corpuscular HGB Conc 31.4 g/dL (30.0-36.0); Mean Corpuscular Hemoglobin 28.2 pg (28.0-34.0); Monocytes # 0.3 10^3/uL (0.2-0.9); Monocytes % 8.8 %; Neutrophils # 1.95 10^3/uL (1.8-7.7); Neutrophils % 57.6 %; Nucleated Red Blood Cells % 0 %; Platelet Count 160 10^3/cmm (130-400); Red Blood Count 3.79 10^6/uL (4.1-5.3); Red Cell Distribution Width 13.5 % (12.1-15.1); White Blood Count 3.4 10^3/uL (4.0-10.0)
[2021-07-19 11:12] LABS: Carcinoembryonic Antigen 1.9 ng/mL (0.0-4.7)
[2021-07-19 11:23] LABS: Alanine Aminotransferase 11 U/L (0-33); Albumin Level 4.1 g/dL (3.5-5.2); Alkaline Phosphatase 146 IU/L (35-105); Anion Gap 13.1 (5-19); Aspartate Amino Transferase 16 U/L (0-32); Blood Urea Nitrogen 18 mg/dL (8-23); Calcium 8.6 mg/dL (8.5-10.5); Carbon Dioxide 24 mmol/L (22-29); Chloride 104 mmol/L (98-107); Globulin 2.7 g/dL (1.3-4.6); Glomerular Filtration Rate 123.8 mL/min (90-130); Glucose 92 mg/dL (65-115); Osmolality Calculated 286 mOsm/kg (285-295); Potassium 4.1 mmol/L (3.5-5.1); Sodium 137 mmol/L (136-145); Total Bilirubin 0.3 mg/dL (0.15-1.2); Total Protein 6.8 g/dL (6.6-8.7)
[2021-07-22 17:08] LABS: Iron 51 ug/dL (37-145); Percent Saturation 12.3 % (20-50); Total Iron Binding Capacity 412 mcg/dl; Unsaturated Iron Binding 361 ug/dL (112-347)
[2021-07-22 17:22] LABS: Vitamin B12 190 pg/mL (232-1245)
--- NOTE | 2021-07-26 14:41 | ONC FU_ITS ---
Dr. Oreilly Patient Follow-Up Note Patient: Gregoria Barth I Unit #: [id number]: 1955 Dicatated By: Khanh Oreilly M.D.Date of Visit:Jul 22, 2021 Onc Med Follow-up/Prog Note Chief Complaint: Rectal cancer. 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 On 04/06/2020 she was admitted to the hospital with complaints of severe weakness, shortness of breath, and lightheadedness. She was severely anemic with hemoglobin 5.2 g. She had been having some rectal bleeding since at least November. She had hypochromic/microcytic red cell indices and low transferrin saturation of 2.4%, consistent with iron deficiency. She was transfused a total of 3 units of PRBC. She also received some IV Venofer in the hospital, though she apparently had an adverse reaction to it. Her colonoscopy on 04/08/2020 showed a nonobstructing malignant appearing mass at the first rectal fold. It was palpable at 7 cm from the anal verge. Biopsy showed moderately differentiated invasive adenocarcinoma. Her initial CT abdomen/pelvis did not report any significant abnormalities. Her baseline CEA was elevated at 6.1 ng/mL. Her repeat CT abdomen/pelvis on 04/23/2020 showed a left eccentric rectal mass measuring 2.8 x 2.3 cm. There were multiple enlarged perirectal, presacral, and distal left iliac chain enlarged lymph nodes measuring up to 2.1 cm, compatible with metastatic disease. There was no periaortic lymphadenopathy. There was diffuse fatty infiltration of the liver, but there were no metastatic lesions noted. She had colorectal surgery consultation with Dr. Son Alamo on 04/24/2020. She was recommended to have neoadjuvant chemoradiation. I had seen her initially on 04/27/2020 and at that time she also had radiation oncology consultation with Dr. Logan Hogan. By clinical evaluation, her disease was stage at least IIIB (Tx, N2a). On 05/21/2020 she began radiation concurrently with Xeloda for chemosensitization. She completed radiation on 07/02/2020 to a total dose of 5000 cGy administered in 25 fractions. On 08/10/2020 she underwent robotic assisted low anterior resection with total mesorectal excision and placement of diverting loop ileostomy. Pathology showed residual invasive moderately differentiated adenocarcinoma involving the rectum. The tumor measured 4 x 1.2 x 0.7 cm. Tumor was noted to invade the muscularis propria. The margins were uninvolved. The treatment effect was partial response, score 2. There was involvement in 6 of 25 lymph nodes. Pathologic staging was ypT2, pyN2a. The tumor showed intact expression of mismatch repair proteins. She unfortunately had a very difficult postoperative course. On 09/11/2020 she was admitted to the hospital with nausea/vomiting and acute dehydration in association with suspected urinary tract infection. Her CT abdomen/pelvis showed dilated small bowel leading into the right lower quadrant ostomy with abrupt transition and with decompressed distal small bowel loop within the ostomy itself. There was nonspecific fluid and gas collection in the presacral space with fistula to the anorectal junction not excluded. On 09/14/2020 she was transferred to [facility] for further management due to the suspected fistula. She was found to have abscess in the pelvis, though apparently not any definite evidence of fistula. She underwent placement of a percutaneous drainage catheter,. She was discharged home on antibiotic coverage with ciprofloxacin and with the drainage catheter in place. During the hospitalization she was found to be positive for COVID-19 virus infection. I had seen her for a follow-up visit on 10/01/2020. At that point she still had very poor performance status and she initially continued on symptomatic/supportive treatment measures. As of her follow-up visit on 11/06/2020 she appeared to have recovered sufficiently to tolerate adjuvant chemotherapy. She then completed 8 cycles of modified FOLFOX from 11/14/2020 through 02/27/2021. Her chemotherapy was complicated by neutropenia, but her blood counts remained adequate with growth factor support. With her cycle 5 treatment, her alkaline phosphatase had become mildly elevated and her CEA level was borderline high. Restaging CT of the abdomen/pelvis, though, showed no evidence of recurrent or metastatic disease. There was interval resolution of the fluid and gas collection in the presacral space. Overall, she tolerated the treatment well. Her medical history is otherwise significant for history of cardiac arrhythmias, including supraventricular tachycardia and atrial fibrillation. She has mitral valve prolapse. Her other medical illnesses have been limited to GERD, degenerative arthritis, and depression. She is a non-smoker. INTERIM HISTORY: She is seen for a follow-up visit. She has been feeling pretty good generally, though lately her energy has just been so-so. She is doing housework. ECOG score is 1. She has good appetite and she has gained weight. She has not had fever. She has hot flashes at least once a day. She has not had sore mouth or throat. She does not complain of cough, and she has not been having shortness of breath or chest pain. She still has occasional nausea. Bowel function has been okay with the ostomy. Her surveillance colonoscopy in March 2021 showed significant inflammation at the colorectal anastomosis, but no evidence of recurrence. She is scheduled to see a colorectal surgeon at [facility] next month to discuss reanastomosis. She has no complaints. She has joint pain, mainly in her knees and hands, but that is about the same. She does not complain of headache or dizziness. She is still having some numbness in her fingers and in her feet. Medications: Cardizem LA 1 Tablet (of 180 mg) Tablet SR 24 HR Oral daily, DULoxetine HCl Capsule Delayed Release Particles Oral, HYDROcodone-Acetaminophen (10-325 mg) Tablet Oral four times a day PRN, Montelukast Sodium 1 Tablet (of 10 mg) Oral daily, Pantoprazole Sodium 1 (40 mg) Tablet, enteric coated Oral b.i.d., Tamsulosin HCl 1 (0.4 mg) Capsule Oral daily Allergies: Iron infusion and Macrobid. Vital Signs: Performed on Jul 22, 2021 14:54 Height - 67.00 in Weight - 241.6 lbs (HIGH) BSA - 2.19 sq.m BMI - 37.84 (HIGH) Temperature - 99.0 F (HIGH) Pulse - 88 /min Respiration - 16 /min BP - 149/81 mm(hg) (HIGH) O2 Sat - 96 % Pain - 4 Fatigue - 4 Physical Examination: Constitutional - She looks good generally, Eyes - Sclerae nonicteric. Conjunctivae clear, ENMT - No lesions noted in the oral cavity, Hematologic/Lymphatic - No cervical, clavicular, or axillary adenopathy, Respiratory - Lungs are clear with good air movement bilaterally, Cardiovascular - Heart rhythm is irregular. There is a II/ systolic murmur. There is no gallop or rub noted, Abdomen - Soft. Liver and spleen are not enlarged. There is no abdominal mass or ascites noted and there is no inguinal adenopathy, Extremities - No edema, Neurologic - No focal neurologic deficits noted. Lab/Imaging: CBC shows hemoglobin 10.7 g, white blood cell count 3400, and platelet count 160,000. Comprehensive metabolic profile shows normal renal function with BUN 18 and creatinine 0.5 mg/dL. The alkaline phosphatase is slightly elevated but stable at 146/105 IU/L. The bilirubin and the other liver enzymes are normal. Her serum iron studies continue to show low transferrin saturation at 12.3%, consistent with iron deficiency. Problem List: 1. Moderately differentiated invasive adenocarcinoma of the rectum. By clinical evaluation her disease was stage at least IIIB (Tx, N2a, M0) at initial diagnosis in March 2020. 2. She had associated iron deficiency anemia. She reported having had adverse reactions to both oral and parenteral iron. 3. GERD. 4. Degenerative arthritis. 5. History of atrial tachy-arrhythmias, apparently in association with mitral valve prolapse. 6. Anxiety/depression. Problems Addressed with this Encounter and Plan: 1. 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 By clinical evaluation her disease was stage at least IIIB (Tx, N2a, M0) at initial diagnosis in March 2020. On 05/21/2020 she began radiation concurrently with Xeloda for chemosensitization. She completed radiation on 07/02/2020 to a total dose of 5000 cGy administered in 25 fractions. On 08/10/2020 she underwent robotic assisted low anterior resection with placement of diverting loop ileostomy. Her post treatment staging was IIIB (ypT2, ypN2a, M0). Her postoperative course was complicated by development of pelvic abscess, requiring placement of percutaneous drainage catheter. She had very significant decline in performance status necessitating a delay in her postoperative adjuvant chemotherapy. As of her follow-up visit on 11/06/2020 her overall condition had improved significantly, and she was then able to proceed with her postoperative adjuvant chemotherapy. She then completed 8 cycles of modified FOLFOX from 11/14/2020 through 02/27/2021. She had some fatigue with the chemotherapy and she required growth factor support for neutropenia, but overall she tolerated it very well. With her 5th cycle, there was an increase in her alkaline phosphatase and her CEA level was noted to be borderline high, but there was no evidence of recurrent disease on her restaging CT abdomen/pelvis. She has now being followed on expectant management. She still has some mild fatigue and mild neuropathy following the chemotherapy. Overall, though, she appears to be doing well clinically. I will plan in 6-month interval surveillance CT scan. I will tentatively plan a follow-up visit in 3 months. In the meantime, I will have her try increasing her duloxetine dosage to 60 mg daily. 2. She has iron deficiency anemia. She has had poor tolerance for both oral and parenteral iron replacement. She remains just mildly anemic without any specific treatment. Signed By: Khanh Orielly M.D. <<Signature on File>>
== END 2021-07-29 23:59 | disposition home or self-care (01) ==
LOC: ONCMED 06:32
PROVIDERS: PCP Family Medicine; Visit Provider Internal Medicine Medical Oncology
DX: Z08 Encounter for follow-up examination after completed treatment for malignant neoplasm (principal); Z85.048 Personal history of other malignant neoplasm of rectum, rectosigmoid junction, and anus; D50.9 Iron deficiency anemia, unspecified; K21.9 Gastro-esophageal reflux disease without esophagitis; M19.90 Unspecified osteoarthritis, unspecified site; I34.1 Nonrheumatic mitral (valve) prolapse; F41.9 Anxiety disorder, unspecified; F32.9 Major depressive disorder, single episode, unspecified; R53.82 Chronic fatigue, unspecified; G62.0 Drug-induced polyneuropathy; T45.1X5D Adverse effect of antineoplastic and immunosuppressive drugs, subsequent encounter; Z79.899 Other long term (current) drug therapy; Z92.21 Personal history of antineoplastic chemotherapy; Z92.3 Personal history of irradiation
CPT/HCPCS: 36591; 80053; 82378; 82607; 83540; 83550; 85025; 99214

== ENCOUNTER 2021-08-20 06:00 | Outpatient (RCR) | payer MEDICARE, SELFPAY | END 2021-08-26 23:59 | disposition home or self-care (01) | LOC: ONCMED 06:00 | PROVIDERS: PCP Family Medicine; Visit Provider Internal Medicine Medical Oncology | DX: Z45.2 Encounter for adjustment and management of vascular access device (principal) | CPT/HCPCS: 96523 ==

== ENCOUNTER 2021-09-19 14:04 | Outpatient (RCR) | payer MEDICARE, SELFPAY | END 2021-09-26 23:59 | disposition home or self-care (01) | LOC: ONCMED 14:04 | PROVIDERS: PCP Family Medicine; Visit Provider Internal Medicine Medical Oncology | DX: Z45.2 Encounter for adjustment and management of vascular access device (principal) | CPT/HCPCS: 96523 ==

== ENCOUNTER 2021-11-13 12:30 | Oncology outpatient (recurring) (ONCR) | payer MEDICARE, SELFPAY ==
--- NOTE | 2021-11-04 07:54 | CT_ITS ---
WS: [id number] CT CHEST, ABDOMEN, AND PELVIS TECHNIQUE: Contrast-enhanced CT of the chest, abdomen, and pelvis with coronal and sagittal reformatt ed images. CLINICAL INFORMATION: RECTAL CANCER COMPARISON: None. DLP: 1766.[address] scans at [facility] use at least one of these dose optimization techniques: automated e xposure control; mA and/or kV adjustment per patient size (includes targeted exams where dose is matc hed to clinical indication); or iterative reconstruction. CT CHEST: Both lungs are well aerated. No acute pulmonary infiltrates. No focal pneumonia or pleural fluid. Sli ght bibasilar atelectasis. Slight hazy atelectasis in the lingula. Normal caliber thoracic aorta. Proximal main pulmonary arteries are normal. No axillary lymphadenopat hy. No mediastinal or hilar lymphadenopathy. CT ABDOMEN AND PELVIS: Diffuse fatty infiltration of the liver. Prior cholecystectomy. Normal portal vein and splenic vein. Normal pancreatic parenchymal enhancement. Decreased perfusion with low-attenuation in the anterior t ip of the spleen measuring 3.1 x 2.1 cm suspicious for splenic infarct. This is new from the prior ex aminations. Small esophageal hiatal hernia. RIGHT lower quadrant catheter with tip in the pelvis. Sanna or postoperative changes colostomy in the LEFT lower quadrant. Chronic RIGHT ileostomy tract. Prior p ostoperative changes distal colon resection. Celiac and SMA are patent. No periaortic lymphadenopathy. Herniated loop of small bowel extending thr ough the umbilical hernia no evidence of obstruction. Mild chronic compression superior endplate L5 w ith mild retropulsion of the posterior superior cortex. This is progressed slightly compared January with moderate to severe central canal stenosis at this level. CT/CT chest abd pel w con* IMPRESSION: 1. No evidence of metastatic disease in the chest abdomen or pelvis. 2. No adenopathy in the chest abdomen or pelvis. 3. Prior postoperative changes distal colon resection with LEFT lower quadrant colostomy. 4. Umbilical hernia with herniated loop of small bowel. No evidence of obstruc tion. This is new from previous. Recommend correlation for intermittent small b owel obstruction 5. Drainage catheter RIGHT lower quadrant extending into the pelvis. 6. Area of low-attenuation with decreased perfusion anterior aspect of the spl een suspicious for splenic infarct. This is new from previous. 7. Postoperative changes about the rectum. 8. Compression of the superior endplate L5 has progressed compared to January with moderate retropulsion and moderate to severe central canal stenosi s. Notified Khanh Oreilly MD at 11/04/2021 10:09 AM.
[2021-11-04 08:40] LABS: Blood Urea Nitrogen 7 mg/dL (8-23)
[2021-11-13 12:55] LABS: Basophils % 0.4 %; Eosinophils # 0.2 10^3/uL (0.0-0.8); Eosinophils % 2.9 %; Hematocrit 29.7 % (37.0-47.0); Hemoglobin 8.6 g/dL (11.5-15.3); Lymphocytes # 1.5 10^3/uL (0.8-4.8); Lymphocytes % 29.5 %; Mean Corpuscular Hemoglobin 26.4 pg (28.0-34.0); Mean Corpuscular Volume 91.1 fl (81-99); Mean Platelet Volume 9.3 fL (7.4-10.4); Monocytes # 0.4 10^3/uL (0.2-0.9); Monocytes % 7.9 %; Neutrophils # 3.09 10^3/uL (1.8-7.7); Neutrophils % 59.1 %; Nucleated Red Blood Cells % 0 %; Platelet Count 494 10^3/cmm (130-400); Red Blood Count 3.26 10^6/uL (4.1-5.3); White Blood Count 5.2 10^3/uL (4.0-10.0)
[2021-11-13 13:19] LABS: Alanine Aminotransferase 8 U/L (0-33); Albumin Level 3.6 g/dL (3.5-5.2); Alkaline Phosphatase 122 IU/L (35-105); Anion Gap 14.1 (5-19); Aspartate Amino Transferase 14 U/L (0-32); Blood Urea Nitrogen 7 mg/dL (8-23); Calcium 8.8 mg/dL (8.5-10.5); Carbon Dioxide 27 mmol/L (22-29); Chloride 102 mmol/L (98-107); Chol HDL Ratio 3.66 mg/dL (0.0-4.40); Cholesterol 139 mg/dL (0-200); Ferritin 32 ng/mL (15-150); Globulin 3.7 g/dL (1.3-4.6); Glomerular Filtration Rate 100.3 mL/min (90-130); Glucose 120 mg/dL (65-115); HDL Cholesterol 38 mg/dL (60-100); Iron 20 ug/dL (37-145); LDL Cholesterol Calculated 69 mg/dL (50-129); LDL HDL Ratio 1.82 RATIO (0.00-3.22); Osmolality Calculated 289 mOsm/kg (285-295); Percent Saturation 7.2 % (20-50); Potassium 3.1 mmol/L (3.5-5.1); Sodium 140 mmol/L (136-145); Total Bilirubin 0.3 mg/dL (0.15-1.2); Total Iron Binding Capacity 276 mcg/dl; Total Protein 7.3 g/dL (6.6-8.7); Triglycerides 162 mg/dL (0-150); Unsaturated Iron Binding 256 ug/dL (112-347)
[2021-11-13 13:20] LABS: Thyroid Stimulating Hormone 1.24 uIU/mL (0.27-4.20)
== END 2021-11-26 23:59 | disposition home or self-care (01) ==
PROVIDERS: PCP Family Medicine; Visit Provider Internal Medicine Medical Oncology
DX: Z08 Encounter for follow-up examination after completed treatment for malignant neoplasm (principal); Z85.038 Personal history of other malignant neoplasm of large intestine; D50.9 Iron deficiency anemia, unspecified; R53.83 Other fatigue; G62.0 Drug-induced polyneuropathy; T45.1X5A Adverse effect of antineoplastic and immunosuppressive drugs, initial encounter; Z79.899 Other long term (current) drug therapy; Z92.21 Personal history of antineoplastic chemotherapy; Z92.3 Personal history of irradiation
CPT/HCPCS: 36591; 71260; 74177; 80053; 80061; 82565; 82728; 83540; 83550; 84443; 84520; 85025; 99214; 99999; Q9967

== ENCOUNTER 2021-12-06 09:30 | Oncology outpatient (recurring) (ONCR) | payer MEDICARE, SELFPAY ==
[2021-11-29] MEDS: acetaminophen 325 mg Tablet 650 MG PO (09:56)
[2021-11-29] MEDS: sodium chloride 0.9% 250 ML 75 ML IV (09:59)
[2021-11-29] MEDS: diphenhydrAMINE 50 mg/mL SDV 1mL 25 MG IVP (10:00)
[2021-11-29] MEDS: sodium chloride 0.9% 50 mL Bag IV (10:01)
[2021-11-29] MEDS: dexamethasone 10 mg/mL INJ IVP (10:02)
[2021-11-29] MEDS: ferric carboxy (IVPB) 750 MG in sodium chloride 0.9% (100 ml) 100 ML 345 MG IV (10:19)
[2021-11-29 10:58] VITALS: BP 144/81; PULSE 66; TEMP 37.4; O2SAT 98
[2021-12-06] MEDS: acetaminophen 325 mg Tablet 650 MG PO (09:45)
[2021-12-06] MEDS: sodium chloride 0.9% 500 ML 75 ML IV (09:46)
[2021-12-06] MEDS: diphenhydrAMINE 50 mg/mL SDV 1mL 25 MG IVP (09:49)
[2021-12-06] MEDS: dexamethasone 10 mg/mL INJ IVP (09:52)
[2021-12-06] MEDS: ferric carboxy (IVPB) 750 MG in sodium chloride 0.9% (100 ml) 100 ML 345 MG IV (10:11)
[2021-12-06 10:17] VITALS: BMI 37.8
[2021-12-06 10:59] VITALS: BP 132/80; PULSE 70; RESP 18; TEMP 37.1; O2SAT 96
== END 2021-12-26 23:59 | disposition home or self-care (01) ==
PROVIDERS: PCP Family Medicine; Visit Provider Internal Medicine Medical Oncology
DX: C20 Malignant neoplasm of rectum (principal); D50.8 Other iron deficiency anemias
CPT/HCPCS: 96365; 96375; J1100; J1200; J1439; J7040; J7050

== ENCOUNTER 2022-01-09 11:42 | Oncology outpatient (recurring) (ONCR) | payer MEDICARE, SELFPAY ==
[2022-01-09 12:11] LABS: Basophils % 0.5 %; Eosinophils # 0.1 10^3/uL (0.0-0.8); Eosinophils % 1.9 %; Hematocrit 35.6 % (37.0-47.0); Hemoglobin 11.6 g/dL (11.5-15.3); Lymphocytes # 1.3 10^3/uL (0.8-4.8); Lymphocytes % 32.3 %; Mean Corpuscular HGB Conc 32.6 g/dL (30.0-36.0); Mean Corpuscular Hemoglobin 28.6 pg (28.0-34.0); Mean Corpuscular Volume 87.9 fl (81-99); Mean Platelet Volume 9.7 fL (7.4-10.4); Monocytes # 0.4 10^3/uL (0.2-0.9); Monocytes % 10.1 %; Neutrophils # 2.28 10^3/uL (1.8-7.7); Nucleated Red Blood Cells % 0 %; Platelet Count 308 10^3/cmm (130-400); Red Blood Count 4.05 10^6/uL (4.1-5.3); Red Cell Distribution Width 18.6 % (12.1-15.1); White Blood Count 4.2 10^3/uL (4.0-10.0)
[2022-01-09 12:25] LABS: Alanine Aminotransferase 13 U/L (0-33); Albumin Level 4.1 g/dL (3.5-5.2); Alkaline Phosphatase 117 IU/L (35-105); Anion Gap 14.3 (5-19); Aspartate Amino Transferase 17 U/L (0-32); Blood Urea Nitrogen 14 mg/dL (8-23); Calcium 9.1 mg/dL (8.5-10.5); Carbon Dioxide 29 mmol/L (22-29); Chloride 102 mmol/L (98-107); Ferritin 264 ng/mL (15-150); Globulin 2.8 g/dL (1.3-4.6); Glomerular Filtration Rate 123.8 mL/min (90-130); Glucose 118 mg/dL (65-115); Iron 65 ug/dL (37-145); Osmolality Calculated 294 mOsm/kg (285-295); Potassium 4.3 mmol/L (3.5-5.1); Sodium 141 mmol/L (136-145); Total Bilirubin 0.3 mg/dL (0.15-1.2); Total Iron Binding Capacity 232 mcg/dl; Total Protein 6.9 g/dL (6.6-8.7); Unsaturated Iron Binding 167 ug/dL (112-347)
== END 2022-01-26 23:59 | disposition home or self-care (01) ==
PROVIDERS: PCP Family Medicine; Visit Provider Internal Medicine Medical Oncology
DX: Z79.899 Other long term (current) drug therapy (principal); D50.8 Other iron deficiency anemias; Z79.52 Long term (current) use of systemic steroids; Z08 Encounter for follow-up examination after completed treatment for malignant neoplasm; Z85.048 Personal history of other malignant neoplasm of rectum, rectosigmoid junction, and anus; Z92.21 Personal history of antineoplastic chemotherapy; Z92.3 Personal history of irradiation; M48.50XA Collapsed vertebra, not elsewhere classified, site unspecified, initial encounter for fracture; K42.9 Umbilical hernia without obstruction or gangrene
CPT/HCPCS: 36591; 80053; 82728; 83540; 83550; 85025; 99214

== ENCOUNTER 2022-01-23 07:47 | Day surgery (SDC) | payer MEDICARE, SELFPAY ==
[2022-01-22 09:33] VITALS: BMI 39.1
[2022-01-23] VITALS (13 sets, daily range): BP systolic 130–182; BP diastolic 76–102; PULSE 77–85; RESP 16–22; TEMP 36.7–36.9; O2SAT 92–98
--- NOTE | 2022-01-23 08:00 | W.PM.OPSUD ---
Surgery/Procedure H&P Update DATE OF PROCEDURE: January 23, 2022 DATE H&P PERFORMED: 01/14/22 H&P UPDATE INFORMATION: No changes to prior documentation PREOP DIAGNOSIS: 1. Incisional hernia. 2. Desiring Port-A-Cath removal. PLANNED PROCEDURE: Operation Date: 01/23/22 09:15 Proposed Procedures p Incisional Hernia Repair w/ possible mesh/removal of port cath [id number],57069, 553.21,K43.2,v45.89,z95.828(Not Applicable) - Constantino Monsivais MD
[2022-01-23] MEDS: sodium chloride 0.9% 1,000 ML 30 ML IV (08:28)
--- NOTE | 2022-01-23 08:28 | P.ANESASSM_ITS ---
Pre-Anesthetic Assessment Height/Weight: Height 1.7 m Weight 113.398 kg Preop Diagnosis: 1. Incisional hernia. 2. Desiring Port-A-Cath removal. Operation Date: 01/23/22 09:15 Proposed Procedures p Incisional Hernia Repair w/ possible mesh/removal of port cath 58536,50682, 553.21,K43.2,v45.89,z95.828(Not Applicable) - Constantino Monsivais MD Familial anesthetic complications: None Was Beta Ellie taken within 24 hours: N/A Was Clonidine taken within 24 hours: N/A Last intake: > 8hrs Social No alcohol and No tobacco Exam alert, oriented x 3, clear to auscultation bilaterally and regular rate & rhythm Airway Mallampati: Class II Dentition: other (permanent brace) Pulmonary Asthma (rare use of inhaler) CV/HEM Arrythmia (SVT) GI Gastroesophageal Reflux Disease Hx colorectal cancer Metabolic Morbid Obesity Anesthetic Plan ASA status: 3 Anesthesia: General Risk of > 500 ml blood loss (7ml/kg in children): No Medications/Allergies Home Medications Medication Instructions Recorded Confirmed Last Taken Type diltiazem HCl 180 mg 180 mg PO DAILY@0900 09/11/20 01/22/22 01/23/22 05:30 History capsule,extended release 24 hr pantoprazole 40 mg tablet,delayed 40 mg PO BID@09/11/20 01/23/22 01/23/22 05:30 History release (Protonix) hydrocodone 10 mg-acetaminophen 1 tab PO DIRECTED 04/23/21 01/22/22 04/25/21 History 325 mg tablet duloxetine 30 mg capsule,delayed 60 mg PO DAILY 11/13/21 01/22/22 01/23/22 05:30 History release Allergies Allergy/AdvReac Type Severity Reaction Status Date / Time nitrofurantoin Allergy Unconscious Verified 01/22/22 09:32 [From Macrobid] Iron sucrose AdvReac Intermediate Flushing, Uncoded 01/22/22 09:32 malaise [facility] Anesthesia Medical History (Updated 01/12/22 @ 12:42 by Khanh Oreilly MD) Anxiety and depression Arthritis Atrial fibrillation Degenerative arthritis GERD (gastroesophageal reflux disease) Iron deficiency anemia due to chronic blood loss Mitral valve prolapse Rectal adenocarcinoma Recto-vaginal fistula UTI (urinary tract infection) Vertebral compression fracture Surgical History (Updated 01/12/22 @ 12:42 by Khanh Oreilly MD) H/O: hysterectomy (1995) History of bladder repair surgery History of esophagogastroduodenoscopy (EGD) (04/08/20) gastritis History of facial surgery left side History of low anterior resection of rectum (08/10/20) Robotic assisted low anterior resection with total mesorectal excision and placement of diverting loop ileostomy Hx of colonoscopy (04/25/21) S/P cholecystectomy (2003) Status post left foot surgery Status post surgical removal of malignant neoplasm of skin nose Family History Mother Breast cancer early 50's Father Lung cancer Family/Other Colon cancer paternal aunt, late 60's Denies family history of Ovarian cancer Diabetes Clotting disorder Heart disease Hyperlipidemia Anesthesia complication Bleeding disorder Hypertension Uterine cancer Thyroid condition Stroke Social History Smoking and tobacco status: never smoked Alcohol intake: never Marital status: Data Anesthesia Cardiac Studies: Echocardiogram Ultrasound 04/04/20
[2022-01-23] MEDS: midazolam 1 mg/mL INJ 2 mL 2 MG IVP (08:32)
[2022-01-23] MEDS: scopolamine 1.5 Patch 1 PATCH TRANSDERMA (08:33)
[2022-01-23] MEDS: ondansetron 2 mg/ML SDV 2 mL 4 MG IVP ×2 (08:35→11:19)
[2022-01-23] MEDS: ceFAZolin 2,000 MG in sodium chloride 0.9% (plus) 50 ML 100 MG IV (09:28)
[2022-01-23] MEDS: lidocaine 2% INJ 20 mL INJECTION (09:48)
--- NOTE | 2022-01-23 10:42 | P.OP_ITS ---
Operative Report Date of procedure: January 23, 2022 Pre-op diagnosis: Preop Diagnosis 1. Incisional hernia. 2. Desiring Port-A-Cath removal. Post-op diagnosis: Same. Procedure done: 1. Repair of incisional hernia with mesh. 2. Removal of Port-A-Cath. Specimens removed/disposition: None sent. Surgeon: General Surgery Constantino Monsivais MD Estimated blood loss: 20 Complications: None. Procedure: The patient was brought to the operating room and was placed in a supine position on the operating room table. General endotracheal anesthesia was induced. The abdomen and chest were prepped and draped in a sterile fashion. The patient's colostomy bag in the left lower quadrant was excluded from the p rep field by a 10-10 drape. A combination of 2 percent lidocaine and 0.5% bupivacaine with 1 to 200,000 parts epinephrine was used throughout the procedure for local anesthesia/postoperative anesthesia. Attention was first directed to the abdomen. A small vertical incision was carried out in the previous scar in the lower epigastrium over the hernia. Cautery was used to divide the subcutaneous tissue and the hernia sac was identified. The sac was freed from the surrounding subcutaneous tissue down to the fascia. The sac was eventually excised at the fascial layer. The patient had a loop of small bowel fairly intimately associated with the hernia sac and the sac was carefully freed from the small bowel and was completely removed. The small bowel was reduced through the defect which measured approximately 4 cm in diameter, and no surrounding adhesions were noted by palpation. The patient did, however, have a separate smaller hernia defect just inferiorly and slightly to the left side. This was from the main hernia defect by a small transverse fascial bridge. The bridge of fascia was excised, now creating one hernia defect and the sac from the lower hernia was also excised. The resulting defect was still fairly round but now measured perhaps 5 or 6 cm in greatest diameter. The decision was made to place a piece of mesh in the repair. A 4 inch round piece of Ventrio mesh was inserted into the abdominal cavity and was brought up to the abdominal wall where it was sutured with through and through sutures of #1 Prolene. Other sutures of #1 Prolene were used to bring the edges of the fascia back down to the mesh. This seemed to create a very good repair that was not under any tension. The wound was extensively irrigated with saline. The subcutaneous tissue was brought together with a simple suture of 3- 0 Vicryl and the skin was approximated using a running subcuticular suture of 3- 0 Vicryl. Benzoin and Steri-Strips were placed over the incision. Eventually a sterile dressing followed. Attention was then directed to the Port-A-Cath site in the left subclavian region. The small transverse scar above the port was reopened and the port was carefully freed from the surrounding subcutaneous tissue. The Port-A-Cath and its tubing were removed intact as a [id number] suture of 3-0 Vicryl was tied around the tubing tract. The posterior wall of the fibrous sheath that had developed around the port was excised using cautery. The wound was irrigated with saline. The skin was reapproximated using a running subcuticular suture of 4-0 Vicryl. Benzoin and a Steri-Strip were placed over the incision and a sterile bandage followed. The patient was taken to the recovery room in stable condition postoperatively following the procedures.
[2022-01-23] MEDS: diphenhydrAMINE 50 mg/mL SDV 1mL 12.5 MG IVP (11:56)
[2022-01-23] MEDS: oxyCODONE-APAP 5-325 mg Tablet 1 TAB PO (12:33)
--- NOTE | 2022-01-23 12:53 | ANE.PACU2 ---
Inpatient post-anesthesia follow up: Airway intact: Yes Vital signs: Temperature 98.2 F Pulse Rate 80 Respiratory Rate 18 Blood Pressure 140/80 Pulse Oximetry 95 Oxygen Delivery Me thod Room Air Oxygen Flow Rate 1 Fraction of Inspir ed Oxygen Hydration adequate: Yes Nausea and vomiting: No Pain level: 1 Mental status: Baseline
== END 2022-01-23 14:04 | disposition home or self-care (01) ==
PROVIDERS: PCP Family Medicine; Visit Provider Surgery
PROC: (CPT 36590; principal; 2022-01-23 08:55)
PROC: (CPT 36589; 2022-01-23 08:55)
DX: K43.2 Incisional hernia without obstruction or gangrene (principal); Z45.2 Encounter for adjustment and management of vascular access device; K21.9 Gastro-esophageal reflux disease without esophagitis; Z85.038 Personal history of other malignant neoplasm of large intestine; E66.01 Morbid (severe) obesity due to excess calories; Z68.39 Body mass index [BMI] 39.0-39.9, adult; M19.90 Unspecified osteoarthritis, unspecified site; I48.91 Unspecified atrial fibrillation
CPT/HCPCS: 36590; 49560; 49568; J1100; J1200; J2250; J2405; J2704; J2710; J3010; J3490; J7030

== ENCOUNTER 2022-02-11 13:50 | Oncology outpatient (recurring) (ONCR) | payer MEDICARE, SELFPAY ==
--- NOTE | 2022-02-11 14:30 | XR_ITS ---
WS: [id number] SCREENING DEXA SCAN [place] CLINICAL INFORMATION: vertebral compression fracture COMPARISON: None. FINDINGS: The L1-L4 bone mineral density measures 1.322 g/cm2. This corresponds to a T score score of 1.2 and Z score of 1.6. Left femoral neck bone mineral density measures 0.880 g/cm2. This corresponds to a T score of -1.0 an d Z score of -0.6. Right femoral neck bone mineral density measures 0.872 g/cm2. This corresponds to a T score -1.1of an d Z score of -0.7. Mean femoral neck bone mineral density measures 0.876 g/cm2. This corresponds to a T score of -1.0 an d Z score of -0.7. XR/XR DEXA axial skeleton* [id number] IMPRESSION: Osteopenia femoral necks. Normal bone mineralization in the lumbar spine likely spuriously elevated due to endplate sclerosis. Patient's FRAX calculated 10 year probability for major osteoporotic fracture i s 8.0 % and osteoporotic hip fracture is 0.8%.
== END 2022-02-26 23:59 | disposition home or self-care (01) ==
LOC: RAD 14:04 → ONCMED 02-25 04:36
PROVIDERS: PCP Family Medicine; Visit Provider Internal Medicine Medical Oncology
DX: M48.50XA Collapsed vertebra, not elsewhere classified, site unspecified, initial encounter for fracture (principal)
CPT/HCPCS: 77080

== ENCOUNTER 2022-03-14 10:54 | Outpatient (CLI) | payer MEDICARE, SELFPAY ==
--- NOTE | 2022-03-14 11:00 | CT_ITS ---
WS: [id number] CT chest abd pel w con* REASON FOR EXAM: malignant neoplasm of rectum IV CONTRAST ADMINISTERED: Omnipaque 350 95 mL TOTAL EXAM DLP: 1787.[address] scans at [facility] use at least one of these dose optimization techniques: automat ed exposure control; mA and/or kV adjustment per patient size (includes targeted exams where dose is matched to clinical indication); or iterative reconstruction. FINDINGS: Four-chamber cardiomegaly. No significant abnormality of the aorta or pulmonary arteries. No significant mediastinal or hilar adenopathy. No mediastinal or hilar mass. No lung nodule, lung mass, or infiltrative process. No pleural abnormality. Mild to moderate changes of degenerative spondylosis in the thoracic spine without focal bone lesion. ABDOMEN: Ill-defined area of low attenuation in the posterior right lobe of the liver 3 x 8 mm. In retrospect this abnormality is present on the previous examination of 11/04/2021. Previous cholecystectomy. Previous presumed infarct of the spleen has nearly completely resolved. Only a small focus of low att enuation present. Adrenals and right kidney are normal. 1.5 cm cyst of the lower pole of the left kidney. No free fluid or focal fluid collection. Previous small bowel hernia into the anterior abdominal wall has been resolved. There is now a 2 x 3 cm thick-walled postoperative fluid collection in the abdominal wall fat fat immediately anterior to the rectus sheath in the midline. There is now a hernia of a loop of colon through the abdominal wall defect for the colostomy in the l eft lower abdomen. PELVIS: Postop pelvis with removal of the rectum. No adenopathy or mass. No free fluid or focal fluid collection. CT/CT chest abd pel w con* IMPRESSION: No significant abnormality of the chest. No metastatic disease. IMPRESSION: Small low-attenuation region in the liver difficult to characterize. Present on the previous examination. Possibly a small cavernous hemangioma however follow -up is recommended to exclude metastatic focus. Anterior abdominal wall fluid collection as above. Peristomal hernia as above.
[2022-03-14] MEDS: iohexol 350 mg/mL 100 mL Btl IV (12:42)
== END 2022-03-14 10:55 | disposition home or self-care (01) ==
PROVIDERS: PCP Family Medicine; Visit Provider Internal Medicine Medical Oncology
DX: C20 Malignant neoplasm of rectum (principal)
CPT/HCPCS: 71260; 74177

== ENCOUNTER 2022-05-14 09:00 | Oncology outpatient (recurring) (ONCR) | payer MEDICARE, SELFPAY ==
[2022-05-13 09:40] LABS: Basophils % 0.7 %; Eosinophils # 0.1 10^3/uL (0.0-0.8); Eosinophils % 1.7 %; Hemoglobin 12.6 g/dL (11.5-15.3); Lymphocytes # 1.2 10^3/uL (0.8-4.8); Mean Corpuscular HGB Conc 32.3 g/dL (30.0-36.0); Mean Corpuscular Hemoglobin 30.8 pg (28.0-34.0); Mean Corpuscular Volume 95.4 fl (81-99); Monocytes # 0.3 10^3/uL (0.2-0.9); Neutrophils # 2.52 10^3/uL (1.8-7.7); Neutrophils % 61.4 %; Nucleated Red Blood Cells % 0 %; Platelet Count 294 10^3/cmm (130-400); Red Blood Count 4.09 10^6/uL (4.1-5.3); Red Cell Distribution Width 12.5 % (12.1-15.1); White Blood Count 4.1 10^3/uL (4.0-10.0)
[2022-05-13 10:09] LABS: Carcinoembryonic Antigen 3.5 ng/mL (0.0-4.7)
[2022-05-13 10:20] LABS: Alanine Aminotransferase 16 U/L (0-33); Alkaline Phosphatase 146 U/L (35-105); Anion Gap 15.6 (5-19); Aspartate Amino Transferase 17 U/L (0-32); Blood Urea Nitrogen 14 mg/dL (8-23); Calcium 9.3 mg/dL (8.5-10.5); Carbon Dioxide 24 mmol/L (22-29); Chloride 100 mmol/L (98-107); Globulin 3.1 g/dL (1.3-4.6); Glucose 107 mg/dL (65-115); Osmolality Calculated 283 mOsm/kg (285-295); Potassium 3.6 mmol/L (3.5-5.1); Sodium 136 mmol/L (136-145); Total Bilirubin 0.3 mg/dL (0.15-1.2); Total Protein 7.1 g/dL (6.6-8.7)
== END 2022-05-28 23:59 | disposition home or self-care (01) ==
PROVIDERS: PCP Family Medicine; Visit Provider Internal Medicine Medical Oncology
DX: C20 Malignant neoplasm of rectum (principal); R53.0 Neoplastic (malignant) related fatigue; G62.0 Drug-induced polyneuropathy; T45.1X5A Adverse effect of antineoplastic and immunosuppressive drugs, initial encounter; M54.50 Low back pain, unspecified; Z79.891 Long term (current) use of opiate analgesic; Z92.3 Personal history of irradiation; Z92.21 Personal history of antineoplastic chemotherapy
CPT/HCPCS: 36415; 80053; 82378; 85025; 99214

== ENCOUNTER 2022-05-29 07:23 | Outpatient (CLI) | payer MEDICARE, SELFPAY ==
[2022-05-29] MEDS: iohexol 350 mg/mL 500 mL Btl (per mL) IV (07:41)
[2022-05-29] MEDS: iohexol 350 mg/mL 500 mL Btl (per mL) PO (07:41)
--- NOTE | 2022-05-29 09:00 | CTR_ITS ---
PROCEDURE INFORMATION: Exam: CT Chest With Contrast; Diagnostic Exam date and time: 05/29/2022 8:59 AM Age: 67 years old Clinical indication: Condition or disease; Other: Colon cancer; Follow-up oncological assessment; Prior surgery; Surgery type: Hyst, gb, colon resection, colostomy; Additional info: Surveillance TECHNIQUE: Imaging protocol: Diagnostic computed tomography of the chest with contrast. Radiation optimization: All CT scans at this facility use at least one of these dose optimization techniques: automated exposure control; mA and/or kV adjustment per patient size (includes targeted exams where dose is matched to clinical indication); or iterative reconstruction. Contrast material: OMNI 350; Contrast volume: 95 ml; Contrast route: INTRAVENOUS (IV); COMPARISON: 1. CT chest abd pel w con* 03/14/2022 12:[address] chest abd pel w con* 11/04/2021 8:27 AM RADIATION DOSE METRICS: Total DLP (mGy-cm): 1719.84 FINDINGS: Lungs: Stable 2 mm nodule or granuloma in the right middle lobe, series 6, image 27. Stable 3 mm right lower lobe nodule, image 24. Stable 4 mm right lower lobe nodule, image 40 stable 2 mm left lower lobe nodule, image 38. Stable 3 mm nodule left lower lobe, image 35. Stable 4 mm left upper lobe calcified granuloma, image 30. Pleural spaces: Unremarkable. No pneumothorax. No pleural effusion. Heart: The heart size is normal. No coronary artery calcifications. Lymph nodes: Calcified mediastinal and hilar lymph nodes. Vasculature: The ascending thoracic aorta is upper normal measuring 3.8 cm. Bones/joints: Degenerative changes of the thoracic spine. No fracture or lytic lesion. Soft tissues: Unremarkable. months. (Reference: Liliana) References: Liliana Boone et al. Guidelines for Management of Incidental Pulmonary Nodules Detected on CT Images: From the Fleischner Society 2017. Radiology. 2017;284(1):228-243. PROCEDURE INFORMATION: Exam: CT Abdomen And Pelvis With Contrast Exam date and time: 05/29/2022 8:59 AM Age: 67 years old Clinical indication: Condition or disease; Other: Colon cancer; Follow-up oncological assessment; Prior surgery; Surgery type: Hyst, gb, colon resection, colostomy; Additional info: Surveillance TECHNIQUE: Imaging protocol: Computed tomography of the abdomen and pelvis with contrast. Radiation optimization: All CT scans at this facility use at least one of these dose optimization techniques: automated exposure control; mA and/or kV adjustment per patient size (includes targeted exams where dose is matched to clinical indication); or iterative reconstruction. Contrast material: OMNI 350; Contrast volume: 95 ml; Contrast route: INTRAVENOUS (IV); COMPARISON: CT chest abd pel w con* 03/14/2022 12:25 PM RADIATION DOSE METRICS: Total DLP (mGy-cm): 1719.84 FINDINGS: Liver: Stable 0.8 cm hypodensity in the posterior right liver lobe. No new finding. Gallbladder and bile ducts: Cholecystectomy. The bile ducts are normal. Pancreas: Normal. No ductal dilation. Spleen: Calcified granulomas in the spleen. Adrenal glands: Normal. No mass. Kidneys and ureters: Stable left renal cortical cyst, Hounsfield units 20 or less. No follow-up imaging recommended. The kidneys are otherwise unremarkable. No hydronephrosis. Stomach and bowel: Resection of the distal colon and rectum. Left lower quadrant colostomy. Larger stomal hernia measuring 13.0 cm containing loops of nonobstructed distal colon and mesenteric fat. The stomach and small bowel are unremarkable. No wall thickening or obstruction. Appendix: The appendix is not visualized. No secondary signs of appendicitis. Intraperitoneal space: Unremarkable. No free air. No significant fluid collection. Vasculature: Unremarkable. No abdominal aortic aneurysm. Lymph nodes: Unremarkable. No enlarged lymph nodes. Urinary bladder: Unremarkable as visualized. Reproductive: The uterus is absent. Small ovaries. Bones/joints: Stable chronic superior L5 compression fracture with retropulsion. Degenerative changes. No acute fracture or lytic lesion. Soft tissues: Anterior laparotomy scar.. CT/CT chest abd pel w con* IMPRESSION: 1. No acute findings. 2. Multiple stable small pulmonary nodules. For patients at low risk (minimal or absent history of smoking and of other known risk factors), no routine follow-up is indicated. For patients at high risk (history of smoking or of other known risk factors), consider optional CT Chest at 12 IMPRESSION: 1. No acute findings. 2. Stable 0.8 cm hypodense nodule or cyst in the posterior right liver lobe. 3. Slightly larger stomal hernia containing loops of nonobstructed distal colon. 4. Prior abdominal peroneal resection.
== END 2022-05-29 07:24 | disposition home or self-care (01) ==
LOC: RAD 07:25
PROVIDERS: PCP Family Medicine; Visit Provider Internal Medicine Medical Oncology
DX: C20 Malignant neoplasm of rectum (principal); R91.8 Other nonspecific abnormal finding of lung field
CPT/HCPCS: 71260; 74177; Q9967

== ENCOUNTER 2022-07-07 13:23 | Oncology outpatient (recurring) (ONCR) | payer MEDICARE, SELFPAY ==
[2022-07-07 13:56] LABS: Basophils % 0.9 %; Eosinophils # 0.2 10^3/uL (0.0-0.8); Eosinophils % 4.4 %; Hematocrit 38.5 % (37.0-47.0); Hemoglobin 12.4 g/dL (11.5-15.3); Lymphocytes # 1.3 10^3/uL (0.8-4.8); Lymphocytes % 30.3 %; Mean Corpuscular HGB Conc 32.2 g/dL (30.0-36.0); Mean Corpuscular Hemoglobin 30.2 pg (28.0-34.0); Mean Corpuscular Volume 93.9 fl (81-99); Mean Platelet Volume 9.2 fL (7.4-10.4); Monocytes # 0.5 10^3/uL (0.2-0.9); Monocytes % 10.9 %; Neutrophils # 2.31 10^3/uL (1.8-7.7); Neutrophils % 53.3 %; Nucleated Red Blood Cells % 0 %; Platelet Count 333 10^3/cmm (130-400); Red Cell Distribution Width 12.5 % (12.1-15.1); White Blood Count 4.3 10^3/uL (4.0-10.0)
[2022-07-07 14:16] LABS: Carcinoembryonic Antigen 3.4 ng/mL (0.0-4.7)
[2022-07-07 14:27] LABS: Alanine Aminotransferase 16 U/L (0-33); Albumin Level 4.2 g/dL (3.5-5.2); Alkaline Phosphatase 145 U/L (35-105); Blood Urea Nitrogen 15 mg/dL (8-23); Calcium 8.7 mg/dL (8.5-10.5); Carbon Dioxide 26 mmol/L (22-29); Chloride 102 mmol/L (98-107); Globulin 2.9 g/dL (1.3-4.6); Glomerular Filtration Rate 71.8 mL/min (90-130); Glucose 98 mg/dL (65-115); Osmolality Calculated 291 mOsm/kg (285-295); Sodium 140 mmol/L (136-145); Total Bilirubin 0.3 mg/dL (0.15-1.2); Total Protein 7.1 g/dL (6.6-8.7)
[2022-07-07 14:30] LABS: Anion Gap 15.8 (5-19); Aspartate Amino Transferase 19 U/L (0-32); Potassium 3.8 mmol/L (3.5-5.1)
== END 2022-07-29 23:59 | disposition home or self-care (01) ==
PROVIDERS: PCP Family Medicine; Visit Provider Internal Medicine Medical Oncology
DX: Z85.048 Personal history of other malignant neoplasm of rectum, rectosigmoid junction, and anus; Z92.3 Personal history of irradiation; Z92.21 Personal history of antineoplastic chemotherapy; Z08 Encounter for follow-up examination after completed treatment for malignant neoplasm; E03.9 Hypothyroidism, unspecified
CPT/HCPCS: 36415; 80053; 82378; 85025; 99213

== ENCOUNTER → 2022-07-14 13:48 | Outpatient (BNVA) | payer MEDICARE, SELFPAY | PROVIDERS: PCP Family Medicine; Visit Provider Podiatrist Foot & Ankle Surgery | DX: M92.61 Juvenile osteochondrosis of tarsus, right ankle (principal); M65.28 Calcific tendinitis, other site | CPT/HCPCS: 73630; 99204 ==

== ENCOUNTER → 2022-08-25 13:27 | Outpatient (BNVA) | payer MEDICARE, SELFPAY | PROVIDERS: PCP Family Medicine; Visit Provider Podiatrist Foot & Ankle Surgery | DX: M92.61 Juvenile osteochondrosis of tarsus, right ankle (principal); M65.28 Calcific tendinitis, other site | CPT/HCPCS: 99214 ==

== ENCOUNTER 2022-09-11 07:03 | Outpatient (CLI) | payer MEDICARE, SELFPAY ==
--- NOTE | 2022-09-11 07:15 | MR_ITS ---
WS: [id number] EXAMINATION: MR foot RT wo con* [id number] ORDER DATE: 09/11/2022 7:24 AM COMPARISON: None. HISTORY: eval Achilles, surgical planning CONTRAST: None. TECHNIQUE: Sagittal T1, sagittal STIR, coronal PD, coronal T2, axial T1, axial T2, and axial PD imagi ng with fat saturation technique. FINDINGS: Diffuse soft tissue edema lower leg and hindfoot. Achilles enthesophyte. Plantar calcaneal spurring. Retrotalar spurring. Osteopenia. Advanced arthritis ankle mortise with subchondral cystic c hange involving the tibial plafond and talar dome. Fluid and edema along the tibia fibular syndesmosi s distally. ATF and PTF appear intact. Tibiofibular ligaments appear intact. No significant thickening in the Achilles tendon. No high-grade tears. Achilles tendon appears intact . Small amount of fluid and edema along the mid and distal dorsal Achilles with fluid in the subcutan eous soft tissues. Normal peroneal tendon sheath. Normal tibialis posterior. Tenosynovitis involving the flexor hallucis longus. Tibialis anterior is intact. Small amount of tenosynovitis along the tibialis posterior and anterior. Tenosynovitis involving the extensor digitorum longus. Deltoid ligament appears intact. Normal bone marrow signal in the base of the 5th metatarsal. Talar navicular articulation appears int act. Hypertrophic spurring along the talar neck. Joint effusion with subcutaneous soft tissue edema w orse about the posterior tibial plafond and dorsal talar facet. MR/MR foot RT wo con* [id number] IMPRESSION: 1. Evidence of mild Julissa deformity with trace retrocalcaneal fluid. 2. No high-grade Achilles tendon tears. No significant tendon thickening. Slig ht fluid and edema along the mid and distal Achilles tendon compatible with per itendinitis. 3. Advanced degenerative arthritis at the ankle mortise with subchondral cysti c change involving the tibial plafond and talar dome. Fluid in the distal synde smosis. 4. ATF and deltoid ligament are intact. 5. Tenosynovitis involving the tibialis anterior, tibialis posterior, flexor h allucis longus and extensor digitorum longus. 6. Small ankle effusion with subcutaneous edema worse about the dorsal ankle m ortise and posterior talar facet with prominent retrotalar spurring
== END 2022-09-11 07:04 | disposition home or self-care (01) ==
LOC: RAD 07:04
PROVIDERS: PCP Family Medicine; Visit Provider Podiatrist Foot & Ankle Surgery
DX: Z01.818 Encounter for other preprocedural examination (principal); M19.071 Primary osteoarthritis, right ankle and foot; M25.471 Effusion, right ankle; M65.871 Other synovitis and tenosynovitis, right ankle and foot
CPT/HCPCS: 73718

== ENCOUNTER → 2022-09-29 09:40 | Outpatient (BNVA) | payer MEDICARE, SELFPAY | PROVIDERS: PCP Family Medicine; Visit Provider Podiatrist Foot & Ankle Surgery | DX: M76.60 Achilles tendinitis, unspecified leg (principal); M92.61 Juvenile osteochondrosis of tarsus, right ankle | CPT/HCPCS: 99213 ==

== ENCOUNTER 2022-10-14 06:00 | Outpatient (RCR) | payer MEDICARE, SELFPAY | END 2022-10-26 23:59 | disposition home or self-care (01) | LOC: SPT 06:00 | PROVIDERS: Visit Provider Podiatrist Foot & Ankle Surgery | DX: M95.8 Other specified acquired deformities of musculoskeletal system (principal) | CPT/HCPCS: 97110; 97140; 97161 ==

== ENCOUNTER 2022-10-27 06:00 | Outpatient (RCR) | payer MEDICARE, SELFPAY | END 2022-11-21 23:59 | disposition home or self-care (01) | LOC: SPT 06:00 | PROVIDERS: Visit Provider Podiatrist Foot & Ankle Surgery | DX: M95.8 Other specified acquired deformities of musculoskeletal system (principal) | CPT/HCPCS: 97110; 97140 ==

== ENCOUNTER 2022-11-11 15:47 | Oncology outpatient (recurring) (ONCR) | payer MEDICARE, SELFPAY | END 2022-11-26 23:59 | disposition home or self-care (01) | LOC: ONCMED 15:52 | PROVIDERS: Visit Provider Internal Medicine Medical Oncology | DX: Z08 Encounter for follow-up examination after completed treatment for malignant neoplasm (principal); Z85.048 Personal history of other malignant neoplasm of rectum, rectosigmoid junction, and anus; Z92.3 Personal history of irradiation; Z92.21 Personal history of antineoplastic chemotherapy; E03.9 Hypothyroidism, unspecified; C20 Malignant neoplasm of rectum; R53.0 Neoplastic (malignant) related fatigue; G62.0 Drug-induced polyneuropathy; T45.1X5A Adverse effect of antineoplastic and immunosuppressive drugs, initial encounter; M54.50 Low back pain, unspecified; Z79.891 Long term (current) use of opiate analgesic ==

== ENCOUNTER → 2022-12-01 08:15 | Outpatient (BNVA) | payer MEDICARE, SELFPAY | PROVIDERS: Visit Provider Podiatrist Foot & Ankle Surgery | DX: M76.61 Achilles tendinitis, right leg (principal); M92.61 Juvenile osteochondrosis of tarsus, right ankle | CPT/HCPCS: 99214 ==

== ENCOUNTER 2022-12-31 08:54 | Outpatient (CLI) | payer MEDICARE, SELFPAY ==
[2022-12-31] MEDS: iohexol 350 mg/mL 500 mL Btl (per mL) PO (09:31)
--- NOTE | 2022-12-31 10:00 | CT_ITS ---
WS: [id number] CT CHEST, ABDOMEN AND PELVIS WITH CONTRAST. HISTORY: Colon cancer surveillance. TECHNIQUE: Contiguous 5 mm axial imaging performed through the chest, abdomen and pelvis with IV cont rast, oral contrast has been provided. Coronal and sagittal reformats chest. Coronal and sagittal ref ormats through the abdomen and pelvis. All CT scans at [facility] use at least one of these d ose optimization techniques: automated exposure control; mA and/or kV adjustment per patient size (in cludes targeted exams where dose is matched to clinical indication); or iterative reconstruction. CONTRAST: Omnipaque 350; 100 mL IV. DLP: 1483.88 mGy.cm COMPARISON: 05/29/[address]: Stable micronodules. No enlarging mass or nodule. No pneumonia. No pericardial or pleural e ffusion. No mediastinal or hilar adenopathy. Minimal atherosclerosis aorta. Pulmonary artery is dilated to 4.1 cm. No RIGHT heart strain. Small hiatal hernia. Abdomen CT: Mild hepatic steatosis. No metastatic disease within the liver. Prior cholecystectomy. No rmal size spleen with granulomata. Normal pancreas. No bile duct dilatation. Normal adrenal glands. N o renal obstruction. Normal RIGHT kidney. Lobulated low-attenuation mass lower pole LEFT kidney measu res 2.7 x 1.8 cm. Hounsfield units are slightly elevated. This mass has continued to slowly increase in size since 04/23/2020. Normal size aorta. LEFT abdominal wall colostomy. Parastomal hernia contains nondilated loop of distal colon. Similar to the prior exam. No obstruction at the colostomy site. Distal colon has been resected. Just proximal to the colostomy site is circumferential wall thickening of the distal colon. Probably due to perista lsis. No adjacent lymphadenopathy. Presacral soft tissue thickening and the postsurgical sutures note d near the rectum. No new mass identified. There is cecal distention with mild wall thickening which is stable. Pelvic CT: No free fluid. Presacral soft tissue thickening is postsurgical and stable. Negative urina ry bladder. No adenopathy. Mild increase in thoracic kyphosis. Productive bone lesions. Chronic L5 compression fracture with ret ropulsion of the posterior superior endplate. Significant stenosis at the L4-5 level due to the retro pulsion of L5. CT/CT chest abdpel w/*[id number] IMPRESSION: 1. Stable chest CT. No adenopathy or new or enlarging pulmonary nodules. 2. Stable LEFT lower quadrant colostomy with parastomal hernia. 3. Mild circumferential wall thickening involving the colon just proximal to t he colostomy site. Differential includes peristalsis versus recurrent neoplasm. Consider follow-up CT in 2-3 months. 4. No adenopathy or ascites. 5. Slow increase in size of the lobulated low-attenuation mass associated with the lower pole LEFT kidney. Hounsfield units are slightly elevated. Recommend follow-up renal ultrasound to confirm whether this is a simple cyst or solid ma ss. 6. High-grade stenosis at L4-5 due to retropulsion compression fracture of L5. No change.
[2022-12-31 10:11] LABS: Blood Urea Nitrogen 11 mg/dL (8-23); Glomerular Filtration Rate 71.8 mL/min (90-130)
[2022-12-31] MEDS: iohexol 350 mg/mL 500 mL Btl (per mL) IV (10:23)
== END 2022-12-31 08:55 | disposition home or self-care (01) ==
LOC: RAD 08:57
PROVIDERS: PCP Family Medicine; Visit Provider Internal Medicine Medical Oncology
DX: C20 Malignant neoplasm of rectum (principal); K43.5 Parastomal hernia without obstruction or gangrene; Z93.3 Colostomy status; N28.89 Other specified disorders of kidney and ureter; M48.061 Spinal stenosis, lumbar region without neurogenic claudication; M48.56XA Collapsed vertebra, not elsewhere classified, lumbar region, initial encounter for fracture
CPT/HCPCS: 71260; 74177; 82565; 84520; Q9967

== ENCOUNTER 2023-01-07 11:00 | Oncology outpatient (recurring) (ONCR) | payer MEDICARE, SELFPAY ==
[2023-01-07 11:14] VITALS: BP 150/86; PULSE 94; RESP 18; TEMP 37; O2SAT 94
[2023-01-07 11:29] LABS: Basophils % 0.7 %; Eosinophils # 0.1 10^3/uL (0.0-0.8); Eosinophils % 2.2 %; Hematocrit 38.3 % (37.0-47.0); Hemoglobin 11.9 g/dL (11.5-15.3); Lymphocytes # 1.7 10^3/uL (0.8-4.8); Lymphocytes % 36.5 %; Mean Corpuscular HGB Conc 31.1 g/dL (30.0-36.0); Mean Corpuscular Hemoglobin 28.7 pg (28.0-34.0); Mean Corpuscular Volume 92.3 fl (81-99); Mean Platelet Volume 9.2 fL (7.4-10.4); Monocytes # 0.4 10^3/uL (0.2-0.9); Monocytes % 9.5 %; Neutrophils % 50.9 %; Nucleated Red Blood Cells % 0 %; Platelet Count 348 10^3/cmm (130-400); Red Blood Count 4.15 10^6/uL (4.1-5.3); Red Cell Distribution Width 13.2 % (12.1-15.1); White Blood Count 4.5 10^3/uL (4.0-10.0)
[2023-01-07 11:39] LABS: Alanine Aminotransferase 13 U/L (0-33); Albumin Level 4.2 g/dL (3.5-5.2); Alkaline Phosphatase 125 U/L (35-105); Anion Gap 15.9 (5-19); Aspartate Amino Transferase 14 U/L (0-32); Blood Urea Nitrogen 16 mg/dL (8-23); Calcium 8.6 mg/dL (8.5-10.5); Carbon Dioxide 26 mmol/L (22-29); Chloride 104 mmol/L (98-107); Globulin 2.7 g/dL (1.3-4.6); Glomerular Filtration Rate 62.6 mL/min (90-130); Glucose 111 mg/dL (65-115); Osmolality Calculated 296 mOsm/kg (285-295); Potassium 3.9 mmol/L (3.5-5.1); Sodium 142 mmol/L (136-145); Total Bilirubin 0.3 mg/dL (0.15-1.2); Total Protein 6.9 g/dL (6.6-8.7)
[2023-01-07 12:31] LABS: Carcinoembryonic Antigen 2.4 ng/mL (0.0-4.7)
== END 2023-01-26 23:59 | disposition home or self-care (01) ==
PROVIDERS: PCP Family Medicine; Visit Provider Internal Medicine Medical Oncology
DX: Z08 Encounter for follow-up examination after completed treatment for malignant neoplasm (principal); Z85.048 Personal history of other malignant neoplasm of rectum, rectosigmoid junction, and anus; Z92.3 Personal history of irradiation; Z92.21 Personal history of antineoplastic chemotherapy; Z93.3 Colostomy status; N28.89 Other specified disorders of kidney and ureter; R93.5 Abnormal findings on diagnostic imaging of other abdominal regions, including retroperitoneum
CPT/HCPCS: 36415; 80053; 82378; 85025; 99214

== ENCOUNTER 2023-01-13 09:29 | Outpatient (CLI) | payer MEDICARE, SELFPAY ==
--- NOTE | 2023-01-13 09:45 | US_ITS ---
WS: [id number] Exam: US renal BI* [id number] Date/Time of Exam: 01/13/2023 9:36 AM Reason For Exam: follow-up on lobulated mass in lower pole of left kidney A 2.57 x 2.4 cm complex cystic lesion is seen along the anterior lower pole the left kidney. The appe arance most suggestive of a hemorrhagic cyst. The kidneys are otherwise unremarkable. No sign of donald l obstruction. The right kidney measures 10.9 x 5.1 x 5.7 cm. The left kidney measures 11.7 x 4.5 x 5 .2 cm. The renal parenchyma is well preserved. US/US renal BI* [id number] IMPRESSION: 1. Complex cystic lesion at the anterior lower pole of the left kidney measurin g 2.57 x 2.4 cm. The appearance is most suggestive of a hemorrhagic cyst.
== END 2023-01-13 09:30 | disposition home or self-care (01) ==
LOC: RAD 09:31
PROVIDERS: PCP Family Medicine; Visit Provider Nurse Practitioner Family
DX: C20 Malignant neoplasm of rectum (principal); R93.5 Abnormal findings on diagnostic imaging of other abdominal regions, including retroperitoneum
CPT/HCPCS: 76770

== ENCOUNTER 2023-01-16 05:57 | Day surgery (SDC) | payer MEDICARE, SELFPAY ==
[2023-01-15 10:33] VITALS: BMI 40.7
[2023-01-16] VITALS (11 sets, daily range): BP systolic 141–173; BP diastolic 74–105; PULSE 81–94; RESP 15–23; TEMP 36.1–36.4; O2SAT 91–99
--- NOTE | 2023-01-16 | XR_ITS ---
WS: [id number] EXAMINATION: XR ankle RT 1V [id number] REASON FOR EXAM: OPERATIVE IMAGING COMPARISON: None available. ORDER DATE: 01/16/2023 12:00 AM TECHNIQUE: One view of the right calcaneus obtained. X-RAY FINDINGS: Film is underpenetrated. The bony and soft tissue detail is diminished. XR/XR ankle RT 1V [id number] IMPRESSION: No fractures or dislocations.
--- NOTE | 2023-01-16 06:16 | PM.OPSURHP ---
Providers/Chief Complaint Primary Care Provider: Alfredo Dow MD Chief Complaint: M65.271, M89.371 History of Present Illness Gregoria Barth is a 67 year old female presenting to clinic to discuss MRI results of right foot.? MRI was completed on 09/11/22.? 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 She complains of discomfort to right lower extremity. Rate 5/10.? She reports wearing open back shoes.? Wishing to discuss surgical intervention as her pain at the right Achilles insertion is affecting her overall quality of life and has prevented her from being more active. Patient denies any subjective nausea, vomiting, fever, chills, shortness of breath or chest pain. Review of Systems General: Reports: 10 or more systems reviewed and unremarkable except in HPI and below Const: Denies: fever(s) or chills Eyes: Denies: change in vision Card: Denies: chest pain or palpitations Resp: Denies: dyspnea or productive cough GI: Denies: abdominal pain, nausea or vomiting : Denies: flank pain Musc: Reports: extremity pain Skin/Breast: Denies: rash Neuro: Denies: numbness in extremities, sensory changes or frequent falls Psych: Denies: suicidal ideation Berny/Lymph: Denies: easy bruising Medications/Allergies Home Medications Medication Instructions Recorded Confirmed Last Taken Type diltiazem HCl 180 mg 180 mg PO DAILY@0900 09/11/20 01/15/23 01/15/23 History capsule,extended release 24 hr pantoprazole 40 mg tablet,delayed 40 mg PO BID@09,17 09/11/20 01/15/23 01/16/23 05:00 History release (Protonix) duloxetine 30 mg capsule,delayed 60 mg PO DAILY 11/13/21 01/15/23 01/16/23 05:00 History release Allergies Allergy/AdvReac Type Severity Reaction Status Date / Time nitrofurantoin Allergy Unconscious Verified 01/15/23 10:32 [From Macrobid] Iron sucrose AdvReac Intermediate Flushing, Uncoded 01/15/23 10:32 malaise PFSH PFSH: Medical History Anxiety and depression Arthritis Atrial fibrillation Degenerative arthritis GERD (gastroesophageal reflux disease) Iron deficiency anemia due to chronic blood loss Mitral valve prolapse Rectal adenocarcinoma Recto-vaginal fistula UTI (urinary tract infection) Vertebral compression fracture Surgical History H/O: hysterectomy (1995) History of bladder repair surgery History of esophagogastroduodenoscopy (EGD) (04/08/20) gastritis History of facial surgery left side History of hernia repair Double umbilical hernia repair History of low anterior resection of rectum (08/10/20) Robotic assisted low anterior resection with total mesorectal excision and placement of diverting loop ileostomy History of removal of Port-a-Cath Hx of colonoscopy (04/25/21) S/P cholecystectomy (2003) Status post left foot surgery Status post surgical 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 The following is a focused bilateral lower extremity exam. VASCULAR: Dorsalis pedis and posterior tibial arteries palpable +2.? Capillary refill time less than 3 seconds to the distal hallux bilaterally. Calf is supple and nontender proximally and distally.? No pedal edema appreciated.? Pedal hair growth present. NEUROLOGICAL: Epicritic and protopathic sensations grossly intact to the lower extremities.? +2 Achilles tendon reflex noted bilaterally.? Negative Tinel sign upon percussion of lower extremity nerves. DERMATOLOGICAL: Lower extremity skin is well-hydrated, normal texture and turgor.? There are no open sores or lesions noted to the lower extremities.? No erythema or ecchymosis present to the bilateral legs and feet. MUSCULOSKELETAL: Pain to palpation at insertion of right Achilles tendon.? Most pain is at the posterior superior lateral aspect of the calcaneal tuberosity.? Bony prominence posterior right calcaneus.? She is able to dorsiflex to 2 degrees beyond neutral and then guarded with pain at that point.? Ambulates with antalgic gait.? Able to perform single heel rise with pain. CARDIOVASCULAR: S1, S2, normal rate, normal rhythm.? Dorsalis pedis and posterior tibial arteries palpable. LUNGS: Clear to auscltation, no use of acessory muscles, no crackles or wheezes. A&P Assessment and plan (1) Insertional Achilles tendinopathy: (2) Julissa's deformity of right heel: (3) Right foot pain: Plan Pleasant 67-year-old female presents with right insertional calcific Achilles tendinosis and Julissa's deformity approximately 12 months in duration.? X-ray shows enthesophytes at the calcaneal tuberosity at the attachment of the Achilles as well as origin of the plantar fascia inferiorly. No improvement with open back shoes, heel lift, offloading, at home and formal physical therapy as well as anti-inflammatories.? Pain is causing her to reduce her activities and not be as active as she would like to be.? Affects her overall quality of life.? Would like to discuss surgical correction.? She has had her left Achilles corrected in the past and has had a good outcome with that.? Would like to plan surgery for her right.? I reviewed at length with the patient, the risks, potential complications, benefits, alternatives, expectations, and typical outcomes associated with the surgery. The risks and potential complications were explained in detail, including but not limited to infection, wound dehiscence or soft tissue complications, bleeding and hematoma, chronic edema, neuritis or nerve damage producing numbness or chronic pain, CRPS, failure to relieve pain or worsening pain, thick / painful / unsightly scar, limited motion / stiffness, malposition, delayed union, malunion, or nonunion, fracture, reaction to implants, anesthetic complications, venous thromboembolism, and deformity recurrence.? I discussed the notion of no regrets with the patient as it pertains to complications and outcomes. The patient seemed to understand the nature of the proposed care and required convalescence. They asked appropriate questions, answered to their satisfaction. They are aware no guarantees can be made as to a satisfactory outcome and they understand there may be other possible unforeseen complications or outcomes not listed here that will be treated accordingly if they arise. There were no written or implied guarantees given to the patient. They gave informed consent to proceed. January 16, 2023 outpatient surgery, primary Achilles repair and Julissa's resection with possible flexor hallucis longus tendon transfer. General anesthetic, prone, OR table, Arthrex, mini C arm, 90 minutes Coding Level of Care Code Acute Code for [facility] Fwd Diagnoses Insertional Achilles tendinopathy M76.60 Julissa's deformity of right heel M92.61 Right foot pain M79.671
[2023-01-16] MEDS: CELEcoxib 200 mg Capsule 400 MG PO (06:20)
[2023-01-16] MEDS: sodium chloride 0.9% 1,000 ML 30 ML IV (06:29)
--- NOTE | 2023-01-16 06:43 | P.OP_ITS ---
Operative Report Date of procedure: January 16, 2023 Pre-op diagnosis: Julissa's deformity, right Insertional Achilles tendinopathy, right Post-op diagnosis: Same Procedure done: Right Achilles tendon repair. CPT code 76401 Right Julissa's resection. CPT code 53128 Implants: Arthrex speed bridge, 3-0 Vicryl, 3-0 nylon Surgeon: Sai Mcneal D.P.M. Estimated blood loss: 10 31 IV fluids: 0 Urine output: 0 Complications: None Brief History: Pleasant 67-year-old female presents with right insertional calcific Achilles tendinosis and Julissa's deformity approximately 12 months in duration.? X-ray shows enthesophytes at the calcaneal tuberosity at the attachment of the Achilles as well as origin of the plantar fascia inferiorly. No improvement with open back shoes, heel lift, offloading, at home and formal physical therapy as well as anti-inflammatories.? Pain is causing her to reduce her activities and not be as active as she would like to be.? Affects her overall quality of life.? Would like to discuss surgical correction.? She has had her left Achilles corrected in the past and has had a good outcome with that.? Would like to plan surgery for her right.? I reviewed at length with the patient, the risks, potential complications, benefits, alternatives, expectations, and typical outcomes associated with the surgery. The risks and potential complications were explained in detail, including but not limited to infection, wound dehiscence or soft tissue complications, bleeding and hematoma, chronic edema, neuritis or nerve damage producing numbness or chronic pain, CRPS, failure to relieve pain or worsening pain, thick / painful / unsightly scar, limited motion / stiffness, malposition, delayed union, malunion, or nonunion, fracture, reaction to implants, anesthetic complications, venous thromboembolism, and deformity recurrence.? I discussed the notion of no regrets with the patient as it pertains to complications and outcomes. The patient seemed to understand the nature of the proposed care and required convalescence. They asked appropriate questions, answered to their satisfaction. They are aware no guarantees can be made as to a satisfactory outcome and they understand there may be other possible unforeseen complications or outcomes not listed here that will be treated accordingly if they arise. There were no written or implied guarantees given to the patient. They gave informed consent to proceed. Procedure: Under mild sedation the patient was brought to the operating room and while still on the [facility] anesthesia was introduced by the anesthesia service, well- padded thigh tourniquet applied to the right high calf.? Patient was then placed prone onto the operative table with appropriate padding and offloading.? Right lower extremity was then scrubbed, prepped and draped utilizing normal aseptic technique.? Right foot and leg was examined a weighted with an Esmarch bandage and the tourniquet inflated to 250 mmHg at the right high calf. Attention was then directed to the right Achilles tendon which was palpated noted to be thickened and there was osseous prominence both at the skin as well as proximal to the insertion of the posterior superior lateral aspect of the calcaneal tuberosity.? At the medial border of the Achilles tendon at the area of the watershed coursing distally in a fishhook fashion a full-thickness flap was incised with a #15 blade down to peritenon this was reflected laterally.? There was thickening and dysmorphic peritenon and Achilles tendon interface this was sharply debrided and passed from the operative field.? The Achilles tendon was then reflected off the posterior calcaneus from medial to lateral fashion maintaining a small attachment laterally to maintain length.? Achilles tendon was debrided sharply with a #15 blade and pickups of mucoid degeneration, thickening and disorganized collagen with intratendinous calcifications being sharply excised and passed from operative field.? Once thorough debridement was performed attention was directed to the posterior calcaneus where Julissa's deformity was appreciated as well as insertional Achilles calcifications at the lower one third of the posterior calcaneal tuberosity.? A sagittal saw was then utilized to transect the posterior calcaneal Julissa's deformity with exostosis with the blade oriented inferior posterior to superior anterior with a bone wedge taken approximately 3 cm x 3 cm x 1 cm this was passed per operative field.? All rough edges were smoothed and sharp edges rounded with a hand rasp.? Intraoperative fluoroscopy confirmed excellent resection of bony overgrowth and noted to be adequate.? Incision site was flushed with copious amounts of sterile saline solution.? Next utilizing standard technique per manufacture recommendation and package insert and Achilles speed bridge was utilized with a total of 4 bone anchors with excellent footprint approximately 1.5 cm apart anchoring the Achilles tendon back to bone with excellent bone to tendon interface and tendon out to length.? Repair was firm and tested intraoperatively and was able to withstand dorsiflexion of the right ankle with excellent integ rity.? Incision site was flushed with copious amounts of sterile saline solution.? Dogears at the medial lateral border of the Achilles tendon were transected in an oblique direction.?Peritenon and subcutaneous tissue closed utilizing 3-0 Vicryl.? Skin reapproximated utilizing 3-0 nylon in a horizontal mattress technique.? Incision site was dressed with jumpstart, sterile 4 x 4's, Kerlix and application of well-padded multilayer compressive Solis splint with ankle in plantarflexion.? Tourniquet was deflated and a prompt hyperemic response was noted to the distal digits of the right foot.? Patient was transferred to the PACU with vital signs stable and vascular status intact.? Following a period of postoperative monitoring he will be discharged home is to remain strict nonweightbearing and elevate her right foot at all times while at rest she has wheelchair, crutches and knee scooter to facilitate this.? She was provided a prescription for hydrocodone to be taken judiciously as needed for pain I advised him to take a baby aspirin this will be 81 mg once daily for DVT prophylaxis.? Follow-up scheduled next week in podiatry clinic Thursday morning.? He was provided my cell phone number will call me with any postoperative questions or concerns.
--- NOTE | 2023-01-16 06:43 | W.PM.OPSUD ---
Surgery/Procedure H&P Update DATE OF PROCEDURE: January 16, 2023 DATE H&P PERFORMED: 01/16/23 CHANGES TO PREVIOUS DOCUMENTATION: None PREOP DIAGNOSIS: right Achilles tendinopathy PLANNED PROCEDURE: Operation Date: 01/16/23 07:00 Proposed Procedures p ?Right Achilles tendon repair and Right Julissa's resection [id number], [id number],M65.271,M89.371(Right) - Sai Mcneal DPM s [place] Resection(Right) - Sai Mcneal DPM
[2023-01-16] MEDS: ondansetron 2 mg/ML SDV 2 mL 4 MG IVP (06:49)
[2023-01-16] MEDS: midazolam 1 mg/mL INJ 2 mL 2 MG IVP (06:53)
[2023-01-16] MEDS: ceFAZolin 2,000 MG in sodium chloride 0.9% (plus) 50 ML 100 MG IV (07:19)
--- NOTE | 2023-01-16 09:00 | ANES.PREANE2 ---
Pre-Anesthetic Assessment Height/Weight: Height 1.7 m Weight 117.934 kg Temp Pulse Resp BP Pulse Ox O2 Del Method O2 Flow Rate 97.4 F L 87 23 H 166/105 99 Simple Mask 6 01/16/23 08:35 01/16/23 08:50 01/16/23 08:50 01/16/23 08:50 01/16/23 08:50 01/16/23 08:50 01/16/23 08:50 Preop Diagnosis: right Achilles tendinopathy Operation Date: 01/16/23 07:00 Proposed Procedures p ?Right Achilles tendon repair and Right Julissa's resection [id number], [id number],M65.271,M89.371(Right) - Sai Mcneal DPM s [place] Resection(Right) - Sai Mcneal DPM Familial anesthetic complications: none Was Beta Ellie taken within 24 hours: N/A Was Clonidine taken within 24 hours: N/A Last intake: Intake Last Liquid Date 01/15/23 Last Liquid Time 17:30 Last Solid Date 01/15/23 Last Solid Time 17:30 Social No alcohol and No tobacco Exam alert, oriented x 3, clear to auscultation bilaterally and regular rate & rhythm Airway Submandibular: within normal limits Cervical ROM: within normal limits Mallampati: Class II Dentition: partials CV/HEM Anemia, Hypertension and Murmur GI Gastroesophageal Reflux Disease Metabolic Morbid Obesity Musc/skel Lower Back Pain and Osteoarthritis/DJD Anesthetic Plan ASA status: 3 Anesthesia: General and Regional (specify below) (right pop blk) Medications/Allergies Home Medications Medication Instructions Recorded Confirmed Last Taken Type diltiazem HCl 180 mg 180 mg PO DAILY@0900 09/11/20 01/15/23 01/15/23 History capsule,extended release 24 hr pantoprazole 40 mg tablet,delayed 40 mg PO BID@,09/11/20 01/15/23 01/16/23 05:00 History release (Protonix) duloxetine 30 mg capsule,delayed 60 mg PO DAILY 11/13/21 01/15/23 01/16/23 05:00 History release enoxaparin 40 mg/0.4 mL 40 mg (0.4 mL) SUBCUT DAILY 01/16/23 Unknown Rx subcutaneous syringe (Lovenox) days #8 mL hydrocodone 10 mg-acetaminophen 1 tab PO Q6H PRN pain 7 days #28 01/16/23 Unknown Rx 325 mg tablet tabs Allergies Allergy/AdvReac Type Severity Reaction Status Date / Time nitrofurantoin Allergy Unconscious Verified 01/15/23 10:32 [From Macrobid] Iron sucrose AdvReac Intermediate Flushing, Uncoded 01/15/23 10:32 malaise Current Medications Generic Name Dose Route Start Last Admin Trade Name Freq PRN Reason Stop Dose Admin Sodium Chloride 1,000 mls @ 30 mls/hr 01/16/23 06:00 01/16/23 06:29 Sodium Chloride 0.9% IV 01/17/23 05:59 30 mls/hr .Q24H EMILY Administration Midazolam HCl 2 mg 01/16/23 05:53 01/16/23 06:53 Midazolam 1 Mg/Ml Inj 2 Ml IVP 2 mg ONCE PRN Administration Preop Anxiety Ondansetron HCl 4 mg 01/16/23 05:53 01/16/23 06:49 Ondansetron 2 Mg/Ml Sdv 2 Ml IVP 4 mg ONCE PRN Administration NAUSEA AND VOMITING PFSH Anesthesia Medical History Anxiety and depression Arthritis Atrial fibrillation Degenerative arthritis GERD (gastroesophageal reflux disease) Iron deficiency anemia due to chronic blood loss Mitral valve prolapse Rectal adenocarcinoma Recto-vaginal fistula UTI (urinary tract infection) Vertebral compression fracture Surgical History H/O: hysterectomy (1995) History of bladder repair surgery History of esophagogastroduodenoscopy (EGD) (04/08/20) gastritis History of facial surgery left side History of hernia repair Double umbilical hernia repair History of low anterior resection of rectum (08/10/20) Robotic assisted low anterior resection with total mesorectal excision and placement of diverting loop ileostomy History of removal of Port-a-Cath Hx of colonoscopy (04/25/21) S/P cholecystectomy (2003) Status post left foot surgery Status post surgical removal of malignant neoplasm of skin nose Family History Mother Breast cancer early 50's Father Lung cancer Family/Other Colon cancer paternal aunt, late 60's Denies family history of Ovarian cancer Diabetes Clotting disorder Heart disease Hyperlipidemia Anesthesia complication Bleeding disorder Hypertension Uterine cancer Thyroid condition Stroke Social History Smoking and tobacco status: never smoked Alcohol intake: never Substance/Drug Use: never Marital status: Data Anesthesia Cardiac Studies: Echocardiogram Ultrasound 04/04/20 Anesthesia Procedures Nerve Block Nerve Block 1: Main Anesthesia: general anesthesia Time Out Performed: Yes Consent: requested by attending/covering physician, from patient, risks and benefits reviewed and patient agrees to proceed Nerve block location: popliteal (right) Anesthesia monitors applied: pulse oximetry, EKG, BP cuff and oxygen Nerve block position: supine Anesthetic Used: ropivicaine 0.5% Amount of anesthesia used (mL): 30 Ultrasound used to: recognize landmarks Nerve Stimulator Used?: No Interscalene/Femoral BLK: 4 stimuplex 21 g needle used for position and inplane approach Injection: neg aspiration of heme Patient Tolerated Procedure: well
--- NOTE | 2023-01-16 17:26 | ANE.PACU2 ---
Inpatient post-anesthesia follow up: Airway intact: Yes Vital signs: Temperature 97.5 F Pulse Rate 81 Respiratory Rate 18 Blood Pressure 141/84 Pulse Oximetry 99 Oxygen Delivery Me thod Room Air Oxygen Flow Rate 6 Fraction of Inspir ed Oxygen Hydration adequate: Yes Nausea and vomiting: No Pain level: 2 Mental status: Baseline
== END 2023-01-16 10:04 | disposition home or self-care (01) ==
PROVIDERS: PCP Family Medicine; Visit Provider Podiatrist Foot & Ankle Surgery
PROC: (CPT 27650; principal; 2023-01-16 07:00)
PROC: (CPT 27650; 2023-01-16 07:00)
DX: M76.61 Achilles tendinitis, right leg (principal); M92.61 Juvenile osteochondrosis of tarsus, right ankle
CPT/HCPCS: 27650; 28118; 73600; 76000; C1713; C9290; J0690; J1100; J1200; J2250; J2405; J2704; J2795; J3010; J3490; J7030

== ENCOUNTER 2023-03-03 08:29 | Outpatient (CLI) | payer MEDICARE, SELFPAY ==
[2023-03-03] MEDS: iohexol 350 mg/mL 500 mL Btl (per mL) PO (08:56)
--- NOTE | 2023-03-03 10:00 | CT_ITS ---
WS: [id number] CT ABDOMEN PELVIS TECHNIQUE: Contrast-enhanced CT of the abdomen and pelvis with coronal and sagittal reformatted image s. CLINICAL INFORMATION: abnormal CT scan recommended follow-up COMPARISON: CT 12/31/2022, 05/29/2022. DLP: 1015.[address] scans at [facility] use at least one of these dose optimization techniques: automated e xposure control; mA and/or kV adjustment per patient size (includes targeted exams where dose is matc hed to clinical indication); or iterative reconstruction. FINDINGS: Again seen is a LEFT lower quadrant colostomy with parastomal hernia. Parastomal hernia with a few ai r-fluid levels is unchanged in appearance. Again seen is mild thickening of the colon just proximal t o the hernia. Proximal associated dilatation similar to previous with air-fluid levels. Distal stoma appears patent. Diffuse fatty filtration of the liver. Prior cholecystectomy. Normal spleen. Few tiny subpleural nodu les in the RIGHT middle lobe and RIGHT lower lobe. Normal spleen. Small esophageal canal hernia. Norm al portal vein and splenic vein. Normal pancreatic parenchymal enhancement. Normal caliber abdominal aorta. Mild aortic calcification. Adrenal glands are normal. Stable slightly increased attenuation LEFT lower pole renal lesion measuring 2.5 cm. Previous ultraso und demonstrated complex cystic lesion likely hemorrhagic cyst. No hydronephrosis in either kidney. Small bladder cystocele. No abdominal or pelvic lymphadenopathy. Chronic compression fracture L5 supe rior plate with retropulsion of the posterior superior cortex appears unchanged with moderate central canal stenosis. IMPRESSION: 1. LEFT lower quadrant colostomy with parastomal hernia is similar in appearance to the prior examin ations. Mild colonic thickening with narrowing or stricturing at the parastomal hernia with upstream bowel dilatation with air-fluid levels. This is similar in appearance to 12/31/2022 and 05/29/2022. Karri mmend continued surveillance. No focal enhancing mass. 2. Lower pole cystic lesion measuring 2.5 cm is unchanged in appearance. Recent ultrasound demonstr ated suspected hemorrhagic cyst. Recommend continued surveillance with ultrasound. 3. Diffuse fatty filtration of the liver. Prior cholecystectomy. 4. Small esophageal hernia. 5. No other changes.
[2023-03-03] MEDS: iohexol 350 mg/mL 500 mL Btl (per mL) IV (10:23)
== END 2023-03-03 08:30 | disposition home or self-care (01) ==
PROVIDERS: PCP Family Medicine; Visit Provider Nurse Practitioner Family
DX: R93.89 Abnormal findings on diagnostic imaging of other specified body structures (principal); C20 Malignant neoplasm of rectum; Z93.3 Colostomy status; K43.5 Parastomal hernia without obstruction or gangrene; N28.9 Disorder of kidney and ureter, unspecified; K76.0 Fatty (change of) liver, not elsewhere classified; K44.9 Diaphragmatic hernia without obstruction or gangrene
CPT/HCPCS: 74177; Q9967

== ENCOUNTER → 2023-03-05 15:03 | Outpatient (BNVA) | payer MEDICARE, SELFPAY | PROVIDERS: PCP Family Medicine; Visit Provider Podiatrist Foot & Ankle Surgery | DX: E11.8 Type 2 diabetes mellitus with unspecified complications (principal); Z98.890 Other specified postprocedural states; M92.61 Juvenile osteochondrosis of tarsus, right ankle; M76.61 Achilles tendinitis, right leg | CPT/HCPCS: 73630; 99024 ==

== ENCOUNTER 2023-03-17 15:22 | Outpatient (CLI) | payer MEDICARE, SELFPAY ==
--- NOTE | 2023-03-17 15:45 | US_ITS ---
WS: [id number] ULTRASOUND RENAL TECHNIQUE: Ultrasound examination of both kidneys. CLINICAL INFORMATION: abnormal left kidney lesion - surveillance COMPARISON: CT 03/03/2023 and ultrasound 01/13/2023 FINDINGS: RIGHT: Right kidney is normal in size and appearance. Echogenicity: Normal. Cortical thickness: 0.9 cm; Normal. Hydronephrosis: None. Perinephric fluid: None. Right kidney measures: 10.7 cm x 5.2 cm x 6.3 cm LEFT: Complex LEFT renal cystic lesion measuring 2.5 x 2.0 x 1.7 cm with internal echogenic debris li kevin hemorrhagic cyst. This is unchanged from previous studies. Left kidney is normal in size and appearance. Echogenicity: Normal. Cortical thickness: 0.7 cm; Normal. Hydronephrosis: None. Perinephric fluid: None. Left kidney measures: 12.0 cm x 5.3 cm x 4.7 cm. Normal visualized aorta. Bladder is decompressed. IMPRESSION: Technically difficult study due to body habitus and bowel gas 1. Complex LEFT renal cystic lesion in the mid and lower pole measuring 2.5 x 2.0 x 1.7 cm with inte rnal echogenic debris likely hemorrhagic cyst. This is unchanged from previous. Recommend continued u ltrasound surveillance. 2. No hydronephrosis in either kidney. 3. Bladder is decompressed.
== END 2023-03-17 15:23 | disposition home or self-care (01) ==
PROVIDERS: PCP Family Medicine; Visit Provider Nurse Practitioner Family
DX: N28.89 Other specified disorders of kidney and ureter (principal)
CPT/HCPCS: 76770

== ENCOUNTER → 2023-03-26 13:53 | Outpatient (BNVA) | payer MEDICARE, SELFPAY | PROVIDERS: PCP Family Medicine; Visit Provider Podiatrist Foot & Ankle Surgery | DX: M92.61 Juvenile osteochondrosis of tarsus, right ankle (principal); Z98.890 Other specified postprocedural states; M76.61 Achilles tendinitis, right leg | CPT/HCPCS: 99024 ==

== ENCOUNTER → 2023-05-04 09:23 | Outpatient (BNVA) | payer MEDICARE, SELFPAY | PROVIDERS: PCP Family Medicine; Visit Provider Podiatrist Foot & Ankle Surgery | DX: Z98.890 Other specified postprocedural states (principal); M92.61 Juvenile osteochondrosis of tarsus, right ankle; M76.60 Achilles tendinitis, unspecified leg | CPT/HCPCS: 99024 ==

== ENCOUNTER 2023-05-18 06:00 | Outpatient (RCR) | payer MEDICARE, SELFPAY | END 2023-05-28 23:59 | disposition home or self-care (01) | LOC: APT 06:00 | PROVIDERS: PCP Family Medicine; Visit Provider Podiatrist Foot & Ankle Surgery | DX: Z47.89 Encounter for other orthopedic aftercare (principal) | CPT/HCPCS: 97035; 97110; 97140; 97162; 97530 ==

== ENCOUNTER 2023-05-29 06:00 | Outpatient (RCR) | payer MEDICARE, SELFPAY | END 2023-06-28 23:59 | disposition home or self-care (01) | LOC: APT 06:00 | PROVIDERS: PCP Family Medicine; Visit Provider Podiatrist Foot & Ankle Surgery | DX: Z98.890 Other specified postprocedural states (principal) | CPT/HCPCS: 97035; 97110; 97112; 97140; 97530 ==

== ENCOUNTER 2023-06-08 10:04 | Outpatient (CLI) | payer MEDICARE, SELFPAY ==
[2023-06-08] MEDS: iohexol 350 mg/mL 500 mL Btl (per mL) PO (10:52)
--- NOTE | 2023-06-08 11:00 | CT_ITS ---
WS: [id number] CT ABDOMEN AND PELVIS WITH CONTRAST HISTORY: Abnormal CT scan - continued surveillance, history of colorectal cancer. TECHNIQUE: Imaging performed of the abdomen and pelvis with IV contrast. Single phase imaging of the abdomen. Coronal and sagittal reformats are submitted. All CT scans at [facility] use at [address] one of these dose optimization techniques: automated exposure control; mA and/or kV adjustment per patient size (includes targeted exams where dose is matched to clinical indication); or iterative re construction. IV CONTRAST: Omnipaque 350; 100 mL IV. Oral contrast: Yes. DLP: 1005.96 mGy.cm COMPARISON: 03/03/2023, 12/31/2022, 05/29/2022 Lower thorax: Lung bases are clear. Heart is normal size. No hiatal hernia. Liver/biliary system: Normal size with no intrahepatic dilatation. Gallbladder: Status post cholecystectomy. Pancreas: Normal size pancreas and pancreatic duct. No adjacent inflammation. Spleen: Normal size spleen. No mass or infarct. Adrenal glands: Normal. Right kidney: Normal. Left kidney: Normal size kidney. Exophytic 1.6 cm cyst from the lower pole. No interval change. Aorta: Normal. Lymphadenopathy: None. There are a very few tiny, subcentimeter mesenteric lymph nodes which have bee n present since 05/29/2022. Free fluid: None. GI tract: Normal appearance of the stomach. Increased fluid in the distal small bowel is similar to p rior studies. Increased fluid and air contiguous throughout the ascending and transverse colon to the LEFT colostomy site. There is a peristomal hernia. The bowel within the parastomal hernia is also so me mildly dilated and fluid-filled. There is a small bowel loop extending into the parastomal hernia which is not dilated. There is an area of stricture and narrowing at the transition point through the colostomy opening. These findings have been present on several prior examinations dating back to 05/29/2022. Prior distal LEFT colectomy. Abdominal wall: LEFT lower quadrant colostomy. Pelvis: No free fluid or adenopathy within the pelvis. Bones: Chronic L5 compression fracture with retropulsion of the posterior superior endplate of the ve rtebral body. IMPRESSION: 1. LEFT lower quadrant colostomy with parastomal hernia is reidentified. Not significantly changed s gloria the prior study. 2. There is a component of mild obstruction at the ostomy site. The proximal colon and the distal sm all bowel are fluid-filled as is a loop of colon within the stoma. Very similar in appearance to prio r studies dating back to 05/29/2022. No significant progression of the stenosis. 3. No adenopathy or increase in size of the small mesenteric lymph nodes. 4. No adrenal mass. 5. Prior cholecystectomy.
[2023-06-08 11:22] LABS: Blood Urea Nitrogen 10 mg/dL (8-23); Glomerular Filtration Rate 99.7 mL/min (90-130)
[2023-06-08] MEDS: iohexol 350 mg/mL 500 mL Btl (per mL) IV (11:28)
== END 2023-06-08 10:05 | disposition home or self-care (01) ==
LOC: RAD 10:05
PROVIDERS: PCP Family Medicine; Visit Provider Nurse Practitioner Family
DX: C20 Malignant neoplasm of rectum (principal); K43.3 Parastomal hernia with obstruction, without gangrene; Z93.3 Colostomy status; Z90.49 Acquired absence of other specified parts of digestive tract
CPT/HCPCS: 74177; 82565; 84520; Q9967

== ENCOUNTER 2023-06-29 06:00 | Outpatient (RCR) | payer MEDICARE, SELFPAY | END 2023-07-29 23:59 | disposition home or self-care (01) | LOC: APT 06:00 | PROVIDERS: PCP Family Medicine; Visit Provider Podiatrist Foot & Ankle Surgery | DX: Z47.89 Encounter for other orthopedic aftercare (principal) | CPT/HCPCS: 97035; 97110; 97530 ==

== ENCOUNTER → 2023-07-01 09:20 | Outpatient (BNVA) | payer MEDICARE, SELFPAY | PROVIDERS: PCP Family Medicine; Visit Provider Podiatrist Foot & Ankle Surgery | DX: M92.61 Juvenile osteochondrosis of tarsus, right ankle (principal); Z98.890 Other specified postprocedural states; M21.41 Flat foot [pes planus] (acquired), right foot; M21.42 Flat foot [pes planus] (acquired), left foot; M76.61 Achilles tendinitis, right leg | CPT/HCPCS: 99213 ==

== ENCOUNTER 2023-07-13 11:29 | Oncology outpatient (recurring) (ONCR) | payer MEDICARE, SELFPAY ==
[2023-07-13 12:37] LABS: Basophils % 0.8 %; Eosinophils # 0.2 10^3/uL (0.0-0.8); Eosinophils % 3.3 %; Hematocrit 36.8 % (36-47); Lymphocytes # 1.8 10^3/uL (0.8-4.8); Lymphocytes % 34.4 %; Mean Corpuscular HGB Conc 30.2 g/dL (30-55); Mean Corpuscular Hemoglobin 26.6 pg (27-33); Mean Platelet Volume 8.7 fL (7.4-10.4); Monocytes # 0.6 10^3/uL (0.2-0.9); Neutrophils # 2.56 10^3/uL (1.8-7.7); Neutrophils % 50.3 %; Nucleated Red Blood Cells % 0 %; Platelet Count 397 10^3/cmm (157-399); Red Blood Count 4.18 10^6/uL (3.85-5.65); Red Cell Distribution Width 13.7 % (12.1-15.1); White Blood Count 5.09 10^3/uL (3.29-11.43)
[2023-07-13 13:06] LABS: Carcinoembryonic Antigen 2.3 ng/mL (0.0-4.7)
[2023-07-13 13:27] LABS: Alanine Aminotransferase 14 U/L (0-33); Albumin Level 4.1 g/dL (3.5-5.2); Alkaline Phosphatase 136 U/L (35-105); Anion Gap 15.5 (5-19); Aspartate Amino Transferase 15 U/L (0-32); Blood Urea Nitrogen 13 mg/dL (8-23); Calcium 9.4 mg/dL (8.5-10.5); Carbon Dioxide 29 mmol/L (22-29); Chloride 100 mmol/L (98-107); Glomerular Filtration Rate 62.5 mL/min (90-130); Glucose 116 mg/dL (65-115); Osmolality Calculated 293 mOsm/kg (285-295); Potassium 3.5 mmol/L (3.5-5.1); Sodium 141 mmol/L (136-145); Total Bilirubin 0.3 mg/dL (0.15-1.2); Total Protein 7.1 g/dL (6.6-8.7)
== END 2023-07-29 23:59 | disposition home or self-care (01) ==
PROVIDERS: Nurse Practitioner Family; PCP Family Medicine; Visit Provider Internal Medicine Medical Oncology
DX: Z08 Encounter for follow-up examination after completed treatment for malignant neoplasm (principal); Z85.048 Personal history of other malignant neoplasm of rectum, rectosigmoid junction, and anus; Z92.3 Personal history of irradiation; Z92.21 Personal history of antineoplastic chemotherapy; E03.9 Hypothyroidism, unspecified; C20 Malignant neoplasm of rectum; R53.0 Neoplastic (malignant) related fatigue; G62.0 Drug-induced polyneuropathy; T45.1X5A Adverse effect of antineoplastic and immunosuppressive drugs, initial encounter; M54.50 Low back pain, unspecified; Z79.891 Long term (current) use of opiate analgesic; Z53.9 Procedure and treatment not carried out, unspecified reason
CPT/HCPCS: 36415; 80053; 82378; 85025; 99214

== ENCOUNTER → 2023-07-21 09:00 | Outpatient (BNVA) | payer MEDICARE, SELFPAY | PROVIDERS: PCP Family Medicine; Visit Provider Family Medicine | DX: Z13.6 Encounter for screening for cardiovascular disorders (principal) | CPT/HCPCS: 80061 ==

== ENCOUNTER 2023-08-14 08:43 | Outpatient (CLI) | payer MEDICARE, SELFPAY ==
--- NOTE | 2023-08-14 09:00 | US_ITS ---
WS: [id number] RENAL ULTRASOUND HISTORY: surveillance COMPARISON: 03/17/2023 TECHNIQUE: 2-D and color Doppler imaging of the kidney submitted. Right kidney: 10.5 cm x 5.0 cm x 5.3 cm. Cortex: 1.2 cm Normal echogenicity with no hydronephrosis or mass. Left kidney: 10.3 cm x 4.3 cm x 5.5 cm. Cortex: 1.2 cm Normal size kidney. There is a small minimally complex cyst in the lower pole measuring 1.3 x 1.4 cm. This nodule appears less solid today more cystic and does appear slightly smaller in size. Aorta: Normal. Urinary Bladder: Minimally distended. IMPRESSION: 1. Previously described small hemorrhagic cyst in the lower pole of the LEFT kidney has decreased in size and appears more cystic today. By recent CT of 06/08/2023 this did appear to be a cyst also. 2. No hydronephrosis or solid mass.
== END 2023-08-14 08:44 | disposition home or self-care (01) ==
LOC: RAD 08:43
PROVIDERS: PCP Family Medicine; Visit Provider Nurse Practitioner Family
DX: R93.429 Abnormal radiologic findings on diagnostic imaging of unspecified kidney (principal); N28.1 Cyst of kidney, acquired
CPT/HCPCS: 76770

== ENCOUNTER → 2023-08-27 08:47 | Outpatient (BNVA) | payer MEDICARE, SELFPAY | PROVIDERS: PCP Family Medicine; Visit Provider Internal Medicine Medical Oncology | DX: R31.9 Hematuria, unspecified (principal) | CPT/HCPCS: 81003 ==

== ENCOUNTER 2023-12-10 13:18 | Oncology outpatient (recurring) (ONCR) | payer MEDICARE, SELFPAY ==
[2023-12-10 13:56] LABS: Basophils # 0.1 10^3/uL (0.0-0.1); Basophils % 0.9 %; Eosinophils # 0.2 10^3/uL (0.0-0.8); Eosinophils % 3.2 %; Hematocrit 33.6 % (36-47); Lymphocytes # 1.8 10^3/uL (0.8-4.8); Lymphocytes % 32.4 %; Mean Corpuscular HGB Conc 29.2 g/dL (30-55); Mean Corpuscular Hemoglobin 24.1 pg (27-33); Mean Corpuscular Volume 82.6 fl (85-98); Monocytes # 0.5 10^3/uL (0.2-0.9); Monocytes % 8.3 %; Neutrophils % 54.8 %; Nucleated Red Blood Cells % 0 %; Platelet Count 375 10^3/cmm (157-399); Red Blood Count 4.07 10^6/uL (3.85-5.65); Red Cell Distribution Width 14.6 % (12.1-15.1); White Blood Count 5.65 10^3/uL (3.29-11.43)
[2023-12-10 14:25] LABS: Carcinoembryonic Antigen 2.9 ng/mL (0.0-4.7)
[2023-12-10 14:36] LABS: Alanine Aminotransferase 12 U/L (0-33); Alkaline Phosphatase 128 U/L (35-105); Anion Gap 14.6 (5-19); Aspartate Amino Transferase 14 U/L (0-32); Blood Urea Nitrogen 15 mg/dL (8-23); Carbon Dioxide 27 mmol/L (22-29); Chloride 102 mmol/L (98-107); Creatinine Clr Calc Pharmacy 92.9789; Globulin 3.2 g/dL (1.3-4.6); Glomerular Filtration Rate 83.5 mL/min (90-130); Glucose 103 mg/dL (65-115); Osmolality Calculated 291 mOsm/kg (285-295); Potassium 3.6 mmol/L (3.5-5.1); Sodium 140 mmol/L (136-145); Total Bilirubin 0.2 mg/dL (0.15-1.2); Total Protein 7.2 g/dL (6.6-8.7)
[2023-12-10 15:11] LABS: Add Urine Microscopic? NO; Charge for UA Resulting for Rev
[2023-12-10 15:38] LABS: Bilirubin Urine Neg (Negative); Blood Urine Neg (Negative); Glucose Urine UA Norm (Normal); Ketones Urine 1+ (Negative); Leukocyte Esterase Urine Negative (Negative); Nitrate Urine Negative (Negative); Protein Urine Neg (Negative); Urine Appearance Clear (CLEAR); Urine Color Yellow (Yellow); Urobilinogen Urine Norm (Negative); pH Urine 5 (5-7)
[2023-12-10 16:46] LABS: Thyroid Stimulating Hormone 1.94 uIU/mL (0.27-4.20)
[2023-12-11 04:07] LABS: Folate Level 11.1 ng/mL (4.8-37.3)
[2023-12-13 15:28] LABS: Zinc Level, Serum or Plasma 55 mcg/dL (60-130)
[2023-12-14 08:45] LABS: Methylmalonic Acid 221 nmol/L (87-318)
[2023-12-14 11:29] LABS: Copper Level 146 mcg/dL (70-175)
[2023-12-18 15:00] LABS: Soluble Transferrin Receptor 3.02 mg/L (0.76-1.76)
[2023-12-21] MEDS: iohexol 350 mg/mL 500 mL Btl (per mL) PO (08:48)
--- NOTE | 2023-12-21 09:30 | CTR_ITS ---
PROCEDURE INFORMATION: Exam: CT Chest With Contrast; Diagnostic Exam date and time: 12/21/2023 9:40 AM Age: 68 years old Clinical indication: Condition or disease; Other: Colorectal cancer; Prior surgery; Surgery date: 6+ months; Surgery type: Colon, gb, hyst; Additional info: Malignant neoplasm of rectum TECHNIQUE: Imaging protocol: Diagnostic computed tomography of the chest with contrast. Radiation optimization: All CT scans at this facility use at least one of these dose optimization techniques: automated exposure control; mA and/or kV adjustment per patient size (includes targeted exams where dose is matched to clinical indication); or iterative reconstruction. Contrast material: OMNI 350; Contrast volume: 100 ml; Contrast route: INTRAVENOUS (IV); COMPARISON: CT chest abdpel w/*[id number] 12/31/2022 10:17 AM RADIATION DOSE METRICS: Total DLP (mGy-cm): 1522.67 FINDINGS: Lungs: Stable micro nodules. No new or enlarging pulmonary nodule. Pleural spaces: No pneumothorax or pleural effusion. Heart: No cardiomegaly. No pericardial effusion. Lymph nodes: No enlarged lymph nodes. Vasculature: No aortic aneurysm. 4.1 cm diameter of the main pulmonary artery, unchanged. Bones/joints: No acute findings Soft tissues: No acute findings. PROCEDURE INFORMATION: Exam: CT Abdomen And Pelvis With Contrast Exam date and time: 12/21/2023 9:40 AM Age: 68 years old Clinical indication: Condition or disease; Other: Colorectal cancer; Prior surgery; Surgery date: 6+ months; Surgery type: Colon, gb, hyst; Additional info: Malignant neoplasm of rectum TECHNIQUE: Imaging protocol: Computed tomography of the abdomen and pelvis with contrast. Radiation optimization: All CT scans at this facility use at least one of these dose optimization techniques: automated exposure control; mA and/or kV adjustment per patient size (includes targeted exams where dose is matched to clinical indication); or iterative reconstruction. Contrast material: OMNI 350; Contrast volume: 100 ml; Contrast route: INTRAVENOUS (IV); COMPARISON: CT abdomen pelvis w con* [id number] 06/08/2023 11:25 AM RADIATION DOSE METRICS: Total DLP (mGy-cm): 1522.67 FINDINGS: Liver: No acute findings Gallbladder and biliary ducts: Cholecystectomy. Pancreas: No ductal dilation. Spleen: No splenomegaly. Adrenal glands: No mass. Kidneys and ureters: No stones or hydronephrosis. Unchanged low-density left renal cyst as on prior ultrasound. Stomach and bowel: No obstruction. Left abdominal colostomy with parastomal hernia, unchanged. Appendix: No evidence of appendicitis. Intraperitoneal space: No free air. No significant fluid collection. Vasculature: No abdominal aortic aneurysm. Lymph nodes: No enlarged lymph nodes. Urinary bladder: Incompletely distended. Reproductive: Hysterectomy. Bones/joints: Chronic L5 compression fracture with unchanged retropulsion. Significant stenosis at the L4-L5 level Soft tissues: Presacral soft tissue changes presumably posttreatment related. CT/CT chest abdpel w/*[id number] IMPRESSION: No evidence of disease progression in the chest. IMPRESSION: No evidence of disease progression in the abdomen/pelvis.
[2023-12-21] MEDS: iohexol 350 mg/mL 500 mL Btl (per mL) IV (09:57)
== END 2023-12-27 23:59 | disposition home or self-care (01) ==
LOC: RAD 12-21 08:17 → ONCMED 12-21 08:18
PROVIDERS: Nurse Practitioner Family; PCP Family Medicine; Visit Provider Internal Medicine
DX: Z53.9 Procedure and treatment not carried out, unspecified reason (principal); C20 Malignant neoplasm of rectum; D50.9 Iron deficiency anemia, unspecified
CPT/HCPCS: 36415; 71260; 74177; 80053; 81003; 82274; 82378; 82525; 82746; 83921; 84238; 84443; 84630; 85025; 99213; Q9967

== ENCOUNTER 2024-01-25 09:00 | Oncology outpatient (recurring) (ONCR) | payer MEDICARE, SELFPAY ==
[2023-12-29 08:03] VITALS: BP 132/81; PULSE 81; RESP 18; TEMP 37; O2SAT 98
[2023-12-29] MEDS: sodium chloride 0.9% 500 ML 100 ML IV (08:24)
[2023-12-29] MEDS: acetaminophen 325 mg Tablet 650 MG PO (08:27)
[2023-12-29] MEDS: dexamethasone 10 mg/mL INJ IVP (08:28)
[2023-12-29] MEDS: diphenhydrAMINE 50 mg/mL SDV 1mL 25 MG IVP (08:30)
[2023-12-29] MEDS: ferric carboxy (PYXIS) 750 MG in sodium chloride 0.9% (100 ml) 100 ML 345 MG IV (09:14)
[2023-12-29 10:15] VITALS: BP 120/78; PULSE 78; RESP 18; TEMP 36.6; O2SAT 98
[2024-01-05] MEDS: sodium chloride 0.9% 500 ML 75 ML IV (08:35)
[2024-01-05] MEDS: acetaminophen 325 mg Tablet 650 MG PO (08:38)
[2024-01-05] MEDS: dexamethasone 10 mg/mL INJ IVP (08:39)
[2024-01-05] MEDS: diphenhydrAMINE 50 mg/mL SDV 1mL 25 MG IVP (08:47)
[2024-01-05] MEDS: ferric carboxy (PYXIS) 750 MG in sodium chloride 0.9% (100 ml) 100 ML 345 MG IV (09:24)
[2024-01-05 10:13] VITALS: BP 145/82; PULSE 91; RESP 16; TEMP 36.8; O2SAT 98
[2024-01-05 10:14] VITALS: BP 118/76; PULSE 74; RESP 17; TEMP 37.2; O2SAT 95
[2024-01-25 08:54] LABS: Basophils % 0.6 %; Eosinophils # 0.1 10^3/uL (0.0-0.8); Eosinophils % 2.4 %; Hematocrit 37.7 % (36-47); Lymphocytes # 1.8 10^3/uL (0.8-4.8); Lymphocytes % 37.6 %; Mean Corpuscular HGB Conc 30.5 g/dL (30-55); Mean Corpuscular Hemoglobin 27.3 pg (27-33); Mean Corpuscular Volume 89.3 fl (85-98); Monocytes # 0.4 10^3/uL (0.2-0.9); Monocytes % 7.8 %; Neutrophils # 2.52 10^3/uL (1.8-7.7); Neutrophils % 51.4 %; Nucleated Red Blood Cells % 0 %; Platelet Count 340 10^3/cmm (157-399); Red Blood Count 4.22 10^6/uL (3.85-5.65); Red Cell Distribution Width 23.5 % (12.1-15.1)
[2024-01-25 09:21] LABS: Alanine Aminotransferase 14 U/L (0-33); Albumin Level 4.1 g/dL (3.5-5.2); Alkaline Phosphatase 124 U/L (35-105); Aspartate Amino Transferase 15 U/L (0-32); Blood Urea Nitrogen 13 mg/dL (8-23); Calcium 9.4 mg/dL (8.5-10.5); Carbon Dioxide 27 mmol/L (22-29); Chloride 104 mmol/L (98-107); Creatinine Clr Calc Pharmacy 92.9789; Ferritin 152 ng/mL (15-150); Globulin 2.7 g/dL (1.3-4.6); Glomerular Filtration Rate 83.5 mL/min (90-130); Glucose 110 mg/dL (65-115); Iron 40 ug/dL (37-145); Osmolality Calculated 295 mOsm/kg (285-295); Sodium 142 mmol/L (136-145); Total Bilirubin 0.3 mg/dL (0.15-1.2); Total Iron Binding Capacity 250 mcg/dl; Total Protein 6.8 g/dL (6.6-8.7); Unsaturated Iron Binding 210 ug/dL (112-347)
== END 2024-01-27 23:59 | disposition home or self-care (01) ==
PROVIDERS: PCP Family Medicine; Visit Provider Internal Medicine Medical Oncology
DX: Z53.9 Procedure and treatment not carried out, unspecified reason (principal); D50.8 Other iron deficiency anemias; C20 Malignant neoplasm of rectum
CPT/HCPCS: 36415; 80053; 82728; 83540; 83550; 85025; 96365; 96375; 99214; J1100; J1200; J1439; J7040

== ENCOUNTER 2024-03-09 14:58 | Oncology outpatient (recurring) (ONCR) | payer MEDICARE, SELFPAY ==
[2024-03-09 15:30] LABS: Basophils % 0.6 %; Eosinophils # 0.2 10^3/uL (0.0-0.8); Eosinophils % 4.3 %; Lymphocytes # 1.8 10^3/uL (0.8-4.8); Mean Corpuscular HGB Conc 30.8 g/dL (30-55); Mean Corpuscular Hemoglobin 27.9 pg (27-33); Mean Corpuscular Volume 90.5 fl (85-98); Mean Platelet Volume 9.1 fL (7.4-10.4); Monocytes # 0.4 10^3/uL (0.2-0.9); Monocytes % 7.2 %; Neutrophils # 2.72 10^3/uL (1.8-7.7); Neutrophils % 52.5 %; Nucleated Red Blood Cells % 0 %; Platelet Count 486 10^3/cmm (157-399); Red Blood Count 4.09 10^6/uL (3.85-5.65); Red Cell Distribution Width 16.9 % (12.1-15.1); White Blood Count 5.17 10^3/uL (3.29-11.43)
[2024-03-09 15:51] LABS: Alanine Aminotransferase < 5 U/L (0-33); Albumin Level 4.1 g/dL (3.5-5.2); Alkaline Phosphatase 114 U/L (35-105); Chloride 99 mmol/L (98-107); Ferritin 76 ng/mL (15-150); Iron 35 ug/dL (37-145); Percent Saturation 14.6 % (20-50); Potassium 3.8 mmol/L (3.5-5.1); Sodium 138 mmol/L (136-145); Total Iron Binding Capacity 239 mcg/dl; Unsaturated Iron Binding 204 ug/dL (112-347)
[2024-03-09 16:04] LABS: Anion Gap 16.8 (5-19); Aspartate Amino Transferase 10 U/L (0-32); Blood Urea Nitrogen 13 mg/dL (8-23); Calcium 9.2 mg/dL (8.5-10.5); Carbon Dioxide 26 mmol/L (22-29); Globulin 2.8 g/dL (1.3-4.6); Glomerular Filtration Rate 83.5 mL/min (90-130); Glucose 156 mg/dL (65-115); Osmolality Calculated 289 mOsm/kg (285-295); Total Bilirubin 0.2 mg/dL (0.15-1.2); Total Protein 6.9 g/dL (6.6-8.7)
[2024-03-09 17:11] LABS: Carcinoembryonic Antigen 3.9 ng/mL (0.0-4.7)
== END 2024-03-28 23:59 | disposition home or self-care (01) ==
LOC: ONCMED 14:58
PROVIDERS: PCP Family Medicine; Visit Provider Internal Medicine Medical Oncology
DX: D50.8 Other iron deficiency anemias (principal); C20 Malignant neoplasm of rectum
CPT/HCPCS: 36415; 80053; 82378; 82728; 83540; 83550; 85025

== ENCOUNTER 2024-06-10 07:56 | Oncology outpatient (recurring) (ONCR) | payer MEDICARE, SELFPAY ==
[2024-06-10 08:25] LABS: Basophils % 0.5 %; Eosinophils # 0.2 10^3/uL (0.0-0.8); Eosinophils % 3.3 %; Hematocrit 40.5 % (36-47); Lymphocytes # 1.8 10^3/uL (0.8-4.8); Lymphocytes % 29.8 %; Mean Corpuscular HGB Conc 31.1 g/dL (30-55); Mean Corpuscular Hemoglobin 28.7 pg (27-33); Mean Corpuscular Volume 92.3 fl (85-98); Mean Platelet Volume 9.3 fL (7.4-10.4); Monocytes # 0.4 10^3/uL (0.2-0.9); Monocytes % 7.2 %; Neutrophils # 3.54 10^3/uL (1.8-7.7); Nucleated Red Blood Cells % 0 %; Platelet Count 355 10^3/cmm (157-399); Red Blood Count 4.39 10^6/uL (3.85-5.65); Red Cell Distribution Width 14.2 % (12.1-15.1)
[2024-06-10 08:55] LABS: Alanine Aminotransferase 12 U/L (0-33); Albumin Level 4.2 g/dL (3.5-5.2); Alkaline Phosphatase 103 U/L (35-105); Aspartate Amino Transferase 16 U/L (0-32); Blood Urea Nitrogen 14 mg/dL (8-23); Calcium 9.4 mg/dL (8.5-10.5); Carbon Dioxide 26 mmol/L (22-29); Chloride 100 mmol/L (98-107); Creatinine Clr Calc Pharmacy 91.8982; Ferritin 45 ng/mL (15-150); Globulin 3.1 g/dL (1.3-4.6); Glomerular Filtration Rate 71.3 mL/min (90-130); Glucose 128 mg/dL (65-115); Iron 62 ug/dL (37-145); Osmolality Calculated 286 mOsm/kg (285-295); Percent Saturation 19.8 % (20-50); Sodium 137 mmol/L (136-145); Total Bilirubin 0.5 mg/dL (0.15-1.2); Total Iron Binding Capacity 312 mcg/dl; Total Protein 7.3 g/dL (6.6-8.7); Unsaturated Iron Binding 250 ug/dL (112-347)
[2024-06-10 09:04] LABS: Carcinoembryonic Antigen 3.1 ng/mL (0.0-4.7)
== END 2024-06-28 23:59 | disposition home or self-care (01) ==
PROVIDERS: PCP Family Medicine; Visit Provider Internal Medicine Medical Oncology
DX: C20 Malignant neoplasm of rectum (principal); D50.8 Other iron deficiency anemias; Z92.3 Personal history of irradiation; Z92.21 Personal history of antineoplastic chemotherapy; Z90.49 Acquired absence of other specified parts of digestive tract; Z93.2 Ileostomy status; M48.061 Spinal stenosis, lumbar region without neurogenic claudication; N28.89 Other specified disorders of kidney and ureter
CPT/HCPCS: 36415; 80053; 82378; 82728; 83540; 83550; 85025; 99214

== ENCOUNTER 2024-07-04 08:54 | Oncology outpatient (recurring) (ONCR) | payer MEDICARE, SELFPAY ==
[2024-07-04] MEDS: iohexol 350 mg/mL 500 mL Btl (per mL) PO (09:58)
--- NOTE | 2024-07-04 10:00 | CT_ITS ---
WS: [id number] CT CHEST, ABDOMEN AND PELVIS WITH CONTRAST HISTORY: Follow-up colorectal cancer. TECHNIQUE: Contiguous 5 mm axial imaging performed through the chest, abdomen and pelvis with IV cont rast, oral contrast has been provided. Coronal and sagittal reformats chest. Coronal and sagittal ref ormats through the abdomen and pelvis. All CT scans at [facility] use at least one of these d ose optimization techniques: automated exposure control; mA and/or kV adjustment per patient size (in cludes targeted exams where dose is matched to clinical indication); or iterative reconstruction. CONTRAST: Omnipaque 350; 100 mL IV. DLP: 1498.24 mGy.cm COMPARISON: 12/21/[address]: No new or enlarging mass. There are a few tiny calcified pulmonary nodules. No pneumonia or endobronchial lesions. Micronodule LEFT lower lobe is stable. Heart is very slightly enlarged. No pe ricardial or pleural effusions. No mediastinal or hilar adenopathy. Mild atherosclerosis aorta. Pulmo nary artery is slightly dilated but stable. Abdomen CT: Hepatic steatosis with no mass. No metastatic disease to the liver or adrenal glands. Sanna or cholecystectomy. Splenic granulomata. Normal pancreas. No renal obstruction. Mild atherosclerosis aorta. LEFT lower abdominal wall colostomy with large parastomal hernia. Hernia contains small bowel and col on with no obstruction. Colon proximal to the colostomy is slightly dilated with fecal material and a ir. Similar to the prior study. No ascites or adenopathy. Pelvic CT: Well-distended urinary bladder. No ascites or adenopathy. Prior hysterectomy. Minimal pres acral soft tissue thickening is probably related to prior radiation treatment. Soft tissue thickening does appear to have improved. 50% anterior wedging of L5. Similar to the prior study of 12/21/2023. Central canal stenosis at L4-[address]/CT chest abdpel w/*[id number] IMPRESSION: 1. Stable LEFT lower quadrant colostomy with large parastomal hernia. Colon pr oximal to the colostomy site is slightly dilated and distended with feces and f luid but similar to the prior study. 2. No metastatic disease to the liver or adrenal glands. 3. Stable small pulmonary nodules. No metastatic pulmonary nodules. 4. No adenopathy in the chest, abdomen or pelvis. 5. Prior cholecystectomy. 6. No progression of presacral soft tissue.
[2024-07-04] MEDS: iohexol 350 mg/mL 500 mL Btl (per mL) IV (10:13)
== END 2024-07-29 23:59 | disposition home or self-care (01) ==
PROVIDERS: PCP Family Medicine; Visit Provider Nurse Practitioner Family
DX: C20 Malignant neoplasm of rectum (principal); N28.89 Other specified disorders of kidney and ureter; R91.8 Other nonspecific abnormal finding of lung field; Z90.49 Acquired absence of other specified parts of digestive tract
CPT/HCPCS: 71260; 74177

== ENCOUNTER 2024-08-12 09:15 | Oncology outpatient (recurring) (ONCR) | payer MEDICARE, SELFPAY ==
[2024-08-12 10:08] LABS: Basophils % 0.7 %; Eosinophils # 0.1 10^3/uL (0.0-0.8); Eosinophils % 2.2 %; Hematocrit 41.1 % (36-47); Lymphocytes # 1.7 10^3/uL (0.8-4.8); Lymphocytes % 29.3 %; Mean Corpuscular HGB Conc 31.6 g/dL (30-55); Mean Corpuscular Hemoglobin 28.3 pg (27-33); Mean Corpuscular Volume 89.5 fl (85-98); Mean Platelet Volume 9.2 fL (7.4-10.4); Monocytes # 0.6 10^3/uL (0.2-0.9); Monocytes % 10.5 %; Neutrophils # 3.39 10^3/uL (1.8-7.7); Neutrophils % 57.1 %; Nucleated Red Blood Cells % 0 %; Platelet Count 354 10^3/cmm (157-399); Red Blood Count 4.59 10^6/uL (3.85-5.65); Red Cell Distribution Width 13.3 % (12.1-15.1); White Blood Count 5.93 10^3/uL (3.29-11.43)
[2024-08-12 10:52] LABS: Alanine Aminotransferase 14 U/L (0-33); Albumin Level 4.1 g/dL (3.5-5.2); Alkaline Phosphatase 106 U/L (35-105); Anion Gap 17.2 (5-19); Aspartate Amino Transferase 15 U/L (0-32); Blood Urea Nitrogen 14 mg/dL (8-23); Calcium 9.6 mg/dL (8.5-10.5); Carbon Dioxide 25 mmol/L (22-29); Chloride 101 mmol/L (98-107); Glomerular Filtration Rate 83.2 mL/min (90-130); Glucose 87 mg/dL (65-115); Osmolality Calculated 288 mOsm/kg (285-295); Potassium 4.2 mmol/L (3.5-5.1); Sodium 139 mmol/L (136-145); Total Bilirubin 0.3 mg/dL (0.15-1.2); Total Protein 7.1 g/dL (6.6-8.7)
[2024-08-15 16:09] LABS: Ferritin 38 ng/mL (15-150); Iron 52 ug/dL (37-145); Percent Saturation 16.3 % (20-50); Total Iron Binding Capacity 319 mcg/dl; Unsaturated Iron Binding 267 ug/dL (112-347)
== END 2024-08-26 23:59 | disposition home or self-care (01) ==
PROVIDERS: PCP Family Medicine; Visit Provider Nurse Practitioner Family
DX: C20 Malignant neoplasm of rectum (principal); D50.8 Other iron deficiency anemias
CPT/HCPCS: 36415; 80053; 82378; 82728; 83540; 83550; 85025

== ENCOUNTER 2024-10-24 13:51 | Oncology outpatient (recurring) (ONCR) | payer MEDICARE, SELFPAY ==
[2024-10-07 09:18] LABS: Basophils # 0.1 10^3/uL (0.0-0.1); Basophils % 0.9 %; Eosinophils # 0.2 10^3/uL (0.0-0.8); Eosinophils % 2.3 %; Hematocrit 42.8 % (36-47); Lymphocytes # 1.8 10^3/uL (0.8-4.8); Lymphocytes % 27.5 %; Mean Corpuscular HGB Conc 31.1 g/dL (30-55); Mean Corpuscular Hemoglobin 28.9 pg (27-33); Mean Corpuscular Volume 92.8 fl (85-98); Mean Platelet Volume 9.2 fL (7.4-10.4); Monocytes # 0.5 10^3/uL (0.2-0.9); Monocytes % 8.4 %; Neutrophils # 3.89 10^3/uL (1.8-7.7); Neutrophils % 60.6 %; Nucleated Red Blood Cells % 0 %; Platelet Count 346 10^3/cmm (157-399); Red Blood Count 4.61 10^6/uL (3.85-5.65); Red Cell Distribution Width 13.6 % (12.1-15.1); White Blood Count 6.43 10^3/uL (3.29-11.43)
[2024-10-07 09:39] LABS: Alanine Aminotransferase 18 U/L (0-33); Albumin Level 4.3 g/dL (3.5-5.2); Alkaline Phosphatase 104 U/L (35-105); Anion Gap 15.8 (5-19); Aspartate Amino Transferase 18 U/L (0-32); Blood Urea Nitrogen 18 mg/dL (8-23); Calcium 9.6 mg/dL (8.5-10.5); Carbon Dioxide 26 mmol/L (22-29); Chloride 105 mmol/L (98-107); Ferritin 36 ng/mL (15-150); Glomerular Filtration Rate 71.3 mL/min (90-130); Glucose 112 mg/dL (65-115); Iron 48 ug/dL (37-145); Osmolality Calculated 299 mOsm/kg (285-295); Percent Saturation 14.2 % (20-50); Potassium 3.8 mmol/L (3.5-5.1); Sodium 143 mmol/L (136-145); Total Bilirubin 0.4 mg/dL (0.15-1.2); Total Iron Binding Capacity 336 mcg/dl; Total Protein 7.3 g/dL (6.6-8.7); Unsaturated Iron Binding 288 ug/dL (112-347)
[2024-10-24] MEDS: dexamethasone 10 mg/mL INJ IVP (15:09)
[2024-10-24] MEDS: acetaminophen 325 mg Tablet 650 MG PO ×2 (15:09→15:20)
[2024-10-24] MEDS: sodium chloride 0.9% 250 ML IV (15:09)
[2024-10-24] MEDS: diphenhydrAMINE 50 mg/mL SDV 1mL 25 MG IVP (15:16)
[2024-10-24] MEDS: ferric carboxy (PYXIS) 750 MG in sodium chloride 0.9% (100 ml) 100 ML 345 MG IV (15:39)
== END 2024-10-26 23:59 | disposition home or self-care (01) ==
PROVIDERS: PCP Family Medicine; Visit Provider Nurse Practitioner Family
DX: D50.8 Other iron deficiency anemias (principal); Z79.52 Long term (current) use of systemic steroids; Z79.899 Other long term (current) drug therapy; T45.4X5A Adverse effect of iron and its compounds, initial encounter
CPT/HCPCS: 36415; 80053; 82728; 83540; 83550; 85025; 96365; J1100; J1200; J1439; J7050; J9999

== ENCOUNTER 2024-10-31 13:41 | Oncology outpatient (recurring) (ONCR) | payer MEDICARE, SELFPAY ==
[2024-10-31] MEDS: acetaminophen 325 mg Tablet 650 MG PO (14:16)
[2024-10-31] MEDS: sodium chloride 0.9% 250 ML 75 ML IV (14:17)
[2024-10-31] MEDS: diphenhydrAMINE 50 mg/mL SDV 1mL 25 MG IVP (14:17)
[2024-10-31] MEDS: dexamethasone 10 mg/mL INJ IVP (14:20)
[2024-10-31] MEDS: ferric carboxy (PYXIS) 750 MG in sodium chloride 0.9% (100 ml) 100 ML 215 MG IV (14:31)
[2024-10-31 15:27] VITALS: BP 127/87; PULSE 99; RESP 18; TEMP 35.9; O2SAT 94
== END 2024-11-26 23:59 | disposition home or self-care (01) ==
LOC: ONCMED 13:42
PROVIDERS: PCP Family Medicine; Visit Provider Nurse Practitioner Family
DX: D50.8 Other iron deficiency anemias (principal); Z79.899 Other long term (current) drug therapy; Z79.52 Long term (current) use of systemic steroids
CPT/HCPCS: 96365; 96375; J1100; J1200; J1439; J7050; J9999

== ENCOUNTER 2024-12-06 09:48 | Oncology outpatient (recurring) (ONCR) | payer MEDICARE, SELFPAY ==
[2024-12-06 10:15] LABS: Basophils # 0.1 10^3/uL (0.0-0.1); Eosinophils # 0.3 10^3/uL (0.0-0.8); Eosinophils % 3.5 %; Hematocrit 44.1 % (36-47); Lymphocytes # 2.1 10^3/uL (0.8-4.8); Mean Corpuscular HGB Conc 31.7 g/dL (30-55); Mean Corpuscular Hemoglobin 30.2 pg (27-33); Mean Platelet Volume 9.9 fL (7.4-10.4); Monocytes # 0.6 10^3/uL (0.2-0.9); Monocytes % 7.8 %; Neutrophils # 4.21 10^3/uL (1.8-7.7); Neutrophils % 58.6 %; Nucleated Red Blood Cells % 0 %; Platelet Count 337 10^3/cmm (157-399); Red Blood Count 4.64 10^6/uL (3.85-5.65); Red Cell Distribution Width 13.5 % (12.1-15.1); White Blood Count 7.18 10^3/uL (3.29-11.43)
[2024-12-06 10:27] LABS: Alanine Aminotransferase 21 U/L (0-33); Albumin Level 4.3 g/dL (3.5-5.2); Alkaline Phosphatase 124 U/L (35-105); Anion Gap 18.2 (5-19); Aspartate Amino Transferase 19 U/L (0-32); Blood Urea Nitrogen 16 mg/dL (8-23); Calcium 9.4 mg/dL (8.5-10.5); Carbon Dioxide 24 mmol/L (22-29); Chloride 102 mmol/L (98-107); Globulin 2.5 g/dL (1.3-4.6); Glomerular Filtration Rate 62.3 mL/min (90-130); Glucose 110 mg/dL (65-115); Osmolality Calculated 292 mOsm/kg (285-295); Potassium 4.2 mmol/L (3.5-5.1); Sodium 140 mmol/L (136-145); Total Protein 6.8 g/dL (6.6-8.7)
[2024-12-06 10:32] LABS: Total Bilirubin 0.4 mg/dL (0.15-1.2)
[2024-12-06 10:54] LABS: Carcinoembryonic Antigen 4.3 ng/mL (0.0-4.7)
== END 2024-12-26 23:59 | disposition home or self-care (01) ==
PROVIDERS: Internal Medicine Medical Oncology; PCP Family Medicine; Visit Provider Nurse Practitioner Family
DX: Z53.9 Procedure and treatment not carried out, unspecified reason; C20 Malignant neoplasm of rectum; D50.8 Other iron deficiency anemias; Z79.899 Other long term (current) drug therapy; Z79.52 Long term (current) use of systemic steroids
CPT/HCPCS: 36415; 80053; 82378; 85025; 99214

== ENCOUNTER 2024-12-27 09:15 | Outpatient (CLI) | payer MEDICARE, SELFPAY ==
--- NOTE | 2024-12-27 09:21 | MM_ITS ---
WS: [id number] BILATERAL 3D TOMOSYNTHESIS DIGITAL SCREENING MAMMOGRAPHY WITH CAD CLINICAL INFORMATION: SCREENING HISTORY: Screening mammogram. No current complaints. COMPARISON: 2017 TECHNIQUE: Bilateral CC and MLO views. FINDINGS: The breasts are composed of heterogeneous fibroglandular density tissue, which can limit the detection of small underlying mass lesions. No suspicious mass, asymmetry, calcifications, or architectural distortion. No evidence of malignancy. Vascular calcification. Dystrophic calcifications LEFT breast. Incidental punctate and lucent centered calcifications. MM/MM [facility] tomosynthesis [id number] IMPRESSION: DENSITY: The breasts are heterogeneously dense, which may obscure small masses. BI-RADS: 2 - Benign FOLLOW UP: 1 Year Follow-up Recommend return to annual screening mammography.
== END 2024-12-27 09:16 | disposition home or self-care (01) ==
LOC: RAD 09:15
PROVIDERS: PCP Family Medicine; Visit Provider Family Medicine
DX: Z12.31 Encounter for screening mammogram for malignant neoplasm of breast (principal); R92.333 Mammographic heterogeneous density, bilateral breasts; R92.1 Mammographic calcification found on diagnostic imaging of breast
CPT/HCPCS: 77063; 77067

== ENCOUNTER 2025-01-27 09:50 | Outpatient (CLI) | payer MEDICARE, SELFPAY ==
--- NOTE | 2025-01-27 09:59 | USCV_ITS ---
Gregoria Barth Age: 69 Gender: F : 1955 Exam Date: 01/27/2025 10:25 Ordering Phys: Alfredo Dow MD Technologist: Sharan Spencer Exam Location: [facility] [place] Indication: afib BP: 134 / 74 HR: 100 Rhythm: Atrial fibrillation Technical Quality: Adequate MEASUREMENTS (Male / Female) Normal Values 2D ECHO LV Diastolic Diameter PLAX 4.4 cm 4.2 - 5.9 / 3.9 - 5.3 cm IVS Diastolic Thickness 1.3 cm 0.6 - 1.0 / 0.6 - 0.9 cm IVS Systolic Thickness 1.4 cm LVPW Diastolic Thickness 1.5 cm 0.6 - 1.0 / 0.6 - 0.9 cm LVPW Systolic Thickness 2.1 cm LVOT Diameter 2.0 cm LV Ejection Fraction 2D Teich 57.7 % LV Ejection Fraction MOD 4C 59.3 % LV Ejection Fraction MOD 2C 58.2 % LV Ejection Fraction 2C AL 57.4 % LA Diameter 4.0 cm RA Systolic Volume 4C AL 51.6 ml RA Systolic Volume 4C MOD 48.3 ml LA Sys Volume AL 63.3 cm cubed LA Sys Volume Index AL 28.3 cm cubed/m squared Aorta at Sinotubular Diameter 2.4 cm IVC Diameter 1.9 cm M-MODE LA Ao Ratio MM 1.4 AV Cusp Separation MM 1.6 cm DOPPLER AV Peak Velocity 180.7 cm/s LVOT Peak Velocity 89.0 cm/s AV Area Cont Eq vti 1.2 cm squared AV Area Cont Eq pk 1.6 cm squared MV Peak Velocity 135.0 cm/s MV Area PHT 4.5 cm squared Mitral E to A Ratio 29.2 TR Peak Velocity 238.0 cm/s TR Peak Gradient 22.7 mmHg TR Mean Velocity 191.0 cm/s TR Mean Gradient 15.7 mmHg TR Velocity Time Integral 58.5 cm PV Peak Velocity 102.3 cm/s RV Ejection Time 0.2 s FINDINGS Left Ventricle Normal left ventricular size, systolic function and wall thickness, with no regional wall motion abnormalities. Left ventricular ejection fraction is estimated at 50-55 %. Grade III/IV diastolic dysfunction (restrictive filling pattern), severely elevated filling pressures. Right Ventricle The right ventricle is normal in size and function. Right Atrium The right atrium is normal in size. Left Atrium Moderately increased left atrial size. Mitral Valve Mildly thickened mitral valve. No mitral valve stenosis. Severe mitral valve regurgitation directed posteriorly wall hugging. Aortic Valve Mild aortic valve calcification. No aortic valve stenosis. Trace aortic valve regurgitation. Tricuspid Valve Moderate tricuspid valve regurgitation. Pulmonic Valve Structurally normal pulmonic valve without significant stenosis. There is no pulmonic regurgitation. Pericardium Normal pericardium without effusion. Aorta Normal ascending aorta dimension. IVC Moderately dilated IVC. CONCLUSIONS Normal left ventricular size, systolic function and wall thickness, with no regional wall motion abnormalities. Left ventricular ejection fraction is estimated at 50-55 %. Grade III/IV diastolic dysfunction (restrictive filling pattern), severely elevated filling pressures. Moderately increased left atrial size. Mildly thickened mitral valve. No mitral valve stenosis. Severe mitral valve regurgitation directed posteriorly wall hugging. Mild aortic valve calcification. No aortic valve stenosis. Trace aortic valve regurgitation. Moderate tricuspid valve regurgitation. There is no pericardial effusion. Right atrial pressure is around 20 mm of mercury. Raeann Pelletier MD (Electronically Signed) Final Date: 28 January 2025 19:02 S
== END 2025-01-27 09:51 | disposition home or self-care (01) ==
LOC: RAD 09:52
PROVIDERS: PCP Family Medicine; Visit Provider Family Medicine
DX: I48.91 Unspecified atrial fibrillation (principal); I50.30 Unspecified diastolic (congestive) heart failure; I34.0 Nonrheumatic mitral (valve) insufficiency; I35.8 Other nonrheumatic aortic valve disorders; I35.1 Nonrheumatic aortic (valve) insufficiency; I36.1 Nonrheumatic tricuspid (valve) insufficiency
CPT/HCPCS: 93306

== ENCOUNTER 2025-03-07 12:46 | Oncology outpatient (recurring) (ONCR) | payer MEDICARE, SELFPAY ==
--- NOTE | 2025-02-28 11:00 | CTR_ITS ---
PROCEDURE INFORMATION: Exam: CT Chest With Contrast; Diagnostic Exam date and time: 02/28/2025 11:17 AM Age: 69 years old Clinical indication: Condition or disease; Cancer; Other: Malignant neoplasm of rectum; Prior surgery; Surgery date: 6+ months; Surgery type: Colon, gb, hyst TECHNIQUE: Imaging protocol: Diagnostic computed tomography of the chest with contrast. Radiation optimization: All CT scans at this facility use at least one of these dose optimization techniques: automated exposure control; mA and/or kV adjustment per patient size (includes targeted exams where dose is matched to clinical indication); or iterative reconstruction. Contrast material: OMNI 350; Contrast volume: 100 ml; Contrast route: INTRAVENOUS (IV); COMPARISON: 1. CT chest abdpel w/*[id number] 07/04/2024 10:[address] chest abdpel w/*[id number] 12/21/2023 9:[address] abdomen pelvis w con* [id number] 06/08/2023 11:25 AM RADIATION DOSE METRICS: Total DLP (mGy-cm): 1562.77 FINDINGS: Lungs: Few calcified granulomas in the left lung. No suspicious pulmonary nodules. No consolidation. Pleural spaces: Unremarkable. No pneumothorax. No pleural effusion. Heart: Unremarkable. No cardiomegaly. No pericardial effusion. Coronary arteries: No coronary artery calcifications. Lymph nodes: Unremarkable. No enlarged lymph nodes. Vasculature: Aortic atherosclerotic disease is seen without evidence of aneurysm. Bones/joints: Unremarkable. No acute fracture. Soft tissues: Unremarkable. PROCEDURE INFORMATION: Exam: CT Abdomen And Pelvis With Contrast Exam date and time: 02/28/2025 11:17 AM Age: 69 years old Clinical indication: Condition or disease; Cancer; Other: Malignant neoplasm of rectum; Prior surgery; Surgery date: 6+ months; Surgery type: Colon, gb, hyst TECHNIQUE: Imaging protocol: Computed tomography of the abdomen and pelvis with contrast. Radiation optimization: All CT scans at this facility use at least one of these dose optimization techniques: automated exposure control; mA and/or kV adjustment per patient size (includes targeted exams where dose is matched to clinical indication); or iterative reconstruction. Contrast material: OMNI 350; Contrast volume: 100 ml; Contrast route: INTRAVENOUS (IV); COMPARISON: CT chest abdpel w/*[id number] 07/04/2024 10:05 AM RADIATION DOSE METRICS: Total DLP (mGy-cm): 1562.77 FINDINGS: Liver: Diffuse hepatic hypoattenuation. Gallbladder and biliary ducts: Status post cholecystectomy. No evidence of significant biliary obstruction. Pancreas: Normal. No ductal dilation. Spleen: Normal. No splenomegaly. Adrenal glands: Normal. No mass. Kidneys and ureters: Interval partial involution of 10 mm left renal cyst. No hydronephrosis. Stomach and bowel: Stable postoperative changes from distal colectomy and left lower quadrant colostomy formation. Bowel has normal caliber. Appendix: No evidence of appendicitis. Intraperitoneal space: Unremarkable. No free air. No significant fluid collection. Vasculature: Unremarkable. No abdominal aortic aneurysm. Lymph nodes: Unremarkable. No enlarged lymph nodes. Urinary bladder: Unremarkable as visualized. Reproductive: Uterus is surgically absent. No evidence of adnexal mass. Bones/joints: Unremarkable. No acute fracture. Soft tissues: Large left lower quadrant peristomal hernia containing multiple nonobstructed bowel loops. Stable chronic presacral soft tissue thickening with dystrophic calcifications. CT/CT chest abdpel w/*[id number] IMPRESSION: No evidence of new or progressive malignancy in the chest. IMPRESSION: 1. No evidence of new or progressive malignancy in the abdomen or pelvis. 2. Hepatic steatosis. COMMENTS: Consistent with the [employer]'s Incidental Findings Committee white paper (J Am Ghulam Radiol 2018): Any incidental renal lesion less than 1 cm or classified as too small to characterize, or any incidental cystic renal lesion characterized as simple-appearing, is likely benign. No follow-up imaging is recommended for these lesions per consensus recommendations based on imaging criteria.
[2025-02-28] MEDS: iohexol 350 mg/mL 500 mL Btl (per mL) PO (11:13)
[2025-02-28 11:15] LABS: Blood Urea Nitrogen 14 mg/dL (8-23)
[2025-02-28] MEDS: iohexol 350 mg/mL 500 mL Btl (per mL) IV (11:20)
[2025-02-28 11:51] LABS: Hematocrit 41.0 % (36-47); Hemoglobin 13.60 g/dL (11.27-16.99); Mean Corpuscular HGB Conc 33.2 g/dL (30-55); Mean Corpuscular Hemoglobin 31.1 pg (27-33); Mean Corpuscular Volume 93.6 fl (85-98); Nucleated Red Blood Cells % 0 %; Platelet Count 340 10^3/cmm (157-399); Red Blood Count 4.38 10^6/uL (3.85-5.65); White Blood Count 7.53 10^3/uL (3.29-11.43)
[2025-02-28 12:12] LABS: Alanine Aminotransferase 21 U/L (0-33); Albumin Level 4.1 g/dL (3.5-5.2); Alkaline Phosphatase 112 U/L (35-105); Anion Gap 14.5 (5-19); Aspartate Amino Transferase 18 U/L (0-32); Blood Urea Nitrogen 15 mg/dL (8-23); Calcium 9.5 mg/dL (8.5-10.5); Carbon Dioxide 27 mmol/L (22-29); Chloride 97 mmol/L (98-107); Ferritin 379 ng/mL (15-150); Globulin 3.0 g/dL (1.3-4.6); Glucose 77 mg/dL (65-115); Iron 72 ug/dL (37-145); Osmolality Calculated 280 mOsm/kg (285-295); Potassium 3.5 mmol/L (3.5-5.1); Sodium 135 mmol/L (136-145); Total Iron Binding Capacity 261 mcg/dl; Total Protein 7.1 g/dL (6.6-8.7); Unsaturated Iron Binding 189 ug/dL (112-347)
[2025-02-28 12:28] LABS: Vitamin B12 310 pg/mL (232-1245)
[2025-02-28 13:17] LABS: Carcinoembryonic Antigen 3.0 ng/mL (0.0-4.7)
== END 2025-03-28 23:59 | disposition home or self-care (01) ==
PROVIDERS: Internal Medicine Medical Oncology; PCP Family Medicine; Visit Provider Nurse Practitioner Family
DX: Z08 Encounter for follow-up examination after completed treatment for malignant neoplasm (principal); Z85.048 Personal history of other malignant neoplasm of rectum, rectosigmoid junction, and anus; R03.0 Elevated blood-pressure reading, without diagnosis of hypertension; I34.0 Nonrheumatic mitral (valve) insufficiency; I51.89 Other ill-defined heart diseases; Z92.3 Personal history of irradiation; Z92.21 Personal history of antineoplastic chemotherapy
CPT/HCPCS: 36415; 71260; 74177; 80053; 82378; 82565; 82607; 82728; 82746; 83540; 83550; 84520; 85025; 99214

== ENCOUNTER → 2025-03-23 13:57 | Outpatient (BNVA) | payer MEDICARE, SELFPAY | PROVIDERS: PCP Family Medicine; Referring Provider Family Medicine; Visit Provider Internal Medicine Cardiovascular Disease | DX: I51.89 Other ill-defined heart diseases (principal); I48.91 Unspecified atrial fibrillation; R07.9 Chest pain, unspecified | CPT/HCPCS: 93005; 99204 ==

== ENCOUNTER → 2025-05-01 08:06 | Outpatient (BNVA) | payer MEDICARE, OTHER, SELFPAY | PROVIDERS: PCP Family Medicine; Visit Provider Internal Medicine Cardiovascular Disease | DX: R40.0 Somnolence (principal); I48.19 Other persistent atrial fibrillation; Z79.82 Long term (current) use of aspirin; R06.09 Other forms of dyspnea; R01.1 Cardiac murmur, unspecified | CPT/HCPCS: 99214 ==

== ENCOUNTER 2025-05-04 07:20 | Outpatient (CLI) | payer MEDICARE, OTHER, SELFPAY ==
--- NOTE | 2025-05-04 | ECG_ITS ---
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 Interpretive Statements Lung unchanged pre/post procedure; Intraprocedure shortess of breath;; Symptoms resoled by discharge PROCEDURE: At the baseline, the EKG revealed normal sinus rhythm with a poor R wave progression. Possible old septal CO. Left axis deviation the baseline heart was 92 bpm with a blood pressue of 147/74 mm of Hg Lexiscan was infused over a period of 20 seconds. A total of 0.4 milligrams of Lexiscan was infused. The stress phase was continued for a total of 5 minutes. Heart rate at the end of the stress phase was 98 bpm with a blood pressure 148/84 mm of Hg. The EKG at the peak infusion revealed no significant changes. Sestamibi was injected 20 seconds after the Lexiscan infusion. Heart rate at the end of the recovery phase was 88 bpm with a blood pressure of 137/85 mm of Hg. CONCLUSION: 1. No significant EKG changes with the LexiScan infusion 2. No LexiScan induced chest pain or cardiac arrhythmia 3. Normal blood pressure and heart rate response 4. Sestamibi/sestamibi perfusion scan pending; see separate report. Electronically Signed On 05-05-2025 20:11:50 LAST SAWYER by Terra Carpio M.D. [email or web address]
--- NOTE | 2025-05-04 07:22 | NMCV_ITS ---
NM mame perf SPECT r/s* [id number] Gregoria Barth Age: 69 Gender: F : 1955 Exam Date: 05/04/2025 08:37 Ordering Phys: Vitor Ruiz MD ([email or web address]) Technologist: DORI Juarez Exam Location: [facility] Indications: cp STRESS TEST Please see separate stress test report in [facility] for full findings IMAGE PROTOCOL Rest/Stress 1 Lexiscan Day Radiopharmaceutical Dose (mCi) Administration Site Administered by Rest: Tc-99m 10.9 IV Karin Sanchez, MACHINE OPERATOR HAY STACKER Sestamibi Stress:Tc-99m 32.4 IV Karin Sanchez, MACHINE OPERATOR HAY STACKER Sestamibi Rest: 04-May-2025 60 Discovery 630 Stress: 04-May-2025 30 Discovery 630 0.4mg Lexiscan. Supine position only as patient was unable to lay prone. SPECT RESULTS Technical Quality: Good Raw Data Analysis: Normal Image Corrections: No attenuation or motion correction applied Summed Stress Score: 1 Summed Rest Score: 5 Summed Difference Score: 0 PERFUSION FINDINGS Patchy areas of decreased tracer uptake were noted in the apical regions. No significant reversibility was noted FUNCTIONAL RESULTS (calculated via Gated SPECT) Stress Image LV EF (%): 63 Stress EDV (mL):115 TID: 1.03 Stress ESV (mL):42 FUNCTIONAL FINDINGS: Segmental wall motion analysis revealing no gross wall motion abnormalities IMPRESSIONS 1. Patchy areas of persistent decreased tracer uptake in the apical regions, most likely represent attrition artifact 2. Normal LV ejection fraction of 63%. 3. LV wall motion analysis revealing no gross wall motion abnormalities. 4. Normal LV volume. Low probability for coronary ischemia, based on the above findings Dr Terra Carpio MD FACC (Electronically Signed) Final Date: 04 May 2025 12:35 S
[2025-05-04 08:24] VITALS: BMI 39.1
[2025-05-04 09:32] VITALS: BP 137/85; PULSE 88
== END 2025-05-04 07:21 | disposition home or self-care (01) ==
LOC: CDL 07:21
PROVIDERS: PCP Family Medicine; Visit Provider Internal Medicine Cardiovascular Disease
DX: R07.9 Chest pain, unspecified (principal); R93.1 Abnormal findings on diagnostic imaging of heart and coronary circulation
CPT/HCPCS: 36415; 78452; 93017; 96374; A9500; J2785

== ENCOUNTER → 2025-05-15 07:50 | Outpatient (BNVA) | payer MEDICARE, OTHER, SELFPAY | PROVIDERS: PCP Family Medicine; Visit Provider Internal Medicine Cardiovascular Disease | DX: I48.20 Chronic atrial fibrillation, unspecified (principal); I49.3 Ventricular premature depolarization | CPT/HCPCS: 93242 ==

== ENCOUNTER 2025-06-01 14:17 | Outpatient (CLI) | payer MEDICARE, OTHER, SELFPAY | END 2025-06-01 14:18 | disposition home or self-care (01) | LOC: SLEEP 14:17 | PROVIDERS: PCP Family Medicine; Referring Provider Internal Medicine Cardiovascular Disease; Visit Provider Internal Medicine Pulmonary Disease | DX: R40.0 Somnolence (principal) | CPT/HCPCS: G0399 ==

== ENCOUNTER → 2025-06-12 08:09 | Outpatient (BNVA) | payer MEDICARE, OTHER, SELFPAY | PROVIDERS: PCP Family Medicine; Visit Provider Internal Medicine Cardiovascular Disease | DX: I48.19 Other persistent atrial fibrillation (principal); Z79.82 Long term (current) use of aspirin; R06.09 Other forms of dyspnea; G47.30 Sleep apnea, unspecified | CPT/HCPCS: 99214 ==